=== PATIENT | female | born 1950 | race Caucasian/White ===

== ENCOUNTER 2017-04-12 13:15 | Inpatient (IN) ==
[2017-04-12 13:53] LABS: Immature Granulocytes % 0.5 % (0-4)
[2017-04-12 13:54] LABS: Basophils # 0.1 K/mcL (0.0-0.2); Basophils % 0.7 %; Eosinophils # 0.2 K/mcL (0.0-0.6); Eosinophils % 2.3 %; Hematocrit 27.6 % (35.3-44.9); Lymphocytes % 10.3 %; Mean Corpuscular Hemoglobin 19.4 pg (28.0-33.3); Mean Corpuscular Volume 77.7 fL (83.0-100.0); Mean Platelet Volume 9.5 fL (9.4-12.4); Monocytes # 0.6 K/mcL (0.0-1.3); Monocytes % 6.4 %; Neutrophils # 7.5 K/mcL (1.6-8.9); Platelet Count 288 K/mcL (140-400); Red Blood Count 3.55 M/mcL (3.82-4.97); Red Cell Distribution Width 19.4 % (11.5-14.5); Segmented Neutrophils % 79.8 %
[2017-04-12 13:55] LABS: Hemoglobin 6.9 g/dL (11.5-15.4); INR 1.2; Prothrombin Time 13.4 Seconds (9.4-12.1)
[2017-04-12 13:58] LABS: Activated Partial Thrombo Time 29.7 Seconds (26.0-36.0)
[2017-04-12 14:04] LABS: BUN/Creatinine Ratio 17 (6-26); Blood Urea Nitrogen 14 mg/dL (7-20); Calcium 8.9 mg/dL (8.6-10.8); Carbon Dioxide 26 mEq/L (19-29); Chloride 99 mEq/L (98-109); Glucose 174 mg/dL (70-99); Osmolality,Calculated 283 (280-300); Potassium 4.2 mEq/L (3.5-4.5); Sodium 134 mEq/L (136-145); eGFR For African Americans > 60 (> 60); eGFR For Non-African Americans > 60 (> 60)
[2017-04-12 14:23] LABS: Anisocytosis 1+ (Not Present); Polychromasia 1+ (Not Present)
[2017-04-12 14:24] LABS: Hypochromasia Present (Not Present); Microcytosis Present (Not Present); Platelet Estimate Normal (Normal)
--- NOTE | 2017-04-12 16:58 | Emergency Department Note ---
Disposition Clinical Impression: Anemia, Generalized weakness, Dyspnea Disposition: Admitted As Inpatient SOB HPI - General Chief Complaint: ED Shortness of Breath/Dyspnea Stated Complaint: ANIBAL Time Seen by Provider: 04/12/17 13:39 Source: patient, EMS Limitations: no limitations, age Vital Signs Reviewed: Yes - History of Present Illness Pt Subjective Complaint: shortness of breath Onset (ago): month(s) (2) Context: occurred during exertion Severity: moderate Consistency/Duration: intermittent, gradually worsening Improves with: rest Worsens with: exertion Known history of: COPD Associated symptoms: Denies: wheezing, nausea/vomiting, syncope Treatment prior to arrival: none Cough present: No - Related Data Home Medications Medication Instructions Recorded Confirmed Acetaminophen [Tylenol Arthritis] 1,300 mg PO Q8H PRN 04/12/17 04/12/17 Cetirizine HCl [Zyrtec] 10 mg PO DAILY PRN 04/12/17 04/12/17 Citalopram [CeleXA] 20 mg PO DAILY 04/12/17 04/12/17 Diclofenac Sodium [Voltaren] 75 mg PO BID 04/12/17 04/12/17 Esomeprazole Magnesium [Nexium] 40 mg PO DAILY 04/12/17 04/12/17 Fluticasone Propionate Nasal 50 mcg NS DAILY PRN 04/12/17 04/12/17 [Flonase] Gabapentin [Neurontin] 300 mg PO HS 04/12/17 04/12/17 GuaiFENesin/Dextromethorphan 1 each PO BID PRN 04/12/17 04/12/17 [Mucinex DM] HYDROcodone/Acet 5/325 mg [Emma 1 tab PO Q6H PRN 04/12/17 04/12/17 5-325 mg] Insulin Glargine,Hum.rec.anlog 40 unit SQ HS 04/12/17 04/12/17 [Lantus Solostar] Loperamide HCl [Imodium A-D] 2 mg PO PER PKG DI PRN 04/12/17 04/12/17 Losartan Potassium [Cozaar] 50 mg PO DAILY 04/12/17 04/12/17 Magnesium 250 mg PO DAILY 04/12/17 04/12/17 Multivitamin [Multi-Day Vitamins] 1 each PO DAILY 04/12/17 04/12/17 NIFEdipine [Nifedipine ER] 60 mg PO DAILY 04/12/17 04/12/17 Pioglitazone [Actos] 45 mg PO 0800 04/12/17 04/12/17 Venlafaxine XR (24 HR) [Effexor XR] 300 mg PO QAM 04/12/17 04/12/17 Vitamin B Complex 1 each PO DAILY 04/12/17 04/12/17 metFORMIN [Glucophage] 500 mg PO TIDWM 04/12/17 04/12/17 Allergies Allergy/AdvReac Type Severity Reaction Status Date / Time Penicillins AdvReac Gastrointestinal Verified 04/12/17 14:05 Upset shellfish derived AdvReac Headache Verified 04/12/17 14:05 Tetracyclines AdvReac Rash Verified 04/12/17 14:05 All systems ED: reviewed and negative except as stated. Constitutional: Reports: weakness Gastrointestinal: Denies: abdominal pain, nausea, vomiting, hematemesis, melena , hematochezia Past Medical History - Past Medical History Source: patient, old records reviewed, nursing notes reviewed Medical history: Reports: diabetes, hypertension Psychiatric history: Reports: no psych history - Social History Smoking Status: Never smoker Smokeless Tobacco Status: No Alcohol use: Reports: none Drug use: Reports: none Physical Exam - General Limitations: no limitations General appearance: alert - Head Head exam: atraumatic, normocephalic, normal inspection - Eye Eye exam: Present: normal appearance, PERRL, EOMI - Expanded Eye Exam Pupils: Left: reactive - ENT ENT exam: normal exam, normal oropharynx, mucous membranes moist - Expanded ENT Exam External ear exam: Present: normal external inspection Mouth exam: Present: normal external inspection Teeth exam: Present: normal inspection Throat exam: Present: normal inspection - Neck Neck exam: Present: normal inspection, full ROM, trachea midline - Chest Chest inspection: Present: normal inspection, symmetric chest wall rise - Respiratory Respiratory exam: Present: normal lung sounds bilaterally - Cardiovascular Cardiovascular exam: Present: regular rate, normal rhythm, normal heart sounds - Abdominal Exam Abdominal exam: Present: soft, Non-Tender. Absent: tenderness, distention, guarding, rebound, rigidity - Extremities Exam Extremities exam: Present: normal inspection, full ROM. Absent: tenderness, pedal edema - Expanded Upper Extremity Exam Shoulder exam: Present: normal inspection, full ROM Arm exam: Present: normal inspection, full ROM Elbow exam: Present: normal inspection, full ROM Forearm/Wrist exam: Present: normal inspection, full ROM Hand exam: Present: normal inspection, full ROM Vascular exam: Normal: capillary refill, radial pulse - Expanded Lower Extremity Exam Hip/Pelvis exam: Present: normal inspection, full ROM Upper leg exam: Present: normal inspection, full ROM Knee exam: Present: normal inspection, full ROM Lower leg exam: Present: normal inspection, full ROM Ankle exam: Present: normal inspection, full ROM Foot/toe exam: Present: normal inspection, full ROM Neurovascular/Tendon exam: Absent: motor deficit, sensory deficit, tendon deficit - Back Exam Back exam: Present: normal inspection, full ROM. Absent: tenderness - Neurological Exam Neurological exam: Present: alert, oriented X3 - Expanded Neurological Exam Patient oriented to: Present: person, place, time Coma Scale Eye Opening: Spontaneous Coma Scale Motor Response: Obeys Commands Coma Scale Verbal Response: Oriented Coma Scale Total: 15 - Psychiatric Psychiatric exam: Present: normal affect, normal mood - Skin Skin exam: Present: warm, dry, intact, normal color Course - Consultations Consultation #1: dr. bañuelos rec 40mg more of lasix and change to step down unit Time: 20:46 Vital Signs O2 Sat by Pulse Oximetry 94 04/12/17 13:18 Temperature 98.4 F 04/12/17 20:18 Pulse Rate 95 04/12/17 20:18 Respiratory Rate 22 04/12/17 20:18 Blood Pressure 163/67 04/12/17 20:18 O2 Sat by Pulse Oximetry 85 04/12/17 20:18 Oxygen Delivery Oxygen Delivery Nasal Cannula Shortness of Breath/Dyspnea - Differential Diagnosis Likely: congestive heart failure, pneumonia, asthma with exacerbation, pulmonary embolism, arrhythmia - Medical Records Medical records reviewed: Yes I reviewed the patient's medical records. - Lab Data Lab results reviewed: Yes I reviewed the patient's lab results. Result diagrams: 04/12/17 13:43 04/12/17 13:43 Lab Results 04/12/17 04/12/17 04/12/17 Range/Units 13:43 13:43 13:43 WBC 9.4 (4.3-11.1) K/mcL RBC 3.55 L (3.82-4.97) M/mcL Hgb 6.9 L (11.5-15.4) g/dL Hct 27.6 L (35.3-44.9) % MCV 77.7 L (83.0-100.0) fL MCH 19.4 L (28.0-33.3) pg MCHC 25.0 L (31.6-35.5) g/dL RDW 19.4 H (11.5-14.5) % Plt Count 288 (140-400) K/mcL MPV 9.5 (9.4-12.4) fL Immature Gran % 0.5 (0-4) % Seg Neutrophils % 79.8 % Lymphocytes % 10.3 % Monocytes % 6.4 % Eosinophils % 2.3 % Basophils % 0.7 % Neutrophils # 7.5 (1.6-8.9) K/mcL Lymphocytes # 1.0 (0.6-4.6) K/mcL Monocytes # 0.6 (0.0-1.3) K/mcL Eosinophils # 0.2 (0.0-0.6) K/mcL Basophils # 0.1 (0.0-0.2) K/mcL Platelet Estimate Normal (Normal) Polychromasia 1+ A (Not Present) Hypochromasia Present A (Not Present) Anisocytosis 1+ A (Not Present) Microcytosis Present A (Not Present) PT 13.4 H (9.4-12.1) Seconds INR 1.2 APTT 29.7 (26.0-36.0) Seconds Sodium 134 L (136-145) mEq/L Potassium 4.2 (3.5-4.5) mEq/L Chloride 99 (98-109) mEq/L Carbon Dioxide 26 (19-29) mEq/L BUN 14 (7-20) mg/dL Creatinine 0.81 (0.57-1.11) mg/dL Est GFR ( Amer) > 60 (> 60) Est GFR (Non-Af Amer) > 60 (> 60) BUN/Creatinine Ratio 17 (6-26) Glucose 174 H (70-99) mg/dL Calculated Osmolality 283 (280-300) Lactic Acid (0.5-2.2) mmol/L Calcium 8.9 (8.6-10.8) mg/dL Iron (50-170) mcg/dL % Saturation (15-50) % Transferrin (180-382) mg/dL Troponin I (0-0.03) ng/mL B-Natriuretic Peptide (0-100) pg/mL Stool Occult Blood (Negative) Blood Type Antibody Screen Crossmatch 04/12/17 04/12/17 04/12/17 Range/Units 13:43 13:43 13:43 WBC (4.3-11.1) K/mcL RBC (3.82-4.97) M/mcL Hgb (11.5-15.4) g/dL Hct (35.3-44.9) % MCV (83.0-100.0) fL MCH (28.0-33.3) pg MCHC (31.6-35.5) g/dL RDW (11.5-14.5) % Plt Count (140-400) K/mcL MPV (9.4-12.4) fL Immature Gran % (0-4) % Seg Neutrophils % % Lymphocytes % % Monocytes % % Eosinophils % % Basophils % % Neutrophils # (1.6-8.9) K/mcL Lymphocytes # (0.6-4.6) K/mcL Monocytes # (0.0-1.3) K/mcL Eosinophils # (0.0-0.6) K/mcL Basophils # (0.0-0.2) K/mcL Platelet Estimate (Normal) Polychromasia (Not Present) Hypochromasia (Not Present) Anisocytosis (Not Present) Microcytosis (Not Present) PT (9.4-12.1) Seconds INR APTT (26.0-36.0) Seconds Sodium (136-145) mEq/L Potassium (3.5-4.5) mEq/L Chloride (98-109) mEq/L Carbon Dioxide (19-29) mEq/L BUN (7-20) mg/dL Creatinine (0.57-1.11) mg/dL Est GFR ( Amer) (> 60) Est GFR (Non-Af Amer) (> 60) BUN/Creatinine Ratio (6-26) Glucose (70-99) mg/dL Calculated Osmolality (280-300) Lactic Acid 1.6 (0.5-2.2) mmol/L Calcium (8.6-10.8) mg/dL Iron (50-170) mcg/dL % Saturation (15-50) % Transferrin (180-382) mg/dL Troponin I 0.02 (0-0.03) ng/mL B-Natriuretic Peptide 31 (0-100) pg/mL Stool Occult Blood (Negative) Blood Type Antibody Screen Crossmatch 04/12/17 04/12/17 04/12/17 Range/Units 16:16 16:16 16:16 WBC (4.3-11.1) K/mcL RBC (3.82-4.97) M/mcL Hgb (11.5-15.4) g/dL Hct (35.3-44.9) % MCV (83.0-100.0) fL MCH (28.0-33.3) pg MCHC (31.6-35.5) g/dL RDW (11.5-14.5) % Plt Count (140-400) K/mcL MPV (9.4-12.4) fL Immature Gran % (0-4) % Seg Neutrophils % % Lymphocytes % % Monocytes % % Eosinophils % % Basophils % % Neutrophils # (1.6-8.9) K/mcL Lymphocytes # (0.6-4.6) K/mcL Monocytes # (0.0-1.3) K/mcL Eosinophils # (0.0-0.6) K/mcL Basophils # (0.0-0.2) K/mcL Platelet Estimate (Normal) Polychromasia (Not Present) Hypochromasia (Not Present) Anisocytosis (Not Present) Microcytosis (Not Present) PT (9.4-12.1) Seconds INR APTT (26.0-36.0) Seconds Sodium (136-145) mEq/L Potassium (3.5-4.5) mEq/L Chloride (98-109) mEq/L Carbon Dioxide (19-29) mEq/L BUN (7-20) mg/dL Creatinine (0.57-1.11) mg/dL Est GFR ( Amer) (> 60) Est GFR (Non-Af Amer) (> 60) BUN/Creatinine Ratio (6-26) Glucose (70-99) mg/dL Calculated Osmolality (280-300) Lactic Acid 0.9 (0.5-2.2) mmol/L Calcium (8.6-10.8) mg/dL Iron 31 L (50-170) mcg/dL % Saturation 7 L (15-50) % Transferrin 314 (180-382) mg/dL Troponin I (0-0.03) ng/mL B-Natriuretic Peptide (0-100) pg/mL Stool Occult Blood (Negative) Blood Type O POSITIVE Antibody Screen NEGATIVE Crossmatch See Detail 04/12/17 Range/Units 17:10 WBC (4.3-11.1) K/mcL RBC (3.82-4.97) M/mcL Hgb (11.5-15.4) g/dL Hct (35.3-44.9) % MCV (83.0-100.0) fL MCH (28.0-33.3) pg MCHC (31.6-35.5) g/dL RDW (11.5-14.5) % Plt Count (140-400) K/mcL MPV (9.4-12.4) fL Immature Gran % (0-4) % Seg Neutrophils % % Lymphocytes % % Monocytes % % Eosinophils % % Basophils % % Neutrophils # (1.6-8.9) K/mcL Lymphocytes # (0.6-4.6) K/mcL Monocytes # (0.0-1.3) K/mcL Eosinophils # (0.0-0.6) K/mcL Basophils # (0.0-0.2) K/mcL Platelet Estimate (Normal) Polychromasia (Not Present) Hypochromasia (Not Present) Anisocytosis (Not Present) Microcytosis (Not Present) PT (9.4-12.1) Seconds INR APTT (26.0-36.0) Seconds Sodium (136-145) mEq/L Potassium (3.5-4.5) mEq/L Chloride (98-109) mEq/L Carbon Dioxide (19-29) mEq/L BUN (7-20) mg/dL Creatinine (0.57-1.11) mg/dL Est GFR ( Amer) (> 60) Est GFR (Non-Af Amer) (> 60) BUN/Creatinine Ratio (6-26) Glucose (70-99) mg/dL Calculated Osmolality (280-300) Lactic Acid (0.5-2.2) mmol/L Calcium (8.6-10.8) mg/dL Iron (50-170) mcg/dL % Saturation (15-50) % Transferrin (180-382) mg/dL Troponin I (0-0.03) ng/mL B-Natriuretic Peptide (0-100) pg/mL Stool Occult Blood Negative (Negative) Blood Type Antibody Screen Crossmatch - Radiology Data Radiology results reviewed: Yes I reviewed the patient's radiology results. Critical Care Time Critical Care Time: Yes Total Critical Care Time: 45 Attestation: Critical care performed: Time is exclusive of separately billable procedures. Time includes: direct patient care, patient reassessment, coordination of patient care, interpretation of data (laboratory data, radiology data, and respiratory data), review of patient's medical records, medical consultation and documentation of patient care. Procedures included in critical care time: Procedures excluded from critical care time:
[2017-04-12] MEDS ORDERED: Pantoprazole 40 MG VIAL IVP ONE (17:14)
[2017-04-12 17:22] LABS: % Iron Saturation 7 % (15-50); Iron 31 mcg/dL (50-170); Transferrin 314 mg/dL (180-382)
[2017-04-12] MEDS ORDERED: 0.9 % Sodium Chloride 250 ML ONE ×2 (17:37→23:33)
[2017-04-12] MEDS ORDERED: Furosemide 40 MG/4 ML VIAL IVP ONE ×2 (19:26→20:44)
[2017-04-12] MEDS ORDERED: Ipratropium/Albuterol Neb 3 ML ONE (21:21)
[2017-04-12] MEDS ORDERED: Naloxone 0.4 MG/ML INJ IVP PRN (21:36)
[2017-04-12] MEDS ORDERED: Loratadine 10 MG TABLET PO PRN (21:39)
[2017-04-12] MEDS ORDERED: *HR* HYDROcodone/Acet 5/325 mg TABLET PO PRN (21:39)
[2017-04-12] MEDS ORDERED: D5% in Water 1,000 ML IVC PRN (22:25)
[2017-04-12] MEDS ORDERED: *HR* Dextrose 50 % in Water (Syg) 50 ML SYRINGE IVP PRN (22:25)
[2017-04-12] MEDS ORDERED: Dextrose Gel 15 GM PO PRN ×2 (22:25)
--- NOTE | 2017-04-12 22:35 | Internal Med History&Physical ---
Date of Encounter: 04/12/17 Time of Encounter: 22:27 Assessment and Plan (1) Congestive heart failure Current visit: Yes Status: Suspected Patient with increased shortness of breath, and swelling. Chest x-ray is severe perihilar airspace opacities representing pulmonary edema versus ARDS versus atypical infection, chest CT also showed multifocal opacities throughout both lungs suspicious for edema or pneumonia. Patient is afebrile, normal white blood cell count. BNP is 31, however patient is morbidly obese. Suspected congestive heart failure. 40 mg Lasix IV push twice a day Titrate oxygen to maintain saturation greater than 92% Echocardiogram in the morning Qualifiers: Congestive heart failure type: unspecified congestive heart failure type Congestive heart failure chronicity: acute Qualified Code(s): I50.9 - Heart failure, unspecified (2) Pulmonary edema Current visit: Yes Status: Acute Patient with significant shortness of breath, hypoxia, requiring 6 L of oxygen nasal cannula to maintain saturations. Chest x-ray consistent with pulmonary edema, chest CT consistent with pulmonary edema. Suspect secondary to acute congestive heart failure. Lasix 40 mg IV push twice a day Titrate oxygen to maintain saturation greater than 92% Respiratory therapy consulted for CPAP overnight. Qualifiers: Chronicity: acute Qualified Code(s): J81.0 - Acute pulmonary edema (3) Sleep apnea Current visit: Yes Status: Acute Patient reports she has a history of sleep apnea, however is not compliant with her CPAP. Respiratory therapy consult for CPAP. Qualifiers: Sleep apnea type: unspecified type Qualified Code(s): G47.30 - Sleep apnea , unspecified (4) Acute respiratory failure Current visit: Yes Status: Acute Patient with increasing shortness of breath. Requiring 6 L of oxygen by nasal cannula to maintain saturations. Patient does not normally wear oxygen at home. Likely secondary to acute congestive heart failure. Lasix for diuresis Titrate oxygen to maintain saturation greater than 92%. Qualifiers: Respiratory failure complication: hypoxia Qualified Code(s): J96.01 - Acute respiratory failure with hypoxia (5) Type 2 diabetes mellitus Current visit: Yes Status: Acute Check hemoglobin A1c. 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 Hemoglobin found to be 6.9. Suspect this is nutritional as patient has a history of bariatric surgery. Denies any black or bloody stools, coffee-ground or hematemesis. Denies any bleeding episodes. Hemoccult negative. 2 units of packed red blood cells ordered 20 mg Lasix IV push after each unit Check CBC with morning labs after second unit infused. Consider GI consult once pulmonary edema is resolved. Qualifiers: Anemia type: iron deficiency Iron deficiency anemia type: unspecified iron deficiency Qualified Code(s): D50.9 - Iron deficiency anemia, unspecified (7) DVT prophylaxis Current visit: Yes Status: Acute Antiembolic stockings Lovenox 40 mg subcutaneous daily Internal Medicine - H&P: HPI Chief complaint: shortness of breath Admitted From: Emergency Dept Plans for Post Hospital Care: Home History of present illness: Ms. Lamb is a 66 year old female with hypertension, diabetes, IBS, super morbid obesity, history of bariatric surgery, sleep apnea who presented to the emergency department today with complaints of increasing shortness of breath and weakness. Patient reports that she has been short of breath for several months but has been worse over the last several days. She also reports increased leg swelling. She has a chronic nonproductive cough, acid reflux, dizziness related to inner ear problem, numbness and tingling in her feet due to diabetic neuropathy. She denies any nausea or vomiting, denies any black, bloody, or tarry stools, denies any abdominal pain, chest pain, or palpitations. Evaluation in the emergency department revealed anemia with hemoglobin of 6.9. Chest x-ray showed severe perihilar airspace opacities may represent pulmonary edema versus ARDS versus atypical infection. Chest CT without contrast was obtained which showed multifocal opacities throughout both lungs suspicious for edema or pneumonia. BNP was normal at 31, however unreliable with obesity, troponin was normal at 0.02. 2 units of blood were ordered, patient was given a total of 60 of Lasix, she was satting in the low 90s on 6 L, she desatted after the unit of blood and was given more Lasix, saturations improved. On exam, patient is morbidly obese, with diffuse edema. Heart has regular rhythm, lungs sound diminished. Mildly tachypneic, but reports she is feeling better than earlier. Past Med Surg Social Fam HX - Past Medical History Medical history: arthritis, diabetes, GERD, hypertension, other (sleep apnea) Psychiatric history: no psych history - Past Surgical History Surgical History: appendectomy, sinus surgery, bariatric surgery - Social History Smoking Status: Never smoker Smokeless Tobacco Status: No Alcohol use: none Drug use: none - Family History Father Living Status: Age at : 60 Hx Family Cancer: Yes Hx Family Endocrine Disorder: Yes (diabetes) Mother Living Status: Hx Family Autoimmune Disorders: Yes (MS) Sister Hx Family Cancer: Yes Hx Family Autoimmune Disorders: Yes (Lupus) Internal Medicine - H&P: Meds Acetaminophen [Tylenol Arthritis] 1,300 mg PO Q8H PRN 04/12/17 [History] Cetirizine HCl [Zyrtec] 10 mg PO DAILY PRN 04/12/17 [History] Citalopram [CeleXA] 20 mg PO DAILY 04/12/17 [History] Diclofenac Sodium [Voltaren] 75 mg PO BID 04/12/17 [History] Esomeprazole Magnesium [Nexium] 40 mg PO DAILY 04/12/17 [History] Fluticasone Propionate Nasal [Flonase] 50 mcg NS DAILY PRN 04/12/17 [History] Gabapentin [Neurontin] 300 mg PO HS 04/12/17 [History] GuaiFENesin/Dextromethorphan [Mucinex DM] 1 each PO BID PRN 04/12/17 [History] HYDROcodone/Acet 5/325 mg [[place] 5-325 mg] 1 tab PO Q6H PRN 04/12/17 [History] Insulin Glargine,Hum.rec.anlog [Lantus Solostar] 40 unit SQ HS 04/12/17 [History ] Loperamide HCl [Imodium A-D] 2 mg PO PER PKG DI PRN 04/12/17 [History] Losartan Potassium [Cozaar] 50 mg PO DAILY 04/12/17 [History] Magnesium 250 mg PO DAILY 04/12/17 [History] Multivitamin [Multi-Day Vitamins] 1 each PO DAILY 04/12/17 [History] NIFEdipine [Nifedipine ER] 60 mg PO DAILY 04/12/17 [History] Pioglitazone [Actos] 45 mg PO 0800 04/12/17 [History] Venlafaxine XR (24 HR) [Effexor XR] 300 mg PO QAM 04/12/17 [History] Vitamin B Complex 1 each PO DAILY 04/12/17 [History] metFORMIN [Glucophage] 500 mg PO TIDWM 04/12/17 [History] Allergies Penicillins Adverse Reaction (Verified 04/12/17 14:05) Gastrointestinal Upset shellfish derived Adverse Reaction (Verified 04/12/17 14:05) Headache Tetracyclines Adverse Reaction (Verified 04/12/17 14:05) Rash All Systems PM: A 10-system review of systems was performed and is negative for pertinent findings except as documented above in the HPI. - Constitutional Constitutional: no chills, no fever(s), no night sweats - EENT Eyes: no change in vision, no discharge, no pain, no photophobia Ears: no ear discharge, no ear pain, no tinnitus Nose, mouth and throat: no dysphagia, no nasal discharge, no neck pain, no sore throat - Cardiovascular Cardiovascular ROS IM: dyspnea, dyspnea on exertion, edema, orthopnea, no chest pain, no diaphoresis, no lightheadedness, no palpitations, no syncope - Respiratory Respiratory: cough, dyspnea, dyspnea on exertion, no wheezing, no excessive phlegm production - Gastrointestinal Gastrointestinal: heartburn, no abdominal pain, no diarrhea, no hematemesis, no hematochezia, no melena, no nausea, no vomiting - Genitourinary Genitourinary: no change in urinary stream, no dysuria, no flank pain, no hematuria - Musculoskeletal Musculoskeletal ROS IM: numbness (chronic BLE), tingling - Integumentary Integumentary IM: no rash, no unusual bruising - Neurological Neurological ROS: no confusion, no convulsions, no focal weakness, no numbness, no tingling, no tremor(s) - Hematologic/Lymphatic Hematologic/Lymphatic: no easy bruising - Constitutional Vitals: Temp Pulse Resp BP Pulse Ox 97.8 F 97 23 153/63 90 04/12/17 21:53 04/12/17 21:53 04/12/17 21:53 04/12/17 21:53 04/12/17 21:53 General appearance: Present: A&O X 3, morbidly obese - Head Head exam: Present: atraumatic, normocephalic - Eye Eye exam: Present: PERRL, conjuntiva pink, sclera anicteric Pupils: Present: PERRL - Neck Neck exam general surgery: Present: supple, trachea midline. Absent: lymphadenopathy - Respiratory Respiratory exam: Present: accessory muscle use, decreased breath sounds, tachypnea. Absent: rales, rhonchi, wheezes - Cardiovascular Cardiovascular exam: Present: RRR, +S1, +S2. Absent: diastolic murmur, gallop, rubs, systolic murmur - GI/Abdominal GI/Abdominal exam: Present: normal bowel sounds, soft, no peritoneal signs. Absent: distended, tenderness - Extremities Exam Extremities exam: Present: pedal edema (diffuse), warm, radial pulses palpable and symetrical. Absent: calf tenderness, cyanotic - Neurological Exam Neurological exam: Present: CN II-XII intact, oriented X3, no focal deficits. Absent: facial droop, speech deficit - Skin Skin exam: Present: dry, intact Internal Med - H&P Results - Labs CBC & Chem 7: 04/12/17 13:43 04/12/17 13:43 Labs: All Lab Results (24 Hours) 04/12/17 04/12/17 04/12/17 Range/Units 13:43 13:43 13:43 WBC 9.4 (4.3-11.1) K/mcL RBC 3.55 L (3.82-4.97) M/mcL Hgb 6.9 L (11.5-15.4) g/dL Hct 27.6 L (35.3-44.9) % MCV 77.7 L (83.0-100.0) fL MCH 19.4 L (28.0-33.3) pg MCHC 25.0 L (31.6-35.5) g/dL RDW 19.4 H (11.5-14.5) % Plt Count 288 (140-400) K/mcL MPV 9.5 (9.4-12.4) fL Immature Gran % 0.5 (0-4) % Seg Neutrophils % 79.8 % Lymphocytes % 10.3 % Monocytes % 6.4 % Eosinophils % 2.3 % Basophils % 0.7 % Neutrophils # 7.5 (1.6-8.9) K/mcL Lymphocytes # 1.0 (0.6-4.6) K/mcL Monocytes # 0.6 (0.0-1.3) K/mcL Eosinophils # 0.2 (0.0-0.6) K/mcL Basophils # 0.1 (0.0-0.2) K/mcL Platelet Estimate Normal (Normal) Polychromasia 1+ A (Not Present) Hypochromasia Present A (Not Present) Anisocytosis 1+ A (Not Present) Microcytosis Present A (Not Present) PT 13.4 H (9.4-12.1) Seconds INR 1.2 APTT 29.7 (26.0-36.0) Seconds Sodium 134 L (136-145) mEq/L Potassium 4.2 (3.5-4.5) mEq/L Chloride 99 (98-109) mEq/L Carbon Dioxide 26 (19-29) mEq/L BUN 14 (7-20) mg/dL Creatinine 0.81 (0.57-1.11) mg/dL Est GFR ( Amer) > 60 (> 60) Est GFR (Non-Af Amer) > 60 (> 60) BUN/Creatinine Ratio 17 (6-26) Glucose 174 H (70-99) mg/dL Calculated Osmolality 283 (280-300) Lactic Acid (0.5-2.2) mmol/L Calcium 8.9 (8.6-10.8) mg/dL Iron (50-170) mcg/dL % Saturation (15-50) % Transferrin (180-382) mg/dL Troponin I (0-0.03) ng/mL B-Natriuretic Peptide (0-100) pg/mL Stool Occult Blood (Negative) Blood Type Antibody Screen Crossmatch 04/12/17 04/12/17 04/12/17 Range/Units 13:43 13:43 13:43 WBC (4.3-11.1) K/mcL RBC (3.82-4.97) M/mcL Hgb (11.5-15.4) g/dL Hct (35.3-44.9) % MCV (83.0-100.0) fL MCH (28.0-33.3) pg MCHC (31.6-35.5) g/dL RDW (11.5-14.5) % Plt Count (140-400) K/mcL MPV (9.4-12.4) fL Immature Gran % (0-4) % Seg Neutrophils % % Lymphocytes % % Monocytes % % Eosinophils % % Basophils % % Neutrophils # (1.6-8.9) K/mcL Lymphocytes # (0.6-4.6) K/mcL Monocytes # (0.0-1.3) K/mcL Eosinophils # (0.0-0.6) K/mcL Basophils # (0.0-0.2) K/mcL Platelet Estimate (Normal) Polychromasia (Not Present) Hypochromasia (Not Present) Anisocytosis (Not Present) Microcytosis (Not Present) PT (9.4-12.1) Seconds INR APTT (26.0-36.0) Seconds Sodium (136-145) mEq/L Potassium (3.5-4.5) mEq/L Chloride (98-109) mEq/L Carbon Dioxide (19-29) mEq/L BUN (7-20) mg/dL Creatinine (0.57-1.11) mg/dL Est GFR ( Amer) (> 60) Est GFR (Non-Af Amer) (> 60) BUN/Creatinine Ratio (6-26) Glucose (70-99) mg/dL Calculated Osmolality (280-300) Lactic Acid 1.6 (0.5-2.2) mmol/L Calcium (8.6-10.8) mg/dL Iron (50-170) mcg/dL % Saturation (15-50) % Transferrin (180-382) mg/dL Troponin I 0.02 (0-0.03) ng/mL B-Natriuretic Peptide 31 (0-100) pg/mL Stool Occult Blood (Negative) Blood Type Antibody Screen Crossmatch 04/12/17 04/12/17 04/12/17 Range/Units 16:16 16:16 16:16 WBC (4.3-11.1) K/mcL RBC (3.82-4.97) M/mcL Hgb (11.5-15.4) g/dL Hct (35.3-44.9) % MCV (83.0-100.0) fL MCH (28.0-33.3) pg MCHC (31.6-35.5) g/dL RDW (11.5-14.5) % Plt Count (140-400) K/mcL MPV (9.4-12.4) fL Immature Gran % (0-4) % Seg Neutrophils % % Lymphocytes % % Monocytes % % Eosinophils % % Basophils % % Neutrophils # (1.6-8.9) K/mcL Lymphocytes # (0.6-4.6) K/mcL Monocytes # (0.0-1.3) K/mcL Eosinophils # (0.0-0.6) K/mcL Basophils # (0.0-0.2) K/mcL Platelet Estimate (Normal) Polychromasia (Not Present) Hypochromasia (Not Present) Anisocytosis (Not Present) Microcytosis (Not Present) PT (9.4-12.1) Seconds INR APTT (26.0-36.0) Seconds Sodium (136-145) mEq/L Potassium (3.5-4.5) mEq/L Chloride (98-109) mEq/L Carbon Dioxide (19-29) mEq/L BUN (7-20) mg/dL Creatinine (0.57-1.11) mg/dL Est GFR ( Amer) (> 60) Est GFR (Non-Af Amer) (> 60) BUN/Creatinine Ratio (6-26) Glucose (70-99) mg/dL Calculated Osmolality (280-300) Lactic Acid 0.9 (0.5-2.2) mmol/L Calcium (8.6-10.8) mg/dL Iron 31 L (50-170) mcg/dL % Saturation 7 L (15-50) % Transferrin 314 (180-382) mg/dL Troponin I (0-0.03) ng/mL B-Natriuretic Peptide (0-100) pg/mL Stool Occult Blood (Negative) Blood Type O POSITIVE Antibody Screen NEGATIVE Crossmatch See Detail 04/12/17 Range/Units 17:10 WBC (4.3-11.1) K/mcL RBC (3.82-4.97) M/mcL Hgb (11.5-15.4) g/dL Hct (35.3-44.9) % MCV (83.0-100.0) fL MCH (28.0-33.3) pg MCHC (31.6-35.5) g/dL RDW (11.5-14.5) % Plt Count (140-400) K/mcL MPV (9.4-12.4) fL Immature Gran % (0-4) % Seg Neutrophils % % Lymphocytes % % Monocytes % % Eosinophils % % Basophils % % Neutrophils # (1.6-8.9) K/mcL Lymphocytes # (0.6-4.6) K/mcL Monocytes # (0.0-1.3) K/mcL Eosinophils # (0.0-0.6) K/mcL Basophils # (0.0-0.2) K/mcL Platelet Estimate (Normal) Polychromasia (Not Present) Hypochromasia (Not Present) Anisocytosis (Not Present) Microcytosis (Not Present) PT (9.4-12.1) Seconds INR APTT (26.0-36.0) Seconds Sodium (136-145) mEq/L Potassium (3.5-4.5) mEq/L Chloride (98-109) mEq/L Carbon Dioxide (19-29) mEq/L BUN (7-20) mg/dL Creatinine (0.57-1.11) mg/dL Est GFR ( Amer) (> 60) Est GFR (Non-Af Amer) (> 60) BUN/Creatinine Ratio (6-26) Glucose (70-99) mg/dL Calculated Osmolality (280-300) Lactic Acid (0.5-2.2) mmol/L Calcium (8.6-10.8) mg/dL Iron (50-170) mcg/dL % Saturation (15-50) % Transferrin (180-382) mg/dL Troponin I (0-0.03) ng/mL B-Natriuretic Peptide (0-100) pg/mL Stool Occult Blood Negative (Negative) Blood Type Antibody Screen Crossmatch - Diagnostic Studies Chest x-ray Additional comments: Chest X-Ray 04/12/17 13:18 IMPRESSION: Severe perihilar airspace opacities may represent pulmonary edema or ARDS. Atypical infectious etiologies may also be considered clinically. D/ / Kvng Umana MD / Kvng Umana MD Interpreting Provider: Kvng Umana MD CT scan - chest Additional comments: Chest CT 04/12/17 18:21 IMPRESSION: 1. Multifocal opacities throughout both lungs suspicious for pneumonia or edema. Moderate bilateral pleural effusion and partial atelectasis of the lower lobes. 2. Markedly enlarged thyroid gland. 3. Cholelithiasis. D/ / 04/12/2017 19:24:11 Fabián Mcmahan MD / marco Interpreting Provider: Fabián Mcmahan MD
[2017-04-12 23:01] LABS: Hemoglobin A1C 6.2 %
[2017-04-12] MEDS: Insulin LISPRO 300 UNITS/3 ML VIAL SQ SCH (23:44)
[2017-04-13] MEDS ORDERED: Furosemide 40 MG/4 ML VIAL IVP ONE (01:11)
[2017-04-13] MEDS ORDERED: Levalbuterol Neb 1.25 MG/3 ML IH ONE (01:12)
[2017-04-13 05:39] LABS: Eosinophils % 2.1 %; Hemoglobin 8.4 g/dL (11.5-15.4)
[2017-04-13 05:40] LABS: Basophils # 0.1 K/mcL (0.0-0.2); Basophils % 0.9 %; Eosinophils # 0.2 K/mcL (0.0-0.6); Hematocrit 31.7 % (35.3-44.9); Immature Granulocytes % 0.4 % (0-4); Lymphocytes # 1.2 K/mcL (0.6-4.6); Lymphocytes % 14.4 %; Mean Corpuscular HGB Conc 26.5 g/dL (31.6-35.5); Mean Corpuscular Hemoglobin 20.4 pg (28.0-33.3); Mean Corpuscular Volume 77.1 fL (83.0-100.0); Mean Platelet Volume 10.6 fL (9.4-12.4); Monocytes # 0.7 K/mcL (0.0-1.3); Monocytes % 8.7 %; Neutrophils # 6.3 K/mcL (1.6-8.9); Nucleated Red Blood Cells 0.6 /100 WBC (0); Platelet Count 306 K/mcL (140-400); Red Blood Count 4.11 M/mcL (3.82-4.97); Red Cell Distribution Width 18.3 % (11.5-14.5); Segmented Neutrophils % 73.5 %
[2017-04-13 05:49] LABS: BUN/Creatinine Ratio 16 (6-26); Blood Urea Nitrogen 12 mg/dL (7-20); Calcium 9.1 mg/dL (8.6-10.8); Carbon Dioxide 31 mEq/L (19-29); Chloride 98 mEq/L (98-109); Glucose 145 mg/dL (70-99); Osmolality,Calculated 288 (280-300); Potassium 3.7 mEq/L (3.5-4.5); Sodium 138 mEq/L (136-145); eGFR For African Americans > 60 (> 60); eGFR For Non-African Americans > 60 (> 60)
[2017-04-13] MEDS ORDERED: Pantoprazole 40 MG VIAL IVP SCH (06:00)
--- NOTE | 2017-04-13 06:08 | Electrocardiograph Report ---
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
[2017-04-13 06:24] LABS: Anisocytosis 1+ (Not Present); Hypochromasia Present (Not Present); Platelet Estimate Normal (Normal); Polychromasia 1+ (Not Present); Tear Drop Cells 1+ (Not Present)
[2017-04-13] MEDS: Furosemide 40 MG/4 ML VIAL IVP SCH ×2 (08:29→16:35)
[2017-04-13] MEDS: NIFEdipine XL (24 HR) 60 MG TAB.ER.24 PO SCH (08:29)
[2017-04-13] MEDS: Insulin LISPRO 300 UNITS/3 ML VIAL SQ SCH ×4 (08:29→21:41)
[2017-04-13] MEDS: Venlafaxine XR (24 HR) 150 MG CAP.ER.24H PO SCH (08:30)
[2017-04-13] MEDS: Magnesium Oxide 400 MG TABLET PO SCH (08:30)
[2017-04-13] MEDS ORDERED: Furosemide 40 MG/4 ML VIAL IVP SCH (09:00)
--- NOTE | 2017-04-13 09:02 | Internal Med Progress Note ---
Date of Encounter: 04/13/17 Time of Encounter: 09:00 - Assessment and plan (1) Pulmonary embolism Current Visit: Yes Status: Acute Assessment and plan: Patient presents with acute hypoxic respiratory failure and dyspnea. CT chest without contrast done in the emergency room showed bilateral opacities suggestive of pulmonary edema. Patient has been started on IV Lasix but continues to have symptoms and hypoxia. She does have risk factors for VTE due to sedentary lifestyle and morbid obesity. D-dimer was noted to be elevated. CT angiogram of chest was done which showed left lower segmental acute pulmonary embolism. Will start on IV heparin drip at this time with goal to transition to oral anticoagulation. Continue supplemental oxygen and supportive care. Will check Venous Doppler of lower extremities; Qualifiers: Pulmonary embolism type: other Chronicity: acute Acute cor pulmonale presence: without acute cor pulmonale Qualified Code(s): I26.99 - Other pulmonary embolism without acute cor pulmonale (2) Acute respiratory failure Current Visit: Yes Status: Acute Assessment and plan: Due to acute pulmonary embolism and pulmonary edema. Plan as above. Qualifiers: Respiratory failure complication: hypoxia Qualified Code(s): J96.01 - Acute respiratory failure with hypoxia (3) Anemia Current Visit: Yes Status: Acute Assessment and plan: Unknown baseline hemoglobin. Microcytic anemia. Patient does have history of bariatric surgery. Iron profile shows low iron stores with high transferrin. Hemoglobin improved to 8.4 after 2 units PRBC transfusion. Stool occult blood is negative. Patient has no signs or symptoms of overt GI bleed. Will continue to monitor for now. High risk for worsening anemia due to current anticoagulation but at this time, benefits of anticoagulation outweigh risks of anemia. Qualifiers: Anemia type: iron deficiency Iron deficiency anemia type: unspecified iron deficiency Qualified Code(s): D50.9 - Iron deficiency anemia, unspecified (4) Dyspnea Current Visit: Yes Status: Acute Qualifiers: Dyspnea type: shortness of breath Qualified Code(s): R06.02 - Shortness of breath (5) Pulmonary edema Current Visit: Yes Status: Acute Assessment and plan: Continue IV Lasix for now. Follow-up echocardiogram to rule out cor pulmonale due to acute pulmonary embolism. Supplemental oxygen. Low suspicion for infection. Qualifiers: Chronicity: acute Qualified Code(s): J81.0 - Acute pulmonary edema (6) Morbid obesity Current Visit: Yes Status: Chronic Qualifiers: Obesity type: due to excess calories Qualified Code(s): E66.01 - Morbid ( severe) obesity due to excess calories (7) Type 2 diabetes mellitus Current Visit: Yes Status: Chronic Assessment and plan: Accu-Chek blood glucose monitoring with basal bolus insulin. Check hemoglobin A1c. Diabetic diet. 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 no recent fever, chills, productive cough, does report worsening dyspnea both at rest and minimal exertion, no chest pain; - Constitutional Vitals: Temp Pulse Resp BP Pulse Ox 98.1 F 101 18 147/85 91 04/13/17 07:02 04/13/17 07:02 04/13/17 07:02 04/13/17 07:02 04/13/17 07:02 General appearance: Present: A&O X 3, morbidly obese, answers questions appropriately - Respiratory Respiratory exam: Present: CTAB. Absent: accessory muscle use, rales, rhonchi, wheezes - Cardiovascular Cardiovascular exam: Present: RRR, +S1, +S2. Absent: diastolic murmur, gallop, rubs, systolic murmur - GI/Abdominal GI/Abdominal exam: Present: normal bowel sounds, soft, no peritoneal signs. Absent: distended, tenderness - Extremities Exam Extremities exam: Present: full ROM, pedal edema (chronic nonpitting pedal edema with very obese extremities), warm, radial pulses palpable and symetrical. Absent: calf tenderness, cyanotic - Skin Skin exam: Present: dry, intact Internal Medicine: Result - Labs CBC & Chem 7: 04/13/17 10:52 04/13/17 05:00 Labs: Short CBC 04/13/17 Range/Units 05:00 WBC 8.5 (4.3-11.1) K/mcL Hgb 8.4 L D (11.5-15.4) g/dL Hct 31.7 L (35.3-44.9) % Plt Count 306 (140-400) K/mcL Neutrophils # 6.3 (1.6-8.9) K/mcL BMP 04/13/17 05:00 Sodium 138 Potassium 3.7 Chloride 98 Carbon Dioxide 31 H BUN 12 Creatinine 0.75 Glucose 145 H Calcium 9.1 - ABG Interpretation ABG results: PT/INR, D-dimer PT 13.4 Seconds (9.4-12.1) H 04/12/17 13:43 D-Dimer 1146 ng/mLFEU (0-500) H 04/13/17 08:13 Consult Discharge Plan - Plan Referrals: NO,PCP [Primary Care Provider] -
[2017-04-13] MEDS ORDERED: *HR* Heparin 5,000 UNIT/ML VIAL IVP PRN ×2 (10:20)
[2017-04-13] MEDS ORDERED: *HR* Heparin 5,000 UNIT/ML VIAL IVP ONE (10:20)
[2017-04-13 11:01] LABS: Hemoglobin 8.3 g/dL (11.5-15.4)
[2017-04-13 11:02] LABS: Hematocrit 30.8 % (35.3-44.9); Mean Corpuscular HGB Conc 26.9 g/dL (31.6-35.5); Mean Corpuscular Hemoglobin 20.9 pg (28.0-33.3); Mean Corpuscular Volume 77.6 fL (83.0-100.0); Mean Platelet Volume 10.2 fL (9.4-12.4); Platelet Count 271 K/mcL (140-400); Red Blood Count 3.97 M/mcL (3.82-4.97); Red Cell Distribution Width 18.6 % (11.5-14.5)
[2017-04-13 11:05] LABS: INR 1.3; Prothrombin Time 14.5 Seconds (9.4-12.1)
[2017-04-13 11:07] LABS: Activated Partial Thrombo Time 27.1 Seconds (26.0-36.0)
[2017-04-13] MEDS: Heparin 25,000 UNIT/500 ML D5W 25,000 UNIT/500 ML MLS IVC SCH ×2 (11:50→22:38)
[2017-04-13] MEDS: Acetaminophen 325 MG TABLET PO PRN (16:35)
[2017-04-13] MEDS ORDERED: Insulin DETEMIR 100 UNIT/ML X5UNITS SQ SCH (21:00)
[2017-04-13] MEDS: Gabapentin 300 MG CAPSULE PO SCH (21:40)
[2017-04-13] MEDS: *HR* HYDROcodone/Acet 5/325 mg TABLET PO PRN (22:23)
[2017-04-14] MEDS: Fluticasone Propionate Nasal 50 MCG/SPRAY BOTTLE NS SCH ×3 (00:52→21:10)
[2017-04-14 01:34] LABS: Basophils % 0.9 %; Hemoglobin 8.5 g/dL (11.5-15.4); Red Cell Distribution Width 18.9 % (11.5-14.5)
[2017-04-14 01:36] LABS: Basophils # 0.1 K/mcL (0.0-0.2); Eosinophils # 0.3 K/mcL (0.0-0.6); Eosinophils % 2.7 %; Hematocrit 31.1 % (35.3-44.9); Immature Granulocytes % 0.2 % (0-4); Lymphocytes # 2.1 K/mcL (0.6-4.6); Lymphocytes % 21.4 %; Mean Corpuscular HGB Conc 27.3 g/dL (31.6-35.5); Mean Corpuscular Hemoglobin 21.2 pg (28.0-33.3); Mean Corpuscular Volume 77.6 fL (83.0-100.0); Mean Platelet Volume 10.8 fL (9.4-12.4); Monocytes # 0.8 K/mcL (0.0-1.3); Monocytes % 8.6 %; Neutrophils # 6.5 K/mcL (1.6-8.9); Nucleated Red Blood Cells 0.3 /100 WBC (0); Platelet Count 301 K/mcL (140-400); Red Blood Count 4.01 M/mcL (3.82-4.97); Segmented Neutrophils % 66.2 %
[2017-04-14 01:46] LABS: BUN/Creatinine Ratio 15 (6-26); Blood Urea Nitrogen 11 mg/dL (7-20); Carbon Dioxide 30 mEq/L (19-29); Chloride 95 mEq/L (98-109); Glucose 205 mg/dL (70-99); Osmolality,Calculated 285 (280-300); Potassium 3.6 mEq/L (3.5-4.5); Sodium 135 mEq/L (136-145); eGFR For African Americans > 60 (> 60); eGFR For Non-African Americans > 60 (> 60)
[2017-04-14 01:53] LABS: Activated Partial Thrombo Time 134.6 Seconds (26.0-36.0)
[2017-04-14] MEDS ORDERED: Mag Hydrox/Al Hydrox/Simeth 30 ML UDC PO PRN (02:16)
[2017-04-14 02:21] LABS: Anisocytosis 1+ (Not Present); Large Platelets Present (Not Present); Platelet Estimate Normal (Normal)
[2017-04-14 02:22] LABS: Hypochromasia Present (Not Present); Poikilocytosis 1+ (Not Present); Polychromasia 1+ (Not Present)
[2017-04-14] MEDS: Insulin LISPRO 300 UNITS/3 ML VIAL SQ SCH ×4 (08:19→21:11)
[2017-04-14] MEDS: Insulin DETEMIR 100 UNIT/ML X5UNITS SQ SCH ×2 (08:20→21:10)
[2017-04-14] MEDS: Magnesium Oxide 400 MG TABLET PO SCH (08:20)
[2017-04-14] MEDS: NIFEdipine XL (24 HR) 60 MG TAB.ER.24 PO SCH (08:20)
[2017-04-14] MEDS: Furosemide 40 MG/4 ML VIAL IVP SCH ×2 (08:20→16:51)
[2017-04-14] MEDS: Venlafaxine XR (24 HR) 150 MG CAP.ER.24H PO SCH (08:20)
[2017-04-14] MEDS: *HR* HYDROcodone/Acet 5/325 mg TABLET PO PRN ×2 (10:12→21:09)
--- NOTE | 2017-04-14 12:08 | Internal Med Progress Note ---
Date of Encounter: 04/14/17 Time of Encounter: 12:06 - Assessment and plan (1) Pulmonary embolism Current Visit: Yes Status: Acute Assessment and plan: Patient presents with acute hypoxic respiratory failure and dyspnea. CT angiogram of chest was done which showed left lower segmental acute pulmonary embolism. Risk factors of morbid obesity, sedentary lifestyle, recent fall. Has been receiving anticoagulation with IV heparin. We will hold this and start subcutaneous Lovenox and oral Coumadin at this time. Plan to discharge patient on NOAC, bradley check pending. Continue supplemental oxygen and supportive care. Venous Doppler of lower extremities noted to be negative for DVT; Physical and occupational therapy evaluation pending. Qualifiers: Pulmonary embolism type: other Chronicity: acute Acute cor pulmonale presence: without acute cor pulmonale Qualified Code(s): I26.99 - Other pulmonary embolism without acute cor pulmonale (2) Acute respiratory failure Current Visit: Yes Status: Acute Assessment and plan: Due to acute pulmonary embolism and pulmonary edema. Plan as above. Patient will need home oxygen evaluation prior to discharge. Qualifiers: Respiratory failure complication: hypoxia Qualified Code(s): J96.01 - Acute respiratory failure with hypoxia (3) Anemia Current Visit: Yes Status: Acute Assessment and plan: Unknown baseline hemoglobin. Microcytic anemia. Patient does have history of bariatric surgery. Iron profile shows low iron stores with high transferrin. Hemoglobin stable after 2 units PRBC transfusion. Stool occult blood is negative. Start ferrous sulfate supplements. High risk for worsening anemia due to current anticoagulation but at this time, benefits of anticoagulation outweigh risks of anemia. Qualifiers: Anemia type: iron deficiency Iron deficiency anemia type: unspecified iron deficiency Qualified Code(s): D50.9 - Iron deficiency anemia, unspecified (4) Dyspnea Current Visit: Yes Status: Acute Qualifiers: Dyspnea type: shortness of breath Qualified Code(s): R06.02 - Shortness of breath (5) Pulmonary edema Current Visit: Yes Status: Acute Assessment and plan: Will change Lasix to oral form. Echocardiogram is noted to be a technically difficult study due to obesity but shows preserved ejection fraction at 60%, mild concentric LVH, moderate to severe left atrial dilation, mild left ventricular diastolic dysfunction. Supplemental oxygen. Low suspicion for infection. Qualifiers: Chronicity: acute Qualified Code(s): J81.0 - Acute pulmonary edema (6) Morbid obesity Current Visit: Yes Status: Chronic Qualifiers: Obesity type: due to excess calories Qualified Code(s): E66.01 - Morbid ( severe) obesity due to excess calories (7) Type 2 diabetes mellitus Current Visit: Yes Status: Chronic Assessment and plan: Accu-Chek blood glucose monitoring with basal bolus insulin. Increase Levemir. Noted to have uncontrolled blood sugars, also noted to have dietary noncompliance. hemoglobin A1c noted to be 6.2%. Diabetic diet. 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 Absent : accessory muscle use, rales, rhonchi, wheezes - Cardiovascular Cardiovascular exam: Present: RRR, +S1, +S2, tachycardia. Absent: diastolic murmur, gallop, rubs, systolic murmur - GI/Abdominal GI/Abdominal exam: Present: normal bowel sounds, soft (obese), no peritoneal signs. Absent: distended, tenderness - Neurological Exam Neurological exam: Present: CN II-XII intact, oriented X3, no focal deficits. Absent: pronater drift, facial droop, speech deficit Internal Medicine: Result - Labs CBC & Chem 7: 04/14/17 01:23 04/14/17 01:23 Labs: Short CBC 04/14/17 Range/Units 01:23 WBC 9.8 (4.3-11.1) K/mcL Hgb 8.5 L (11.5-15.4) g/dL Hct 31.1 L (35.3-44.9) % Plt Count 301 (140-400) K/mcL Neutrophils # 6.5 (1.6-8.9) K/mcL BMP 04/14/17 01:23 Sodium 135 L Potassium 3.6 Chloride 95 L Carbon Dioxide 30 H BUN 11 Creatinine 0.75 Glucose 205 H Calcium 9.0 - ABG Interpretation ABG results: PT/INR, D-dimer PT 14.5 Seconds (9.4-12.1) H 04/13/17 10:52 D-Dimer 1146 ng/mLFEU (0-500) H 04/13/17 08:13 Consult Discharge Plan - Plan Referrals: NO,PCP [Primary Care Provider] -
--- NOTE | 2017-04-14 12:12 | Venous Imaging Report ---
LE Venous Duplex Patient Name:Jacquie Lamb Order Number:[id number] Procedure Date:04/13/2017 Date:1950Age:66 yrs Gender:Female Location:[facility] Room #: 2A31 Pediatric Nurse Practitioner:Bruce Dina Referring MD:Roxie Hull MD road freight conductor:None Reading MD:Douglas Awan MD , FACS Primary Indications:Leg swelling, Elevated D-dimer, acute PE Secondary Indications: Risk Factors Yes/No None Impressions: Bilateral lower extremity: normal superficial and deep exam. Findings Venous Duplex Results: Right: The right lesser saphenous and right peroneal veins were not well visualized. Left: The left peroneal vein was not well visualized. Lower Extremity Venous Duplex Side Vein Compress Spontaneous Flow Augment Diameter (cm) Depth (cm) Right Distal Iliac Normal Yes Phasic Yes Right Common Femoral Normal Yes Phasic Yes Right Superficial Femoral Partial Yes Phasic Yes Right Popliteal Normal Yes Phasic Yes Right Posterior Tibial Normal Yes Phasic Yes Right Saphenofemoral Junction Normal Yes Phasic Yes Right Great Saphenous Normal Yes Phasic Yes Left Distal Iliac Normal Yes Phasic Yes Left Common Femoral Normal Yes Phasic Yes Left Superficial Femoral Partial Yes Phasic Yes Left Popliteal Normal Yes Phasic Yes Left Posterior Tibial Normal Yes Phasic Yes Left Saphenofemoral [place]unction Normal Yes Phasic Yes Left Great Saphenous Normal Yes Phasic Yes Left Lesser Saphenous Normal Yes Phasic Yes Right Lesser Saphenous Right Peroneal Left Peroneal Updated by Douglas Awan MD, FACS on 04/14/2017 12:05:43 PM Douglas Awan MD electronically signed on 04/14/2017 12:06:02 PM with status of Final
[2017-04-14] MEDS: *HR* Enoxaparin 80 MG/0.8 ML SYRINGE SQ SCH ×2 (12:17→22:32)
[2017-04-14] MEDS: GuaiFENesin/Dextromethorphan TABLET PO PRN (12:18)
[2017-04-14] MEDS ORDERED: *HR* Warfarin 5 MG TABLET PO SCH (18:00)
[2017-04-14] MEDS: Gabapentin 300 MG CAPSULE PO SCH (21:09)
[2017-04-15] MEDS: *HR* HYDROcodone/Acet 5/325 mg TABLET PO PRN ×3 (06:42→20:30)
[2017-04-15] MEDS: *HR* Enoxaparin 80 MG/0.8 ML SYRINGE SQ SCH (06:43)
[2017-04-15] MEDS: Insulin LISPRO 300 UNITS/3 ML VIAL SQ SCH ×4 (07:42→20:15)
[2017-04-15] MEDS: Furosemide 40 MG/4 ML VIAL IVP SCH (07:43)
[2017-04-15] MEDS: NIFEdipine XL (24 HR) 60 MG TAB.ER.24 PO SCH (07:45)
[2017-04-15] MEDS: Ascorbic Acid 500 MG TABLET PO SCH (07:45)
[2017-04-15] MEDS: Magnesium Oxide 400 MG TABLET PO SCH (07:45)
[2017-04-15] MEDS: Venlafaxine XR (24 HR) 150 MG CAP.ER.24H PO SCH (07:45)
[2017-04-15] MEDS: Fluticasone Propionate Nasal 50 MCG/SPRAY BOTTLE NS SCH (07:46)
[2017-04-15] MEDS: Insulin DETEMIR 100 UNIT/ML X5UNITS SQ SCH ×2 (07:59→20:14)
--- NOTE | 2017-04-15 12:46 | Internal Med Progress Note ---
Date of Encounter: 04/15/17 Time of Encounter: 12:44 - Assessment and plan (1) Pulmonary embolism Current Visit: Yes Status: Acute Assessment and plan: Improving but patient continues to require 4-5 L/m supplemental oxygen via nasal cannula and noted to be tachycardic and dyspneic on minimal exertion. Hold Lovenox/Coumadin. Start Xarelto. Continue supplemental oxygen and supportive care. Home oxygen evaluation prior to discharge. Physical and occupational therapy recommend placement in ECF but patient refuses firmly and is agreeable to [facility]; Qualifiers: Pulmonary embolism type: other Chronicity: acute Acute cor pulmonale presence: without acute cor pulmonale Qualified Code(s): I26.99 - Other pulmonary embolism without acute cor pulmonale (2) Acute respiratory failure Current Visit: Yes Status: Acute Assessment and plan: Due to acute pulmonary embolism and pulmonary edema. Plan as above. Patient will need home oxygen evaluation prior to discharge. Wean down FiO2 as tolerated. Qualifiers: Respiratory failure complication: hypoxia Qualified Code(s): J96.01 - Acute respiratory failure with hypoxia (3) Anemia Current Visit: Yes Status: Acute Assessment and plan: Unknown baseline hemoglobin. Microcytic anemia. Patient does have history of bariatric surgery. Iron profile shows low iron stores with high transferrin. Hemoglobin stable after 2 units PRBC transfusion. Stool occult blood is negative. Started ferrous sulfate supplements. Qualifiers: Anemia type: iron deficiency Iron deficiency anemia type: unspecified iron deficiency Qualified Code(s): D50.9 - Iron deficiency anemia, unspecified (4) Dyspnea Current Visit: Yes Status: Acute Qualifiers: Dyspnea type: shortness of breath Qualified Code(s): R06.02 - Shortness of breath (5) Pulmonary edema Current Visit: Yes Status: Acute Assessment and plan: Improving dyspnea. Hold Lasix at this time. Echocardiogram is noted to be a technically difficult study due to obesity but shows preserved ejection fraction at 60%, mild concentric LVH, moderate to severe left atrial dilation, mild left ventricular diastolic dysfunction. Supplemental oxygen. Low suspicion for infection. Qualifiers: Chronicity: acute Qualified Code(s): J81.0 - Acute pulmonary edema (6) Morbid obesity Current Visit: Yes Status: Chronic Qualifiers: Obesity type: due to excess calories Qualified Code(s): E66.01 - Morbid ( severe) obesity due to excess calories (7) Type 2 diabetes mellitus Current Visit: Yes Status: Chronic Assessment and plan: Accu-Chek blood glucose monitoring with basal bolus insulin. Increase Levemir. Noted to have uncontrolled blood sugars, also noted to have dietary noncompliance. hemoglobin A1c noted to be 6.2%. Diabetic diet. 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 Absent: accessory muscle use, rales, rhonchi, wheezes - Cardiovascular Cardiovascular exam: Present: RRR, +S1, +S2, tachycardia. Absent: diastolic murmur, gallop, rubs, systolic murmur - GI/Abdominal GI/Abdominal exam: Present: normal bowel sounds, soft (obese), no peritoneal signs. Absent: distended, tenderness - Extremities Exam Extremities exam: Present: pedal edema, warm, radial pulses palpable and symetrical. Absent: calf tenderness, cyanotic Internal Medicine: Result - Labs CBC & Chem 7: 04/14/17 01:23 04/14/17 01:23 - ABG Interpretation ABG results: PT/INR, D-dimer PT 14.5 Seconds (9.4-12.1) H 04/13/17 10:52 D-Dimer 1146 ng/mLFEU (0-500) H 04/13/17 08:13 Consult Discharge Plan - Plan Referrals: NO,PCP [Primary Care Provider] -
[2017-04-15] MEDS: GuaiFENesin/Dextromethorphan TABLET PO PRN (13:05)
[2017-04-15] MEDS ORDERED: Azithromycin 500 MG in D5% in Water 250 ML IVPB SCH (16:00)
[2017-04-15] MEDS: *HR* Rivaroxaban 15 MG TABLET PO SCH (20:13)
[2017-04-15] MEDS: Gabapentin 300 MG CAPSULE PO SCH (20:14)
[2017-04-16] MEDS: *HR* HYDROcodone/Acet 5/325 mg TABLET PO PRN ×2 (03:29→08:47)
[2017-04-16] MEDS: Acetaminophen 325 MG TABLET PO PRN ×2 (04:36→11:02)
[2017-04-16] MEDS: GuaiFENesin/Dextromethorphan TABLET PO PRN (04:39)
[2017-04-16] MEDS: Venlafaxine XR (24 HR) 150 MG CAP.ER.24H PO SCH (08:42)
[2017-04-16] MEDS: Gabapentin 300 MG CAPSULE PO SCH (08:42)
[2017-04-16] MEDS: NIFEdipine XL (24 HR) 60 MG TAB.ER.24 PO SCH (08:43)
[2017-04-16] MEDS: *HR* Rivaroxaban 15 MG TABLET PO SCH (08:43)
[2017-04-16] MEDS: Magnesium Oxide 400 MG TABLET PO SCH (08:43)
[2017-04-16] MEDS: Ascorbic Acid 500 MG TABLET PO SCH (08:43)
[2017-04-16] MEDS: Insulin LISPRO 300 UNITS/3 ML VIAL SQ SCH ×2 (08:45→11:07)
[2017-04-16] MEDS: Insulin DETEMIR 100 UNIT/ML X5UNITS SQ SCH (10:48)
[2017-04-16 11:09] VITALS: BP 144/78
--- NOTE | 2017-04-16 12:12 | Discharge Summary ---
Date of Encounter: 04/16/17 Time of Encounter: 12:07 - Discharge Diagnosis (1) Pulmonary embolism Priority: Primary Status: Acute Qualifiers: Pulmonary embolism type: other Chronicity: acute Acute cor pulmonale presence: without acute cor pulmonale Qualified Code(s): I26.99 - Other pulmonary embolism without acute cor pulmonale (2) Acute respiratory failure Priority: Primary Status: Acute Qualifiers: Respiratory failure complication: hypoxia Qualified Code(s): J96.01 - Acute respiratory failure with hypoxia (3) Anemia Priority: Primary Status: Acute Qualifiers: Anemia type: iron deficiency Iron deficiency anemia type: unspecified iron deficiency Qualified Code(s): D50.9 - Iron deficiency anemia, unspecified (4) Dyspnea Priority: Primary Status: Acute Qualifiers: Dyspnea type: shortness of breath Qualified Code(s): R06.02 - Shortness of breath (5) Pulmonary edema Priority: Primary Status: Acute Qualifiers: Chronicity: acute Qualified Code(s): J81.0 - Acute pulmonary edema (6) Morbid obesity Priority: Secondary Status: Chronic Qualifiers: Obesity type: due to excess calories Qualified Code(s): E66.01 - Morbid ( severe) obesity due to excess calories (7) Type 2 diabetes mellitus Priority: Secondary Status: Chronic Qualifiers: Diabetes mellitus complication status: with neurologic complications Diabetes mellitus complication detail: with polyneuropathy Diabetes mellitus [facility] insulin use: with rodent exterminator use Qualified Code(s): E11.42 - Type 2 diabetes mellitus with diabetic polyneuropathy; 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 - Discharge Medications Prescriptions: Ascorbic Acid [Vitamin C] 500 mg PO DAILY #30 tablet Azithromycin [Zithromax] 250 mg PO Q24H #3 tablet Ferrous Sulfate 325 mg PO BIDWM #60 tablet Home Medications: Acetaminophen [Tylenol Arthritis] 1,300 mg PO Q8H PRN 04/12/17 [History] Cetirizine HCl [Zyrtec] 10 mg PO DAILY PRN 04/12/17 [History] Citalopram [CeleXA] 20 mg PO DAILY 04/12/17 [History] Diclofenac Sodium [Voltaren] 75 mg PO BID 04/12/17 [History] Esomeprazole Magnesium [Nexium] 40 mg PO DAILY 04/12/17 [History] Fluticasone Propionate Nasal [Flonase] 50 mcg NS DAILY PRN 04/12/17 [History] Gabapentin [Neurontin] 300 mg PO HS 04/12/17 [History] GuaiFENesin/Dextromethorphan [Mucinex Dm] 1 each PO BID PRN 04/12/17 [History] HYDROcodone/Acet 5/325 mg [Ferdinand 5-325 mg] 1 tab PO Q6H PRN 04/12/17 [History] Loperamide HCl [Imodium A-D] 2 mg PO PER PKG DI PRN 04/12/17 [History] Losartan Potassium [Cozaar] 50 mg PO DAILY 04/12/17 [History] Magnesium 250 mg PO DAILY 04/12/17 [History] Multivitamin [Multi-Day Vitamins] 1 each PO DAILY 04/12/17 [History] NIFEdipine [Nifedipine ER] 60 mg PO DAILY 04/12/17 [History] Pioglitazone [Actos] 45 mg PO 0800 04/12/17 [History] Venlafaxine XR (24 HR) [Effexor Xr] 300 mg PO QAM 04/12/17 [History] Vitamin B Complex 1 each PO DAILY 04/12/17 [History] metFORMIN [Glucophage] 500 mg PO TIDWM 04/12/17 [History] Ascorbic Acid [Vitamin C] 500 mg PO DAILY #30 tablet 04/16/17 [Rx] Azithromycin [Zithromax] 250 mg PO Q24H #3 tablet 04/16/17 [Rx] Ferrous Sulfate 325 mg PO BIDWM #60 tablet 04/16/17 [Rx] Insulin Glargine,Hum.rec.anlog [Lantus Solostar] 50 unit SQ HS #0 04/16/17 [Rx] Rivaroxaban [Xarelto] 15 mg PO BID tablet 04/16/17 [Rx] Allergies/Adverse Reactions: Allergies Penicillins Adverse Reaction (Verified 04/12/17 14:05) Gastrointestinal Upset shellfish derived Adverse Reaction (Verified 04/12/17 14:05) Headache Tetracyclines Adverse Reaction (Verified 04/12/17 14:05) Rash Procedures/tests Complete & Pending: Procedures Performed prior 72 hours Category Date Time Status EV echocardiogram Routine Y 04/14/17 07:58 Completed Venous Doppler [EV venous imaging LE BI] Routine Y 04/13/17 17:13 Completed Date of admission: 04/13/17 00:05 Primary care physician: PCP NO Consults: 04/13/17 09:06 Consult to Occupational Therapy [CONS] Routine Comment: Evaluate, develop and implement POC Reason for Consult: fATIGUE, MORBID OBESITY, BALANCE PROBLEMS Consult to Physical Therapy [CONS] Routine Comment: Evaluate, develop and implement POC Reason for Consult: fATIGUE, MORBID OBESITY, BALANCE PROBLEMS Discharging clinician: Araceli Hull Anticipated date of discharge: 04/16/17 - Patient Status Disposition: Home Health Service Condition: Fair Functional capacity at discharge: uses cane/walker Overall status at discharge: patient is progressing back to baseline - Discharge Instructions Instructions: Anemia (GEN) Follow Up With: Anmol Mancuso MD [Partnered Physician] - 04/25/17 9:45 am (Please follow up as schedule...) - Diet and Activity Activity: as per physical therapy, wear oxygen at all times Diet: diabetic diet, low fat, low cholesterol, low salt diet Hospital course: Ms. Lamb is a 66 year old female with super morbid obesity, who was admitted with worsening shortness of breath. Noncontrast CT chest done in the emergency room showed possible pulmonary edema and she was started on IV Lasix for possible acute CHF. She was also noted to have anemia with hemoglobin below 7 with no baseline hemoglobin available. Stool occult blood is negative and patient has no symptoms of overt GI bleed. She received 2 units PRBC transfusion and her hemoglobin has remained stable during this hospitalization. Patient continued to be hypoxic and symptomatic despite this treatment and she was noted to have significantly elevated d-dimer. CT angiogram of chest was done which showed acute left lower segmental pulmonary emboli and she was initially started on IV heparin drip for anticoagulation. Venous Doppler of lower extremities showed no evidence of superficial or deep venous thrombosis. She does have risk factors of morbid obesity and sedentary lifestyle for venous thromboembolism. Her oxygen requirements gradually improved. Patient is currently noted to be requiring at least 4 L/m supplemental oxygen via nasal cannula and she would benefit from portable home oxygen. She is noted to be mobile at home, although with great difficulty. Physical and occupational therapy evaluation was completed and recommended placement in extended care facility due to her inability to get around appropriately, difficulty in getting to her medical appointments. However patient declined placement and preferred to be discharged home with home health services; referral for this has been completed. Patient has multiple complaints with nasal/sinus problems and is noted to be taking [id number] pseudoephedrine and was strongly counseled against the use of such medications due to the possibility of uncontrolled hypertension, rebound headaches/hypertension however she chooses to continue using this. She was also noted to have uncontrolled blood sugars during this hospitalization and her insulin was up titrated accordingly. She is currently medically stable for discharge with oral anticoagulation with Xarelto and outpatient f/up. - Time Spent with Patient Total time spent providing and/or coordinating discharge services: Greater than 30 minutes (50 min) - Constitutional Vitals: Temp Pulse Resp BP Pulse Ox 98.3 F 98 16 144/78 98 04/16/17 11:06 04/16/17 11:06 04/16/17 11:06 04/16/17 11:06 04/16/17 11:06 General appearance: Present: A&O X 3, morbidly obese, answers questions appropriately - Cardiovascular Cardiovascular exam: Present: RRR, +S1, +S2. Absent: diastolic murmur, gallop, rubs, systolic murmur
--- NOTE | 2017-04-16 12:30 | Physician Discharge Referral ---
Home Health/Hosp Referral Info Transfer to: Home Health Attending Provider: Araceli Hull Provider in Charge Post Discharge: PCP - Diagnosis (1) Pulmonary embolism Priority: Primary Status: Acute (2) Acute respiratory failure Priority: Primary Status: Acute (3) Anemia Priority: Primary Status: Acute (4) Dyspnea Priority: Primary Status: Acute (5) Pulmonary edema Priority: Primary Status: Acute (6) Morbid obesity Priority: Secondary Status: Chronic (7) Type 2 diabetes mellitus Priority: Secondary Status: Chronic - Respiratory Orders Oxygen / L per min (4L/min viA nc) Smoking Cessation: Smoking cessation has been advised. For more information, call the [place] Tobacco Quit Line at 1-369-FNKF-NOW. - Diet/Nutrition Diet/Nutrition Orders: No Added Salt (GILDA), No Concentrated Sweets (diabetic) - Activity Activity Orders: Ambulate - Services Needed Following services are medically necessary services: Nursing, Physical Therapy, Occupational Therapy - Transfer Medications Prescriptions: Ascorbic Acid [Vitamin C] 500 mg PO DAILY #30 tablet Azithromycin [Zithromax] 250 mg PO Q24H #3 tablet Ferrous Sulfate 325 mg PO BIDWM #60 tablet Home Medications: Acetaminophen [Tylenol Arthritis] 1,300 mg PO Q8H PRN 04/12/17 [History] Cetirizine HCl [Zyrtec] 10 mg PO DAILY PRN 04/12/17 [History] Citalopram [CeleXA] 20 mg PO DAILY 04/12/17 [History] Diclofenac Sodium [Voltaren] 75 mg PO BID 04/12/17 [History] Esomeprazole Magnesium [Nexium] 40 mg PO DAILY 04/12/17 [History] Fluticasone Propionate Nasal [Flonase] 50 mcg NS DAILY PRN 04/12/17 [History] Gabapentin [Neurontin] 300 mg PO HS 04/12/17 [History] GuaiFENesin/Dextromethorphan [Mucinex Dm] 1 each PO BID PRN 04/12/17 [History] HYDROcodone/Acet 5/325 mg [[place] 5-325 mg] 1 tab PO Q6H PRN 04/12/17 [History] Loperamide HCl [Imodium A-D] 2 mg PO PER PKG DI PRN 04/12/17 [History] Losartan Potassium [Cozaar] 50 mg PO DAILY 04/12/17 [History] Magnesium 250 mg PO DAILY 04/12/17 [History] Multivitamin [Multi-Day Vitamins] 1 each PO DAILY 04/12/17 [History] NIFEdipine [Nifedipine ER] 60 mg PO DAILY 04/12/17 [History] Pioglitazone [Actos] 45 mg PO 0800 04/12/17 [History] Venlafaxine XR (24 HR) [Effexor Xr] 300 mg PO QAM 04/12/17 [History] Vitamin B Complex 1 each PO DAILY 04/12/17 [History] metFORMIN [Glucophage] 500 mg PO TIDWM 04/12/17 [History] Ascorbic Acid [Vitamin C] 500 mg PO DAILY #30 tablet 04/16/17 [Rx] Azithromycin [Zithromax] 250 mg PO Q24H #3 tablet 04/16/17 [Rx] Ferrous Sulfate 325 mg PO BIDWM #60 tablet 04/16/17 [Rx] Insulin Glargine,Hum.rec.anlog [Lantus Solostar] 50 unit SQ HS #0 04/16/17 [Rx] Rivaroxaban [Xarelto] 15 mg PO BID tablet 04/16/17 [Rx] Allergies/Adverse Reactions: Allergies Penicillins Adverse Reaction (Verified 04/12/17 14:05) Gastrointestinal Upset shellfish derived Adverse Reaction (Verified 04/12/17 14:05) Headache Tetracyclines Adverse Reaction (Verified 04/12/17 14:05) Rash Certification: Further, I certify that my clinical findings support that this patient is homebound (i.e. absences from home require considerable and taxing effort and are for medical reasons or [employer] services or infrequently or short duration when for other reasons) because: Homebound Reason: Patient requires assistance of a person or device to safely leave home, Leaving home requires considerable and taxing effort due to condition Attestation: My signature below is to certify that this patient is under my care and that I, or nurse practitioner, or a physician's critical care physician assistant working with me, has a face-to -face encounter with this patient.
[2017-04-16] MEDS ORDERED: Azithromycin 250 MG TABLET PO SCH (16:00)
[2017-04-17] MEDS ORDERED: Azithromycin 250 MG TABLET PO SCH (11:30)
[2017-04-17] MEDS ORDERED: Azithromycin 250 MG in D5% in Water 250 ML IVPB SCH (16:00)
== END 2017-04-16 16:44 | disposition home health service (06) | DRG 175 ==
LOC: EMEROO 13:15 → 3ANU 13:15 → 2ANU 20:54 → SUATTDRO 04-13 00:05
PROVIDERS: ADMIT Internal Medicine; ATTEND Internal Medicine

== ENCOUNTER 2017-04-27 15:28 | Inpatient (IN) ==
--- NOTE | 2017-04-27 15:32 | Emergency Department Note ---
Disposition Clinical Impression: Obesity, Diabetes mellitus, Fall, History of pulmonary embolus (PE), History of anemia, Leg injury, Thigh injury, History of self-care deficit, Chronic diarrhea, On anticoagulant therapy, Thrombocythemia, Ataxia, UTI (urinary tract infection) Disposition: Admitted As Inpatient Referrals: Anmol Mancuso MD [Primary Care Provider] - Forms: ED Satisfaction Letter General Adult HPI - General Chief complaint: ED Fall Stated complaint: fall Time Seen by Provider: 04/27/17 15:31 - History of Present Illness HPI Narrative: 66-year-old female with multiple medical problems including diabetes and anemia reports emergency department complaining of a fall. The patient lives at home with family members. The patient came in by EMS. She states she was transferring from the bed and slipped and fell and hurt her right hip and leg. The patient denies head pain neck pain back pain or chest pain. No acute shortness of breath abdominal pain or vomiting. She has chronic diarrhea and it is described nonbloody. The patient states she [id number] bowel syndrome. The patient was recently admitted to the hospital and diagnosed with anemia of unknown cause per patient, she received a transfusion, she was also diagnosed with PE and has been taking Xarelto as an anticoagulant. There is no history of acute bleeding. No confusion convulsion or weakness or numbness of the arms or legs, no slurred speech or headache. There is no history of syncope. No trouble moving the arms or legs independently no numbness or weakness in the arms or legs. She describes a simple fall injuring her right thigh and leg. She reported minor shoulder pain when she fell but did not think she broke her shoulder.. There is no history of coldness blueness or renetta disfigurement of the arms or legs. The patient reports it is difficult for her to live at home and her family is unable to care for her based on her body habitus and multiple medical problems. She describes recurrent falls over the last few weeks. She requests care home placement. - Related Data Home Medications Medication Instructions Recorded Confirmed Acetaminophen [Tylenol Arthritis] 1,300 mg PO Q8H PRN 04/12/17 04/27/17 Cetirizine HCl [Zyrtec] 10 mg PO DAILY PRN 04/12/17 04/27/17 Citalopram [CeleXA] 20 mg PO DAILY 04/12/17 04/27/17 Diclofenac Sodium [Voltaren] 75 mg PO BID 04/12/17 04/27/17 Esomeprazole Magnesium [Nexium] 40 mg PO DAILY 04/12/17 04/27/17 Fluticasone Propionate Nasal 50 mcg NS DAILY PRN 04/12/17 04/27/17 [Flonase] Gabapentin [Neurontin] 300 mg PO HS 04/12/17 04/27/17 GuaiFENesin/Dextromethorphan 1 each PO BID PRN 04/12/17 04/27/17 [Mucinex Dm] HYDROcodone/Acet 5/325 mg [[place] 1 tab PO Q6H PRN 04/12/17 04/27/17 5-325 mg] Loperamide HCl [Imodium A-D] 2 mg PO PER PKG DI PRN 04/12/17 04/27/17 Losartan Potassium [Cozaar] 50 mg PO DAILY 04/12/17 04/27/17 Magnesium 250 mg PO DAILY 04/12/17 04/27/17 Multivitamin [Multi-Day Vitamins] 1 each PO DAILY 04/12/17 04/27/17 NIFEdipine [Nifedipine ER] 60 mg PO DAILY 04/12/17 04/27/17 Pioglitazone [Actos] 45 mg PO 0800 04/12/17 04/27/17 Venlafaxine XR (24 HR) [Effexor Xr] 300 mg PO QAM 04/12/17 04/27/17 Vitamin B Complex 1 each PO DAILY 04/12/17 04/27/17 metFORMIN [Glucophage] 500 mg PO TIDWM 04/12/17 04/27/17 Previous Rx's Medication Instructions Recorded Ascorbic Acid [Vitamin C] 500 mg PO DAILY #30 tablet 04/16/17 Ferrous Sulfate 325 mg PO BIDWM #60 tablet 04/16/17 Insulin Glargine,Hum.rec.anlog 50 unit SQ HS #0 04/16/17 [Lantus Solostar] Rivaroxaban [Xarelto] 15 mg PO BID tablet 04/16/17 Allergies Allergy/AdvReac Type Severity Reaction Status Date / Time Penicillins AdvReac Gastrointestinal Verified 04/12/17 14:05 Upset shellfish derived AdvReac Headache Verified 04/12/17 14:05 Tetracyclines AdvReac Rash Verified 04/12/17 14:05 All systems ED: reviewed and negative except as stated. Past Medical History - Past Medical History Medical history: Reports: arthritis, diabetes, GERD, hypertension, other (sleep apnea) Surgical history: Reports: appendectomy, sinus surgery, bariatric surgery Psychiatric history: Reports: no psych history - Social History Smoking Status: Never smoker Smokeless Tobacco Status: No Alcohol use: Reports: none Drug use: Reports: none Physical Exam - General Limitations: no limitations General appearance: alert, in no apparent distress - Head Head exam: atraumatic, normocephalic, normal inspection - Eye Eye exam: Present: normal appearance, PERRL, EOMI. Absent: scleral icterus, conjunctival injection, miosis, mydriasis - ENT ENT exam: normal exam, normal oropharynx, mucous membranes moist, TM's normal bilaterally, normal external ear exam - Neck Neck exam: Present: normal inspection, full ROM, trachea midline. Absent: tenderness - Chest Chest inspection: Present: symmetric chest wall rise. Absent: tenderness - Respiratory Respiratory exam: Present: normal lung sounds bilaterally. Absent: respiratory distress, wheezes, stridor, accessory muscle use, prolonged expiratory phase - Cardiovascular Cardiovascular exam: Present: regular rate, normal rhythm, normal heart sounds - Abdominal Exam Abdominal exam: Present: soft, Non-Tender, normal bowel sounds. Absent: tenderness, distention, guarding, rebound, rigidity - Extremities Exam Extremities exam: Present: tenderness (Right thigh and leg are tender. Minor bruising right leg. Good range of motion the ankles knees and hips, wrists elbows and shoulders are supple. The patient is morbidly obese the lower extremities show marked adiposity but there is no evidence of acute neurovascular or neuromuscular compromise in any extremity.), normal capillary refill, pedal edema. Absent: normal inspection, joint swelling, calf tenderness - Expanded Lower Extremity Exam Neurovascular/Tendon exam: Present: normal capillary refill. Absent: motor deficit, sensory deficit, tendon deficit, extremity cold to touch, pallor - Back Exam Back exam: Present: normal inspection, full ROM. Absent: tenderness, CVA tenderness (R), CVA tenderness (L), vertebral tenderness - Neurological Exam Neurological exam: Present: alert, oriented X3, CN II-XII intact. Absent: motor sensory deficit - Psychiatric Psychiatric exam: Present: normal affect, normal mood - Skin Skin exam: Present: warm, dry, intact, normal color. Absent: rash, cyanosis, diaphoresis, erythema, pallor, mottled Course Vital Signs Temperature 98.3 F 04/27/17 15:30 Pulse Rate 95 04/27/17 15:30 Respiratory Rate 20 04/27/17 15:30 Blood Pressure 146/60 04/27/17 15:30 O2 Sat by Pulse Oximetry 100 04/27/17 15:30 Temperature 98.3 F 04/27/17 15:30 Pulse Rate 97 04/27/17 18:05 Respiratory Rate 16 04/27/17 18:05 Blood Pressure 176/91 04/27/17 18:05 O2 Sat by Pulse Oximetry 100 04/27/17 18:05 Oxygen Delivery Oxygen Delivery Nasal Cannula Medical Decision Making - [facility] Narrative Medical decision making narrative: The patient describes a simple mechanical fall, her x-rays of the right lower extremity are negative. She denies chest pain or shortness of breath acutely. She is chronically anemic. No changes in her hemoglobin versus previous study. The patient reports she is unable to take care of herself at home and her family is no longer able to take care of her, she requests care home placement. We consulted the social service liaison who has assessed the patient and cannot place the patient directly today, the social service liaison reports that the patient has a care home bed available for Sunday. The patient has had multiple medical problems and recurrent falls and is at risk for self injury. Based on her presentation and concerns for inability for self-care,requesting care home placement, recurrent falls and self injury, as well as multiple medical conditions including diabetes, UTI, current pulmonary embolus, anticoagulated status, morbid obesity, weakness, and ataxia, and significant anemia, I thought it would be appropriate to admit the patient the hospital. In my opinion the patient is at high risk for another fall causing potentially a more significant injury, the patient is anticoagulated putting her at increased risk of bleeding. The patient also may have an element of symptomatic anemia and have an orthostatic component.The patient and family do not feel the patient is safe at home. IV access has been established. Ciprofloxacin IV has been ordered. I discussed the case with the hospitalist on -call who has accepted the patient to their care. - Lab Data Lab results reviewed: Yes I reviewed the patient's lab results. Result diagrams: 04/27/17 16:38 04/27/17 16:38 Lab Results 04/27/17 04/27/17 04/27/17 Range/Units 16:38 16:38 16:38 WBC 6.4 (4.3-11.1) K/mcL RBC 3.75 L (3.82-4.97) M/mcL Hgb 8.5 L (11.5-15.4) g/dL Hct 31.7 L (35.3-44.9) % MCV 84.5 D (83.0-100.0) fL MCH 22.7 L (28.0-33.3) pg MCHC 26.8 L (31.6-35.5) g/dL RDW 22.7 H (11.5-14.5) % Plt Count 438 H (140-400) K/mcL MPV 9.2 L (9.4-12.4) fL Immature Gran % 0.5 (0-4) % Seg Neutrophils % 75.6 % Lymphocytes % 10.4 % Monocytes % 9.5 % Eosinophils % 3.1 % Basophils % 0.9 % Neutrophils # 4.8 (1.6-8.9) K/mcL Lymphocytes # 0.7 (0.6-4.6) K/mcL Monocytes # 0.6 (0.0-1.3) K/mcL Eosinophils # 0.2 (0.0-0.6) K/mcL Basophils # 0.1 (0.0-0.2) K/mcL Platelet Estimate Increased H (Normal) Polychromasia 1+ A (Not Present) Hypochromasia Present A (Not Present) Anisocytosis 2+ A (Not Present) Stomatocytes 1+ A (Not Present) PT (9.4-12.1) Seconds INR APTT (26.0-36.0) Seconds Sodium 135 L (136-145) mEq/L Potassium 4.5 (3.5-4.5) mEq/L Chloride 97 L (98-109) mEq/L Carbon Dioxide 29 (19-29) mEq/L BUN 12 (7-20) mg/dL Creatinine 0.68 (0.57-1.11) mg/dL Est GFR ( Amer) > 60 (> 60) Est GFR (Non-Af Amer) > 60 (> 60) BUN/Creatinine Ratio 18 (6-26) Glucose 109 H (70-99) mg/dL Calculated Osmolality 280 (280-300) Lactic Acid (0.5-2.2) mmol/L Calcium 9.4 (8.6-10.8) mg/dL Total Bilirubin 0.3 (0.2-1.2) mg/dL Direct Bilirubin 0.2 (0.0-0.5) mg/dL Indirect Bilirubin 0.1 (0.0-1.2) mg/dL AST 22 (5-34) Units/L ALT 15 (0-55) Units/L Alkaline Phosphatase 116 (38-126) Units/L Troponin I (0-0.03) ng/mL C-Reactive Protein (Less than 5) mg/L Serum Total Protein 6.4 (6.0-8.3) g/dL Albumin 3.2 L (3.5-5.0) g/dL Globulin 3.2 (2.4-3.5) g/dL Albumin/Globulin Ratio 1.0 L (1.1-2.2) 04/27/17 04/27/17 04/27/17 Range/Units 19:08 19:08 19:08 WBC (4.3-11.1) K/mcL RBC (3.82-4.97) M/mcL Hgb (11.5-15.4) g/dL Hct (35.3-44.9) % MCV (83.0-100.0) fL MCH (28.0-33.3) pg MCHC (31.6-35.5) g/dL RDW (11.5-14.5) % Plt Count (140-400) K/mcL MPV (9.4-12.4) fL Immature Gran % (0-4) % Seg Neutrophils % % Lymphocytes % % Monocytes % % Eosinophils % % Basophils % % Neutrophils # (1.6-8.9) K/mcL Lymphocytes # (0.6-4.6) K/mcL Monocytes # (0.0-1.3) K/mcL Eosinophils # (0.0-0.6) K/mcL Basophils # (0.0-0.2) K/mcL Platelet Estimate (Normal) Polychromasia (Not Present) Hypochromasia (Not Present) Anisocytosis (Not Present) Stomatocytes (Not Present) PT 17.4 H (9.4-12.1) Seconds INR 1.6 APTT 35.6 (26.0-36.0) Seconds Sodium (136-145) mEq/L Potassium (3.5-4.5) mEq/L Chloride (98-109) mEq/L Carbon Dioxide (19-29) mEq/L BUN (7-20) mg/dL Creatinine (0.57-1.11) mg/dL Est GFR ( Amer) (> 60) Est GFR (Non-Af Amer) (> 60) BUN/Creatinine Ratio (6-26) Glucose (70-99) mg/dL Calculated Osmolality (280-300) Lactic Acid (0.5-2.2) mmol/L Calcium (8.6-10.8) mg/dL Total Bilirubin (0.2-1.2) mg/dL Direct Bilirubin (0.0-0.5) mg/dL Indirect Bilirubin (0.0-1.2) mg/dL AST (5-34) Units/L ALT (0-55) Units/L Alkaline Phosphatase (38-126) Units/L Troponin I 0.01 (0-0.03) ng/mL C-Reactive Protein 3 (Less than 5) mg/L Serum Total Protein (6.0-8.3) g/dL Albumin (3.5-5.0) g/dL Globulin (2.4-3.5) g/dL Albumin/Globulin Ratio (1.1-2.2) 04/27/17 Range/Units 19:08 WBC (4.3-11.1) K/mcL RBC (3.82-4.97) M/mcL Hgb (11.5-15.4) g/dL Hct (35.3-44.9) % MCV (83.0-100.0) fL MCH (28.0-33.3) pg MCHC (31.6-35.5) g/dL RDW (11.5-14.5) % Plt Count (140-400) K/mcL MPV (9.4-12.4) fL Immature Gran % (0-4) % Seg Neutrophils % % Lymphocytes % % Monocytes % % Eosinophils % % Basophils % % Neutrophils # (1.6-8.9) K/mcL Lymphocytes # (0.6-4.6) K/mcL Monocytes # (0.0-1.3) K/mcL Eosinophils # (0.0-0.6) K/mcL Basophils # (0.0-0.2) K/mcL Platelet Estimate (Normal) Polychromasia (Not Present) Hypochromasia (Not Present) Anisocytosis (Not Present) Stomatocytes (Not Present) PT (9.4-12.1) Seconds INR APTT (26.0-36.0) Seconds Sodium (136-145) mEq/L Potassium (3.5-4.5) mEq/L Chloride (98-109) mEq/L Carbon Dioxide (19-29) mEq/L BUN (7-20) mg/dL Creatinine (0.57-1.11) mg/dL Est GFR ( Amer) (> 60) Est GFR (Non-Af Amer) (> 60) BUN/Creatinine Ratio (6-26) Glucose (70-99) mg/dL Calculated Osmolality (280-300) Lactic Acid 0.9 (0.5-2.2) mmol/L Calcium (8.6-10.8) mg/dL Total Bilirubin (0.2-1.2) mg/dL Direct Bilirubin (0.0-0.5) mg/dL Indirect Bilirubin (0.0-1.2) mg/dL AST (5-34) Units/L ALT (0-55) Units/L Alkaline Phosphatase (38-126) Units/L Troponin I (0-0.03) ng/mL C-Reactive Protein (Less than 5) mg/L Serum Total Protein (6.0-8.3) g/dL Albumin (3.5-5.0) g/dL Globulin (2.4-3.5) g/dL Albumin/Globulin Ratio (1.1-2.2) - Radiology Data Radiology results reviewed: Yes I reviewed the patient's radiology results.
[2017-04-27 16:50] LABS: Basophils # 0.1 K/mcL (0.0-0.2); Basophils % 0.9 %; Eosinophils # 0.2 K/mcL (0.0-0.6); Eosinophils % 3.1 %; Hematocrit 31.7 % (35.3-44.9); Hemoglobin 8.5 g/dL (11.5-15.4); Immature Granulocytes % 0.5 % (0-4); Lymphocytes # 0.7 K/mcL (0.6-4.6); Lymphocytes % 10.4 %; Mean Corpuscular HGB Conc 26.8 g/dL (31.6-35.5); Mean Corpuscular Hemoglobin 22.7 pg (28.0-33.3); Mean Corpuscular Volume 84.5 fL (83.0-100.0); Mean Platelet Volume 9.2 fL (9.4-12.4); Monocytes # 0.6 K/mcL (0.0-1.3); Monocytes % 9.5 %; Platelet Count 438 K/mcL (140-400); Red Blood Count 3.75 M/mcL (3.82-4.97); Red Cell Distribution Width 22.7 % (11.5-14.5); Segmented Neutrophils % 75.6 %
[2017-04-27 16:53] LABS: Neutrophils # 4.8 K/mcL (1.6-8.9)
[2017-04-27 17:01] LABS: BUN/Creatinine Ratio 18 (6-26); Blood Urea Nitrogen 12 mg/dL (7-20); Calcium 9.4 mg/dL (8.6-10.8); Carbon Dioxide 29 mEq/L (19-29); Chloride 97 mEq/L (98-109); Glucose 109 mg/dL (70-99); Osmolality,Calculated 280 (280-300); Potassium 4.5 mEq/L (3.5-4.5); Sodium 135 mEq/L (136-145); eGFR For African Americans > 60 (> 60); eGFR For Non-African Americans > 60 (> 60)
[2017-04-27 17:02] LABS: Albumin 3.2 g/dL (3.5-5.0); Bilirubin,Direct 0.2 mg/dL (0.0-0.5); Bilirubin,Indirect 0.1 mg/dL (0.0-1.2); Bilirubin,Total 0.3 mg/dL (0.2-1.2); Globulin 3.2 g/dL (2.4-3.5); Total Protein 6.4 g/dL (6.0-8.3)
[2017-04-27 17:30] LABS: Anisocytosis 2+ (Not Present); Hypochromasia Present (Not Present); Stomatocytes 1+ (Not Present)
[2017-04-27 17:31] LABS: Polychromasia 1+ (Not Present)
[2017-04-27 17:32] LABS: Platelet Estimate Increased (Normal)
[2017-04-27 19:19] LABS: INR 1.6; Prothrombin Time 17.4 Seconds (9.4-12.1)
[2017-04-27 19:22] LABS: Activated Partial Thrombo Time 35.6 Seconds (26.0-36.0)
[2017-04-27 20:19] LABS: Bilirubin,Urine Negative (Negative); Blood,Urine Large (Negative); Clarity,Urine Turbid (Clear); Color,Urine Yellow (Yellow); Glucose,Urine (UA) Normal (Normal); Ketones,Urine Negative (Negative); Leukocyte Esterase,Urine Moderate (Negative); Nitrite,Urine Positive (Negative); PH,Urine 5.5 pH Units (5.0-8.0); Protein,Urine Negative (Neg-Trace); Specific Gravity,Urine 1.014 (1.010-1.025); Urobilinogen,Urine Normal (Normal)
[2017-04-27 20:30] LABS: Bacteria,Urine Many per hpf (None-Few)
[2017-04-27 20:31] LABS: RBC,Urine 0-3 per hpf (0-3); Squamous Epithelial Cell,Urine Few per lpf (None-Few)
[2017-04-27] MEDS ORDERED: Naloxone 0.4 MG/ML INJ IVP PRN (20:50)
[2017-04-27] MEDS ORDERED: NON-FORMULARY MEDICATION 1 EACH EACH (Acetaminophen [Tylenol Arthritis] 1,300 MG) PO PRN (20:55)
[2017-04-27] MEDS ORDERED: D5% in Water 1,000 ML IVC PRN (21:04)
[2017-04-27] MEDS ORDERED: Dextrose Gel 15 GM PO PRN ×2 (21:04)
[2017-04-27] MEDS ORDERED: *HR* Dextrose 50 % in Water (Syg) 50 ML SYRINGE IVP PRN (21:04)
--- NOTE | 2017-04-27 21:21 | Internal Med History&Physical ---
Date of Encounter: 04/27/17 Time of Encounter: 21:13 Assessment and Plan (1) Fall Current visit: Yes Status: Acute 1 patient has had frequent falls of the past few weeks she is morbidly obese has difficulty ambulating due to neuropathy and body habitus. Family unable to care for patient patient requesting ECF placement. learning support services director consult and [facility]. PT OT consult Fall precautions Qualifiers: Encounter type: initial encounter Qualified Code(s): W19.XXXA - Unspecified fall, initial encounter (2) Sleep apnea Current visit: No Status: Acute Continue with CPAP Qualifiers: Sleep apnea type: unspecified type Qualified Code(s): G47.30 - Sleep apnea , unspecified (3) Type 2 diabetes mellitus Current visit: No Status: Chronic Accu-Cheks before meals at bedtime with sliding scale insulin as well as basal Diabetic diet Qualifiers: Diabetes mellitus complication status: with neurologic complications Diabetes mellitus complication detail: with polyneuropathy Diabetes mellitus tipple greaser insulin use: with tipple greaser use Qualified Code(s): E11.42 - Type 2 diabetes mellitus with diabetic polyneuropathy; 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 We will continue to monitor 2 continue with iron supplements Internal Medicine - H&P: HPI Chief complaint: Frequent falls Plans for Post Hospital Care: Home History of present illness: Ms. Lamb is a 66 year old female past medical history diabetes anemia irritable bowel disease recent pulmonary embolism GERD hypertension obstructive sleep apnea. With admission earlier this month which she was found to have pulmonary embolism. She was treated and discharged home on 04/16/2017. Since that timeframe patient has had multiple falls related to unsteady gait and balance. Today she was transferring from her bed and slipped and fell and hurt her right hip and leg. She denies hitting her head no loss of consciousness no neck pain back pain or injury. She does have chronic shortness of breath however nothing acute she is on oxygen continuously. She has had chronic diarrhea related to her irritable bowel syndrome she describes as nonbloody no mucus. She has had several episodes of falling related to inability to get to the bathroom and has been incontinent at times. She denies any nausea vomiting abdominal pain chest pain fevers or chills she was brought to the ER for evaluation according to ER records and lab work did reveal hemoglobin 8.5 however that is unchanged from previous admission. The rest of her lab work is unremarkable. Radiology workup was all negative for any fractures or osseous abnormalities. Urinalysis did reveal urinary tract infection she was started on Cipro. Patient lives at home with family members who are her caregivers however they are having difficulties meeting her needs due to her body habitus and multiple medical problems. Patient is requesting assisted placement . She has been admitted for further workup and evaluation. Presently the patient does not appear to be in any respiratory distress she denies any chest pain or lung sounds are clear heart sounds are regular S1-S2 with no rubs clicks, murmurs noted. Abdomen soft nontender pedal edema bilaterally. She is hemodynamically stable at this time. I reviewed this case with Dr. Nicole who agrees with plan. Past Med Surg Social Fam HX - Past Medical History Medical history: arthritis, diabetes, GERD, hypertension, other (sleep apnea) Psychiatric history: no psych history - Past Surgical History Surgical History: appendectomy, sinus surgery, bariatric surgery - Social History Smoking Status: Never smoker Smokeless Tobacco Status: No Alcohol use: none Drug use: none - Family History Mother Living Status: Hx Family Neurologic Disorders: Yes (Migraines) Hx Family Autoimmune Disorders: Yes (MS) Sister Hx Family Cancer: Yes Hx Family Autoimmune Disorders: Yes (Lupus) Father Living Status: Hx Family Cancer: Yes Hx Family Endocrine Disorder: Yes (diabetes) Internal Medicine - H&P: Meds Acetaminophen [Tylenol Arthritis] 1,300 mg PO Q8H PRN 04/12/17 [History] Cetirizine HCl [Zyrtec] 10 mg PO DAILY PRN 04/12/17 [History] Citalopram [CeleXA] 20 mg PO DAILY 04/12/17 [History] Diclofenac Sodium [Voltaren] 75 mg PO BID 04/12/17 [History] Esomeprazole Magnesium [Nexium] 40 mg PO DAILY 04/12/17 [History] Fluticasone Propionate Nasal [Flonase] 50 mcg NS DAILY PRN 04/12/17 [History] Gabapentin [Neurontin] 300 mg PO HS 04/12/17 [History] GuaiFENesin/Dextromethorphan [Mucinex Dm] 1 each PO BID PRN 04/12/17 [History] HYDROcodone/Acet 5/325 mg [[place] 5-325 mg] 1 tab PO Q6H PRN 04/12/17 [History] Loperamide HCl [Imodium A-D] 2 mg PO PER PKG DI PRN 04/12/17 [History] Losartan Potassium [Cozaar] 50 mg PO DAILY 04/12/17 [History] Magnesium 250 mg PO DAILY 04/12/17 [History] Multivitamin [Multi-Day Vitamins] 1 each PO DAILY 04/12/17 [History] NIFEdipine [Nifedipine ER] 60 mg PO DAILY 04/12/17 [History] Pioglitazone [Actos] 45 mg PO 0800 04/12/17 [History] Venlafaxine XR (24 HR) [Effexor Xr] 300 mg PO QAM 04/12/17 [History] Vitamin B Complex 1 each PO DAILY 04/12/17 [History] metFORMIN [Glucophage] 500 mg PO TIDWM 04/12/17 [History] Ascorbic Acid [Vitamin C] 500 mg PO DAILY #30 tablet 04/16/17 [Rx] Ferrous Sulfate 325 mg PO BIDWM #60 tablet 04/16/17 [Rx] Insulin Glargine,Hum.rec.anlog [Lantus Solostar] 50 unit SQ HS #0 04/16/17 [Rx] Rivaroxaban [Xarelto] 15 mg PO BID tablet 04/16/17 [Rx] Allergies Penicillins Adverse Reaction (Verified 04/12/17 14:05) Gastrointestinal Upset shellfish derived Adverse Reaction (Verified 04/12/17 14:05) Headache Tetracyclines Adverse Reaction (Verified 04/12/17 14:05) Rash All Systems PM: A 10-system review of systems was performed and is negative for pertinent findings except as documented above in the HPI. - Constitutional Constitutional: falls, no chills, no fever(s), no night sweats - EENT Eyes: no change in vision, no discharge, no pain, no photophobia Nose, mouth and throat: no dysphagia, no nasal discharge, no neck pain, no sore throat - Cardiovascular Cardiovascular ROS IM: no chest pain, no diaphoresis, no dyspnea, no lightheadedness, no palpitations, no syncope - Respiratory Respiratory: dyspnea, no cough, no wheezing, no excessive phlegm production - Gastrointestinal Gastrointestinal: diarrhea, no abdominal pain, no hematemesis, no hematochezia, no melena, no nausea, no vomiting - Genitourinary Genitourinary: no change in urinary stream, no dysuria, no flank pain, no hematuria - Neurological Neurological ROS: disequilibrium, frequent falls, weakness, no confusion, no convulsions, no focal weakness, no numbness, no tingling, no tremor(s) - Hematologic/Lymphatic Hematologic/Lymphatic: easy bruising - Constitutional Vitals: Temp Pulse Resp BP Pulse Ox 98.3 F 97 16 160/54 100 04/27/17 15:30 04/27/17 18:05 04/27/17 21:06 04/27/17 21:06 04/27/17 18:05 General appearance: Present: A&O X 3, morbidly obese - Head Head exam: Present: atraumatic, normocephalic - Eye Eye exam: Present: PERRL, conjuntiva pink, sclera anicteric Pupils: Present: PERRL - Neck Neck exam general surgery: Present: supple, trachea midline. Absent: lymphadenopathy - Respiratory Respiratory exam: Present: CTAB. Absent: accessory muscle use, rales, rhonchi, wheezes - Cardiovascular Cardiovascular exam: Present: RRR, +S1, +S2. Absent: diastolic murmur, gallop, rubs, systolic murmur - GI/Abdominal GI/Abdominal exam: Present: normal bowel sounds, soft, no peritoneal signs. Absent: distended, tenderness - Extremities Exam Extremities exam: Present: warm, radial pulses palpable and symetrical. Absent : calf tenderness, cyanotic, pedal edema - Neurological Exam Neurological exam: Present: CN II-XII intact, oriented X3, no focal deficits. Absent: pronater drift, facial droop, speech deficit - Skin Skin exam: Present: dry, intact Internal Med - H&P Results - Labs CBC & Chem 7: 04/27/17 16:38 04/27/17 16:38 - EKG Data EKG shows normal: sinus rhythm - Diagnostic Studies Other Images Additional comments: Femur X-Ray 04/27/17 16:18 IMPRESSION: No acute osseous abnormality. D/ / Hermelindo Concepcion MD / Hermelindo Concepcion MD Interpreting Provider: Hermelindo Concepcion MD Tibia/Fibula X-Ray 04/27/17 16:19 IMPRESSION: No acute osseous abnormality. D/ / Hermelindo Concepcion MD / Hermelindo Concepcion MD Interpreting Provider: Hermelindo Concepcion MD Pelvis X-Ray 04/27/17 17:34 IMPRESSION: No definite displaced fracture is identified. The study is limited by body habitus. If indicated, further evaluation with cross-sectional study may be helpful if indicated. D/ / Justine Farrar Cha, MD / Justine Farrar Cha, MD Interpreting Provider: Justine Farrar Cha, MD
[2017-04-27] MEDS: Diclofenac Sodium 75 MG TABLET PO SCH (22:46)
[2017-04-27] MEDS: *HR* Rivaroxaban 15 MG TABLET PO SCH (22:46)
[2017-04-27] MEDS: Insulin DETEMIR 100 UNIT/ML X5UNITS SQ SCH (22:47)
[2017-04-27] MEDS: Gabapentin 300 MG CAPSULE PO SCH (22:47)
[2017-04-28] MEDS: *HR* HYDROcodone/Acet 5/325 mg TABLET PO PRN ×2 (03:27→15:18)
[2017-04-28 06:35] LABS: BUN/Creatinine Ratio 17 (6-26); Blood Urea Nitrogen 11 mg/dL (7-20); Calcium 9.1 mg/dL (8.6-10.8); Carbon Dioxide 31 mEq/L (19-29); Chloride 98 mEq/L (98-109); Glucose 97 mg/dL (70-99); Magnesium 1.5 mg/dL (1.6-2.6); Osmolality,Calculated 281 (280-300); Potassium 4.3 mEq/L (3.5-4.5); Sodium 136 mEq/L (136-145); eGFR For African Americans > 60 (> 60); eGFR For Non-African Americans > 60 (> 60)
[2017-04-28] MEDS: Ascorbic Acid 500 MG TABLET PO SCH (07:21)
[2017-04-28] MEDS: Diclofenac Sodium 75 MG TABLET PO SCH ×2 (07:21→21:39)
[2017-04-28] MEDS: Venlafaxine XR (24 HR) 150 MG CAP.ER.24H PO SCH (07:21)
[2017-04-28] MEDS: Vitamin B Complex/Vit C/Vit E 1 EACH TABLET PO SCH (07:21)
[2017-04-28] MEDS: Multivit/Ca/Min/Fe/FA 1 TAB TABLET PO SCH (07:21)
[2017-04-28] MEDS: *HR* Rivaroxaban 15 MG TABLET PO SCH ×2 (07:21→21:39)
[2017-04-28] MEDS: MAGNESIUM 250MG PO SCH (07:22)
[2017-04-28] MEDS: Insulin LISPRO 300 UNITS/3 ML VIAL SQ SCH ×4 (07:29→21:38)
[2017-04-28] MEDS: NIFEdipine XL (24 HR) 60 MG TAB.ER.24 PO SCH (07:32)
[2017-04-28] MEDS ORDERED: Loratadine 10 MG TABLET PO PRN (07:38)
[2017-04-28] MEDS ORDERED: Fluticasone Propionate Nasal 50 MCG/SPRAY BOTTLE NS PRN (07:38)
[2017-04-28 08:27] LABS: Basophils % 1.1 %; Hemoglobin 8.2 g/dL (11.5-15.4)
[2017-04-28 08:28] LABS: Basophils # 0.1 K/mcL (0.0-0.2); Eosinophils # 0.3 K/mcL (0.0-0.6); Eosinophils % 5.1 %; Hematocrit 30.4 % (35.3-44.9); Immature Granulocytes % 0.7 % (0-4); Lymphocytes % 28.1 %; Mean Corpuscular Hemoglobin 23.1 pg (28.0-33.3); Mean Corpuscular Volume 85.6 fL (83.0-100.0); Mean Platelet Volume 10.1 fL (9.4-12.4); Monocytes # 0.6 K/mcL (0.0-1.3); Monocytes % 10.6 %; Platelet Count 452 K/mcL (140-400); Red Blood Count 3.55 M/mcL (3.82-4.97); Red Cell Distribution Width 23.4 % (11.5-14.5); Segmented Neutrophils % 54.4 %
[2017-04-28 08:56] LABS: Lymphocytes # 1.6 K/mcL (0.6-4.6)
[2017-04-28 09:12] LABS: Anisocytosis 2+ (Not Present)
[2017-04-28 09:13] LABS: Hypochromasia Present (Not Present); Polychromasia 1+ (Not Present)
--- NOTE | 2017-04-28 11:08 | Internal Med Progress Note ---
Date of Encounter: 04/28/17 Time of Encounter: 09:00 - Assessment and plan (1) Fall Current Visit: Yes Status: Acute Assessment and plan: Likely multifactorial including sedentary lifestyle, morbid obesity with BMI of 65, and with her recent admission for a PE that has likely caused further deconditioning and weakness. No focal neurological symptoms or facial asymmetry. Patient is alert, oriented x3 and pleasant. Patient also has a UTI which could be contributing. OT and PT have recommended ECF placement. Regarding her disposition, patient has had 3 inpatient days within the last 30 days so she can go to inpatient rehabilitation. According to social research assistant's note however unable to obtain a bariatric bed on the weekend, likely transfer to ECF on Sunday, or on Sunday if they are closed for the holiday. Plain films of femur, tib-fib, pelvis unremarkable. ITS Impressions Femur X-Ray 04/27/17 16:18 IMPRESSION: No acute osseous abnormality. D/ / Hermelindo Concepcion MD / Hermelindo Concepcion MD Interpreting Provider: Hermelindo Concepcion MD Tibia/Fibula X-Ray 04/27/17 16:19 IMPRESSION: No acute osseous abnormality. D/ / Hermelindo Concepcion MD / Hermelindo Concepcion MD Interpreting Provider: Hermelindo Concepcion MD Pelvis X-Ray 04/27/17 17:34 IMPRESSION: No definite displaced fracture is identified. The study is limited by body habitus. If indicated, further evaluation with cross-sectional study may be helpful if indicated. D/ / Justine Farrar Cha, MD / Justine Farrar Cha, MD Interpreting Provider: Justine Farrar Cha, MD Qualifiers: Encounter type: initial encounter Qualified Code(s): W19.XXXA - Unspecified fall, initial encounter (2) Ataxia Current Visit: Yes Status: Acute Assessment and plan: See prior note for fall. No focal neurological weaknesses or asymmetry or concern for CVA. (3) UTI (urinary tract infection) Current Visit: Yes Status: Acute Assessment and plan: Urinalysis consistent with possible urinary tract infection. We will continue ceftriaxone and await urine culture. (4) Anemia Current Visit: No Status: Chronic Assessment and plan: Unchanged from 2 weeks ago, we will continue to trend. Continue iron supplementation. Qualifiers: Anemia type: iron deficiency Iron deficiency anemia type: unspecified iron deficiency Qualified Code(s): D50.9 - Iron deficiency anemia, unspecified (5) Generalized weakness Current Visit: No Status: Acute Assessment and plan: See prior note for fall, awaiting placement. (6) Sleep apnea Current Visit: No Status: Chronic Assessment and plan: Endorses compliance with CPAP Qualifiers: Sleep apnea type: unspecified type Qualified Code(s): G47.30 - Sleep apnea , unspecified (7) Type 2 diabetes mellitus Current Visit: No Status: Chronic Assessment and plan: Controlled with a recent A1c of 6.2%. Continue sliding scale while admitted. Qualifiers: Diabetes mellitus complication status: with neurologic complications Diabetes mellitus complication detail: with polyneuropathy Diabetes mellitus prison insulin use: with prison use Qualified Code(s): E11.42 - Type 2 diabetes mellitus with diabetic polyneuropathy; Z79.4 - ferry terminal agent (current) use of insulin (8) DVT prophylaxis Current Visit: No Status: Acute Assessment and plan: Continue home Xarelto (9) History of pulmonary embolus (PE) Current Visit: Yes Status: Chronic Assessment and plan: Patient denies shortness of breath above her norm, has been on Xarelto- continued (10) On anticoagulant therapy Current Visit: Yes Status: Chronic (11) Thrombocythemia Current Visit: Yes Status: Acute Assessment and plan: Acute onset stable, likely secondary to iron deficiency anemia, will trend (12) Morbid obesity with BMI of 60.0-69.9, adult Current Visit: Yes Status: Chronic - Subjective Interval history: Patient seen and examined. On examination, patient sitting upright in her chair eating breakfast. She is alert and oriented x3 and currently complains of her chronic leg and back pain. She states she is eating well and states her pain is at a tolerable level. - Constitutional Vitals: Temp Pulse Resp BP Pulse Ox 97.8 F 88 21 148/65 99 04/28/17 07:34 07/01/17 07:34 04/28/17 07:34 04/28/17 07:59 04/28/17 07:34 General appearance: Present: A&O X 3, morbidly obese, pleasant, no acute distress, answers questions appropriately - Head Head exam: Present: atraumatic, normocephalic - Eye Eye exam: Present: PERRL, conjuntiva pink, sclera anicteric Pupils: Present: PERRL - Neck Neck exam general surgery: Present: supple, trachea midline. Absent: lymphadenopathy - Respiratory Respiratory exam: Present: decreased breath sounds (2/2 body habitus; no increased WOB). Absent: accessory muscle use, rales, respiratory distress, rhonchi, wheezes - Cardiovascular Cardiovascular exam: Present: RRR, +S1, +S2. Absent: diastolic murmur, gallop, rubs, systolic murmur - GI/Abdominal GI/Abdominal exam: Present: distended, normal bowel sounds, soft, no peritoneal signs. Absent: tenderness - Extremities Exam Extremities exam: Present: pedal edema, warm, radial pulses palpable and symetrical. Absent: calf tenderness, cyanotic - Neurological Exam Neurological exam: Present: alert, CN II-XII intact, oriented X3, no focal deficits, strengths equal and symetr throughout. Absent: pronater drift, facial droop, speech deficit - Skin Skin exam: Present: dry, intact, pallor, warm Internal Medicine: Result - Labs CBC & Chem 7: 04/28/17 05:53 04/28/17 05:53 Labs: Short CBC 04/28/17 Range/Units 05:53 WBC 5.5 (4.3-11.1) K/mcL Hgb 8.2 L (11.5-15.4) g/dL Hct 30.4 L (35.3-44.9) % Plt Count 452 H (140-400) K/mcL Neutrophils # 3.0 (1.6-8.9) K/mcL BMP 04/28/17 05:53 Sodium 136 Potassium 4.3 Chloride 98 Carbon Dioxide 31 H BUN 11 Creatinine 0.66 Glucose 97 Calcium 9.1 - ABG Interpretation ABG results: PT/INR, D-dimer PT 17.4 Seconds (9.4-12.1) H 04/27/17 19:08 Consult Discharge Plan - Plan Referrals: Anmol Mancuso MD [Primary Care Provider] -
[2017-04-28] MEDS ORDERED: *HR* LORazepam 2 MG/ML VIAL IVP PRN (17:07)
[2017-04-28] MEDS ORDERED: *HR* Metoprolol 5 MG/5 ML VIAL IVP PRN (17:07)
--- NOTE | 2017-04-28 17:11 | Event Note ---
Date of Encounter: 04/28/17 Time of Encounter: 16:45 Informed by the patient's primary nurse that the patient was tachycardic. I went in to see the patient. She is alert and oriented 3. She denies shortness of breath or pain at this time. She states that she recently took a pain pill and her pain is controlled. She is emotionally upset and crying at this time stating that she does not get any assistance or support at home. EKG reviewed consistent with sinus tach. Patient without any history of atrial fibrillation or atrial flutter. Her respirations are even and easy and she is able to speak multiple sentences in a row without stopping to catch her breath. Patient is quite verbose and upset at this time. We will treat her emotional distress with 1 mg of IV Ativan now. We will see how that affects her heart rate and her mood. If ineffective, will give Lopressor IV. Of course, given her recent PE, possible concern for another PE given her tachycardia, but we will treat her emotional symptoms then monitor.
[2017-04-28] MEDS: Acetaminophen 325 MG TABLET PO PRN (18:52)
[2017-04-28] MEDS ORDERED: *HR* Metoprolol 5 MG/5 ML VIAL IVP ONE (20:36)
[2017-04-28] MEDS: Gabapentin 300 MG CAPSULE PO SCH (21:39)
[2017-04-28] MEDS: Insulin DETEMIR 100 UNIT/ML X5UNITS SQ SCH (21:44)
--- NOTE | 2017-04-28 22:57 | Event Note ---
Date of Encounter: 04/28/17 Time of Encounter: 22:57 Hospitalist On-call: Atrial flutter with RVR on telemetry and EKG. Pt denies chest pain / palpitations. Echocardiogram from March 2017 showed LVEF of 60%; TSH: 0.59 Pt did not respond to metoprolol and diltiazem bolus. Started on diltiazem infusion and transferred to step-down unit. Cardiology consultation.
[2017-04-28] MEDS ORDERED: CefTRIAXone 1,000 MG VIAL ONE (23:42)
[2017-04-29] MEDS ORDERED: GuaiFENesin/Dextromethorphan TABLET PO PRN (00:52)
[2017-04-29 04:32] LABS: Basophils # 0.1 K/mcL (0.0-0.2); Basophils % 1.1 %; Eosinophils # 0.3 K/mcL (0.0-0.6); Eosinophils % 4.4 %; Hematocrit 32.8 % (35.3-44.9); Hemoglobin 8.7 g/dL (11.5-15.4); Immature Granulocytes % 0.5 % (0-4); Lymphocytes # 1.7 K/mcL (0.6-4.6); Lymphocytes % 25.1 %; Mean Corpuscular HGB Conc 26.5 g/dL (31.6-35.5); Mean Corpuscular Hemoglobin 22.6 pg (28.0-33.3); Mean Corpuscular Volume 85.2 fL (83.0-100.0); Mean Platelet Volume 9.8 fL (9.4-12.4); Monocytes # 0.7 K/mcL (0.0-1.3); Monocytes % 10.7 %; Neutrophils # 3.9 K/mcL (1.6-8.9); Platelet Count 533 K/mcL (140-400); Red Blood Count 3.85 M/mcL (3.82-4.97); Red Cell Distribution Width 23.3 % (11.5-14.5); Segmented Neutrophils % 58.2 %
[2017-04-29 04:34] LABS: BUN/Creatinine Ratio 18 (6-26); Blood Urea Nitrogen 16 mg/dL (7-20); Carbon Dioxide 32 mEq/L (19-29); Chloride 95 mEq/L (98-109); Glucose 180 mg/dL (70-99); Magnesium 1.6 mg/dL (1.6-2.6); Osmolality,Calculated 282 (280-300); Potassium 4.5 mEq/L (3.5-4.5); Sodium 133 mEq/L (136-145); eGFR For African Americans > 60 (> 60); eGFR For Non-African Americans > 60 (> 60)
[2017-04-29 04:58] LABS: Anisocytosis 3+ (Not Present); Hypochromasia Present (Not Present); Platelet Estimate Increased (Normal); Stomatocytes 1+ (Not Present)
[2017-04-29 05:10] LABS: Folate 10.5 ng/mL (7.0-31.4)
[2017-04-29] MEDS: *HR* Rivaroxaban 15 MG TABLET PO SCH ×2 (08:34→20:29)
[2017-04-29] MEDS: NIFEdipine XL (24 HR) 60 MG TAB.ER.24 PO SCH (08:34)
[2017-04-29] MEDS: Vitamin B Complex/Vit C/Vit E 1 EACH TABLET PO SCH (08:34)
[2017-04-29] MEDS: Venlafaxine XR (24 HR) 150 MG CAP.ER.24H PO SCH (08:34)
[2017-04-29] MEDS: Multivit/Ca/Min/Fe/FA 1 TAB TABLET PO SCH (08:34)
[2017-04-29] MEDS: MAGNESIUM 250MG PO SCH (08:34)
[2017-04-29] MEDS: Ascorbic Acid 500 MG TABLET PO SCH (08:34)
[2017-04-29] MEDS: Diclofenac Sodium 75 MG TABLET PO SCH ×2 (08:34→20:29)
[2017-04-29] MEDS: Insulin LISPRO 300 UNITS/3 ML VIAL SQ SCH ×4 (08:39→21:26)
--- NOTE | 2017-04-29 09:06 | Cardiology Consult Note ---
Date of Encounter: 04/29/17 Time of Encounter: 09:00 Assessment and Plan (1) Atrial flutter Current Visit: Yes Status: Acute Paroxysmal atrial flutter in setting of morbid obesity, recent PE. Presented with primary complaint of mechanical falls. Currently in NSR. Already on AC for PE - recommend continue. Change diltiazem IV to PO. Recent echocardiogram noted. No further inpatient cardiology recommendations. Please call if any further arrhythmias. Qualifiers: Atrial flutter type: unspecified Qualified Code(s): I48.92 - Unspecified atrial flutter (2) History of pulmonary embolus (PE) Current Visit: Yes Status: Chronic Discussion w patient/family: The assessment and plan as outlined above was discussed with the patient and/or family members who expressed understanding and agreement. All questions were answered. Thank you for involving us in the care of your patient. Please call with any questions. History of Present Illness Consult date: 04/29/17 Requesting physician: Jackie Sykes Consult reason: atrial flutter, milt troponin Chief complaint: falls History of present illness: Ms. Lamb is a 66 year old female with a history of DM, anemia, HTN, morbid obesity, PEDRO. Recently diagnosed with PE in 03/2017. Since discharge, reports things have been difficult. Few mechanical falls, which prompted ER evaluation. While on telemetry, noted to have AFL with RVR (per reports). Patient denies any associated symptoms - no palpitation, lightheadedness, near syncope, or syncope. Requesting detention/rehabilitation placement upon discharge. Hg 8.7 - similar to previous. Plt 533 Cr nl. Tn 04/27 0.01. U/A many bacteria, culture pending. TTE 04/14/2017: LVEF 60%. Not all LV segments were well visualized, but overall function normal. Grossly normal RV function. Mild diastolic dysfunction. No pHTN, RVSP not well obtained. No obvious VHD. Past Med Surg Social Fam HX - Past Medical History Medical history: arthritis, diabetes, GERD, hypertension, other (sleep apnea) Psychiatric history: no psych history - Past Surgical History Surgical History: appendectomy, sinus surgery, bariatric surgery - Social History Smoking Status: Never smoker Smokeless Tobacco Status: No Alcohol use: none Drug use: none - Family History Mother Living Status: Hx Family Neurologic Disorders: Yes (Migraines) Hx Family Autoimmune Disorders: Yes (MS) Sister Hx Family Cancer: Yes Hx Family Autoimmune Disorders: Yes (Lupus) Father Living Status: Hx Family Cancer: Yes Hx Family Endocrine Disorder: Yes (diabetes) Medications and Allergies Acetaminophen [Tylenol Arthritis] 1,300 mg PO Q8H PRN 04/12/17 [History] Cetirizine HCl [Zyrtec] 10 mg PO DAILY PRN 04/12/17 [History] Citalopram [CeleXA] 20 mg PO DAILY 04/12/17 [History] Diclofenac Sodium [Voltaren] 75 mg PO BID 04/12/17 [History] Esomeprazole Magnesium [Nexium] 40 mg PO DAILY 04/12/17 [History] Fluticasone Propionate Nasal [Flonase] 50 mcg NS DAILY PRN 04/12/17 [History] Gabapentin [Neurontin] 300 mg PO HS 04/12/17 [History] GuaiFENesin/Dextromethorphan [Mucinex Dm] 1 each PO BID PRN 04/12/17 [History] HYDROcodone/Acet 5/325 mg [Blevins 5-325 mg] 1 tab PO Q6H PRN 04/12/17 [History] Loperamide HCl [Imodium A-D] 2 mg PO PER PKG DI PRN 04/12/17 [History] Losartan Potassium [Cozaar] 50 mg PO DAILY 04/12/17 [History] Magnesium 250 mg PO DAILY 04/12/17 [History] Multivitamin [Multi-Day Vitamins] 1 each PO DAILY 04/12/17 [History] NIFEdipine [Nifedipine ER] 60 mg PO DAILY 04/12/17 [History] Pioglitazone [Actos] 45 mg PO 0800 04/12/17 [History] Venlafaxine XR (24 HR) [Effexor Xr] 300 mg PO QAM 04/12/17 [History] Vitamin B Complex 1 each PO DAILY 04/12/17 [History] metFORMIN [Glucophage] 500 mg PO TIDWM 04/12/17 [History] Ascorbic Acid [Vitamin C] 500 mg PO DAILY #30 tablet 04/16/17 [Rx] Ferrous Sulfate 325 mg PO BIDWM #60 tablet 04/16/17 [Rx] Insulin Glargine,Hum.rec.anlog [Lantus Solostar] 50 unit SQ HS #0 04/16/17 [Rx] Rivaroxaban [Xarelto] 15 mg PO BID tablet 04/16/17 [Rx] Allergies Penicillins Adverse Reaction (Verified 04/12/17 14:05) Gastrointestinal Upset shellfish derived Adverse Reaction (Verified 04/12/17 14:05) Headache Tetracyclines Adverse Reaction (Verified 04/12/17 14:05) Rash All Systems Review: A 10-system review of systems was performed and is negative for pertinent findings except as documented above in the HPI. - Cardiovascular Cardiovascular: as per HPI, leg edema - Musculoskeletal Musculoskeletal: abnormal gait, arthralgias, muscle weakness Physical Examination Vital Signs, Last 4 Hours Temp Pulse Resp BP Pulse Ox 04/29/17 08:11 76 153/71 04/29/17 07:51 97.8 F 79 18 154/80 99 04/29/17 06:10 97.8 F 72 14 154/91 General: Conversant, No Apparent Distress, Other (Chronically ill appearing. ) HEENT: Atraumatic, Normocephaly, Mucus Membranes Moist Neck: No JVD Cardiac: Other (Regular rate and rhythm. Distant, no obvious murmurs. ) Lungs: Normal Breath Sounds, No Wheeze, Rales, Rhonchi Neuro: Alert and responsive, No focal deficits noted Abdomen: Soft, Non-Tender, Other (obese) Skin: No rashes noted on visualized skin Musculoskeletal: No Chest Wall Tenderness Extremities: Other (Legs appear to demonstrate chronic lymhadema) Results 04/29/17 03:15 04/29/17 03:15 Lab Results 04/29/17 04/29/17 03:15 03:15 WBC 6.7 Hgb 8.7 L Hct 32.8 L Plt Count 533 H Sodium 133 L Potassium 4.5 Chloride 95 L Carbon Dioxide 32 H BUN 16 Creatinine 0.91 Glucose 180 H Calcium 9.0 Magnesium 1.6 - Imaging and Cardiology Echo: report reviewed - EKG Interpretation EKG results cardiology: other (ECG not available in [employer] for review, could not be found at bedside/unit.) Consult Discharge Plan - Plan Referrals: Anmol Mancuso MD [Primary Care Provider] -
[2017-04-29] MEDS: Diltiazem CD (24hr) 120 MG CAPSULE PO SCH (10:40)
[2017-04-29] MEDS: Acetaminophen 325 MG TABLET PO PRN (10:42)
--- NOTE | 2017-04-29 11:25 | Internal Med Progress Note ---
Date of Encounter: 04/29/17 Time of Encounter: 10:48 - Assessment and plan (1) Atrial flutter Current Visit: Yes Status: Acute Assessment and plan: Paroxysmal atrial flutter in setting of morbid obesity, recent PE. Currently in NSR, seen by cardio, appreciate recommendations. Already on AC for PE - recommend continue. diltiazem has been changed to PO. Recent echocardiogram noted. HR at mid 70s now, BP stable. Qualifiers: Atrial flutter type: unspecified Qualified Code(s): I48.92 - Unspecified atrial flutter (2) Anemia Current Visit: No Status: Chronic Assessment and plan: Unchanged from 2 weeks ago, we will continue to trend. Continue iron supplementation. Qualifiers: Anemia type: iron deficiency Iron deficiency anemia type: unspecified iron deficiency Qualified Code(s): D50.9 - Iron deficiency anemia, unspecified (3) Type 2 diabetes mellitus Current Visit: No Status: Chronic Assessment and plan: Controlled with a recent A1c of 6.2%. Continue sliding scale while admitted. Qualifiers: Diabetes mellitus complication status: with neurologic complications Diabetes mellitus complication detail: with polyneuropathy Diabetes mellitus exterminator insulin use: with exterminator use Qualified Code(s): E11.42 - Type 2 diabetes mellitus with diabetic polyneuropathy; Z79.4 - detention (current) use of insulin (4) History of pulmonary embolus (PE) Current Visit: Yes Status: Chronic Assessment and plan: Patient denies shortness of breath above her norm, has been on Xarelto- continued (5) UTI (urinary tract infection) Current Visit: Yes Status: Acute Assessment and plan: Urinalysis consistent with possible urinary tract infection. We will continue ceftriaxone and await urine culture. Qualifiers: Urinary tract infection type: acute cystitis Hematuria presence: with hematuria Qualified Code(s): N30.01 - Acute cystitis with hematuria (6) Morbid obesity with BMI of 60.0-69.9, adult Current Visit: Yes Status: Chronic - Subjective Interval history: seen at the bedside, sitting in bed in no acute distress. Admitted for fall and UTI, went into A. fib RVR last night. Started on Cardizem drip and transferred to 2 N. Heart rate stable at this time, denies any chest pain or shortness of breath, cardiology consulted. - Constitutional Vitals: Temp Pulse Resp BP Pulse Ox 97.8 F 76 18 153/71 99 04/29/17 07:51 04/29/17 08:11 04/29/17 07:51 04/29/17 08:11 04/29/17 07:51 General appearance: Present: A&O X 3, morbidly obese, pleasant, no acute distress, answers questions appropriately Exam: Morbidly obese. Neck supple. Chest bilateral clear, no added sounds. CVS S1-S2, no murmurs rubs or gallops. Abdomen soft, nontender, bowel sounds are present. Extremities no edema Neuro alert and awake, no focal neuro deficits. Internal Medicine: Result - Labs CBC & Chem 7: 04/29/17 03:15 04/29/17 03:15 Labs: Short CBC 04/29/17 Range/Units 03:15 WBC 6.7 (4.3-11.1) K/mcL Hgb 8.7 L (11.5-15.4) g/dL Hct 32.8 L (35.3-44.9) % Plt Count 533 H (140-400) K/mcL Neutrophils # 3.9 (1.6-8.9) K/mcL BMP 04/29/17 03:15 Sodium 133 L Potassium 4.5 Chloride 95 L Carbon Dioxide 32 H BUN 16 Creatinine 0.91 Glucose 180 H Calcium 9.0 - ABG Interpretation ABG results: PT/INR, D-dimer PT 17.4 Seconds (9.4-12.1) H 04/27/17 19:08 Consult Discharge Plan - Plan Referrals: Anmol Mancuso MD [Primary Care Provider] -
[2017-04-29] MEDS: *HR* HYDROcodone/Acet 5/325 mg TABLET PO PRN ×2 (15:27→21:29)
[2017-04-29] MEDS: Gabapentin 300 MG CAPSULE PO SCH (20:29)
[2017-04-29] MEDS: Insulin DETEMIR 100 UNIT/ML X5UNITS SQ SCH (20:29)
[2017-04-30] MEDS: Acetaminophen 325 MG TABLET PO PRN (01:46)
[2017-04-30] MEDS: Insulin LISPRO 300 UNITS/3 ML VIAL SQ SCH ×3 (07:36→16:23)
[2017-04-30] MEDS: *HR* Rivaroxaban 15 MG TABLET PO SCH (07:42)
[2017-04-30] MEDS: Diclofenac Sodium 75 MG TABLET PO SCH (07:43)
[2017-04-30] MEDS: Vitamin B Complex/Vit C/Vit E 1 EACH TABLET PO SCH (07:43)
[2017-04-30] MEDS: Diltiazem CD (24hr) 120 MG CAPSULE PO SCH (07:43)
[2017-04-30] MEDS: NIFEdipine XL (24 HR) 60 MG TAB.ER.24 PO SCH (07:43)
[2017-04-30] MEDS: Multivit/Ca/Min/Fe/FA 1 TAB TABLET PO SCH (07:43)
[2017-04-30] MEDS: Venlafaxine XR (24 HR) 150 MG CAP.ER.24H PO SCH (07:43)
[2017-04-30] MEDS: Ascorbic Acid 500 MG TABLET PO SCH (07:43)
[2017-04-30] MEDS: MAGNESIUM 250MG PO SCH (07:43)
[2017-04-30] MEDS: *HR* HYDROcodone/Acet 5/325 mg TABLET PO PRN (09:44)
--- NOTE | 2017-04-30 09:48 | Electrocardiograph Report ---
[place] [id number] Test Date: 2017-04-27 Pat Name: Jacquie Lamb Department: 102 Room: 2N14 Gender: F Delivery Room Clerk: [facility] : 1950 Requested By: Jb Cheng Order Number: [id number] Reading MD: Chirag Norton MD Measurements Intervals [place] Rate: 92 P: 51 WA: 158 QRS: 26 QRSD: 101 T: 61 QT: 353 QTc: 403 Interpretive Statements SINUS RHYTHM WITH OCCASIONAL VENTRICULAR PREMATURE COMPLEXES Electronically Signed On 04-30-2017 9:47:31 EDT by Chirag Norton MD
--- NOTE | 2017-04-30 15:43 | Discharge Summary ---
Date of Encounter: 04/30/17 Time of Encounter: 15:36 - Discharge Diagnosis (1) Atrial flutter Priority: Primary Status: Acute Qualifiers: Atrial flutter type: unspecified Qualified Code(s): I48.92 - Unspecified atrial flutter (2) Anemia Priority: Secondary Status: Chronic Qualifiers: Anemia type: iron deficiency Iron deficiency anemia type: unspecified iron deficiency Qualified Code(s): D50.9 - Iron deficiency anemia, unspecified (3) Type 2 diabetes mellitus Priority: Secondary Status: Chronic Qualifiers: Diabetes mellitus complication status: with neurologic complications Diabetes mellitus complication detail: with polyneuropathy Diabetes mellitus terminal carman insulin use: with shelter use Qualified Code(s): E11.42 - Type 2 diabetes mellitus with diabetic polyneuropathy; Z79.4 - superintendent terminal (current) use of insulin (4) History of pulmonary embolus (PE) Priority: Secondary Status: Chronic (5) UTI (urinary tract infection) Priority: Primary Status: Acute Qualifiers: Urinary tract infection type: acute cystitis Hematuria presence: with hematuria Qualified Code(s): N30.01 - Acute cystitis with hematuria (6) Morbid obesity with BMI of 60.0-69.9, adult Priority: Secondary Status: Chronic - Discharge Medications Prescriptions: Cefdinir [Omnicef] 300 mg PO DAILY #3 capsule Diltiazem CD (24hr) [Cardizem CD] 120 mg PO DAILY 30 Days Ferrous Sulfate 325 mg PO BIDWM 30 Days Home Medications: Acetaminophen [Tylenol Arthritis] 1,300 mg PO Q8H PRN 04/12/17 [History] Cetirizine HCl [Zyrtec] 10 mg PO DAILY PRN 04/12/17 [History] Citalopram [CeleXA] 20 mg PO DAILY 04/12/17 [History] Diclofenac Sodium [Voltaren] 75 mg PO BID 04/12/17 [History] Esomeprazole Magnesium [Nexium] 40 mg PO DAILY 04/12/17 [History] Fluticasone Propionate Nasal [Flonase] 50 mcg NS DAILY PRN 04/12/17 [History] Gabapentin [Neurontin] 300 mg PO HS 04/12/17 [History] GuaiFENesin/Dextromethorphan [Mucinex Dm] 1 each PO BID PRN 04/12/17 [History] HYDROcodone/Acet 5/325 mg [Linch 5-325 mg] 1 tab PO Q6H PRN 04/12/17 [History] Loperamide HCl [Imodium A-D] 2 mg PO PER PKG DI PRN 04/12/17 [History] Losartan Potassium [Cozaar] 50 mg PO DAILY 04/12/17 [History] Magnesium 250 mg PO DAILY 04/12/17 [History] Multivitamin [Multi-Day Vitamins] 1 each PO DAILY 04/12/17 [History] Pioglitazone [Actos] 45 mg PO 0800 04/12/17 [History] Venlafaxine XR (24 HR) [Effexor Xr] 300 mg PO QAM 04/12/17 [History] Vitamin B Complex 1 each PO DAILY 04/12/17 [History] metFORMIN [Glucophage] 500 mg PO TIDWM 04/12/17 [History] Ascorbic Acid [Vitamin C] 500 mg PO DAILY #30 tablet 04/16/17 [Rx] Ferrous Sulfate 325 mg PO BIDWM #60 tablet 04/16/17 [Rx] Insulin Glargine,Hum.rec.anlog [Lantus Solostar] 50 unit SQ HS #0 04/16/17 [Rx] Rivaroxaban [Xarelto] 15 mg PO BID tablet 04/16/17 [Rx] Cefdinir [Omnicef] 300 mg PO DAILY #3 capsule 04/30/17 [Rx] Diltiazem CD (24hr) [Cardizem CD] 120 mg PO DAILY 30 Days 04/30/17 [Rx] Ferrous Sulfate 325 mg PO BIDWM 30 Days 04/30/17 [Rx] Allergies/Adverse Reactions: Allergies Penicillins Adverse Reaction (Verified 04/12/17 14:05) Gastrointestinal Upset shellfish derived Adverse Reaction (Verified 04/12/17 14:05) Headache Tetracyclines Adverse Reaction (Verified 04/12/17 14:05) Rash Procedures/tests Complete & Pending: Procedures Performed prior 72 hours Category Date Time Status EKG [ECG 12 lead ECG] [ECG] Routine Y 04/28/17 16:09 Ordered Date of admission: 04/27/17 22:12 Primary care physician: Anmol Mancuso MD Consults: 04/29/17 06:18 Consult to Cardiology [CONS] Routine Comment: Consulting Provider: Cardiology Dawson Reason for Consult: Atrial flutter with RVR Call Completed: No Discharging clinician: Alana Mcarthur Anticipated date of discharge: 04/30/17 - Patient Status Disposition: Transfer Inpatient Rehab Fac Condition: Fair Functional capacity at discharge: uses cane/walker Overall status at discharge: patient is back to baseline - Discharge Instructions Follow Up With: Anmol Mancuso MD [Primary Care Provider] - Hermelindo Osorio DO [Partnered Physician] - - Diet and Activity Activity: as per physical therapy Diet: advance to your usual diet Interval History: Ms. Lamb is a 66 year old female with a history of DM, anemia, HTN, morbid obesity, PEDRO. Recently diagnosed with PE in 03/2017. Since discharge, reports things have been difficult. Few mechanical falls, which prompted ER evaluation. While on telemetry, noted to have AFL with RVR (per reports). Patient denies any associated symptoms - no palpitation, lightheadedness, near syncope, or syncope. Paroxysmal atrial flutter in setting of morbid obesity, recent PE. cardiology was consulted. Presented with primary complaint of mechanical falls. Currently in NSR. Already on AC for PE - recommend continue. was initially started on cardizem drip that was switched to PO. her HR was stabilized with myrna cardizem. also noted to have UTI< urine cx grew proteus and is being dc on oral antibiotics Recent echocardiogram noted. manju is being dc in stable condition to inpt. rehab. Hospital course: Ms. Lamb is a 66 year old female - Time Spent with Patient Total time spent providing and/or coordinating discharge services: - Constitutional Vitals: Temp Pulse Resp BP Pulse Ox 97.8 F 82 18 172/74 99 04/30/17 11:14 04/30/17 15:35 04/30/17 11:14 04/30/17 11:14 04/30/17 11:14 General appearance: Present: A&O X 3, morbidly obese, pleasant, no acute distress, answers questions appropriately Exam: HEENT: Atraumatic, Normocephaly, Mucus Membranes Moist Neck: No JVD Cardiac: Other (Regular rate and rhythm. Distant, no obvious murmurs. ) Lungs: Normal Breath Sounds, No Wheeze, Rales, Rhonchi Neuro: Alert and responsive, No focal deficits noted Abdomen: Soft, Non-Tender, Other (obese) Skin: No rashes noted on visualized skin Musculoskeletal: No Chest Wall Tenderness Extremities: Other (Legs appear to demonstrate chronic lymhadema)
--- NOTE | 2017-04-30 15:44 | Physician Discharge Referral ---
ExtendedCare Referral Info Transfer To: F Provider in Charge: kirby vieira Institutional Level of Care: Intermediate - Diagnosis (1) Atrial flutter Status: Acute (2) Anemia Status: Chronic (3) Type 2 diabetes mellitus Status: Chronic (4) History of pulmonary embolus (PE) Status: Chronic (5) UTI (urinary tract infection) Status: Acute (6) Morbid obesity with BMI of 60.0-69.9, adult Status: Chronic - Transfer Medications Prescriptions: Cefdinir [Omnicef] 300 mg PO DAILY #3 capsule Diltiazem CD (24hr) [Cardizem CD] 120 mg PO DAILY 30 Days Ferrous Sulfate 325 mg PO BIDWM 30 Days Home Medications: Acetaminophen [Tylenol Arthritis] 1,300 mg PO Q8H PRN 04/12/17 [History] Cetirizine HCl [Zyrtec] 10 mg PO DAILY PRN 04/12/17 [History] Citalopram [CeleXA] 20 mg PO DAILY 04/12/17 [History] Diclofenac Sodium [Voltaren] 75 mg PO BID 04/12/17 [History] Esomeprazole Magnesium [Nexium] 40 mg PO DAILY 04/12/17 [History] Fluticasone Propionate Nasal [Flonase] 50 mcg NS DAILY PRN 04/12/17 [History] Gabapentin [Neurontin] 300 mg PO HS 04/12/17 [History] GuaiFENesin/Dextromethorphan [Mucinex Dm] 1 each PO BID PRN 04/12/17 [History] HYDROcodone/Acet 5/325 mg [[place] 5-325 mg] 1 tab PO Q6H PRN 04/12/17 [History] Loperamide HCl [Imodium A-D] 2 mg PO PER PKG DI PRN 04/12/17 [History] Losartan Potassium [Cozaar] 50 mg PO DAILY 04/12/17 [History] Magnesium 250 mg PO DAILY 04/12/17 [History] Multivitamin [Multi-Day Vitamins] 1 each PO DAILY 04/12/17 [History] Pioglitazone [Actos] 45 mg PO 0800 04/12/17 [History] Venlafaxine XR (24 HR) [Effexor Xr] 300 mg PO QAM 04/12/17 [History] Vitamin B Complex 1 each PO DAILY 04/12/17 [History] metFORMIN [Glucophage] 500 mg PO TIDWM 04/12/17 [History] Ascorbic Acid [Vitamin C] 500 mg PO DAILY #30 tablet 04/16/17 [Rx] Ferrous Sulfate 325 mg PO BIDWM #60 tablet 04/16/17 [Rx] Insulin Glargine,Hum.rec.anlog [Lantus Solostar] 50 unit SQ HS #0 04/16/17 [Rx] Rivaroxaban [Xarelto] 15 mg PO BID tablet 04/16/17 [Rx] Cefdinir [Omnicef] 300 mg PO DAILY #3 capsule 04/30/17 [Rx] Diltiazem CD (24hr) [Cardizem CD] 120 mg PO DAILY 30 Days 04/30/17 [Rx] Ferrous Sulfate 325 mg PO BIDWM 30 Days 04/30/17 [Rx] Allergies/Adverse Reactions: Allergies Penicillins Adverse Reaction (Verified 04/12/17 14:05) Gastrointestinal Upset shellfish derived Adverse Reaction (Verified 04/12/17 14:05) Headache Tetracyclines Adverse Reaction (Verified 04/12/17 14:05) Rash - Respiratory Orders Smoking Cessation: Smoking cessation has been advised. For more information, call the [place] Tobacco Quit Line at 0-854-FOWK-NOW. - Advance Directives Code Status: Full Code - Mobility Orders Ambulate - Rehabiliation Orders Rehab Potential: Fair Rehab Orders: Evaluation for Physical Therapy, Evaluation for Occupational Therapy - Diet Orders Regular CERTIFICATION: I certify that the transfer of the above named patient to an Extended Care Facility is necessary for the continuing treatment of the diagnosis listed. The above information is true and accurate reflection of patient's current condition. Confidential - Redisclosure prohibited without a patient's written consent.
[2017-04-30 15:59] VITALS: BP 170/74
[2017-04-30] MEDS ORDERED: amLODIPine 5 MG TABLET PO STA (17:11)
== END 2017-04-30 17:45 | DRG 690 ==
LOC: 3BNU 15:28 → EMEROO 15:28 → 3BNU 21:29 → 2NNU 04-29 00:34
PROVIDERS: ADMIT Internal Medicine; ATTEND Nurse Practitioner Family

== ENCOUNTER 2017-04-30 20:09 | Inpatient (IN) ==
--- NOTE | 2017-04-30 20:27 | Emergency Department Note ---
Disposition Clinical Impression: Sinus tachycardia, History of atrial flutter Right shoulder pain Qualifiers: Chronicity: acute Qualified Code(s): M25.511 - Pain in right shoulder Disposition: Admitted As Inpatient Condition: Good Time of Disposition: 01:09 Extremity Problem HPI - General Chief complaint: ED Extremity Problem,Nontraumatic Stated complaint: " Hurt Shoulder " Time Seen by Provider: 04/30/17 20:14 Source: patient, EMS Mode of arrival: EMS Limitations: no limitations Nursing Notes Reviewed: Yes Vital Signs Reviewed: Yes - History of Present Illness HPI Narrative: Patient is a 66-year-old female with past medical history of arthritis, A. fib, PE and currently on xarelto. Patient states that she was diagnosed with a PE 2 weeks ago and placed on blood thinners, she was also seen over the weekend for multiple falls and was found to have A. fib with RVR. She says that she was transitioned to Cardizem by mouth but does not know what strength she is on. She was discharged today from the hospital and sent to [facility] half-way for rehabilitation. She says that as soon as she got there, she was unhappy with her care. She says that she usually requires multiple people to assist her when standing, however, there is only one person that came to assist her when trying to get up out of the bed. She had her walker at bedside, the worker at the half-way tried to help her up, she felt unsteady and then fell to her right side back onto the bed. She says she injured her right shoulder during this process. She is having significant pain of the anterior right shoulder and right chest that is reproducible with palpation. [facility] right [facility], however, she said "I do not trust them and wanted to be evaluated by the ER." Denies LOC, numbness, tingling, weakness, any other injuries. No current chest pain, shortness breath, nausea, vomiting, fevers, diarrhea. Pain Scale: 10 - Related Data Home Medications Medication Instructions Recorded Confirmed Acetaminophen [Tylenol Arthritis] 1,300 mg PO Q8H PRN 04/12/17 05/01/17 Cetirizine HCl [Zyrtec] 10 mg PO DAILY PRN 04/12/17 05/01/17 Citalopram [CeleXA] 20 mg PO DAILY 04/12/17 05/01/17 Diclofenac Sodium [Voltaren] 75 mg PO BID 04/12/17 05/01/17 Esomeprazole Magnesium [Nexium] 40 mg PO DAILY 04/12/17 05/01/17 Fluticasone Propionate Nasal 50 mcg NS DAILY PRN 04/12/17 05/01/17 [Flonase] Gabapentin [Neurontin] 300 mg PO HS 04/12/17 05/01/17 GuaiFENesin/Dextromethorphan 1 each PO BID PRN 04/12/17 05/01/17 [Mucinex Dm] HYDROcodone/Acet 5/325 mg [[place] 1 tab PO Q6H PRN 04/12/17 05/01/17 5-325 mg] Loperamide HCl [Imodium A-D] 2 mg PO PER PKG DI PRN 04/12/17 05/01/17 Losartan Potassium [Cozaar] 50 mg PO DAILY 04/12/17 05/01/17 Magnesium 250 mg PO DAILY 04/12/17 05/01/17 Multivitamin [Multi-Day Vitamins] 1 each PO DAILY 04/12/17 05/01/17 Pioglitazone [Actos] 45 mg PO 0800 04/12/17 05/01/17 Venlafaxine XR (24 HR) [Effexor Xr] 300 mg PO QAM 04/12/17 05/01/17 Vitamin B Complex 1 each PO DAILY 04/12/17 05/01/17 metFORMIN [Glucophage] 500 mg PO TIDWM 04/12/17 05/01/17 Previous Rx's Medication Instructions Recorded Ascorbic Acid [Vitamin C] 500 mg PO DAILY #30 tablet 04/16/17 Ferrous Sulfate 325 mg PO BIDWM #60 tablet 04/16/17 Insulin Glargine,Hum.rec.anlog 50 unit SQ HS #0 04/16/17 [Lantus Solostar] Rivaroxaban [Xarelto] 15 mg PO BID tablet 04/16/17 Cefdinir [Omnicef] 300 mg PO DAILY #3 capsule 04/30/17 Diltiazem CD (24hr) [Cardizem CD] 120 mg PO DAILY 30 Days 04/30/17 Allergies Allergy/AdvReac Type Severity Reaction Status Date / Time Penicillins AdvReac Gastrointestinal Verified 06/15/17 14:05 Upset shellfish derived AdvReac Headache Verified 04/12/17 14:05 Tetracyclines AdvReac Rash Verified 04/12/17 14:05 All systems ED: reviewed and negative except as stated. Constitutional: Denies: fever Cardiovascular: Reports: other (chest wall pain near right shoulder). Denies: chest pain, palpitations Respiratory: Denies: cough, dyspnea, wheezes Gastrointestinal: Denies: abdominal pain, nausea Genitourinary: Denies: urgency, dysuria Musculoskeletal: Reports: arthralgia. Denies: back pain Integumentary: Denies: abrasion, lesions Neurological: Denies: weakness, numbness, paresthesias Past Medical History - Past Medical History Attestation: Yes The following information was validated with the patient. Source: patient Medical history: Reports: arthritis, diabetes, GERD, hypertension, other Surgical history: Reports: appendectomy, sinus surgery, bariatric surgery Psychiatric history: Reports: no psych history - Social History Smoking Status: Never smoker Smokeless Tobacco Status: No Alcohol use: Reports: none Drug use: Reports: none Physical Exam - General Limitations: no limitations General appearance: alert, in no apparent distress - Head Head exam: atraumatic, normocephalic, normal inspection - Eye Eye exam: Present: normal appearance, PERRL, EOMI - ENT ENT exam: normal exam, normal oropharynx, mucous membranes moist - Neck Neck exam: Present: normal inspection, full ROM, trachea midline - Chest Chest inspection: Present: normal inspection, symmetric chest wall rise - Respiratory Respiratory exam: Present: normal lung sounds bilaterally - Cardiovascular Cardiovascular exam: Present: normal rhythm, tachycardia, normal heart sounds - Abdominal Exam Abdominal exam: Present: soft, Non-Tender. Absent: tenderness, distention, guarding, rebound, rigidity - Extremities Exam Extremities exam: Present: other (Pain with palpation of anterior right chest wall near the axilla. Tenderness along right shoulder joint line. 5 out of 5 strength in all ROM in right shoulder, elbow, wrist. ) - Neurological Exam Neurological exam: Present: alert, oriented X3, CN II-XII intact. Absent: motor sensory deficit - Psychiatric Psychiatric exam: Present: normal affect, normal mood - Skin Skin exam: Present: warm, dry, intact, normal color Course Course Narrative: Patient tachycardic on exam. Physical exam shows: Pain with palpation of anterior right chest wall near the axilla. Tenderness along right shoulder joint line. 5 out of 5 strength in all ROM in right shoulder, elbow, wrist. Otherwise, the rest of the physical exam is benign. We will obtain EKG for tachycardia and right shoulder x-rays. 21:09 x-ray of the right shoulder is negative. EKG shows sinus tachycardia with a rate in 140s with ST depression in V4, V5, V6. We will obtain chest x- ray, troponin, basic blood work. We will give fluids to see if this decreases heart rate. If not, will give Cardizem. 01:07 patient was told tachycardic in the 140s. Patient was given diltiazem 10 mg and started on Cardizem drip. D-dimer was obtained and then elevated, this prompted the CTA of chest to rule out PE. This was negative for PE. Patient remained tachycardic. We will admit the patient for sinus tachycardia versus a flutter with RVR. No current chest pain. Troponin negative. Admission was discussed with Dr. Nicole. Shoulder X-Ray 04/30/17 20:26 IMPRESSION: No acute abnormality of the right shoulder D/ / Zev Vargas MD / Zev Vargas MD Interpreting Provider: Zev Vargas MD Vital Signs Temperature 98.1 F 04/30/17 20:17 Pulse Rate 143 04/30/17 20:17 Respiratory Rate 18 04/30/17 20:17 Blood Pressure 130/60 04/30/17 20:17 O2 Sat by Pulse Oximetry 93 04/30/17 20:17 Temperature 98.3 F 05/01/17 11:20 Pulse Rate 83 05/01/17 11:20 Respiratory Rate 16 05/01/17 11:20 Blood Pressure 143/70 05/01/17 11:20 O2 Sat by Pulse Oximetry 96 05/01/17 11:20 Oxygen Delivery Oxygen Delivery Room Air Extremity Problem, Nontraumati - MDM Narrative Medical decision making narrative: 21:09 x-ray of the right shoulder is negative. EKG shows sinus tachycardia with a rate in 140s with ST depression in V4, V5, V6. We will obtain chest x- ray, troponin, basic blood work. We will give fluids to see if this decreases heart rate. If not, will give Cardizem. 01:07 patient was told tachycardic in the 140s. Patient was given diltiazem 10 mg and started on Cardizem drip. D-dimer was obtained and then elevated, this prompted the CTA of chest to rule out PE. This was negative for PE. Patient remained tachycardic. We will admit the patient for sinus tachycardia versus a flutter with RVR. No current chest pain. Troponin negative. Admission was discussed with Dr. Nicole. - Medical Records Medical records reviewed: Yes I reviewed the patient's medical records. - Lab Data Lab results reviewed: Yes I reviewed the patient's lab results. Result diagrams: 05/01/17 09:25 05/01/17 09:25 Lab Results 04/30/17 04/30/17 04/30/17 Range/Units 21:30 21:30 21:30 WBC 6.6 (4.3-11.1) K/mcL RBC 3.73 L (3.82-4.97) M/mcL Hgb 8.8 L (11.5-15.4) g/dL Hct 31.3 L (35.3-44.9) % MCV 83.9 (83.0-100.0) fL MCH 23.6 L (28.0-33.3) pg MCHC 28.1 L (31.6-35.5) g/dL RDW 23.6 H (11.5-14.5) % Plt Count 447 H (140-400) K/mcL MPV 9.7 (9.4-12.4) fL Immature Gran % 0.3 (0-4) % Seg Neutrophils % 74.8 % Lymphocytes % 13.2 % Monocytes % 8.5 % Eosinophils % 2.4 % Basophils % 0.8 % Neutrophils # 4.9 (1.6-8.9) K/mcL Lymphocytes # 0.9 (0.6-4.6) K/mcL Monocytes # 0.6 (0.0-1.3) K/mcL Eosinophils # 0.2 (0.0-0.6) K/mcL Basophils # 0.1 (0.0-0.2) K/mcL Platelet Estimate Normal (Normal) Hypochromasia Present A (Not Present) Anisocytosis 2+ A (Not Present) PT 17.0 H (9.4-12.1) Seconds INR 1.6 APTT 31.0 (26.0-36.0) Seconds D-Dimer 847 H (0-500) ng/mLFEU Sodium 133 L (136-145) mEq/L Potassium 4.1 (3.5-4.5) mEq/L Chloride 95 L (98-109) mEq/L Carbon Dioxide 30 H (19-29) mEq/L BUN 16 (7-20) mg/dL Creatinine 0.69 (0.57-1.11) mg/dL Est GFR ( Amer) > 60 (> 60) Est GFR (Non-Af Amer) > 60 (> 60) BUN/Creatinine Ratio 23 (6-26) Glucose 226 H (70-99) mg/dL POC Glucose (58-89) Calculated Osmolality 284 (280-300) Calcium 9.2 (8.6-10.8) mg/dL Troponin I (0-0.03) ng/mL 04/30/17 05/01/17 05/01/17 Range/Units 21:30 00:24 02:32 WBC (4.3-11.1) K/mcL RBC (3.82-4.97) M/mcL Hgb (11.5-15.4) g/dL Hct (35.3-44.9) % MCV (83.0-100.0) fL MCH (28.0-33.3) pg MCHC (31.6-35.5) g/dL RDW (11.5-14.5) % Plt Count (140-400) K/mcL MPV (9.4-12.4) fL Immature Gran % (0-4) % Seg Neutrophils % % Lymphocytes % % Monocytes % % Eosinophils % % Basophils % % Neutrophils # (1.6-8.9) K/mcL Lymphocytes # (0.6-4.6) K/mcL Monocytes # (0.0-1.3) K/mcL Eosinophils # (0.0-0.6) K/mcL Basophils # (0.0-0.2) K/mcL Platelet Estimate (Normal) Hypochromasia (Not Present) Anisocytosis (Not Present) PT (9.4-12.1) Seconds INR APTT (26.0-36.0) Seconds D-Dimer (0-500) ng/mLFEU Sodium (136-145) mEq/L Potassium (3.5-4.5) mEq/L Chloride (98-109) mEq/L Carbon Dioxide (19-29) mEq/L BUN (7-20) mg/dL Creatinine (0.57-1.11) mg/dL Est GFR ( Amer) (> 60) Est GFR (Non-Af Amer) (> 60) BUN/Creatinine Ratio (6-26) Glucose (70-99) mg/dL POC Glucose 236 H (58-89) Calculated Osmolality (280-300) Calcium (8.6-10.8) mg/dL Troponin I 0.02 0.01 (0-0.03) ng/mL - Radiology Data Radiology results reviewed: Yes I reviewed the patient's radiology results. Shoulder X-Ray 04/30/17 20:26 IMPRESSION: No acute abnormality of the right shoulder D/ / Zev Vargas MD / Zev Vargas MD Interpreting Provider: Zev Vargas MD Chest X-Ray 04/30/17 21:11 IMPRESSION: 1. Improved with residual bilateral airspace disease favoring resolving pulmonary edema or resolving multifocal pneumonia. D/ / Kvng Hooker MD / Kvng Hooker MD Interpreting Provider: Kvng Hooker MD Chest CTA 05/01/17 00:01 IMPRESSION: 1. No evidence of residual pulmonary embolism. 2. Small bilateral pleural effusion and partial atelectasis of the lower lobes. 3. Enlarged thyroid gland. D/ / Fabián Mcmahan MD / Fabián Mcmahan MD Interpreting Provider: Fabián Mcmahan MD - EKG Data EKG attestation: Yes I reviewed and interpreted this EKG. EKG results narrative: 04/30/2017 at 21:02. Sinus tachycardia. Rate 140. QRS 97. QTC 354. Normal axis. ST depression in V4, V5, V6. S.Pedro - Eduar Situation: Demographics, MOA Background: Presenting Complaint, Relevant PMH, Meds, & Allergies Assessment: Vital Signs, Course and respsone to treatment, Exam Concerns, Patient/Family Expectation, Pertinant Lab Results, Outstanding Labs Recommendation: Barrier(s) to disposition, Recommendation based on pending studies, treatments, or consults [facility] Report Given to: Dr. Bonnie Witt Repor Time: 01:10 Attestation Statement - Attestation Attestation: I, Tarik Fink, examined this patient and my medical decision-making was reviewed with the AIRPLANE NAVIGATOR/PA/Advanced Practice Nurse/Resident Physician. I agree with the documented findings, disposition and treatment plan as described except to the extent set forth below. 66-year-old female presents with concerns of injury to her right shoulder. Patient was recently evaluated in the hospital for A. fib with RVR and sent to a rehabilitation facility for help with her ambulation. Patient states she needs to people to help her ambulate in the room however at the rehabilitation facility only one person was present and she fell backward injuring her left right shoulder. Patient did not hit her head or have loss of consciousness. No other injury sustained. Upon arrival to the emergency Department she also complains of having a fluttering in her chest. On initial evaluation her heart rate is about 140 although it seems to be a sinus tachycardia. Patient states she has not received her medications in the past 24 hours. Patient has been prescribed diltiazem extended release 120 mg by mouth for control of her atrial fibrillation. She is also on xarelto for anticoagulation. Patient's heart rate did not improve despite treatment with IV fluids and her home dose of diltiazem. EKG showed sinus tachycardia with rate of 140. Initial troponin was negative. CTA of the chest did not reveal PE. Patient denies chest pain or shortness of breath during this time however because of her sit persistent tachycardia we will admit to the hospital for further care and evaluation.
[2017-04-30] MEDS ORDERED: 0.9 % Sodium Chloride 1,000 ML IVC ONE (21:11)
[2017-04-30 21:44] LABS: Basophils % 0.8 %; Hemoglobin 8.8 g/dL (11.5-15.4)
[2017-04-30 21:45] LABS: Basophils # 0.1 K/mcL (0.0-0.2); Eosinophils # 0.2 K/mcL (0.0-0.6); Eosinophils % 2.4 %; Hematocrit 31.3 % (35.3-44.9); INR 1.6; Immature Granulocytes % 0.3 % (0-4); Lymphocytes # 0.9 K/mcL (0.6-4.6); Lymphocytes % 13.2 %; Mean Corpuscular HGB Conc 28.1 g/dL (31.6-35.5); Mean Corpuscular Hemoglobin 23.6 pg (28.0-33.3); Mean Corpuscular Volume 83.9 fL (83.0-100.0); Mean Platelet Volume 9.7 fL (9.4-12.4); Monocytes # 0.6 K/mcL (0.0-1.3); Monocytes % 8.5 %; Neutrophils # 4.9 K/mcL (1.6-8.9); Platelet Count 447 K/mcL (140-400); Red Blood Count 3.73 M/mcL (3.82-4.97); Red Cell Distribution Width 23.6 % (11.5-14.5); Segmented Neutrophils % 74.8 %
[2017-04-30 21:48] LABS: BUN/Creatinine Ratio 23 (6-26); Blood Urea Nitrogen 16 mg/dL (7-20); Calcium 9.2 mg/dL (8.6-10.8); Carbon Dioxide 30 mEq/L (19-29); Chloride 95 mEq/L (98-109); Glucose 226 mg/dL (70-99); Osmolality,Calculated 284 (280-300); Potassium 4.1 mEq/L (3.5-4.5); Sodium 133 mEq/L (136-145); eGFR For African Americans > 60 (> 60); eGFR For Non-African Americans > 60 (> 60)
[2017-04-30 22:11] LABS: Anisocytosis 2+ (Not Present); Hypochromasia Present (Not Present)
[2017-04-30 22:12] LABS: Platelet Estimate Normal (Normal)
[2017-04-30] MEDS ORDERED: Diltiazem CD (24hr) 120 MG CAPSULE PO SCH (22:45)
[2017-05-01] MEDS ORDERED: *HR* HYDROcodone/Acet 5/325 mg TABLET PO ONE (01:22)
--- NOTE | 2017-05-01 01:55 | Internal Med History&Physical ---
Date of Encounter: 05/01/17 Time of Encounter: 01:48 Assessment and Plan (1) Atrial flutter with rapid ventricular response Current visit: Yes Status: Acute Patient has been started on Cardizem drip while in the ED, and has received a bolus of IV Cardizem as well Will up titrate the Cardizem drip if she is unable to convert back to acceptable rhythm and rate We will continue on home dose of Xarelto and resume PO Cardizem once rate is controlled Place on heart monitor and continuous pulse ox CTA performed in ED in response to elevated d-dimer was negative for PE (2) Fall Current visit: No Status: Chronic Her history of falls can be explained by her body habitus in setting of diabetic neuropathy She certainly needs rehabilitation upon discharge, and is agreeable to going back to [place] [facility] We will consult PT, OT, social work job titles for discharge planning Qualifiers: Encounter type: initial encounter Qualified Code(s): W19.XXXA - Unspecified fall, initial encounter (3) Insulin dependent diabetes mellitus Current visit: Yes Status: Chronic Start on low-dose sliding scale Insulin before meals and at bedtime Will discontinue oral diabetic medication while inpatient A1c was checked last month was 6.2 (4) History of anemia Current visit: No Status: Chronic Hb stable at 8.8 upon admission, which has been unchanged since last month Iron levels were checked last month and showed a deficiency; will continue PO Iron supplementation Patient denies any bleeding at this time, but may benefit from outpatient colonoscopy if not already done (5) History of pulmonary embolus (PE) Current visit: No Status: Chronic Continue home Xarelto CTA negative for PE (6) DVT prophylaxis Current visit: No Status: Acute Continue home Xarelto for history of PE Internal Medicine - H&P: HPI Chief complaint: fall, AFlutter RVR Admitted From: Long-term Nursing Facility Plans for Post Hospital Care: Transfer Longterm Facility History of present illness: Ms. Lamb is a 66 year old female who presents from [facility] after sustaining a fall earlier tonight, and was found to be in a flutter with RVR. Patient claims that only one staff member was trying to help up from bed, but was unable to, and she fell back onto her bed, landing on her right shoulder. She currently complains of pain, but has no other issues with her arm. She was recently admitted as past week and also for falls and a flutter with RVR and required Cardizem drip, and had been discharged just yesterday on 120 mg PO Cardizem. Patient states that her falls have been more frequent in the past 2 months. She attributes this to diabetic neuropathy, stating that she does know where her legs are sometimes. Of note, she was diagnosed with a pulmonary embolism roughly 2 weeks ago and was started on Xarelto. She denies any problems with bleeding while on the Xarelto, but does get frequent skin bruising. Patient currently denies any chest pain, shortness of breath, nausea, vomiting, loss of sensation, weakness. At this time, she is open to [facility]. She does live at home with her and adult daughter. Past Med Surg Social Fam HX - Past Medical History Medical history: arthritis, diabetes, GERD, hypertension, other Psychiatric history: no psych history - Past Surgical History Surgical History: appendectomy, sinus surgery, bariatric surgery - Social History Smoking Status: Never smoker Smokeless Tobacco Status: No Alcohol use: none Drug use: none - Family History Mother Living Status: Hx Family Neurologic Disorders: Yes (Migraines) Hx Family Autoimmune Disorders: Yes (MS) Sister Hx Family Cancer: Yes Hx Family Autoimmune Disorders: Yes (Lupus) Father Living Status: Hx Family Cancer: Yes Hx Family Endocrine Disorder: Yes (diabetes) Internal Medicine - H&P: Meds Acetaminophen [Tylenol Arthritis] 1,300 mg PO Q8H PRN 04/12/17 [History] Cetirizine HCl [Zyrtec] 10 mg PO DAILY PRN 04/12/17 [History] Citalopram [CeleXA] 20 mg PO DAILY 04/12/17 [History] Diclofenac Sodium [Voltaren] 75 mg PO BID 04/12/17 [History] Esomeprazole Magnesium [Nexium] 40 mg PO DAILY 04/12/17 [History] Fluticasone Propionate Nasal [Flonase] 50 mcg NS DAILY PRN 04/12/17 [History] Gabapentin [Neurontin] 300 mg PO HS 04/12/17 [History] GuaiFENesin/Dextromethorphan [Mucinex Dm] 1 each PO BID PRN 04/12/17 [History] HYDROcodone/Acet 5/325 mg [[place] 5-325 mg] 1 tab PO Q6H PRN 04/12/17 [History] Loperamide HCl [Imodium A-D] 2 mg PO PER PKG DI PRN 04/12/17 [History] Losartan Potassium [Cozaar] 50 mg PO DAILY 04/12/17 [History] Magnesium 250 mg PO DAILY 04/12/17 [History] Multivitamin [Multi-Day Vitamins] 1 each PO DAILY 04/12/17 [History] Pioglitazone [Actos] 45 mg PO 0800 04/12/17 [History] Venlafaxine XR (24 HR) [Effexor Xr] 300 mg PO QAM 04/12/17 [History] Vitamin B Complex 1 each PO DAILY 04/12/17 [History] metFORMIN [Glucophage] 500 mg PO TIDWM 04/12/17 [History] Ascorbic Acid [Vitamin C] 500 mg PO DAILY #30 tablet 04/16/17 [Rx] Ferrous Sulfate 325 mg PO BIDWM #60 tablet 04/16/17 [Rx] Insulin Glargine,Hum.rec.anlog [Lantus Solostar] 50 unit SQ HS #0 04/16/17 [Rx] Rivaroxaban [Xarelto] 15 mg PO BID tablet 04/16/17 [Rx] Cefdinir [Omnicef] 300 mg PO DAILY #3 capsule 04/30/17 [Rx] Diltiazem CD (24hr) [Cardizem CD] 120 mg PO DAILY 30 Days 04/30/17 [Rx] Ferrous Sulfate 325 mg PO BIDWM 30 Days 04/30/17 [Rx] Allergies Penicillins Adverse Reaction (Verified 04/12/17 14:05) Gastrointestinal Upset shellfish derived Adverse Reaction (Verified 04/12/17 14:05) Headache Tetracyclines Adverse Reaction (Verified 04/12/17 14:05) Rash All Systems PM: A 10-system review of systems was performed and is negative for pertinent findings except as documented above in the HPI. - Constitutional Constitutional: falls, weakness, no chills, no fever(s), no night sweats - EENT Eyes: no change in vision, no discharge, no pain, no photophobia Ears: no ear discharge, no ear pain, no tinnitus Nose, mouth and throat: no dysphagia, no nasal discharge, no neck pain, no sore throat - Cardiovascular Cardiovascular ROS IM: irregular heart rhythm, no chest pain, no diaphoresis, no dyspnea, no lightheadedness, no palpitations, no syncope - Respiratory Respiratory: no cough, no dyspnea, no wheezing, no excessive phlegm production - Gastrointestinal Gastrointestinal: diarrhea, no abdominal pain, no hematemesis, no hematochezia, no melena, no nausea, no vomiting - Genitourinary Genitourinary: no change in urinary stream, no dysuria, no flank pain, no hematuria - Musculoskeletal Musculoskeletal ROS IM: as per HPI, no numbness, no tingling - Integumentary Integumentary IM: no rash, no unusual bruising - Neurological Neurological ROS: frequent falls, weakness, no confusion, no convulsions, no focal weakness, no numbness, no tingling, no tremor(s) - Hematologic/Lymphatic Hematologic/Lymphatic: easy bruising - Constitutional Vitals: Temp Pulse Resp BP Pulse Ox 98.1 F 134 20 115/66 92 04/30/17 20:17 05/01/17 01:20 05/01/17 01:45 05/01/17 01:45 05/01/17 01:20 Internal Med - H&P Results - Labs CBC & Chem 7: 04/30/17 21:30 04/30/17 21:30 Labs: Short CBC 04/30/17 Range/Units 21:30 WBC 6.6 (4.3-11.1) K/mcL Hgb 8.8 L (11.5-15.4) g/dL Hct 31.3 L (35.3-44.9) % Plt Count 447 H (140-400) K/mcL Neutrophils # 4.9 (1.6-8.9) K/mcL BMP 04/30/17 21:30 Sodium 133 L Potassium 4.1 Chloride 95 L Carbon Dioxide 30 H BUN 16 Creatinine 0.69 Glucose 226 H Calcium 9.2 Cardiac Enzymes 04/30/17 05/01/17 Range/Units 21:30 00:24 Troponin I 0.02 0.01 (0-0.03) ng/mL - Impressions ITS Impressions Shoulder X-Ray 04/30/17 20:26 IMPRESSION: No acute abnormality of the right shoulder D/ / Zev Vargas MD / Zev Vargas MD Interpreting Provider: Zev Vargas MD Chest X-Ray 04/30/17 21:11 IMPRESSION: 1. Improved with residual bilateral airspace disease favoring resolving pulmonary edema or resolving multifocal pneumonia. D/ / Kvng Hooker MD / Kvng Hooker MD Interpreting Provider: Kvng Hooker MD Chest CTA 05/01/17 00:01 IMPRESSION: 1. No evidence of residual pulmonary embolism. 2. Small bilateral pleural effusion and partial atelectasis of the lower lobes. 3. Enlarged thyroid gland. D/ / Fabián Mcmahan MD / Fabián Mcmahan MD Interpreting Provider: Fabián Mcmahan MD
[2017-05-01] MEDS ORDERED: *HR* Dextrose 50 % in Water (Syg) 50 ML SYRINGE IVP PRN (02:09)
[2017-05-01] MEDS ORDERED: Acetaminophen 325 MG TABLET PO PRN (02:09)
[2017-05-01] MEDS ORDERED: Ondansetron ODT 4 MG TAB.RAPDIS SL PRN (02:09)
[2017-05-01] MEDS ORDERED: Naloxone 0.4 MG/ML INJ IVP PRN (02:09)
[2017-05-01] MEDS ORDERED: Dextrose Gel 15 GM PO PRN ×2 (02:09)
[2017-05-01] MEDS ORDERED: D5% in Water 1,000 ML IVC PRN (02:09)
[2017-05-01] MEDS ORDERED: Fluticasone Propionate Nasal 50 MCG/SPRAY BOTTLE NS PRN (02:15)
[2017-05-01] MEDS ORDERED: Loratadine 10 MG TABLET PO PRN (02:15)
[2017-05-01] MEDS ORDERED: *HR* Metoprolol 5 MG/5 ML VIAL IVP ONE (08:39)
[2017-05-01] MEDS ORDERED: Diltiazem CD (24hr) 120 MG CAPSULE PO SCH (09:00)
[2017-05-01] MEDS: Cefdinir 300 MG CAPSULE PO SCH (09:27)
[2017-05-01] MEDS: Metoprolol XL (24 HR) Succ 25 MG TAB.ER.24H PO SCH (09:27)
[2017-05-01] MEDS: *HR* Rivaroxaban 15 MG TABLET PO SCH ×2 (09:28→20:41)
[2017-05-01] MEDS: Venlafaxine XR (24 HR) 150 MG CAP.ER.24H PO SCH (09:28)
[2017-05-01] MEDS: Insulin LISPRO 300 UNITS/3 ML VIAL SQ SCH ×4 (09:29→23:06)
[2017-05-01 09:35] LABS: Basophils # 0.1 K/mcL (0.0-0.2); Basophils % 1.3 %; Eosinophils # 0.2 K/mcL (0.0-0.6); Hematocrit 31.8 % (35.3-44.9); Hemoglobin 9.2 g/dL (11.5-15.4); Immature Granulocytes % 1.1 % (0-4); Mean Corpuscular HGB Conc 28.9 g/dL (31.6-35.5); Mean Corpuscular Hemoglobin 23.8 pg (28.0-33.3); Mean Corpuscular Volume 82.4 fL (83.0-100.0); Mean Platelet Volume 9.6 fL (9.4-12.4); Monocytes # 0.6 K/mcL (0.0-1.3); Monocytes % 11.3 %; Neutrophils # 3.5 K/mcL (1.6-8.9); Platelet Count 418 K/mcL (140-400); Red Blood Count 3.86 M/mcL (3.82-4.97); Red Cell Distribution Width 24.3 % (11.5-14.5); Segmented Neutrophils % 65.3 %
[2017-05-01 09:47] LABS: BUN/Creatinine Ratio 18 (6-26); Blood Urea Nitrogen 12 mg/dL (7-20); Calcium 8.9 mg/dL (8.6-10.8); Carbon Dioxide 28 mEq/L (19-29); Chloride 97 mEq/L (98-109); Glucose 236 mg/dL (70-99); Osmolality,Calculated 281 (280-300); Potassium 4.5 mEq/L (3.5-4.5); Sodium 132 mEq/L (136-145); eGFR For African Americans > 60 (> 60); eGFR For Non-African Americans > 60 (> 60)
[2017-05-01 10:17] LABS: Anisocytosis 2+ (Not Present)
[2017-05-01 10:18] LABS: Hypochromasia Present (Not Present); Platelet Estimate Normal (Normal)
[2017-05-01] MEDS: *HR* HYDROcodone/Acet 5/325 mg TABLET PO PRN ×2 (10:44→16:05)
--- NOTE | 2017-05-01 12:32 | Event Note ---
Date of Encounter: 05/01/17 Time of Encounter: 08:15 Patient is awake and alert. Complains of shortness of breath and palpitations. On 14 mg per hour of Cardizem but no improvement in heart rate. Discussed with cardiology. Will increase Cardizem drip to 15 mg per hour and add Toprol- XL with a dose of Lopressor IV. On anticoagulation with Xarelto. Awaiting physical therapy evaluation. Resume Omnicef to treat UTI.
[2017-05-01] MEDS: Diclofenac Sodium 75 MG TABLET PO SCH (20:41)
[2017-05-01] MEDS: Gabapentin 300 MG CAPSULE PO SCH (20:41)
[2017-05-01] MEDS: GuaiFENesin/Dextromethorphan TABLET PO PRN (20:43)
[2017-05-01] MEDS ORDERED: Insulin LISPRO 300 UNITS/3 ML VIAL SQ SCH (21:00)
[2017-05-01] MEDS ORDERED: Diltiazem CD (24hr) 120 MG CAPSULE PO ONE (23:45)
[2017-05-02] MEDS: *HR* HYDROcodone/Acet 5/325 mg TABLET PO PRN ×2 (09:30→21:04)
[2017-05-02] MEDS: Multivit/Ca/Min/Fe/FA 1 TAB TABLET PO SCH (09:30)
[2017-05-02] MEDS: Magnesium Oxide 400 MG TABLET PO SCH (09:30)
[2017-05-02] MEDS: Diclofenac Sodium 75 MG TABLET PO SCH ×2 (09:30→21:00)
[2017-05-02] MEDS: Cefdinir 300 MG CAPSULE PO SCH (09:30)
[2017-05-02] MEDS: Metoprolol XL (24 HR) Succ 25 MG TAB.ER.24H PO SCH (09:30)
[2017-05-02] MEDS: Venlafaxine XR (24 HR) 150 MG CAP.ER.24H PO SCH (09:30)
[2017-05-02] MEDS: *HR* Rivaroxaban 15 MG TABLET PO SCH ×2 (09:31→21:00)
[2017-05-02] MEDS: Insulin LISPRO 300 UNITS/3 ML VIAL SQ SCH ×4 (09:32→21:00)
[2017-05-02] MEDS: GuaiFENesin/Dextromethorphan TABLET PO PRN ×2 (09:37→21:18)
--- NOTE | 2017-05-02 10:12 | Internal Med Progress Note ---
Date of Encounter: 05/02/17 Time of Encounter: 09:00 - Assessment and plan (1) Atrial flutter with rapid ventricular response Current Visit: Yes Status: Acute Assessment and plan: Patient responded better to metoprolol. Cardiology was consulted and we will follow recommendations. Currently on metoprolol. Wean diltiazem drip and transition to oral diltiazem. (2) Anemia Current Visit: Yes Status: Chronic Assessment and plan: Hemoglobin levels are stable. Continue iron supplements. Qualifiers: Anemia type: iron deficiency Iron deficiency anemia type: unspecified iron deficiency Qualified Code(s): D50.9 - Iron deficiency anemia, unspecified (3) Fall Current Visit: Yes Status: Chronic Assessment and plan: Awaiting evaluation by physical therapy. Patient will need placement. warm in worker has been consulted. Qualifiers: Encounter type: initial encounter Qualified Code(s): W19.XXXA - Unspecified fall, initial encounter (4) History of pulmonary embolus (PE) Current Visit: Yes Status: Chronic Assessment and plan: On Xarelto (5) Insulin dependent diabetes mellitus Current Visit: Yes Status: Chronic Assessment and plan: Blood sugars are elevated this morning. On Levemir 25 units at bedtime and high -dose corrective insulin regimen. We will increase long-acting insulin coverage. - Subjective Interval history: Patient complains of some shortness of breath. No longer having palpitations. No chest pain. No nausea or vomiting. - Constitutional Vitals: Temp Pulse Resp BP Pulse Ox 97.9 F 79 16 152/65 95 05/02/17 07:14 05/02/17 07:14 05/02/17 07:14 05/02/17 07:14 05/02/17 07:34 General appearance: Present: cooperative, mild distress, A&O X 3, morbidly obese , answers questions appropriately - Neck Neck exam general surgery: Present: supple, trachea midline. Absent: lymphadenopathy - Respiratory Respiratory exam: Present: decreased breath sounds (At both bases), CTAB. Absent: accessory muscle use, rales, rhonchi, wheezes - Cardiovascular Cardiovascular exam: Present: RRR, +S1, +S2. Absent: diastolic murmur, gallop, rubs, systolic murmur - GI/Abdominal GI/Abdominal exam: Present: normal bowel sounds, soft, no peritoneal signs. Absent: distended, tenderness - Extremities Exam Extremities exam: Present: pedal edema, warm, radial pulses palpable and symetrical. Absent: calf tenderness, cyanotic - Neurological Exam Neurological exam: Present: CN II-XII intact, oriented X3, no focal deficits. Absent: facial droop, speech deficit - Skin Skin exam: Present: dry, intact Internal Medicine: Result - Labs CBC & Chem 7: 05/01/17 09:25 05/01/17 09:25 Labs: Short CBC 05/01/17 Range/Units 09:25 Neutrophils # 3.5 (1.6-8.9) K/mcL - ABG Interpretation ABG results: PT/INR, D-dimer PT 17.0 Seconds (9.4-12.1) H 04/30/17 21:30 D-Dimer 847 ng/mLFEU (0-500) H 04/30/17 21:30 - VTE Reasons for not Prescribing Prophylaxis: Not indicated-Anticoagulated or INR therapeutic Consult Discharge Plan - Plan Referrals: Anmol Mancuso MD [Primary Care Provider] -
[2017-05-02] MEDS: Diltiazem CD (24hr) 120 MG CAPSULE PO SCH (12:07)
[2017-05-02] MEDS: Insulin DETEMIR 100 UNIT/ML X5UNITS SQ SCH ×2 (12:07→21:00)
--- NOTE | 2017-05-02 13:12 | Electrocardiograph Report ---
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
--- NOTE | 2017-05-02 14:25 | Electrocardiograph Report ---
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
[2017-05-02] MEDS: Gabapentin 300 MG CAPSULE PO SCH (21:00)
[2017-05-02] MEDS ORDERED: Insulin DETEMIR 100 UNIT/ML X5UNITS SQ SCH (21:00)
[2017-05-03] MEDS: *HR* HYDROcodone/Acet 5/325 mg TABLET PO PRN ×2 (04:09→16:53)
[2017-05-03] MEDS: Metoprolol XL (24 HR) Succ 25 MG TAB.ER.24H PO SCH (07:50)
[2017-05-03] MEDS: Multivit/Ca/Min/Fe/FA 1 TAB TABLET PO SCH (07:50)
[2017-05-03] MEDS: Magnesium Oxide 400 MG TABLET PO SCH (07:50)
[2017-05-03] MEDS: Cefdinir 300 MG CAPSULE PO SCH (07:50)
[2017-05-03] MEDS: *HR* Rivaroxaban 15 MG TABLET PO SCH (07:50)
[2017-05-03] MEDS: Diclofenac Sodium 75 MG TABLET PO SCH (07:51)
[2017-05-03] MEDS: Diltiazem CD (24hr) 120 MG CAPSULE PO SCH (07:51)
[2017-05-03] MEDS: Venlafaxine XR (24 HR) 150 MG CAP.ER.24H PO SCH (08:02)
[2017-05-03] MEDS: Insulin LISPRO 300 UNITS/3 ML VIAL SQ SCH ×3 (08:03→17:23)
[2017-05-03] MEDS: Insulin DETEMIR 100 UNIT/ML X5UNITS SQ SCH (10:52)
[2017-05-03] MEDS: GuaiFENesin/Dextromethorphan TABLET PO PRN (10:52)
[2017-05-03 12:01] VITALS: BP 146/66
--- NOTE | 2017-05-03 14:16 | Discharge Summary ---
Date of Encounter: 05/03/17 Time of Encounter: 09:00 - Discharge Diagnosis (1) Atrial flutter with rapid ventricular response Priority: Primary Status: Acute (2) Anemia Priority: Secondary Status: Chronic Qualifiers: Anemia type: iron deficiency Iron deficiency anemia type: unspecified iron deficiency Qualified Code(s): D50.9 - Iron deficiency anemia, unspecified (3) Fall Priority: Secondary Status: Chronic Qualifiers: Encounter type: initial encounter Qualified Code(s): W19.XXXA - Unspecified fall, initial encounter (4) History of pulmonary embolus (PE) Priority: Secondary Status: Chronic (5) Insulin dependent diabetes mellitus Priority: Secondary Status: Chronic - Discharge Medications Prescriptions: Gabapentin [Neurontin] 300 mg PO BID #30 capsule HYDROcodone/Acet 5/325 mg [[place] 5-325 mg] 1 tab PO Q6H PRN #14 tablet PRN Reason: Pain Metoprolol XL (24 HR) Succ [Toprol Xl] 25 mg PO DAILY #30 tab.er.24h Rivaroxaban [Xarelto] 20 mg PO DAILY #30 tablet Home Medications: Acetaminophen [Tylenol Arthritis] 1,300 mg PO Q8H PRN 04/12/17 [History] Cetirizine HCl [Zyrtec] 10 mg PO DAILY PRN 04/12/17 [History] Citalopram [CeleXA] 20 mg PO DAILY 04/12/17 [History] Diclofenac Sodium [Voltaren] 75 mg PO BID 04/12/17 [History] Esomeprazole Magnesium [Nexium] 40 mg PO DAILY 04/12/17 [History] Fluticasone Propionate Nasal [Flonase] 50 mcg NS DAILY PRN 04/12/17 [History] GuaiFENesin/Dextromethorphan [Mucinex Dm] 1 each PO BID PRN 04/12/17 [History] Loperamide HCl [Imodium A-D] 2 mg PO PER PKG DI PRN 04/12/17 [History] Losartan Potassium [Cozaar] 50 mg PO DAILY 04/12/17 [History] Magnesium 250 mg PO DAILY 04/12/17 [History] Multivitamin [Multi-Day Vitamins] 1 each PO DAILY 04/12/17 [History] Pioglitazone [Actos] 45 mg PO 0800 04/12/17 [History] Venlafaxine XR (24 HR) [Effexor Xr] 300 mg PO QAM 04/12/17 [History] Vitamin B Complex 1 each PO DAILY 04/12/17 [History] metFORMIN [Glucophage] 500 mg PO TIDWM 04/12/17 [History] Ascorbic Acid [Vitamin C] 500 mg PO DAILY #30 tablet 04/16/17 [Rx] Ferrous Sulfate 325 mg PO BIDWM #60 tablet 04/16/17 [Rx] Insulin Glargine,Hum.rec.anlog [Lantus Solostar] 50 unit SQ HS #0 04/16/17 [Rx] Diltiazem CD (24hr) [Cardizem CD] 120 mg PO DAILY 30 Days 04/30/17 [Rx] Gabapentin [Neurontin] 300 mg PO BID #30 capsule 05/03/17 [Rx] HYDROcodone/Acet 5/325 mg [[place] 5-325 mg] 1 tab PO Q6H PRN #14 tablet 05/03/17 [Rx] Metoprolol XL (24 HR) Succ [Toprol Xl] 25 mg PO DAILY #30 tab.er.24h 05/03/17 [ Rx] Rivaroxaban [Xarelto] 15 mg PO BID #0 tablet 05/03/17 [Rx] Rivaroxaban [Xarelto] 20 mg PO DAILY #30 tablet 05/03/17 [Rx] Allergies/Adverse Reactions: Allergies Penicillins Adverse Reaction (Verified 04/12/17 14:05) Gastrointestinal Upset shellfish derived Adverse Reaction (Verified 04/12/17 14:05) Headache Tetracyclines Adverse Reaction (Verified 04/12/17 14:05) Rash Procedures/tests Complete & Pending: Procedures Performed prior 72 hours Category Date Time Status ECG 12 lead ECG [ECG] Routine Y 05/01/17 07:04 Completed - Notes to Outpatient Provider Patient is also on diclofenac as outpatient and has been taking this medication for a long time. This needs to be addressed further with her primary care provider given her underlying history of diabetes mellitus, pulmonary edema, chronic anticoagulation and will benefit from changing to a different medication. 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] Routine Reason for SW Consult: frequent falls, will need to go back to rehab upon d/c Discharging clinician: Avani Erickson Anticipated date of discharge: 05/03/17 - Patient Status Disposition: Transfer SNF Condition: Good Functional capacity at discharge: uses cane/walker Overall status at discharge: patient is progressing back to baseline - Discharge Instructions Instructions: Metoprolol (By mouth), Hydrocodone/Acetaminophen (By mouth), Rivaroxaban (By mouth), Atrial Flutter (DC), Urinary Tract Infection in Women ( DC), Diabetes Mellitus Type 2 in Adults (DC), Fall Prevention (DC) Follow Up With: Anmol Mancuso MD [Primary Care Provider] - (In 1-2 weeks) Additional Instructions: Follow-up with cardiology regarding A. fib in 2-3 weeks - Diet and Activity Activity: as per physical therapy, increase activity as tolerated Diet: advance to your usual diet, diabetic diet, low fat, low cholesterol, low salt diet Hospital course: Ms. Lamb is a 66 year old female patient with history of prior pulmonary embolism, diabetes mellitus on insulin, morbid obesity, presented to the [facility] home after a fall. She had just been discharged a day prior from the hospital after a prolonged hospitalization for mechanical falls along with atrial flutter. On arrival to the ER this time, she was again found to be in atrial flutter. She was admitted and placed on IV Cardizem drip to control her heart rate. She did not respond to this medication and so she was started on metoprolol. She responded well to metoprolol and is now off Cardizem drip for greater than 24 hours. Her heart rate has been well controlled. She is already on anticoagulation with Xarelto. At this time, she is clinically stable for discharge back to [facility]. She chooses to go to a different [facility] this time and will be discharged to [facility] bed. She had been diagnosed with the last month and was placed on Xarelto. She is currently on 15 mg twice daily which she is supposed to be taking for 1 more week and then her dose should be changed to 20 mg daily. She also complains of cramps in her lower extremities which are being treated with gabapentin at bedtime. She continues to have cramps even during the day and requests but gabapentin to be changed twice a day. We will change for now and her response to treatment can be assessed as outpatient. Patient is also on diclofenac as outpatient and has been taking this medication for a long time. This needs to be addressed further with her primary care provider given her underlying history of diabetes mellitus, pulmonary edema, chronic anticoagulation and will benefit from changing to a different medication. - Time Spent with Patient Total time spent providing and/or coordinating discharge services: Greater than 30 minutes (45 min) - Constitutional Vitals: Temp Pulse Resp BP Pulse Ox 97.6 F 74 18 146/66 92 05/03/17 11:53 05/03/17 11:53 05/03/17 11:53 05/03/17 11:53 05/03/17 11:53 General appearance: Present: cooperative, mild distress, A&O X 3, morbidly obese , answers questions appropriately - Respiratory Respiratory exam: Present: CTAB. Absent: accessory muscle use, rales, rhonchi, wheezes - Cardiovascular Cardiovascular exam: Present: RRR, +S1, +S2. Absent: diastolic murmur, gallop, rubs, systolic murmur - GI/Abdominal GI/Abdominal exam: Present: normal bowel sounds, soft, no peritoneal signs. Absent: distended, tenderness - Extremities Exam Extremities exam: Present: warm, radial pulses palpable and symetrical. Absent : calf tenderness, cyanotic, pedal edema - Neurological Exam Neurological exam: Present: alert, oriented X3, no focal deficits. Absent: facial droop, speech deficit - Skin Skin exam: Present: dry, intact - VTE Reasons for not Prescribing Prophylaxis: Not indicated-Anticoagulated or INR therapeutic
--- NOTE | 2017-05-03 15:26 | Physician Discharge Referral ---
ExtendedCare Referral Info Provider in Charge after Transfer: PCP Institutional Level of Care: Skilled - Diagnosis (1) Atrial flutter with rapid ventricular response Priority: Primary Status: Acute (2) Anemia Priority: Secondary Status: Chronic (3) Fall Priority: Secondary Status: Chronic (4) History of pulmonary embolus (PE) Priority: Secondary Status: Chronic (5) Insulin dependent diabetes mellitus Priority: Secondary Status: Chronic Prognosis: Fair Aware of Diagnosis: Patient Aware of Prognosis: Patient - Transfer Medications Prescriptions: HYDROcodone/Acet 5/325 mg [Saline 5-325 mg] 1 tab PO Q6H PRN #14 tablet PRN Reason: Pain Metoprolol XL (24 HR) Succ [Toprol Xl] 25 mg PO DAILY #30 tab.er.24h Rivaroxaban [Xarelto] 20 mg PO DAILY #30 tablet Home Medications: Acetaminophen [Tylenol Arthritis] 1,300 mg PO Q8H PRN 04/12/17 [History] Cetirizine HCl [Zyrtec] 10 mg PO DAILY PRN 04/12/17 [History] Citalopram [CeleXA] 20 mg PO DAILY 04/12/17 [History] Diclofenac Sodium [Voltaren] 75 mg PO BID 04/12/17 [History] Esomeprazole Magnesium [Nexium] 40 mg PO DAILY 04/12/17 [History] Fluticasone Propionate Nasal [Flonase] 50 mcg NS DAILY PRN 04/12/17 [History] Gabapentin [Neurontin] 300 mg PO HS 04/12/17 [History] GuaiFENesin/Dextromethorphan [Mucinex Dm] 1 each PO BID PRN 04/12/17 [History] Loperamide HCl [Imodium A-D] 2 mg PO PER PKG DI PRN 04/12/17 [History] Losartan Potassium [Cozaar] 50 mg PO DAILY 04/12/17 [History] Magnesium 250 mg PO DAILY 04/12/17 [History] Multivitamin [Multi-Day Vitamins] 1 each PO DAILY 04/12/17 [History] Pioglitazone [Actos] 45 mg PO 0800 04/12/17 [History] Venlafaxine XR (24 HR) [Effexor Xr] 300 mg PO QAM 04/12/17 [History] Vitamin B Complex 1 each PO DAILY 04/12/17 [History] metFORMIN [Glucophage] 500 mg PO TIDWM 04/12/17 [History] Ascorbic Acid [Vitamin C] 500 mg PO DAILY #30 tablet 04/16/17 [Rx] Ferrous Sulfate 325 mg PO BIDWM #60 tablet 04/16/17 [Rx] Insulin Glargine,Hum.rec.anlog [Lantus Solostar] 50 unit SQ HS #0 04/16/17 [Rx] Diltiazem CD (24hr) [Cardizem CD] 120 mg PO DAILY 30 Days 04/30/17 [Rx] HYDROcodone/Acet 5/325 mg [Saline 5-325 mg] 1 tab PO Q6H PRN #14 tablet 05/03/17 [Rx] Metoprolol XL (24 HR) Succ [Toprol Xl] 25 mg PO DAILY #30 tab.er.24h 05/03/17 [ Rx] Rivaroxaban [Xarelto] 15 mg PO BID #0 tablet 05/03/17 [Rx] Rivaroxaban [Xarelto] 20 mg PO DAILY #30 tablet 05/03/17 [Rx] Allergies/Adverse Reactions: Allergies Penicillins Adverse Reaction (Verified 04/12/17 14:05) Gastrointestinal Upset shellfish derived Adverse Reaction (Verified 04/12/17 14:05) Headache Tetracyclines Adverse Reaction (Verified 04/12/17 14:05) Rash - Respiratory Orders Oxygen / L per min (keep sats >90%) Smoking Cessation: Smoking cessation has been advised. For more information, call the [place] Tobacco Quit Line at 8-458-DFCT-NOW. - Advance Directives Code Status: Full Code - Mobility Orders Ambulate (per PT eval) - Rehabiliation Orders Rehab Potential: Fair Rehab Orders: Evaluation for Physical Therapy, Evaluation for Occupational Therapy - Treatments Skin tear care topically daily PRN per policy - Diet Orders Mechanical Soft, No Concentrated Sweets, Cardiac (and diabetic) CERTIFICATION: I certify that the transfer of the above named patient to an Extended Care Facility is necessary for the continuing treatment of the diagnosis listed. The above information is true and accurate reflection of patient's current condition. Confidential - Redisclosure prohibited without a patient's written consent.
== END 2017-05-03 19:10 | DRG 309 ==
LOC: 2NENU 20:09 → EMEROO 20:09 → 2NENU 05-01 01:46 → SUATTDRO 05-01 04:12
PROVIDERS: ADMIT Internal Medicine; ATTEND Internal Medicine

== ENCOUNTER 2018-02-06 11:17 | Inpatient (IN) ==
--- NOTE | 2018-02-06 11:23 | Emergency Department Note ---
Disposition Clinical Impression: HCAP (healthcare-associated pneumonia), Sepsis, Renal failure, acute, Hyperkalemia, Altered mental status Disposition: Admitted As Inpatient Condition: Fair General Adult HPI - General Chief complaint: ED Altered Mental Status Stated complaint: AMS Time Seen by Provider: 02/06/18 11:22 - Related Data Home Medications Medication Instructions Recorded Confirmed Citalopram [CeleXA] 20 mg PO DAILY 04/12/17 02/06/18 GuaiFENesin/Dextromethorphan 1 each PO HS PRN 04/12/17 02/06/18 [Mucinex Dm] Loperamide HCl [Imodium A-D] 2 mg PO PER PKG DI PRN 04/12/17 02/06/18 Losartan Potassium [Cozaar] 50 mg PO DAILY 04/12/17 02/06/18 Multivitamin [Multi-Day Vitamins] 1 each PO DAILY 04/12/17 02/06/18 Pioglitazone [Actos] 45 mg PO 0800 04/12/17 02/06/18 Venlafaxine XR (24 HR) [Effexor Xr] 300 mg PO QAM 04/12/17 02/06/18 Vitamin B Complex 1 each PO DAILY 04/12/17 02/06/18 Acetaminophen [Extra Strength 1,000 mg PO Q8H PRN 02/06/18 02/06/18 Non-Aspirin] Baclofen 20 mg PO TID PRN 02/06/18 02/06/18 Caffeine [Stay Awake] 100 mg PO TID 02/06/18 02/06/18 Diclofenac Sodium [Voltaren] 75 mg PO BID 02/06/18 02/06/18 Furosemide [Lasix] 40 mg PO DAILY 02/06/18 02/06/18 Insulin DETEMIR [Levemir] 40 unit SQ HS 02/06/18 02/06/18 Loratadine [Allergy Relief] 10 mg PO DAILY 02/06/18 02/06/18 Metoprolol [Lopressor] 50 mg PO DAILY 02/06/18 02/06/18 Omeprazole [PriLOSEC] 20 mg PO DAILY 02/06/18 02/06/18 Potassium Chloride [K-Tab ER] 20 meq PO DAILY 02/06/18 02/06/18 Previous Rx's Medication Instructions Recorded Ascorbic Acid [Vitamin C] 500 mg PO DAILY #30 tablet 04/16/17 Ferrous Sulfate 325 mg PO BIDWM #60 tablet 04/16/17 Diltiazem CD (24hr) [Cardizem CD] 120 mg PO DAILY 30 Days cap.er.24h 04/30/17 Gabapentin [Neurontin] 300 mg PO BID #30 capsule 05/03/17 Rivaroxaban [Xarelto] 20 mg PO DAILY #30 tablet 05/03/17 HYDROcodone/Acet 5/325 mg [[place] 1 - 2 tab PO Q4H PRN #20 tablet 05/17/17 5-325 mg] Allergies Allergy/AdvReac Type Severity Reaction Status Date / Time Penicillins AdvReac Gastrointestinal Verified 04/12/17 14:05 Upset shellfish derived AdvReac Headache Verified 04/12/17 14:05 Tetracyclines AdvReac Rash Verified 04/12/17 14:05 Past Medical History - Past Medical History Medical history: Reports: arthritis, diabetes, GERD, hypertension, other Surgical history: Reports: appendectomy, sinus surgery, bariatric surgery Psychiatric history: Reports: anxiety, depression - Social History Smoking Status: Never smoker Smokeless Tobacco Status: No Alcohol use: Reports: none Drug use: Reports: none Course Vital Signs Temperature 99.3 F 02/06/18 11:24 Pulse Rate 58 02/06/18 11:24 Respiratory Rate 17 02/06/18 11:24 Blood Pressure 127/37 02/06/18 11:24 O2 Sat by Pulse Oximetry 94 02/06/18 11:24 Temperature 99.3 F 02/06/18 11:24 Pulse Rate 55 02/06/18 15:55 Respiratory Rate 20 02/06/18 15:55 Blood Pressure 81/52 02/06/18 15:55 O2 Sat by Pulse Oximetry 97 02/06/18 15:55 Oxygen Delivery Oxygen Delivery Nasal Cannula Medical Decision Making - Lab Data Result diagrams: 02/06/18 12:03 02/06/18 15:43 Lab Results 02/06/18 02/06/18 02/06/18 Range/Units 11:31 12:03 12:03 WBC 12.6 H (4.3-11.1) K/mcL RBC 3.12 L (3.82-4.97) M/mcL Hgb 9.4 L (11.5-15.4) g/dL Hct 30.9 L (35.3-44.9) % MCV 99.0 (83.0-100.0) fL MCH 30.1 (28.0-33.3) pg MCHC 30.4 L (31.6-35.5) g/dL RDW 14.1 (11.5-14.5) % Plt Count 266 (140-400) K/mcL MPV 9.9 (9.4-12.4) fL Immature Gran % 0.6 (0-4) % Seg Neutrophils % 87.9 % Lymphocytes % 4.6 % Monocytes % 6.3 % Eosinophils % 0.3 % Basophils % 0.3 % Neutrophils # 11.1 H (1.6-8.9) K/mcL Lymphocytes # 0.6 (0.6-4.6) K/mcL Monocytes # 0.8 (0.0-1.3) K/mcL Eosinophils # 0.0 (0.0-0.6) K/mcL Basophils # 0.0 (0.0-0.2) K/mcL PT 13.3 H (9.4-12.1) Seconds INR 1.2 APTT 34.6 (26.0-36.0) Seconds Sodium (136-145) mEq/L Potassium (3.5-5.1) mEq/L Chloride (98-107) mEq/L Carbon Dioxide (23-29) mEq/L BUN (8-23) mg/dL Creatinine (0.60-1.20) mg/dL Est GFR ( Amer) (> 60) Est GFR (Non-Af Amer) (> 60) BUN/Creatinine Ratio (6-26) Glucose (70-105) mg/dL Calculated Osmolality (280-300) Lactic Acid (0.5-2.2) mmol/L Calcium (8.6-10.3) mg/dL Phosphorus (2.7-4.5) mg/dL Magnesium (1.6-2.6) mg/dL Total Bilirubin (0.3-1.0) mg/dL Direct Bilirubin (0.0-0.2) mg/dL Indirect Bilirubin (0.0-1.2) mg/dL AST (13-39) Units/L ALT (7-52) Units/L Alkaline Phosphatase (34-104) Units/L Ammonia (16-53) mcmol/L Creatine Kinase Troponin I (< 0.04) ng/mL B-Natriuretic Peptide (Less than 100) pg/mL Serum Total Protein (6.4-8.9) g/dL Albumin (3.5-5.7) g/dL Globulin (2.4-3.5) g/dL Albumin/Globulin Ratio (1.1-2.2) Lipase (11-82) Units/L Urine Color Dark Yellow (Yellow) Urine Clarity Turbid A (Clear) Urine pH 7.5 (5.0-8.0) pH Units Ur Specific [place] 1.012 (1.010-1.025) Urine Protein >=300 H (Neg-Trace) mg/dL Urine Glucose (UA) Normal (Normal) mg/dL Urine Ketones Negative (Negative) mg/dL Urine Blood Large H (Negative) Urine Nitrite Negative (Negative) Urine Bilirubin Negative (Negative) Urine Urobilinogen Normal (Normal) mg/dL Ur Leukocyte Esterase Large H (Negative) Urine Microscopic RBC Present (0-3) per hpf Urine Microscopic WBC TNTC H (0-3) per hpf Ur Squamous Epith Cells Many H (None-Few) per lpf Urine Bacteria Many H (None-Few) per hpf Hyaline Casts Few (None-Few) per lpf Ur Culture Indicated? NO. (NO) 02/06/18 02/06/18 02/06/18 Range/Units 12:03 12:03 12:03 WBC (4.3-11.1) K/mcL RBC (3.82-4.97) M/mcL Hgb (11.5-15.4) g/dL Hct (35.3-44.9) % MCV (83.0-100.0) fL MCH (28.0-33.3) pg MCHC (31.6-35.5) g/dL RDW (11.5-14.5) % Plt Count (140-400) K/mcL MPV (9.4-12.4) fL Immature Gran % (0-4) % Seg Neutrophils % % Lymphocytes % % Monocytes % % Eosinophils % % Basophils % % Neutrophils # (1.6-8.9) K/mcL Lymphocytes # (0.6-4.6) K/mcL Monocytes # (0.0-1.3) K/mcL Eosinophils # (0.0-0.6) K/mcL Basophils # (0.0-0.2) K/mcL PT (9.4-12.1) Seconds INR APTT (26.0-36.0) Seconds Sodium 128 L (136-145) mEq/L Potassium 7.7 H* (3.5-5.1) mEq/L Chloride 102 (98-107) mEq/L Carbon Dioxide 15 L (23-29) mEq/L BUN 102 H (8-23) mg/dL Creatinine 4.28 H (0.60-1.20) mg/dL Est GFR ( Amer) 13 L (> 60) Est GFR (Non-Af Amer) 10 L (> 60) BUN/Creatinine Ratio 24 (6-26) Glucose 96 (70-105) mg/dL Calculated Osmolality 298 (280-300) Lactic Acid 0.5 (0.5-2.2) mmol/L Calcium 8.3 L (8.6-10.3) mg/dL Phosphorus 9.4 H (2.7-4.5) mg/dL Magnesium 2.3 (1.6-2.6) mg/dL Total Bilirubin 0.5 (0.3-1.0) mg/dL Direct Bilirubin 0.4 H (0.0-0.2) mg/dL Indirect Bilirubin 0.1 (0.0-1.2) mg/dL AST 12 L (13-39) Units/L ALT 14 (7-52) Units/L Alkaline Phosphatase 154 H (34-104) Units/L Ammonia (16-53) mcmol/L Creatine Kinase Cancelled Troponin I < 0.03 (< 0.04) ng/mL B-Natriuretic Peptide 79 (Less than 100) pg/mL Serum Total Protein 6.2 L (6.4-8.9) g/dL Albumin 3.2 L (3.5-5.7) g/dL Globulin 3.0 (2.4-3.5) g/dL Albumin/Globulin Ratio 1.1 (1.1-2.2) Lipase 70 (11-82) Units/L Urine Color (Yellow) Urine Clarity (Clear) Urine pH (5.0-8.0) pH Units Ur Specific [place] (1.010-1.025) Urine Protein (Neg-Trace) mg/dL Urine Glucose (UA) (Normal) mg/dL Urine Ketones (Negative) mg/dL Urine Blood (Negative) Urine Nitrite (Negative) Urine Bilirubin (Negative) Urine Urobilinogen (Normal) mg/dL Ur Leukocyte Esterase (Negative) Urine Microscopic RBC (0-3) per hpf Urine Microscopic WBC (0-3) per hpf Ur Squamous Epith Cells (None-Few) per lpf Urine Bacteria (None-Few) per hpf Hyaline Casts (None-Few) per lpf Ur Culture Indicated? (NO) 02/06/18 02/06/18 Range/Units 12:03 15:43 WBC (4.3-11.1) K/mcL RBC (3.82-4.97) M/mcL Hgb (11.5-15.4) g/dL Hct (35.3-44.9) % MCV (83.0-100.0) fL MCH (28.0-33.3) pg MCHC (31.6-35.5) g/dL RDW (11.5-14.5) % Plt Count (140-400) K/mcL MPV (9.4-12.4) fL Immature Gran % (0-4) % Seg Neutrophils % % Lymphocytes % % Monocytes % % Eosinophils % % Basophils % % Neutrophils # (1.6-8.9) K/mcL Lymphocytes # (0.6-4.6) K/mcL Monocytes # (0.0-1.3) K/mcL Eosinophils # (0.0-0.6) K/mcL Basophils # (0.0-0.2) K/mcL PT (9.4-12.1) Seconds INR APTT (26.0-36.0) Seconds Sodium 126 L (136-145) mEq/L Potassium 7.9 H* (3.5-5.1) mEq/L Chloride 103 (98-107) mEq/L Carbon Dioxide 16 L (23-29) mEq/L BUN 104 H (8-23) mg/dL Creatinine 4.40 H (0.60-1.20) mg/dL Est GFR ( Amer) 12 L (> 60) Est GFR (Non-Af Amer) 10 L (> 60) BUN/Creatinine Ratio 24 (6-26) Glucose 93 (70-105) mg/dL Calculated Osmolality 294 (280-300) Lactic Acid (0.5-2.2) mmol/L Calcium 8.2 L (8.6-10.3) mg/dL Phosphorus (2.7-4.5) mg/dL Magnesium (1.6-2.6) mg/dL Total Bilirubin (0.3-1.0) mg/dL Direct Bilirubin (0.0-0.2) mg/dL Indirect Bilirubin (0.0-1.2) mg/dL AST (13-39) Units/L ALT (7-52) Units/L Alkaline Phosphatase (34-104) Units/L Ammonia 30 (16-53) mcmol/L Creatine Kinase 32 Troponin I (< 0.04) ng/mL B-Natriuretic Peptide (Less than 100) pg/mL Serum Total Protein (6.4-8.9) g/dL Albumin (3.5-5.7) g/dL Globulin (2.4-3.5) g/dL Albumin/Globulin Ratio (1.1-2.2) Lipase (11-82) Units/L Urine Color (Yellow) Urine Clarity (Clear) Urine pH (5.0-8.0) pH Units Ur Specific [place] (1.010-1.025) Urine Protein (Neg-Trace) mg/dL Urine Glucose (UA) (Normal) mg/dL Urine Ketones (Negative) mg/dL Urine Blood (Negative) Urine Nitrite (Negative) Urine Bilirubin (Negative) Urine Urobilinogen (Normal) mg/dL Ur Leukocyte Esterase (Negative) Urine Microscopic RBC (0-3) per hpf Urine Microscopic WBC (0-3) per hpf Ur Squamous Epith Cells (None-Few) per lpf Urine Bacteria (None-Few) per hpf Hyaline Casts (None-Few) per lpf Ur Culture Indicated? (NO) Critical Care Time Critical Care Time: Yes Total Critical Care Time: 60 Attestation: The high probability of a clinically significant, sudden or life threatening deterioration of the [] system(s) required my full and direct attention, intervention and personal management. The aggregate critical care time was [] minutes. This time is in addition to time spent performing reported procedures but includes the following: [] Data Review and interpretation [] Patient assessment and monitoring of vital signs [] Documentation [] Medication orders and management Attestation Statement - Attestation Attestation: I examined this patient and my medical decision-making was reviewed with the Resident Physician. I agree with the documented findings, disposition and treatment plan as described except to the extent set forth below. [id number] time provided Patient arrives by EMS from the [facility] with altered mental status and low-grade fever. He is pleasantly confused on exam. Concern for sepsis. We will evaluate for etiology 17:15: Both the control systems technician Dr. Dale and the hospitalist have evaluated the patient. They were concerned about her hypotension. The control systems technician recommended placement of a dialysis catheter by interventional radiology and urgent dialysis. The patient will be admitted to the ICU. The presetter operator is aware. The admitting hospitalist has requested the placement of an arterial line
--- NOTE | 2018-02-06 11:27 | Emergency Department Note ---
Disposition Clinical Impression: HCAP (healthcare-associated pneumonia), Sepsis, Renal failure, acute, Hyperkalemia Altered mental status Qualifiers: Qualified Code(s): R41.82 - Disposition: Admitted As Inpatient Condition: Serious Altered Mental Status HPI - General Chief Complaint: ED Altered Mental Status Stated Complaint: AMS Time Seen by Provider: 02/06/18 11:22 Source: patient, EMS Mode of arrival: EMS Limitations: altered mental status Nursing Notes Reviewed: Yes Vital Signs Reviewed: Yes - History of Present Illness HPI Narrative: Patient presents to the ED via EMS from [facility] with the chief complaint of altered mental status. Onset was 2 days ago and progressively worsening. EMS reports that she had a witnessed fall out of her in wheelchair 2 days ago where she slumped out of the chair on her back on the floor. There is no head injury, loss of consciousness. Reportedly, she had a temperature of 100.3 degrees this morning. She has been more confused than usual in the setting of twitching of her left upper extremity. Patient is pleasantly confused and in no acute distress, but is really unable to provide any relevant history - Related Data Home Medications Medication Instructions Recorded Confirmed Citalopram [CeleXA] 20 mg PO DAILY 04/12/17 02/06/18 GuaiFENesin/Dextromethorphan 1 each PO HS PRN 04/12/17 02/06/18 [Mucinex Dm] Loperamide HCl [Imodium A-D] 2 mg PO PER PKG DI PRN 04/12/17 02/06/18 Losartan Potassium [Cozaar] 50 mg PO DAILY 04/12/17 02/06/18 Multivitamin [Multi-Day Vitamins] 1 each PO DAILY 04/12/17 02/06/18 Pioglitazone [Actos] 45 mg PO 0800 04/12/17 02/06/18 Venlafaxine XR (24 HR) [Effexor Xr] 300 mg PO QAM 04/12/17 02/06/18 Vitamin B Complex 1 each PO DAILY 04/12/17 02/06/18 Acetaminophen [Extra Strength 1,000 mg PO Q8H PRN 02/06/18 02/06/18 Non-Aspirin] Baclofen 20 mg PO TID PRN 02/06/18 02/06/18 Caffeine [Stay Awake] 100 mg PO TID 02/06/18 02/06/18 Diclofenac Sodium [Voltaren] 75 mg PO BID 02/06/18 02/06/18 Furosemide [Lasix] 40 mg PO DAILY 02/06/18 02/06/18 Insulin DETEMIR [Levemir] 40 unit SQ HS 02/06/18 02/06/18 Loratadine [Allergy Relief] 10 mg PO DAILY 02/06/18 02/06/18 Metoprolol [Lopressor] 50 mg PO DAILY 02/06/18 02/06/18 Omeprazole [PriLOSEC] 20 mg PO DAILY 02/06/18 02/06/18 Potassium Chloride [K-Tab ER] 20 meq PO DAILY 02/06/18 02/06/18 Previous Rx's Medication Instructions Recorded Ascorbic Acid [Vitamin C] 500 mg PO DAILY #30 tablet 04/16/17 Ferrous Sulfate 325 mg PO BIDWM #60 tablet 04/16/17 Diltiazem CD (24hr) [Cardizem CD] 120 mg PO DAILY 30 Days cap.er.24h 04/30/17 Gabapentin [Neurontin] 300 mg PO BID #30 capsule 05/03/17 Rivaroxaban [Xarelto] 20 mg PO DAILY #30 tablet 05/03/17 HYDROcodone/Acet 5/325 mg [[place] 1 - 2 tab PO Q4H PRN #20 tablet 05/17/17 5-325 mg] Allergies Allergy/AdvReac Type Severity Reaction Status Date / Time Penicillins AdvReac Gastrointestinal Verified 04/12/17 14:05 Upset shellfish derived AdvReac Headache Verified 04/12/17 14:05 Tetracyclines AdvReac Rash Verified 04/12/17 14:05 Review of Systems: As reviewed in the HPI. All other systems reviewed are negative or normal. Limitations: ROS unobtainable due to patients medical condition Past Medical History - Past Medical History Attestation: Yes The following information was validated with the patient. Source: old records reviewed Medical history: Reports: arthritis, diabetes, GERD, hypertension, other Surgical history: Reports: appendectomy, sinus surgery, bariatric surgery Psychiatric history: Reports: anxiety, depression - Social History Smoking Status: Never smoker Smokeless Tobacco Status: No Alcohol use: Reports: none Drug use: Reports: none Physical Exam - General Limitations: altered mental status General appearance: alert, in no apparent distress - Head Head exam: atraumatic, normocephalic, normal inspection - Eye Eye exam: Present: normal appearance, PERRL, EOMI - ENT ENT exam: normal exam - Neck Neck exam: Present: normal inspection. Absent: meningismus - Chest Chest inspection: Present: normal inspection, symmetric chest wall rise - Respiratory Respiratory exam: Present: normal lung sounds bilaterally - Cardiovascular Cardiovascular exam: Present: regular rate, normal rhythm, normal heart sounds - Abdominal Exam Abdominal exam: Present: soft, Non-Tender. Absent: tenderness, distention, guarding, rebound, rigidity - Extremities Exam Extremities exam: Present: normal inspection, normal capillary refill, other ( Patient is morbidly obese and I am unable to tell if there is any edema versus obesity) - Expanded Lower Extremity Exam Hip/Pelvis exam: Present: pelvis stable - Neurological Exam Neurological exam: Present: alert. Absent: oriented X3 (Patient is oriented to person only) - Psychiatric Psychiatric exam: Present: normal affect, normal mood - Skin Skin exam: Present: warm, dry, intact, normal color Course Course Narrative: Patient presenting with altered mental status from the [facility]. She is pleasantly confused, is not tachycardic. We will search for source of infection including a head CT due to her left upper extremity twitching. She will follow commands by squeezing my hands, but her speech is garbled. Suspecting likely urinary source. We will also get a urine sample. - Reevaluation(s) Reevaluation #1: Lab called me to relay a critical high potassium of 7.7. She is also newly and renal failure. We will begin treatment with calcium gluconate, sodium bicarbonate, insulin/dextrose, and albuterol. I do not feel that Kayexalate would be beneficial at this time as she is still confused and I would like to avoid aspiration. Her chest x-ray shows a possible pneumonia. Her urine, although nitrite negative, does appear to be a contaminated sample. She does have a mild leukocytosis, is afebrile here, but reported fevers at the [facility]. Lactic acid is normal and blood pressure is normal. The think she meets sepsis criteria, so we will start antibiotics as well. I added on a CT of her abdomen and pelvis to rule out any obstructive cause of her renal failure as well as urine sodium and creatinine. We have also added Legionella and strep pneumoniae antigens to her urine. Time: 13:06 Reevaluation #2: Patient is more awake and alert and states that the [facility] has been giving her extra potassium supplements. She also states she is allergic to albuterol, so we did not give her this. I added on a CT abdomen and pelvis to evaluate for potential obstructive pathology, which did not show anything acute. It did confirm bibasilar pneumonia. Following the hospitalist for admission. Reevaluation #3: After much discussion, the patient was accepted and admitted to the ICU. Interventional radiology will place a temporary HD catheter in the right IJ. We will place an arterial line for more accurate blood pressure monitoring and the patient will be sent to the ICU for dialysis. - Consultations Consultation #1: Spoke with the hospitalist, Dr. Hook. States he did not fill comfortable accepting the patient until I spoke with nephrology to see if they would be able to keep the patient here since we do not have ICU beds and that she may need dialysis. Patient is in no acute distress currently. She is mentating normally. Her was also here to confirm this. We will call the on-call ore dryer, Dr. Dale to discuss the case. We will call the hospitalist back if he is okay with admitting the patient here. Time: 15:14 Vital Signs Temperature 99.3 F 02/06/18 11:24 Pulse Rate 58 02/06/18 11:24 Respiratory Rate 17 02/06/18 11:24 Blood Pressure 127/37 02/06/18 11:24 O2 Sat by Pulse Oximetry 94 02/06/18 11:24 Temperature 99.3 F 02/06/18 11:24 Pulse Rate 71 02/06/18 18:19 Respiratory Rate 16 02/06/18 19:10 Blood Pressure 102/50 02/06/18 19:10 O2 Sat by Pulse Oximetry 98 02/06/18 18:19 Oxygen Delivery Oxygen Delivery Nasal Cannula Procedures - Arterial Line Consent Obtained: written consent Time Out Performed: Yes Size (Gauge): 16 Technique Used: guide wire technique Post-Procedure: line sutured into place Patient Tolerated Procedure: well, no complications Complications: none Site: right, radial Altered Mental Status - Medical Records Medical records reviewed: Yes I reviewed the patient's medical records. - Lab Data Lab results reviewed: Yes I reviewed the patient's lab results. Result diagrams: 02/06/18 12:03 02/06/18 17:20 Lab Results 02/06/18 02/06/18 02/06/18 Range/Units 11:31 12:03 12:03 WBC 12.6 H (4.3-11.1) K/mcL RBC 3.12 L (3.82-4.97) M/mcL Hgb 9.4 L (11.5-15.4) g/dL Hct 30.9 L (35.3-44.9) % MCV 99.0 (83.0-100.0) fL MCH 30.1 (28.0-33.3) pg MCHC 30.4 L (31.6-35.5) g/dL RDW 14.1 (11.5-14.5) % Plt Count 266 (140-400) K/mcL MPV 9.9 (9.4-12.4) fL Immature Gran % 0.6 (0-4) % Seg Neutrophils % 87.9 % Lymphocytes % 4.6 % Monocytes % 6.3 % Eosinophils % 0.3 % Basophils % 0.3 % Neutrophils # 11.1 H (1.6-8.9) K/mcL Lymphocytes # 0.6 (0.6-4.6) K/mcL Monocytes # 0.8 (0.0-1.3) K/mcL Eosinophils # 0.0 (0.0-0.6) K/mcL Basophils # 0.0 (0.0-0.2) K/mcL PT 13.3 H (9.4-12.1) Seconds INR 1.2 APTT 34.6 (26.0-36.0) Seconds Sodium (136-145) mEq/L Potassium (3.5-5.1) mEq/L Chloride (98-107) mEq/L Carbon Dioxide (23-29) mEq/L BUN (8-23) mg/dL Creatinine (0.60-1.20) mg/dL Est GFR ( Amer) (> 60) Est GFR (Non-Af Amer) (> 60) BUN/Creatinine Ratio (6-26) Glucose (70-105) mg/dL Calculated Osmolality (280-300) Lactic Acid (0.5-2.2) mmol/L Calcium (8.6-10.3) mg/dL Phosphorus (2.7-4.5) mg/dL Magnesium (1.6-2.6) mg/dL Total Bilirubin (0.3-1.0) mg/dL Direct Bilirubin (0.0-0.2) mg/dL Indirect Bilirubin (0.0-1.2) mg/dL AST (13-39) Units/L ALT (7-52) Units/L Alkaline Phosphatase (34-104) Units/L Ammonia (16-53) mcmol/L Creatine Kinase Troponin I (< 0.04) ng/mL B-Natriuretic Peptide (Less than 100) pg/mL Serum Total Protein (6.4-8.9) g/dL Albumin (3.5-5.7) g/dL Globulin (2.4-3.5) g/dL Albumin/Globulin Ratio (1.1-2.2) Lipase (11-82) Units/L Urine Color Dark Yellow (Yellow) Urine Clarity Turbid A (Clear) Urine pH 7.5 (5.0-8.0) pH Units Ur Specific [place] 1.012 (1.010-1.025) Urine Protein >=300 H (Neg-Trace) mg/dL Urine Glucose (UA) Normal (Normal) mg/dL Urine Ketones Negative (Negative) mg/dL Urine Blood Large H (Negative) Urine Nitrite Negative (Negative) Urine Bilirubin Negative (Negative) Urine Urobilinogen Normal (Normal) mg/dL Ur Leukocyte Esterase Large H (Negative) Urine Microscopic RBC Present (0-3) per hpf Urine Microscopic WBC TNTC H (0-3) per hpf Ur Squamous Epith Cells Many H (None-Few) per lpf Urine Bacteria Many H (None-Few) per hpf Hyaline Casts Few (None-Few) per lpf Ur Culture Indicated? NO. (NO) 02/06/18 02/06/18 02/06/18 Range/Units 12:03 12:03 12:03 WBC (4.3-11.1) K/mcL RBC (3.82-4.97) M/mcL Hgb (11.5-15.4) g/dL Hct (35.3-44.9) % MCV (83.0-100.0) fL MCH (28.0-33.3) pg MCHC (31.6-35.5) g/dL RDW (11.5-14.5) % Plt Count (140-400) K/mcL MPV (9.4-12.4) fL Immature Gran % (0-4) % Seg Neutrophils % % Lymphocytes % % Monocytes % % Eosinophils % % Basophils % % Neutrophils # (1.6-8.9) K/mcL Lymphocytes # (0.6-4.6) K/mcL Monocytes # (0.0-1.3) K/mcL Eosinophils # (0.0-0.6) K/mcL Basophils # (0.0-0.2) K/mcL PT (9.4-12.1) Seconds INR APTT (26.0-36.0) Seconds Sodium 128 L (136-145) mEq/L Potassium 7.7 H* (3.5-5.1) mEq/L Chloride 102 (98-107) mEq/L Carbon Dioxide 15 L (23-29) mEq/L BUN 102 H (8-23) mg/dL Creatinine 4.28 H (0.60-1.20) mg/dL Est GFR ( Amer) 13 L (> 60) Est GFR (Non-Af Amer) 10 L (> 60) BUN/Creatinine Ratio 24 (6-26) Glucose 96 (70-105) mg/dL Calculated Osmolality 298 (280-300) Lactic Acid 0.5 (0.5-2.2) mmol/L Calcium 8.3 L (8.6-10.3) mg/dL Phosphorus 9.4 H (2.7-4.5) mg/dL Magnesium 2.3 (1.6-2.6) mg/dL Total Bilirubin 0.5 (0.3-1.0) mg/dL Direct Bilirubin 0.4 H (0.0-0.2) mg/dL Indirect Bilirubin 0.1 (0.0-1.2) mg/dL AST 12 L (13-39) Units/L ALT 14 (7-52) Units/L Alkaline Phosphatase 154 H (34-104) Units/L Ammonia (16-53) mcmol/L Creatine Kinase Cancelled Troponin I < 0.03 (< 0.04) ng/mL B-Natriuretic Peptide 79 (Less than 100) pg/mL Serum Total Protein 6.2 L (6.4-8.9) g/dL Albumin 3.2 L (3.5-5.7) g/dL Globulin 3.0 (2.4-3.5) g/dL Albumin/Globulin Ratio 1.1 (1.1-2.2) Lipase 70 (11-82) Units/L Urine Color (Yellow) Urine Clarity (Clear) Urine pH (5.0-8.0) pH Units Ur Specific [place] (1.010-1.025) Urine Protein (Neg-Trace) mg/dL Urine Glucose (UA) (Normal) mg/dL Urine Ketones (Negative) mg/dL Urine Blood (Negative) Urine Nitrite (Negative) Urine Bilirubin (Negative) Urine Urobilinogen (Normal) mg/dL Ur Leukocyte Esterase (Negative) Urine Microscopic RBC (0-3) per hpf Urine Microscopic WBC (0-3) per hpf Ur Squamous Epith Cells (None-Few) per lpf Urine Bacteria (None-Few) per hpf Hyaline Casts (None-Few) per lpf Ur Culture Indicated? (NO) 02/06/18 02/06/18 Range/Units 12:03 15:43 WBC (4.3-11.1) K/mcL RBC (3.82-4.97) M/mcL Hgb (11.5-15.4) g/dL Hct (35.3-44.9) % MCV (83.0-100.0) fL MCH (28.0-33.3) pg MCHC (31.6-35.5) g/dL RDW (11.5-14.5) % Plt Count (140-400) K/mcL MPV (9.4-12.4) fL Immature Gran % (0-4) % Seg Neutrophils % % Lymphocytes % % Monocytes % % Eosinophils % % Basophils % % Neutrophils # (1.6-8.9) K/mcL Lymphocytes # (0.6-4.6) K/mcL Monocytes # (0.0-1.3) K/mcL Eosinophils # (0.0-0.6) K/mcL Basophils # (0.0-0.2) K/mcL PT (9.4-12.1) Seconds INR APTT (26.0-36.0) Seconds Sodium 126 L (136-145) mEq/L Potassium 7.9 H* (3.5-5.1) mEq/L Chloride 103 (98-107) mEq/L Carbon Dioxide 16 L (23-29) mEq/L BUN 104 H (8-23) mg/dL Creatinine 4.40 H (0.60-1.20) mg/dL Est GFR ( Amer) 12 L (> 60) Est GFR (Non-Af Amer) 10 L (> 60) BUN/Creatinine Ratio 24 (6-26) Glucose 93 (70-105) mg/dL Calculated Osmolality 294 (280-300) Lactic Acid (0.5-2.2) mmol/L Calcium 8.2 L (8.6-10.3) mg/dL Phosphorus (2.7-4.5) mg/dL Magnesium (1.6-2.6) mg/dL Total Bilirubin (0.3-1.0) mg/dL Direct Bilirubin (0.0-0.2) mg/dL Indirect Bilirubin (0.0-1.2) mg/dL AST (13-39) Units/L ALT (7-52) Units/L Alkaline Phosphatase (34-104) Units/L Ammonia 30 (16-53) mcmol/L Creatine Kinase 32 Troponin I (< 0.04) ng/mL B-Natriuretic Peptide (Less than 100) pg/mL Serum Total Protein (6.4-8.9) g/dL Albumin (3.5-5.7) g/dL Globulin (2.4-3.5) g/dL Albumin/Globulin Ratio (1.1-2.2) Lipase (11-82) Units/L Urine Color (Yellow) Urine Clarity (Clear) Urine pH (5.0-8.0) pH Units Ur Specific [place] (1.010-1.025) Urine Protein (Neg-Trace) mg/dL Urine Glucose (UA) (Normal) mg/dL Urine Ketones (Negative) mg/dL Urine Blood (Negative) Urine Nitrite (Negative) Urine Bilirubin (Negative) Urine Urobilinogen (Normal) mg/dL Ur Leukocyte Esterase (Negative) Urine Microscopic RBC (0-3) per hpf Urine Microscopic WBC (0-3) per hpf Ur Squamous Epith Cells (None-Few) per lpf Urine Bacteria (None-Few) per hpf Hyaline Casts (None-Few) per lpf Ur Culture Indicated? (NO) - Radiology Data Radiology results reviewed: Yes I reviewed the patient's radiology results. - EKG Data EKG attestation: Yes I reviewed and interpreted this EKG. EKG results narrative: Sinus bradycardia, rate 58, RI interval 168, QRS 117, QTC 390, normal axis, no acute ischemic changes TPA Checklist - LKW: 3-4.5 hrs Add. Warnings/Precautions Patient/family understanding: The patient/family members have been counseled and understood the risk, benefit , and alternatives of treatment. Critical Care Time Critical Care Time: Yes Total Critical Care Time: 75 Attestation: I personally spent ____45__ minutes devoted to the care of this critically ill patient. This time excludes the time for billable procedures.
[2018-02-06 12:02] LABS: Bilirubin,Urine Negative (Negative); Blood,Urine Large (Negative); Clarity,Urine Turbid (Clear); Color,Urine Dark Yellow (Yellow); Glucose,Urine (UA) Normal (Normal); Ketones,Urine Negative (Negative); Leukocyte Esterase,Urine Large (Negative); Nitrite,Urine Negative (Negative); PH,Urine 7.5 pH Units (5.0-8.0); Protein,Urine >=300 mg/dL (Neg-Trace); Specific Gravity,Urine 1.012 (1.010-1.025); Urobilinogen,Urine Normal (Normal)
[2018-02-06 12:04] LABS: Bacteria,Urine Many per hpf (None-Few); Hyaline Casts,Urine Few per lpf (None-Few); Squamous Epithelial Cell,Urine Many per lpf (None-Few); WBC,Urine TNTC per hpf (0-3)
[2018-02-06 12:24] LABS: Basophils % 0.3 %; Eosinophils % 0.3 %; Hematocrit 30.9 % (35.3-44.9); Hemoglobin 9.4 g/dL (11.5-15.4); Immature Granulocytes % 0.6 % (0-4); Lymphocytes # 0.6 K/mcL (0.6-4.6); Lymphocytes % 4.6 %; Mean Corpuscular HGB Conc 30.4 g/dL (31.6-35.5); Mean Corpuscular Hemoglobin 30.1 pg (28.0-33.3); Mean Platelet Volume 9.9 fL (9.4-12.4); Monocytes # 0.8 K/mcL (0.0-1.3); Monocytes % 6.3 %; Neutrophils # 11.1 K/mcL (1.6-8.9); Platelet Count 266 K/mcL (140-400); Red Blood Count 3.12 M/mcL (3.82-4.97); Red Cell Distribution Width 14.1 % (11.5-14.5); Segmented Neutrophils % 87.9 %
[2018-02-06 12:31] LABS: INR 1.2; Prothrombin Time 13.3 Seconds (9.4-12.1)
[2018-02-06 12:34] LABS: Activated Partial Thrombo Time 34.6 Seconds (26.0-36.0)
[2018-02-06 12:43] LABS: RBC,Urine Present per hpf (0-3)
[2018-02-06 12:52] LABS: Alanine Aminotransferase 14 Units/L (7-52); Albumin 3.2 g/dL (3.5-5.7); Albumin/Globulin Ratio 1.1 (1.1-2.2); Alkaline Phosphatase 154 Units/L (34-104); Aspartate Amino Transferase 12 Units/L (13-39); BUN/Creatinine Ratio 24 (6-26); Bilirubin,Direct 0.4 mg/dL (0.0-0.2); Bilirubin,Indirect 0.1 mg/dL (0.0-1.2); Bilirubin,Total 0.5 mg/dL (0.3-1.0); Blood Urea Nitrogen 102 mg/dL (8-23); Calcium 8.3 mg/dL (8.6-10.3); Carbon Dioxide 15 mEq/L (23-29); Chloride 102 mEq/L (98-107); Glucose 96 mg/dL (70-105); Lipase 70 Units/L (11-82); Magnesium 2.3 mg/dL (1.6-2.6); Osmolality,Calculated 298 (280-300); Phosphorous 9.4 mg/dL (2.7-4.5); Potassium 7.7 mEq/L (3.5-5.1); Sodium 128 mEq/L (136-145); Total Protein 6.2 g/dL (6.4-8.9); Troponin I < 0.03 ng/mL (< 0.04); eGFR For African Americans 13 (> 60); eGFR For Non-African Americans 10 (> 60)
[2018-02-06] MEDS ORDERED: *HR* Dextrose 50 % in Water (Syg) 50 ML SYRINGE IVP ONE ×2 (12:56→16:33)
[2018-02-06] MEDS ORDERED: Insulin Human Regular 10 UNIT in 0.9 % Sodium Chloride 10 ML IV ONE ×3 (12:56→16:59)
[2018-02-06] MEDS ORDERED: Sodium Bicarbonate 50 MEQ/50 ML VIAL IVP ONE (12:56)
[2018-02-06] MEDS: Albuterol Neb 1.25 MG/3 ML VIAL IH ONE ×2 (13:25→13:55)
[2018-02-06] MEDS ORDERED: Levofloxacin 750 MG/150 ML 750 MG/150 ML BAG IVPB ONE (13:25)
[2018-02-06] MEDS ORDERED: Aztreonam 2,000 MG in Water for inj. (sterile) 20 ML 20 ML IVP ONE (13:27)
[2018-02-06] MEDS: 0.9 % Sodium Chloride 1,000 ML IVC SCH ×3 (15:29→22:02)
[2018-02-06 16:28] LABS: Calcium 8.2 mg/dL (8.6-10.3); Potassium 7.9 mEq/L (3.5-5.1)
--- NOTE | 2018-02-06 16:44 | Nephrology Consult Note ---
Date of Encounter: 02/06/18 Time of Encounter: 16:41 Assessment and Plan (1) Acute kidney injury Current Visit: Yes Status: Acute Patient has multifactorial acute kidney injury and no known history of chronic kidney disease. Patient was on multiple nephrotoxins as an outpatient (including NSAIDs and an ARB). She presents with hypotension and bradycardia. Her urine in the [place] bag appears to be concentrated and she may be oliguric. I recommend aggressive hydration as tolerated from a respiratory standpoint. Discontinue all of her nephrotoxins. Adjust medications for renal function. Secondary to her low urine output and severe hyperkalemia I discussed the need for dialysis with the patient. The patient and her have agreed to consent to dialysis. She will receive dialysis tonight. I recommend continued medical management for hyperkalemia until she can be started on dialysis. (2) Myoclonus Current Visit: Yes Status: Acute The patient's myoclonus is likely related to gabapentin use in the face of acute kidney injury. I recommend discontinuing her gabapentin. (3) Altered mental status Current Visit: Yes Status: Acute Likely multifactorial. Access gabapentin, sepsis, and other mind altering substances that she was using as an outpatient. Per the family it is improved from this morning but not back to baseline. Qualifiers: Qualified Code(s): R41.82 - Altered mental status, unspecified (4) Hyperkalemia Current Visit: Yes Status: Acute Severe hyperkalemia we will attempt medical management, but she will likely need renal replacement therapy. (5) Pulmonary embolism Current Visit: No Status: Acute Per primary care team. Qualifiers: Pulmonary embolism type: other Chronicity: acute Acute cor pulmonale presence: without acute cor pulmonale Qualified Code(s): I26.99 - Other pulmonary embolism without acute cor pulmonale (6) Morbid obesity with BMI of 60.0-69.9, adult Current Visit: No Status: Chronic (7) Type 2 diabetes mellitus Current Visit: No Status: Chronic Per primary care team. 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 (9) HCAP (healthcare-associated pneumonia) Current Visit: Yes Status: Acute Patient is on antibiotics. She likely has aspiration secondary to her altered mental status. Management per primary team. (10) Shock Current Visit: Yes Status: Acute Patient blood pressure is low and likely contributing to her decreased mental status along with her acute kidney injury. I recommend aggressive hydration. She may need pressors. Also continue to treat her underlying infection at this may be septic shock. History of Present Illness - Reason for Consult Consult date: 02/06/18 Acute Kidney Injury, hyperkalemia - Chief Complaint YEIMY and altered mental status. - History of Present Illness Ms. Lamb is a 67 yo woman with a history of morbid obesity and diabetes who presents secondary to altered mental status. History is obtained from the conversation with the consulting ER physician along with speaking with the patient's at the bedside the patient's was awake, but unable to provide a coherent history. Per the the patient filled the Sunday prior to admission and then yesterday was confused according to their daughter. When he went to visit the patient this morning she was on supplemental oxygen which she was not on before and she was twitching in her bed. She also was not responsive to normal stimuli. She was brought to the emergency department and was found to have acute kidney injury and hyperkalemia [facility] was consulted for assistance with managing her acute kidney injury and hyperkalemia. Past Med Surg Social Fam HX - Past Medical History Medical history: arthritis, diabetes, GERD, hypertension, other Psychiatric history: anxiety, depression - Past Surgical History Surgical History: appendectomy, sinus surgery, bariatric surgery - Social History Smoking Status: Never smoker Smokeless Tobacco Status: No Alcohol use: none Drug use: none - Family History Mother Living Status: Hx Family Neurologic Disorders: Yes (Migraines) Hx Family Autoimmune Disorders: Yes (MS) Sister Hx Family Cancer: Yes Hx Family Autoimmune Disorders: Yes (Lupus) Father Living Status: Hx Family Cancer: Yes Hx Family Endocrine Disorder: Yes (diabetes) Medications and Allergies Citalopram [CeleXA] 20 mg PO DAILY 04/12/17 [History] GuaiFENesin/Dextromethorphan [Mucinex Dm] 1 each PO HS PRN 04/12/17 [History] Loperamide HCl [Imodium A-D] 2 mg PO PER PKG DI PRN 04/12/17 [History] Losartan Potassium [Cozaar] 50 mg PO DAILY 04/12/17 [History] Multivitamin [Multi-Day Vitamins] 1 each PO DAILY 04/12/17 [History] Pioglitazone [Actos] 45 mg PO 0800 04/12/17 [History] Venlafaxine XR (24 HR) [Effexor Xr] 300 mg PO QAM 04/12/17 [History] Vitamin B Complex 1 each PO DAILY 04/12/17 [History] Ascorbic Acid [Vitamin C] 500 mg PO DAILY #30 tablet 04/16/17 [Rx] Ferrous Sulfate 325 mg PO BIDWM #60 tablet 04/16/17 [Rx] Diltiazem CD (24hr) [Cardizem CD] 120 mg PO DAILY 30 Days cap.er.24h 04/30/17 [ Rx] Gabapentin [Neurontin] 300 mg PO BID #30 capsule 05/03/17 [Rx] Rivaroxaban [Xarelto] 20 mg PO DAILY #30 tablet 05/03/17 [Rx] HYDROcodone/Acet 5/325 mg [[place] 5-325 mg] 1 - 2 tab PO Q4H PRN #20 tablet 05/17 [Rx] Acetaminophen [Extra Strength Non-Aspirin] 1,000 mg PO Q8H PRN 02/06/18 [History ] Baclofen 20 mg PO TID PRN 02/06/18 [History] Caffeine [Stay Awake] 100 mg PO TID 02/06/18 [History] Diclofenac Sodium [Voltaren] 75 mg PO BID 02/06/18 [History] Furosemide [Lasix] 40 mg PO DAILY 02/06/18 [History] Insulin DETEMIR [Levemir] 40 unit SQ HS 02/06/18 [History] Loratadine [Allergy Relief] 10 mg PO DAILY 02/06/18 [History] Metoprolol [Lopressor] 50 mg PO DAILY 02/06/18 [History] Omeprazole [PriLOSEC] 20 mg PO DAILY 02/06/18 [History] Potassium Chloride [K-Tab ER] 20 meq PO DAILY 02/06/18 [History] 3 Allergy/AdvReac Type Severity Reaction Status Date / Time Penicillins AdvReac Gastrointestinal Verified 04/12/17 14:05 Upset shellfish derived AdvReac Headache Verified 04/12/17 14:05 Tetracyclines AdvReac Rash Verified 04/12/17 14:05 Review of Systems All Systems: reviewed and no additional remarkable complaints except as stated ( As documented in the history of present illness. Her complete review of systems is unobtainable secondary to mental status.) Exam - Vital Signs Vital signs: Initial Vital Signs Temp Pulse Resp BP Pulse Ox 99.3 F 58 17 127/37 94 02/06/18 11:24 02/06/18 11:24 02/06/18 11:24 02/06/18 11:24 02/06/18 11:24 - General Appearance General appearance: well-developed, well-nourished, obese EENT: ATNC Neck: supple Respiratory: course breath sounds Cardiology: edema (1-2+ edema in the bilateral lower extremities) Additional Comments: Bradycardic. Gastrointestinal: normoactive bowel sounds, no tenderness, obese Neurologic: confused Musculoskeletal: no cyanosis Psychiatric: agitated (Slightly agitated.) Results - Lab Results 02/06/18 12:03 02/06/18 15:43 Most recent lab results Calcium 8.2 mg/dL (8.6-10.3) L 02/06/18 15:43 Phosphorus 9.4 mg/dL (2.7-4.5) H 02/06/18 12:03 Magnesium 2.3 mg/dL (1.6-2.6) 02/06/18 12:03 Consult Discharge Plan - Plan Referrals: David Lou MD [Primary Care Provider] -
[2018-02-06] MEDS ORDERED: Heparin 1,000 UNITS/500 mL 500 ML ONE (16:52)
[2018-02-06] MEDS ORDERED: *HR* Dextrose 25% in Water (Syg) 10 ML SYRINGE IVP ONE (16:59)
[2018-02-06 17:44] LABS: INR 1.4; Prothrombin Time 15.3 Seconds (9.4-12.1)
[2018-02-06] MEDS ORDERED: Sodium Bicarbonate 150 MEQ in D5% in Water 1,000 ML IVC SCH (17:45)
[2018-02-06 17:47] LABS: Activated Partial Thrombo Time 36.1 Seconds (26.0-36.0)
[2018-02-06] MEDS ORDERED: Naloxone 0.4 MG/ML INJ IVP PRN (18:02)
[2018-02-06] MEDS ORDERED: 0.9 % Sodium Chloride 250 ML IVC PRN (18:08)
[2018-02-06] MEDS ORDERED: *HR* Heparin 5,000 UNIT/ML VIAL ONE (18:10)
[2018-02-06 18:15] LABS: Albumin 2.9 g/dL (3.5-5.7); Calcium 8.1 mg/dL (8.6-10.3); Phosphorous 8.8 mg/dL (2.7-4.5); Potassium 7.5 mEq/L (3.5-5.1); Thyroid Stimulating Hormone 0.991 mcIU/mL (0.340-5.600)
[2018-02-06] MEDS ORDERED: 0.9 % Sodium Chloride 1,000 ML PRIME SCH ×2 (18:15→21:45)
--- NOTE | 2018-02-06 18:19 | IR Procedure Note ---
Date of procedure: 02/06/18 Consent Obtained: Verbal consent, Written consent Timeout: Correct patient and procedure verified, Correct site verified, Time out performed, Skin prep completed Local anesthetic: Lidocaine 1% Indications: ARF Procedure Performed: temp HDC insertion Was there an bacteriology research assistant present: No Estimated blood loss (cc): 2 Complications: None; Tolerated procedure well Post Procedure Treatment Plan: CXR Specimen: none
[2018-02-06 18:51] LABS: Hepatitis B Surface Antigen Nonreactive (Nonreactive)
[2018-02-06] MEDS ORDERED: 0.9 % Sodium Chloride 500 ML ONE (19:18)
[2018-02-06 19:19] LABS: Vitamin B12 756 pg/mL (250-1100)
[2018-02-06 19:35] LABS: Folate > 22.3 ng/mL (3.0-16.0)
--- NOTE | 2018-02-06 20:46 | Internal Med History&Physical ---
Date of Encounter: 02/11/18 Time of Encounter: 20:44 Internal Medicine - H&P: HPI Chief complaint: AMS History of present illness: Ms. Lamb is a 67 year old female multiple medical problems who presents with altered mentation. Patient seen at bedside in the emergency department. Patient having bouts of intermittent confusion, at bedside. Patient's had altered mentation over the last 24 hours and history of fever. History difficult to obtain given confusion. When asked patient denies pain. She denies chest pain, shortness of breath or palpitations. Patient is able to move all 4 extremities but notes that she is mostly wheelchair bound due too history of severe osteoarthritis of bilateral knees. Patient to be admitted for further evaluation. Past Med Surg Social Fam HX - Past Medical History Medical history: arthritis, diabetes, GERD, hypertension, other Psychiatric history: anxiety, depression - Past Surgical History Surgical History: appendectomy, sinus surgery, bariatric surgery - Social History Smoking Status: Never smoker Smokeless Tobacco Status: No Alcohol use: none Drug use: none - Family History Mother Living Status: Hx Family Neurologic Disorders: Yes (Migraines) Hx Family Autoimmune Disorders: Yes (MS) Sister Hx Family Cancer: Yes Hx Family Autoimmune Disorders: Yes (Lupus) Father Living Status: Hx Family Cancer: Yes Hx Family Endocrine Disorder: Yes (diabetes) Internal Medicine - H&P: Meds Citalopram [CeleXA] 20 mg PO DAILY 04/12/17 [History] GuaiFENesin/Dextromethorphan [Mucinex Dm] 1 each PO HS 04/12/17 [History] Loperamide HCl [Imodium A-D] 2 mg PO PRN PRN 04/12/17 [History] Losartan Potassium [Cozaar] 50 mg PO DAILY 04/12/17 [History] Multivitamin [Multi-Day Vitamins] 1 each PO DAILY 04/12/17 [History] Pioglitazone [Actos] 45 mg PO 0800 04/12/17 [History] Venlafaxine XR (24 HR) [Effexor Xr] 300 mg PO QAM 04/12/17 [History] Vitamin B Complex 1 each PO DAILY 04/12/17 [History] Ascorbic Acid [Vitamin C] 500 mg PO DAILY #30 tablet 04/16/17 [Rx] Ferrous Sulfate 325 mg PO BIDWM #60 tablet 04/16/17 [Rx] Diltiazem CD (24hr) [Cardizem CD] 120 mg PO DAILY 30 Days cap.er.24h 04/30/17 [ Rx] Gabapentin [Neurontin] 300 mg PO BID #30 capsule 05/03/17 [Rx] Rivaroxaban [Xarelto] 20 mg PO DAILY #30 tablet 05/03/17 [Rx] HYDROcodone/Acet 5/325 mg [Jerome 5-325 mg] 1 - 2 tab PO Q4H PRN #20 tablet 05/17 [Rx] Acetaminophen [Extra Strength Non-Aspirin] 1,000 mg PO Q8H PRN 02/06/18 [History ] Baclofen 20 mg PO TID PRN 02/06/18 [History] Caffeine [Stay Awake] 100 mg PO TID 02/06/18 [History] Diclofenac Sodium [Voltaren] 75 mg PO BID 02/06/18 [History] Furosemide [Lasix] 40 mg PO BID 02/06/18 [History] Insulin DETEMIR [Levemir] 40 unit SQ HS 02/06/18 [History] Loratadine [Allergy Relief] 10 mg PO DAILY PRN 02/06/18 [History] Metoprolol [Lopressor] 50 mg PO DAILY 02/06/18 [History] Omeprazole [PriLOSEC] 20 mg PO DAILY 02/06/18 [History] Potassium Chloride [K-Tab ER] 20 meq PO BID 02/06/18 [History] Calcium Carbonate [Tums] 500 mg PO Q4HR PRN 02/07/18 [History] Mag Hydrox/Aluminum Hyd/Simeth [Cvs Antacid Plus Anti-Gas Liq] 30 ml PO DAILY PRN 02/07/18 [History] metFORMIN [Glucophage] 500 mg PO BIDWM 02/07/18 [History] 3 Allergy/AdvReac Type Severity Reaction Status Date / Time Penicillins AdvReac Gastrointestinal Verified 04/12/17 14:05 Upset shellfish derived AdvReac Headache Verified 04/12/17 14:05 Tetracyclines AdvReac Rash Verified 04/12/17 14:05 ROS unobtainable: due to mental status All Systems PM: A 10-system review of systems was performed and is negative for pertinent findings except as documented above in the HPI. Review of systems: Review of systems have been reviewed but may not be accurate due to altered mentation - Constitutional Vitals: Temp Pulse Resp BP Pulse Ox 99.3 F 71 16 102/50 98 02/06/18 11:24 02/06/18 18:19 02/06/18 19:10 02/06/18 19:10 02/06/18 18:19 Vital signs as noted above Gen.: Does not appear to be in distress, able to speak in full sentences but with some mild confusion HEENT: Atraumatic, normocephalic, extraocular movements are intact, PERRL, there is no scleral icterus Neck: No JVD no pain to palpation, there is full range of motion Heart: Normal S1 and S2 Lungs: Diminished breath sounds in the bases no wheezing appreciated Abdomen: Soft, nontender, obese, no pain to palpation Musculoskeletal: Patient able to move all 4 extremities freely, no pain to palpation of large joints Neuro: Patient able to move all 4 extremities, strength appears to be equal, 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 Increasing bilateral airspace disease, which could be related to pulmonary edema or multifocal infection. D/ / Cornel Read MD / Cornel Read MD Interpreting Provider: Cornel Read MD - Assessment and plan (1) Acute kidney injury Current Visit: Yes Status: Acute Assessment and plan: Acute on chronic renal failure Etiology to be determined. Patient with persistent hyperkalemia, myoclonic jerking I discussed case with ER physician. Recommend stat consult to nephrology to consider stat HD catheter placement given severe hyperkalemia, myoclonus. Also recommend stat repeat BMP to evaluate serum potassium Appreciate nephrology recommendations. Nephrology recommends stat HD catheter placement, with stat dialysis CT abdomen and pelvis no evidence of obstruction, [place] catheter to drainage Appreciate nephrology recommendations (2) Altered mental status Current Visit: Yes Status: Resolved Assessment and plan: Altered mentation, multifactorial, evidence of bilateral pneumonia, acute on chronic kidney injury, electrolyte imbalance Basilar lacunar infarct noted on CT brain. I have called the radiologist discuss finding. Finding appeared to be indeterminate in terms of acuity. Neurologically patient confused but able to move all 4 extremities, no particular weakness discomfort at this time. Given altered mentation, indeterminate CT brain will obtain MRI brain, MRA stat for complete evaluation. Neuro checks every 4 hours, patient will require neurology consultation Qualifiers: Altered mental status type: unspecified Qualified Code(s): R41.82 - Altered mental status, unspecified (3) HCAP (healthcare-associated pneumonia) Current Visit: Yes Status: Acute Assessment and plan: Healthcare associated pneumonia versus severe pulmonary edema Patient's BNP actually within normal limits. Patient is diffusely anasarca Early sepsis, I have asked emergency room department to obtain stat arterial line, Patient should be started on empiric parenteral antibiotics. Patient is already receiving Levaquin which will need to be dosed every 48 hours, patient also received is 300 and was be renally dose adjusted to 1 g every 8 hour, patient had received Zyvox for currently undergoing hemodialysis for now will likely be cleared Antibiotics. I discussed case with pharmacy was originally Blood culture, urine strep, Legionella urine antigen, respiratory viral profile Bronchodilators I have discussed case with Dr. Hogue pulmonary/critical care who will see patient in consultation in the AM. (4) Hyperkalemia Current Visit: Yes Status: Resolved Assessment and plan: Hyperkalemia not responsive to medical therapy Patient requires HD catheter, dialysis Appreciate nephrology recommendations (5) Myoclonus Current Visit: Yes Status: Acute Assessment and plan: Likely secondary to medication effect. CT brain negative for acute intracranial pathology Neurochecks every 4 hours, hemodialysis (6) Atrial flutter Current Visit: No Status: Acute Assessment and plan: History of atrial fibrillation on anticoagulation At this time anticoagulation hold pending MRI, MRA If no evidence of bleeding AC can be restarted. Qualifiers: Atrial flutter type: unspecified Qualified Code(s): I48.92 - Unspecified atrial flutter (8) Morbid obesity Current Visit: No Status: Chronic (9) Lacunar infarction Current Visit: Yes Status: Acute Assessment and plan: Rule out CVA. His time patient appears to be neurologically intact. Patient bedbound due to severe osteoarthritis osteoarthritis but patient able to move all [address] brain indeterminate core infarct. I have discussed case with radiology. MRI pending, neuro checks every 4 hours (10) Volume overload Current Visit: Yes Status: Acute Assessment and plan: Patient's volume overloaded third spacing, normal BNP? , likely will not tolerate fluid resuscitation in the ER Patient undergo STat HD catheter placement, with stat hemodialysis Patient to be admitted to intensive care unit. Upon presentation I have asked for STAT nephrology consultation to discuss HD catheter placement. Patient currently with HD catheter placement by interventional radiology. Patient to undergo stat hemodialysis at this time. Have also asked stat arterial line to be placed in the emergency department to determined if patient will require pressor support. At this time patient is requiring pressor support, mean arterial pressure is above 65. I discussed case with pulmonary critical care who will will evaluate patient in a.m. Patient high risk for deterioration given multiorgan dysfunction. Patient Fullcode. Further recommendations pending repeat laboratory data, final imaging, patient may require additional consultations. Qualifiers: Hypervolemia type: unspecified Qualified Code(s): E87.70 - Fluid overload, unspecified - Time Spent With Patient Total time spent is greater than 50% in coordination of care (as documented) at patient's floor/unit and/or counseling patient:
[2018-02-06 21:31] LABS: Potassium 6.8 mEq/L (3.5-5.1)
[2018-02-06] MEDS: Norepinephrine 4 MG in D5% in Water 250 ML IVC SCH (21:32)
[2018-02-06] MEDS ORDERED: 0.9 % Sodium Chloride 1,000 ML PRIME ONE (21:42)
[2018-02-06] MEDS ORDERED: *HR* Alteplase (Cathflo) 2 MG VIAL IVP PRN (21:42)
[2018-02-06] MEDS ORDERED: *HR* Heparin 5,000 UNIT/ML VIAL IV PRN (21:42)
[2018-02-06] MEDS ORDERED: 0.9 % Sodium Chloride 250 ML ONE (22:18)
[2018-02-06 23:11] LABS: Albumin 2.9 g/dL (3.5-5.7); BUN/Creatinine Ratio 25 (6-26); Blood Urea Nitrogen 110 mg/dL (8-23); Carbon Dioxide 16 mEq/L (23-29); Chloride 102 mEq/L (98-107); Glucose 93 mg/dL (70-105); Osmolality,Calculated 300 (280-300); Phosphorous 8.7 mg/dL (2.7-4.5); Potassium 6.9 mEq/L (3.5-5.1); Sodium 128 mEq/L (136-145); eGFR For African Americans 12 (> 60); eGFR For Non-African Americans 10 (> 60)
[2018-02-06 23:12] LABS: Protein/Creatinine Ratio,Urine 20.22 mg/mg (0.00-0.20); Sodium, Urine 41.3 mEq/L
[2018-02-06 23:37] LABS: Troponin I < 0.03 ng/mL (< 0.04)
[2018-02-07] MEDS ORDERED: Dextrose Gel 15 GM/37.5 ML TUBE PO PRN ×2 (00:39)
[2018-02-07] MEDS ORDERED: *HR* Dextrose 50 % in Water (Syg) 50 ML SYRINGE IVP PRN (00:39)
[2018-02-07] MEDS ORDERED: D5% in Water 1,000 ML IVC PRN (00:39)
[2018-02-07] MEDS: PrismaSATE BGK 4/2.5 5,000 ML CRRT SCH ×17 (00:59→22:06)
[2018-02-07] MEDS ORDERED: Aztreonam 1,000 MG in Water for inj. (sterile) 10 ML IVP SCH (01:00)
[2018-02-07] MEDS ORDERED: Ipratropium/Albuterol Neb 3 ML IH PRN (02:29)
[2018-02-07 04:28] LABS: Basophils % 0.3 %; Eosinophils # 0.1 K/mcL (0.0-0.6); Hematocrit 26.8 % (35.3-44.9); Hemoglobin 8.3 g/dL (11.5-15.4); Immature Granulocytes % 0.7 % (0-4); Lymphocytes % 14.1 %; Mean Corpuscular Hemoglobin 30.3 pg (28.0-33.3); Mean Corpuscular Volume 97.8 fL (83.0-100.0); Mean Platelet Volume 9.8 fL (9.4-12.4); Monocytes # 0.5 K/mcL (0.0-1.3); Monocytes % 7.4 %; Neutrophils # 5.5 K/mcL (1.6-8.9); Nucleated Red Blood Cells 0.3 /100 WBC (0); Platelet Count 184 K/mcL (140-400); Red Blood Count 2.74 M/mcL (3.82-4.97); Red Cell Distribution Width 14.2 % (11.5-14.5); Segmented Neutrophils % 76.5 %
[2018-02-07 04:48] LABS: Albumin/Globulin Ratio 1.1 (1.1-2.2); Bilirubin,Direct 0.3 mg/dL (0.0-0.2); Bilirubin,Indirect 0.2 mg/dL (0.0-1.2); Bilirubin,Total 0.5 mg/dL (0.3-1.0); Globulin 2.7 g/dL (2.4-3.5); Magnesium 2.2 mg/dL (1.6-2.6); Phosphorous 6.3 mg/dL (2.7-4.5); Total Protein 5.7 g/dL (6.4-8.9)
[2018-02-07] MEDS: Insulin LISPRO 300 UNITS/3 ML VIAL SQ SCH ×3 (06:23→18:44)
[2018-02-07 07:35] LABS: Calcium 7.9 mg/dL (8.6-10.3); Potassium 5.7 mEq/L (3.5-5.1)
[2018-02-07] MEDS ORDERED: Aztreonam 1,000 MG in Water for inj. (sterile) 20 ML 10 ML IVP SCH (09:00)
[2018-02-07 10:44] LABS: Adenovirus Not Detected (Not Detect); Bordetella Pertussis Not Detected (Not Detect); Chlamydophila pneumoniae Not Detected (Not Detect); Coronavirus 229E Not Detected (Not Detect); Coronavirus HKU1 Not Detected (Not Detect); Coronavirus NL63 Not Detected (Not Detect); Coronavirus OC43 Not Detected (Not Detect); Human Metapneumovirus Not Detected (Not Detect); Human Rhinovirus/Enterovirus Not Detected (Not Detect); Influenza A Subtype 2009 H1 Not Detected (Not Detect); Influenza A Untypeable Not Detected (Not Detect); Influenza B Not Detected (Not Detect); Mycoplasma pneumoniae Not Detected (Not Detect); Parainfluenza Virus 1 Not Detected (Not Detect); Parainfluenza Virus 2 Not Detected (Not Detect); Parainfluenza Virus 3 Not Detected (Not Detect); Parainfluenza Virus 4 Not Detected (Not Detect); Respiratory Syncytial Virus Not Detected (Not Detect)
--- NOTE | 2018-02-07 11:47 | Nephrology Progress Note ---
Date of Encounter: 02/07/18 Time of Encounter: 11:43 - Assessment and Plan (1) Acute kidney injury Current Visit: Yes Status: Acute Patient with multifactorial acute kidney injury who was started on continuous dialysis overnight secondary to hyperkalemia and worsening renal failure. Overnight her blood pressure is improved and her potassium is coming down. We will continue continuous dialysis for now and assess for the need for a transition to intermittent hemodialysis on Sunday. Avoid nephrotoxic agents and adjust medications for renal function. (2) Myoclonus Current Visit: Yes Status: Acute This is improved and likely secondary to gabapentin excess secondary to renal failure. Continue to hold gabapentin. (3) Altered mental status Current Visit: Yes Status: Acute Is improving and likely secondary to sepsis and gabapentin access. Qualifiers: Qualified Code(s): R41.82 - Altered mental status, unspecified (4) Hyperkalemia Current Visit: Yes Status: Acute See acute kidney injury. (5) Pulmonary embolism Current Visit: No Status: Acute Qualifiers: Pulmonary embolism type: other Chronicity: acute Acute cor pulmonale presence: without acute cor pulmonale Qualified Code(s): I26.99 - Other pulmonary embolism without acute cor pulmonale (6) Morbid obesity with BMI of 60.0-69.9, adult Current Visit: No Status: Chronic (7) Type 2 diabetes mellitus Current Visit: No Status: Chronic Qualifiers: Diabetes mellitus jail insulin use: with jail use Diabetes mellitus complication status: with neurologic complications Diabetes mellitus complication detail: with polyneuropathy Qualified Code(s): E11.42 - Type 2 diabetes mellitus with diabetic polyneuropathy; Z79.4 - residential (current) use of insulin (8) Hyponatremia Current Visit: Yes Status: Acute (9) HCAP (healthcare-associated pneumonia) Current Visit: Yes Status: Acute Per primary team. (10) Shock Current Visit: Yes Status: Acute Improving. Subjective Principal diagnosis: YEIMY Interval history: Patient seen. She is more alert. She is on CVVHDF. She has no new complaint. Objective - Vital Signs Vital signs: Vital Signs Temp Pulse Resp BP Pulse Ox 02/07/18 11:00 85 18 159/57 95 02/07/18 10:00 81 14 142/48 92 02/07/18 09:00 75 16 143/50 99 02/07/18 08:39 100 02/07/18 08:00 97.4 F L 73 18 125/44 100 02/07/18 07:00 70 14 123/53 100 02/07/18 06:15 72 16 140/59 95 02/07/18 05:00 70 14 140/58 92 02/07/18 04:30 97.0 F L 72 14 144/57 96 02/07/18 03:00 72 15 155/59 100 02/07/18 02:00 73 14 141/45 97 02/07/18 01:13 76 16 143/42 93 02/07/18 00:45 77 02/07/18 00:30 97.9 F 71 18 143/45 95 02/06/18 23:00 75 16 132/44 98 02/06/18 22:23 75 18 129/42 97 02/06/18 21:04 76 22 91/44 99 02/06/18 20:45 73 02/06/18 20:20 98.8 F 73 18 104/43 98 02/06/18 19:10 16 102/50 02/06/18 18:19 71 128/84 98 02/06/18 17:34 53 21 121/94 98 Intake and Output 02/06/18 02/07/18 02/07/18 23:59 07:59 15:59 Intake Total 1311.2 / 1311.2 141.9 / 141.9 Output Total 150 / 150 114 / 114 141 / 141 Balance 1161.2 / 1161.2 27.9 / 27.9 -131 / -131 Intake: IV Fluids 1311.2 / 1311.2 141.9 / 141.9 PrismaSATE BGK 4/2.5 5,000 ML @ 0 / 0 1500 mls/hr CRRT CONT [facility] Rx#: [id number] HumuLIN R 10 UNIT In Normal 10.1 / 10.1 Saline Flush 10 ML @ 1212 mls/ hr IV ONCE ONE Rx#:[id number] 0.9 % Sodium Chloride 1,000 ML 1000 / 1000 @ 3750 mls/hr IVC .Q16M [facility] Rx# :[id number] Levophed 4 MG In Dextrose 5% 1.1 / 1.1 131.9 / 131.9 250 ML @ 2 MCG/MIN 7.62 mls/hr IVC CONT [facility] Rx#:[id number] Azactam 1,000 MG In Water for inj. (sterile) 10 ML @ 150 mls/ hr IVP Q8H [facility] Rx#:[id number] Azactam 1,000 MG In Water for inj. (sterile) 10 ML @ 150 mls/ hr IVP Q8H [facility] Rx#:[id number] Zyvox Premix 600mg/300mL 600 mg 300 / 300 In 300 ml @ 150 mls/hr IVPB ONCE ONE Rx#:[id number] Oral 0 / 0 0 / 0 0 / 0 Output: Cynthia 64 / 64 86 / 86 Catheter 150 / 150 50 / 50 55 / 55 Other: Stool Size Moderate Stool Consistency formed Stool Color Brown # Bowel Movements 1 Weight 171.9 kg Blood Glucose* 85 101 - General Appearance General appearance: Present: well-developed, well-nourished, obese EENT: Present: ATNC Neck: Present: supple Respiratory: Present: course breath sounds Cardiology: Present: edema, regular rate, regular rhythm Dialysis Vascular Access: Venous Catheter Gastrointestinal: Present: obese Integumentary: Present: warm and dry Neurologic: Present: alert and oriented x3 Musculoskeletal: Present: no cyanosis Psychiatric: Present: mood/affect appropriate - Lab 02/07/18 04:10 02/07/18 04:00 Most recent lab results Calcium 7.9 mg/dL (8.6-10.3) L 02/07/18 04:00 Phosphorus 6.3 mg/dL (2.7-4.5) H 02/07/18 04:00 Magnesium 2.2 mg/dL (1.6-2.6) 02/07/18 04:00 Urine Creatinine 50 mg/dL 02/06/18 21:48 Urine Sodium 41.3 mEq/L 02/06/18 21:48 Urine Total Protein 1011 mg/dL (1-14) H 02/06/18 21:48 Consult Discharge Plan - Plan Referrals: David Lou MD [Primary Care Provider] -
[2018-02-07 12:30] LABS: Potassium 5.3 mEq/L (3.5-5.1)
[2018-02-07 12:31] LABS: Calcium 8.1 mg/dL (8.6-10.3)
[2018-02-07] MEDS ORDERED: *HR* Heparin 5,000 UNIT/ML VIAL IVP PRN ×2 (12:57)
[2018-02-07] MEDS ORDERED: *HR* Heparin 5,000 UNIT/ML VIAL IVP ONE (12:57)
--- NOTE | 2018-02-07 13:41 | Pulmonology Consult Note ---
<RafaCharles - Last Filed: 02/07/18 14:34> Date of Encounter: 02/07/18 Time of Encounter: 13:37 Assessment and Plan (1) Altered mental status Current Visit: Yes Status: Acute - Altered mentation, multifactorial, evidence of b/l PNA, acute on chronic kidney injury, electrolyte imbalance - Neurologically patient confused but able to move all 4 extremities, no particular weakness discomfort at this time. Head CT on 02/06/18 demonstrated the following: - Basal ganglia lacunar infarct on the right - Mild chronic small vessel white matter ischemic changes Brain MRI & Head MRA on 02/07/18 demonstrated the following: - Multifocal small-vessel ischemic change bilaterally with multiple old infarcts - No acute infarct or hemorrhage - No focal significant arterial narrowing in the head - No discrete aneurysm Neuro checks Q4 hours (2) HCAP (healthcare-associated pneumonia) Current Visit: Yes Status: Acute - Healthcare associated pneumonia versus severe pulmonary edema - Initially given a one-time dose of Levaquin, Xyvox, Aztreonam - CXR 02/06/18 demonstrated the following: multifocal infiltrates, greater on the R, suspicious for PNA - Was initially on Azactam 1000 mg IV Q8 - Cefepime 1000 mg IV Q8h - Duoneb 3 mL IH Q4 PRN (3) Acute kidney injury Current Visit: Yes Status: Acute Acute on chronic renal failure; etiology unknown - Patient with persistent hyperkalemia, myoclonic jerking - Patient underwent stat HD catheter placement, with stat dialysis - CT abdomen and pelvis no evidence of obstruction, [place] catheter to drainage - Appreciate nephrology recommendations Retroperitoneal U/S on 02/06/18 demonstrated the following: - Limited exam. - No obvious acute abnormality detected (4) Lacunar infarction Current Visit: Yes Status: Acute Head CT on 02/06/18 demonstrated the following: - Basal ganglia lacunar infarct on the right - Mild chronic small vessel white matter ischemic changes Brain MRI & Head MRA on 02/07/18 demonstrated the following: - Multifocal small-vessel ischemic change bilaterally with multiple old infarcts - No acute infarct or hemorrhage - No focal significant arterial narrowing in the head - No discrete aneurysm Neuro checks Q4 hours (5) History of pulmonary embolism Current Visit: Yes Status: Acute History of pulmonary embolism - On anticoagulation as an outpatient - Currently on heparin drip (6) Hyperkalemia Current Visit: Yes Status: Acute - Improved; initially 6.9; has since decreased to 5.3 - Appreciate nephrology recommendations (7) Volume overload Current Visit: Yes Status: Acute History of Present Illness Consult date: 02/07/18 Reason for consult: dyspnea, abnormal CXR/CT Chief complaint: AMS History of present illness: Ms. Lamb is a 67 year old female with a PMH of arthritis, hypertension, GERD, and DM who presented to the ED via EMS from [facility] with the chief complaint of AMS. Onset was 2 days prior to admission; progressively worsening. EMS reported that she had a witnessed fall out of her in wheelchair 2 days prior where she slumped out of the chair on her back on the floor. No associated head injury or LOC. Had elevated temperature of 100.3 degrees on the morning of presentation. She has been more confused than usual in the setting of twitching of her L UE. Upon arrival, was unable to provide any history. CXR demonstrated increasing bilateral airspace disease; pulmonary edema vs multifocal infection. Initially given a one-time dose of Levaquin, Xyvox, Aztreonam. She was then placed on Azactam 1000 mg IV Q8 for 2 days; was then switched to Cefepime 1000 mg IV Q8h. Laboratory analysis demonstrated acute kidney injury and hyperkalemia. Was also hypotensive and bradycardic on arrival; was started on Levophed. Nephrology was consulted; patient underwent stat HD catheter placement, with stat dialysis. Potassium decreased from 6.[address] on 02/06/18 demonstrated the following: Basal ganglia lacunar infarct on the right, and mild chronic small vessel white matter ischemic changes. Brain MRI & Head MRA on 02/07/18 demonstrated the following: multifocal small- vessel ischemic change bilaterally with multiple old infarcts. Patient was transferred to ICU for higher level of care. Patient seen and examined at bedside. Currently receiving dialysis. No complaints at this time. Past Med Surg Social Fam HX - Past Medical History Medical history: arthritis, diabetes, GERD, hypertension, other Psychiatric history: anxiety, depression - Past Surgical History Surgical History: appendectomy, sinus surgery, bariatric surgery - Social History Smoking Status: Never smoker Smokeless Tobacco Status: No Alcohol use: none Drug use: none - Family History Mother Living Status: Hx Family Neurologic Disorders: Yes (Migraines) Hx Family Autoimmune Disorders: Yes (MS) Sister Hx Family Cancer: Yes Hx Family Autoimmune Disorders: Yes (Lupus) Father Living Status: Hx Family Cancer: Yes Hx Family Endocrine Disorder: Yes (diabetes) Medications and Allergies Citalopram [CeleXA] 20 mg PO DAILY 04/12/17 [History] GuaiFENesin/Dextromethorphan [Mucinex Dm] 1 each PO HS 04/12/17 [History] Loperamide HCl [Imodium A-D] 2 mg PO PRN PRN 04/12/17 [History] Losartan Potassium [Cozaar] 50 mg PO DAILY 04/12/17 [History] Multivitamin [Multi-Day Vitamins] 1 each PO DAILY 04/12/17 [History] Pioglitazone [Actos] 45 mg PO 0800 04/12/17 [History] Venlafaxine XR (24 HR) [Effexor Xr] 300 mg PO QAM 04/12/17 [History] Vitamin B Complex 1 each PO DAILY 04/12/17 [History] Ascorbic Acid [Vitamin C] 500 mg PO DAILY #30 tablet 04/16/17 [Rx] Ferrous Sulfate 325 mg PO BIDWM #60 tablet 04/16/17 [Rx] Diltiazem CD (24hr) [Cardizem CD] 120 mg PO DAILY 30 Days cap.er.24h 04/30/17 [ Rx] Gabapentin [Neurontin] 300 mg PO BID #30 capsule 05/03/17 [Rx] Rivaroxaban [Xarelto] 20 mg PO DAILY #30 tablet 05/03/17 [Rx] HYDROcodone/Acet 5/325 mg [[place] 5-325 mg] 1 - 2 tab PO Q4H PRN #20 tablet 05/17 [Rx] Acetaminophen [Extra Strength Non-Aspirin] 1,000 mg PO Q8H PRN 02/06/18 [History ] Baclofen 20 mg PO TID PRN 02/06/18 [History] Caffeine [Stay Awake] 100 mg PO TID 02/06/18 [History] Diclofenac Sodium [Voltaren] 75 mg PO BID 02/06/18 [History] Furosemide [Lasix] 40 mg PO BID 02/06/18 [History] Insulin DETEMIR [Levemir] 40 unit SQ HS 02/06/18 [History] Loratadine [Allergy Relief] 10 mg PO DAILY PRN 02/06/18 [History] Metoprolol [Lopressor] 50 mg PO DAILY 02/06/18 [History] Omeprazole [PriLOSEC] 20 mg PO DAILY 02/06/18 [History] Potassium Chloride [K-Tab ER] 20 meq PO BID 02/06/18 [History] Calcium Carbonate [Tums] 500 mg PO Q4HR PRN 02/07/18 [History] Mag Hydrox/Aluminum Hyd/Simeth [Cvs Antacid Plus Anti-Gas Liq] 30 ml PO DAILY PRN 02/07/18 [History] metFORMIN [Glucophage] 500 mg PO BIDWM 02/07/18 [History] 3 Allergy/AdvReac Type Severity Reaction Status Date / Time Penicillins AdvReac Gastrointestinal Verified 04/12/17 14:05 Upset shellfish derived AdvReac Headache Verified 04/12/17 14:05 Tetracyclines AdvReac Rash Verified 04/12/17 14:05 ROS unobtainable: due to mental status All Systems: The remainder of the systems were reviewed and are negative Physical Examination Vital Signs: Vital Signs, Last 4 Hours Temp Pulse Resp BP Pulse Ox 02/07/18 13:00 87 18 148/51 98 02/07/18 12:00 97.6 F 85 16 168/55 96 02/07/18 11:00 85 18 159/57 95 02/07/18 10:00 81 14 142/48 92 General appearance: no acute distress Eyes: nonicteric ENT: oropharynx moist Neck: supple Effort: normal Inspection: normal Auscultation: bilateral: diminished breath sounds, rales Percussion: bilateral: not dull Tactile fremitus: bilateral: normal Cardiovascular: regular rate and rhythm Integumentary: normal Extremities: no cyanosis, no edema, no clubbing Musculoskeletal: no deformities, ROM normal Results - Laboratory Findings CBC and BMP: 02/07/18 13:28 02/07/18 12:00 PT/INR, D-dimer PT 15.3 Seconds (9.4-12.1) H 02/06/18 17:20 Abnormal lab findings: Abnormal lab results RBC 2.74 M/mcL (3.82-4.97) L 02/07/18 04:10 Hgb 8.3 g/dL (11.5-15.4) L 02/07/18 04:10 Hct 26.8 % (35.3-44.9) L 02/07/18 04:10 MCHC 31.0 g/dL (31.6-35.5) L 02/07/18 04:10 Nucleated RBCs/100 WBC 0.3 /100 WBC (0) H 02/07/18 04:10 PT 15.3 Seconds (9.4-12.1) H 02/06/18 17:20 Sodium 132 mEq/L (136-145) L 02/07/18 12:00 Potassium 5.3 mEq/L (3.5-5.1) H 02/07/18 12:00 Carbon Dioxide 21 mEq/L (23-29) L 02/07/18 12:00 BUN 68 mg/dL (8-23) H 02/07/18 12:00 Creatinine 2.68 mg/dL (0.60-1.20) H 02/07/18 12:00 Est GFR ( Amer) 21 (> 60) L 02/07/18 12:00 Est GFR (Non-Af Amer) 18 (> 60) L 02/07/18 12:00 Glucose 107 mg/dL (70-105) H 02/07/18 12:00 POC Glucose 104 mg/dL (70-99) H 02/07/18 00:44 Serum Osmolality 312 mOsm/kg (280-300) H 02/06/18 17:20 Calcium 8.1 mg/dL (8.6-10.3) L 02/07/18 12:00 Phosphorus 6.3 mg/dL (2.7-4.5) H 02/07/18 04:00 Iron 48 mcg/dL (50-170) L 02/06/18 17:20 Direct Bilirubin 0.3 mg/dL (0.0-0.2) H 02/07/18 04:00 Alkaline Phosphatase 161 Units/L (34-104) H 02/07/18 04:00 Serum Total Protein 5.7 g/dL (6.4-8.9) L 02/07/18 04:00 Albumin 3.0 g/dL (3.5-5.7) L 02/07/18 04:00 25-OH Vitamin D Total 17 ng/mL (30-80) L 02/06/18 17:20 Folate > 22.3 ng/mL (3.0-16.0) H 02/06/18 17:20 Urine Clarity Turbid (Clear) A 02/06/18 11:31 Urine Protein >=300 mg/dL (Neg-Trace) H 02/06/18 11:31 Urine Blood Large (Negative) H 02/06/18 11:31 Ur Leukocyte Esterase Large (Negative) H 02/06/18 11:31 Urine Microscopic WBC TNTC per hpf (0-3) H 02/06/18 11:31 Ur Squamous Epith Cells Many per lpf (None-Few) H 02/06/18 11:31 Urine Bacteria Many per hpf (None-Few) H 02/06/18 11:31 Protein/Creatinin Ratio 20.22 mg/mg (0.00-0.20) H 02/06/18 21:48 Urine Total Protein 1011 mg/dL (1-14) H 02/06/18 21:48 - Microbiology Findings Microbiology Findings: Microbiology, Last 48 Hours 02/07/18 09:35 Group A Streptococcus Rapid Screen - Final Throat 02/06/18 21:48 Legionella Antigen - Final Urine,Catheterized Streptococcus pneumoniae Antigen (M - Final - Clinical Findings Intake & Output: Intake & Output 02/06/18 02/07/18 02/07/18 23:59 07:59 15:59 Intake Total 1311.2 / 1311.2 141.9 / 141.9 4510 / 4510 Output Total 150 / 150 114 / 114 354 / 354 Balance 1161.2 / 1161.2 27.9 / 27.9 4156 / 4156 Weight 171.9 kg Consult Discharge Plan - Plan Referrals: David Lou MD [Primary Care Provider] - <Kayy Lanier - Last Filed: 02/07/18 17:55> Date of Encounter: 02/07/18 All Systems: The remainder of the systems were reviewed and are negative Physical Examination Vital Signs: Vital Signs, Last 4 Hours Pulse Resp BP Pulse Ox 02/07/18 16:00 92 16 164/57 97 02/07/18 15:00 90 18 167/60 100 02/07/18 14:00 87 14 152/52 94 Results - Laboratory Findings CBC and BMP: 02/07/18 13:28 02/07/18 12:00 PT/INR, D-dimer PT 13.7 Seconds (9.4-12.1) H 02/07/18 13:28 Abnormal lab findings: Abnormal lab results RBC 2.83 M/mcL (3.82-4.97) L 02/07/18 13:28 Hgb 8.5 g/dL (11.5-15.4) L 02/07/18 13:28 Hct 27.2 % (35.3-44.9) L 02/07/18 13:28 MCHC 31.3 g/dL (31.6-35.5) L 02/07/18 13:28 Nucleated RBCs/100 WBC 0.3 /100 WBC (0) H 02/07/18 04:10 PT 13.7 Seconds (9.4-12.1) H 02/07/18 13:28 Sodium 132 mEq/L (136-145) L 02/07/18 12:00 Potassium 5.3 mEq/L (3.5-5.1) H 02/07/18 12:00 Carbon Dioxide 21 mEq/L (23-29) L 02/07/18 12:00 BUN 68 mg/dL (8-23) H 02/07/18 12:00 Creatinine 2.68 mg/dL (0.60-1.20) H 02/07/18 12:00 Est GFR ( Amer) 21 (> 60) L 02/07/18 12:00 Est GFR (Non-Af Amer) 18 (> 60) L 02/07/18 12:00 Glucose 107 mg/dL (70-105) H 02/07/18 12:00 POC Glucose 104 mg/dL (70-99) H 02/07/18 00:44 Hemoglobin A1c 6.1 % (-5.6) H 02/07/18 04:10 Serum Osmolality 312 mOsm/kg (280-300) H 02/06/18 17:20 Calcium 8.1 mg/dL (8.6-10.3) L 02/07/18 12:00 Phosphorus 6.3 mg/dL (2.7-4.5) H 02/07/18 04:00 Iron 48 mcg/dL (50-170) L 02/06/18 17:20 Direct Bilirubin 0.3 mg/dL (0.0-0.2) H 02/07/18 04:00 Alkaline Phosphatase 161 Units/L (34-104) H 02/07/18 04:00 Serum Total Protein 5.7 g/dL (6.4-8.9) L 02/07/18 04:00 Albumin 3.0 g/dL (3.5-5.7) L 02/07/18 04:00 25-OH Vitamin D Total 17 ng/mL (30-80) L 02/06/18 17:20 Folate > 22.3 ng/mL (3.0-16.0) H 02/06/18 17:20 Urine Clarity Turbid (Clear) A 02/06/18 11:31 Urine Protein >=300 mg/dL (Neg-Trace) H 02/06/18 11:31 Urine Blood Large (Negative) H 02/06/18 11:31 Ur Leukocyte Esterase Large (Negative) H 02/06/18 11:31 Urine Microscopic WBC TNTC per hpf (0-3) H 02/06/18 11:31 Ur Squamous Epith Cells Many per lpf (None-Few) H 02/06/18 11:31 Urine Bacteria Many per hpf (None-Few) H 02/06/18 11:31 Protein/Creatinin Ratio 20.22 mg/mg (0.00-0.20) H 02/06/18 21:48 Urine Total Protein 1011 mg/dL (1-14) H 02/06/18 21:48 - Microbiology Findings Microbiology Findings: Microbiology, Last 48 Hours 02/07/18 09:35 Group A Streptococcus Rapid Screen - Final Throat 02/06/18 21:48 Legionella Antigen - Final Urine,Catheterized Streptococcus pneumoniae Antigen (M - Final - Clinical Findings Intake & Output: Intake & Output 02/07/18 02/07/18 02/07/18 07:59 15:59 23:59 Intake Total 141.9 / 141.9 4510 / 4510 Output Total 114 / 114 623 / 623 155 / 155 Balance 27.9 / 27.9 3887 / 3887 -130 / -130 - Attending Attestation I examined this patient and my medical decision-making was reviewed with the Resident Physician. I agree with the documented findings, disposition and treatment plan as described except to the extent set forth below. Patient seen and examined. Labs, radiology, chart personally reviewed. Agree with resident's history and physical, assessment, plan with following comments: GANG INVESTIGATOR: Patient follows commands, mental status has improved significantly patient alert and oriented. Pulmonary: Acceptable oxygenation and ventilation. Keep SPO2 around 90%. Overall patient denies any significant dyspnea. Cardiovascular: Patient is not hypertensive anymore, in fact blood pressure is elevated and to resume her beta anne marie. GI: Nutrition per dietary and GI prophylaxis per routine Heme: DVT prophylaxis per routine ID: Continue antibiotics and plan to de-escalation Renal; urine out put and renal funtion reviewed. Patient is on Cynthia and her blood pressure has improved and they suspect she will tolerate hemodialysis. Nephrology follow-up. Endorcine: blood glucose is monitored Lines: all lines checked and no evidence of infections Skin: skin care to prevent pressure ulcers per nursing routine care Overall patient has multiple comorbidities and she is at risk her condition could deteriorate. Thank you very much for consultation.
[2018-02-07 13:50] LABS: Hematocrit 27.2 % (35.3-44.9); Hemoglobin 8.5 g/dL (11.5-15.4); Mean Corpuscular HGB Conc 31.3 g/dL (31.6-35.5); Mean Corpuscular Volume 96.1 fL (83.0-100.0); Mean Platelet Volume 9.6 fL (9.4-12.4); Platelet Count 183 K/mcL (140-400); Red Blood Count 2.83 M/mcL (3.82-4.97); Red Cell Distribution Width 14.2 % (11.5-14.5)
[2018-02-07 13:55] LABS: INR 1.3; Prothrombin Time 13.7 Seconds (9.4-12.1)
[2018-02-07 13:57] LABS: Activated Partial Thrombo Time 31.9 Seconds (26.0-36.0)
[2018-02-07 14:19] LABS: Estimated Average Glucose 128 mg/dl; Hemoglobin A1C 6.1 %
[2018-02-07] MEDS: Heparin 25,000 UNIT/500 ML D5W 25,000 UNIT/500 ML BAG IVC SCH (14:39)
[2018-02-07] MEDS: Cefepime HCl 1,000 MG in Water for inj. (sterile) 20 ML 10 ML IVP SCH (16:06)
[2018-02-07] MEDS ORDERED: *HR* Metoprolol 5 MG/5 ML VIAL IVP PRN (16:06)
--- NOTE | 2018-02-07 16:49 | Internal Med Progress Note ---
Date of Encounter: 02/07/18 Time of Encounter: 11:00 - Assessment and plan (1) HCAP (healthcare-associated pneumonia) Current Visit: Yes Status: Acute Assessment and plan: Patient's leukocytosis has improved and is currently afebrile IV antibiotics was changed this morning to cefepime Continue IV antibiotics and monitor (2) Altered mental status Current Visit: Yes Status: Acute Assessment and plan: Resolved; patient is alert and oriented 3 months morning Suspect secondary to pneumonia versus acute renal failure Continue to monitor Qualifiers: Altered mental status type: unspecified Qualified Code(s): R41.82 - Altered mental status, unspecified (3) Renal failure, acute Current Visit: Yes Status: Acute Assessment and plan: Patient's creatinine and hyperkalemia has improved on continuous hemodialysis per nephrology recommendations Nephrology following and appreciate any additional recommendations. Qualifiers: Acute renal failure type: unspecified Qualified Code(s): N17.9 - Acute kidney failure, unspecified (4) Hyperkalemia Current Visit: Yes Status: Acute Assessment and plan: Hyperkalemia improving on continuous hemodialysis as above (5) Atrial flutter Current Visit: No Status: Acute Assessment and plan: History of atrial fibrillation on anticoagulation Patient currently on heparin drip Qualifiers: Atrial flutter type: unspecified Qualified Code(s): I48.92 - Unspecified atrial flutter (6) Myoclonus Current Visit: Yes Status: Acute Assessment and plan: Likely secondary to medication effect due to acute renal failure (7) Morbid obesity Current Visit: No Status: Chronic Assessment and plan: Lifestyle modifications (8) DVT prophylaxis Current Visit: Yes Status: Acute Assessment and plan: Heparin drip as above - Time Spent With Patient Total time spent is greater than 50% in coordination of care (as documented) at patient's floor/unit and/or counseling patient: - Subjective Interval history: Patient's altered mental status has resolved and is now alert and oriented 3. Renal function is improving after undergoing continuous dialysis per nephrology recommendations. Patient's leukocytosis has also improved and she remains afebrile with treatment of suspected pneumonia on IV antibiotics. - Constitutional Vitals: Temp Pulse Resp BP Pulse Ox 97.6 F 92 16 164/57 97 02/07/18 12:00 02/07/18 16:00 02/07/18 16:00 02/07/18 16:00 02/07/18 16:00 General appearance: Present: A&O X 3, no acute distress - Cardiovascular Cardiovascular exam: Present: RRR, +S1, +S2. Absent: diastolic murmur, gallop, rubs, systolic murmur - GI/Abdominal GI/Abdominal exam: Present: soft. Absent: distended Internal Medicine: Result - Labs CBC & Chem 7: 02/07/18 13:28 02/07/18 12:00 Labs: Short CBC 02/07/18 02/07/18 Range/Units 04:10 13:28 WBC 7.2 7.1 (4.3-11.1) K/mcL Hgb 8.3 L 8.5 L (11.5-15.4) g/dL Hct 26.8 L 27.2 L (35.3-44.9) % Plt Count 184 183 (140-400) K/mcL Neutrophils # 5.5 (1.6-8.9) K/mcL BMP 02/06/18 02/06/18 02/06/18 17:20 20:44 21:42 Sodium 127 L 127 L 128 L Potassium 7.5 H* 6.8 H* 6.9 H* Chloride 102 103 102 Carbon Dioxide 16 L 15 L 16 L BUN 101 H 112 H 110 H Creatinine 4.34 H 4.39 H 4.41 H Glucose 116 H 87 93 Calcium 8.1 L 8.0 L 8.0 L 02/07/18 02/07/18 04:00 12:00 Sodium 131 L 132 L Potassium 5.7 H 5.3 H Chloride 103 103 Carbon Dioxide 19 L 21 L BUN 89 H 68 H Creatinine 3.50 H 2.68 H Glucose 105 107 H Calcium 7.9 L 8.1 L Cardiac Enzymes 02/06/18 Range/Units 21:42 Troponin I < 0.03 (< 0.04) ng/mL Liver Function 02/06/18 02/06/18 02/07/18 Range/Units 17:20 21:42 04:00 Total Bilirubin 0.5 (0.3-1.0) mg/dL Direct Bilirubin 0.3 H (0.0-0.2) mg/dL AST 16 (13-39) Units/L ALT 19 (7-52) Units/L Alkaline Phosphatase 161 H (34-104) Units/L Albumin 2.9 L 2.9 L 3.0 L (3.5-5.7) g/dL - ABG Interpretation ABG results: PT/INR, D-dimer PT 13.7 Seconds (9.4-12.1) H 02/07/18 13:28 - Impressions Impressions Retroperitoneum Ultrasound 02/06/18 16:59 IMPRESSION: Limited exam. No obvious acute abnormality detected. D/ / Clay Worthington MD / Clay Worthington MD Interpreting Provider: Clay Worthington MD Chest X-Ray 02/06/18 18:10 IMPRESSION: Dialysis catheter tip overlies the right atrium, without pneumothorax. Increasing bilateral airspace disease, which could be related to pulmonary edema or multifocal infection. D/ / Cornel Read MD / Cornel Read MD Interpreting Provider: Cornel Read MD Brain MRI 02/07/18 22:33 IMPRESSION: Multifocal small-vessel ischemic change bilaterally with multiple old infarcts No acute infarct or hemorrhage. No focal significant arterial narrowing in the head. No discrete aneurysm. D/ / Feliz Grace / Feliz Grace Interpreting Provider: Feliz Grace Head MRA 02/07/18 22:34 IMPRESSION: Multifocal small-vessel ischemic change bilaterally with multiple old infarcts No acute infarct or hemorrhage. No focal significant arterial narrowing in the head. No discrete aneurysm. D/ / Feliz Grace / Feliz Grace Interpreting Provider: Feliz Grace Consult Discharge Plan - Plan Referrals: David Lou MD [Primary Care Provider] -
--- NOTE | 2018-02-07 16:59 | Electrocardiograph Report ---
[address] [address] Test Date: 2018-02-06 Pat Name: Jacquie Lamb Department: 109 Room: [facility] Gender: F Human Factors Specialist: MERNA : [id number] Requested By: Tara Hook Order Number: [id number] Reading MD: Ilene Yu Measurements Intervals [place] Rate: 72 P: 60 WI: 231 QRS: 50 QRSD: 114 T: 59 QT: 392 QTc: 416 Interpretive Statements SINUS RHYTHM WITH MARKED SINUS ARRHYTHMIA WITH FIRST DEGREE AV BLOCK MODERATE INTRAVENTRICULAR CONDUCTION DELAY Electronically Signed On 02-07-2018 16:57:30 EDT by Ilene Yu
[2018-02-07 18:55] LABS: Calcium 7.9 mg/dL (8.6-10.3); Potassium 5.2 mEq/L (3.5-5.1)
[2018-02-07] MEDS: Norepinephrine 4 MG in D5% in Water 250 ML IVC SCH (19:33)
[2018-02-07] MEDS: *HR* HYDROcodone/Acet 5/325 mg TABLET PO PRN (21:41)
[2018-02-08] MEDS: Cefepime HCl 1,000 MG in Water for inj. (sterile) 20 ML 10 ML IVP SCH ×3 (00:33→17:56)
[2018-02-08] MEDS: Insulin LISPRO 300 UNITS/3 ML VIAL SQ SCH ×4 (00:33→20:20)
[2018-02-08] MEDS: PrismaSATE BGK 4/2.5 5,000 ML CRRT SCH ×5 (01:54→16:25)
[2018-02-08] MEDS: Heparin 25,000 UNIT/500 ML D5W 25,000 UNIT/500 ML BAG IVC SCH ×3 (01:55→17:56)
[2018-02-08 03:52] LABS: Basophils % 0.3 %; Eosinophils # 0.1 K/mcL (0.0-0.6); Eosinophils % 1.9 %; Hematocrit 23.1 % (35.3-44.9); Hemoglobin 7.2 g/dL (11.5-15.4); Immature Granulocytes % 0.8 % (0-4); Lymphocytes # 0.6 K/mcL (0.6-4.6); Lymphocytes % 10.3 %; Mean Corpuscular HGB Conc 31.2 g/dL (31.6-35.5); Mean Corpuscular Hemoglobin 29.6 pg (28.0-33.3); Mean Corpuscular Volume 95.1 fL (83.0-100.0); Mean Platelet Volume 9.5 fL (9.4-12.4); Monocytes # 0.5 K/mcL (0.0-1.3); Monocytes % 8.8 %; Neutrophils # 4.6 K/mcL (1.6-8.9); Platelet Count 161 K/mcL (140-400); Red Blood Count 2.43 M/mcL (3.82-4.97); Red Cell Distribution Width 14.4 % (11.5-14.5); Segmented Neutrophils % 77.9 %
[2018-02-08 04:13] LABS: Calcium 7.7 mg/dL (8.6-10.3); Magnesium 2.1 mg/dL (1.6-2.6); Potassium 4.6 mEq/L (3.5-5.1)
[2018-02-08] MEDS: *HR* HYDROcodone/Acet 5/325 mg TABLET PO PRN (04:37)
--- NOTE | 2018-02-08 07:41 | Pulmonology Progress Note ---
<Jermaine Garcia - Last Filed: 02/08/18 11:06> Date of Encounter: 02/08/18 Time of Encounter: 07:41 Assessment and Plan (1) Renal failure, acute Current Visit: Yes Status: Acute Acute on chronic renal failure. Presented hyperkalemic with myoclonic jerking requiring stat hemodialysis catheter placement and continuous dialysis. CT abdomen and pelvis without acute pathology. Nephrology consulted, following recommendations. Also underwent retroperitoneal ultrasound without acute findings reviewed Renal function panel is improving. Continue daily BMP. Qualifiers: Acute renal failure type: unspecified Qualified Code(s): N17.9 - Acute kidney failure, unspecified (2) HCAP (healthcare-associated pneumonia) Current Visit: Yes Status: Acute Pneumonia versus pulmonary edema given her volume overload status. Previously received linezolid, aztreonam and Levaquin. Aztreonam transition to cefepime on 02/07/18. Chest x-ray on presentation on 02/06/18 with concern for multifocal pneumonia. Continue DuoNeb treatments as needed. (3) Anemia Current Visit: No Status: Chronic Hemoglobin of 7.2 today down from 8.5 yesterday. She is on heparin infusion although no obvious source of bleeding. Previously on oral anticoagulation for pulmonary embolism. At this time we will continue heparin given her drop in hemoglobin with continued monitoring Likely secondary to acute renal failure. Daily CBC. Qualifiers: Anemia type: iron deficiency Iron deficiency anemia type: unspecified iron deficiency Qualified Code(s): D50.9 - Iron deficiency anemia, unspecified (4) Generalized weakness Current Visit: No Status: Acute Multifactorial from metabolic derangements, deconditioning. (5) Sleep apnea Current Visit: No Status: Chronic Reports previous diagnosis of PEDRO. Reports the BiPAP does not help her and she does not wear it at night. 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 Currently on cefepime for suspected healthcare associated pneumonia. Qualifiers: Urinary tract infection type: acute cystitis Hematuria presence: with hematuria Qualified Code(s): N30.01 - Acute cystitis with hematuria (9) Altered mental status Current Visit: Yes Status: Resolved Initial altered mental status likely secondary to UTI as well as metabolic derangement. Alert and oriented as of today with a nonfocal exam. Head CT 02/06/18 with right basal ganglier lacunar infarct. 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 Resolved. Qualifiers: Altered mental status type: unspecified Qualified Code(s): R41.82 - Altered mental status, unspecified (10) Volume overload Current Visit: Yes Status: Acute Patient previously on continuous dialysis. Qualifiers: Hypervolemia type: unspecified Qualified Code(s): E87.70 - Fluid overload, unspecified (11) DVT prophylaxis Current Visit: Yes Status: Acute Heparin infusion Subjective Principal diagnosis: YEIMY Interval history: Labs and hemodynamics reviewed. No acute events overnight. She did come off continuous dialysis yesterday. Renal function appears to be improving. Was noted to be anemic at 7.2 this morning. Began on heparin drip yesterday as she was previously on oral anticoagulants at home. On evaluation this morning the patient is alert answering questions appropriately and remarks that she feels much better than when she first got to the hospital. Objective PUL Vital signs: Last Vital Signs Temp 97.7 F 02/08/18 03:00 Pulse 87 02/08/18 06:00 Resp 20 02/08/18 06:00 BP 114/44 02/08/18 06:00 Pulse Ox 98 02/08/18 06:00 General appearance: no acute distress Eyes: nonicteric Effort: other (Hypoventilatory) Auscultation: bilateral: diminished breath sounds Cardiovascular: regular rate and rhythm Gastrointestinal: soft, non-tender, non-distended Integumentary: normal Extremities: no cyanosis, edema (1+ bilateral lower extremity pitting edema) Musculoskeletal: no deformities normal mental status mood appropriate Results - Laboratory Findings CBC and BMP: 02/08/18 03:33 02/08/18 03:33 PT/INR, D-dimer PT 13.7 Seconds (9.4-12.1) H 02/07/18 13:28 Abnormal lab findings: Abnormal lab results RBC 2.43 M/mcL (3.82-4.97) L 02/08/18 03:33 Hgb 7.2 g/dL (11.5-15.4) L 02/08/18 03:33 Hct 23.1 % (35.3-44.9) L 02/08/18 03:33 MCHC 31.2 g/dL (31.6-35.5) L 02/08/18 03:33 Nucleated RBCs/100 WBC 0.3 /100 WBC (0) H 02/07/18 04:10 PT 13.7 Seconds (9.4-12.1) H 02/07/18 13:28 APTT 106.0 Seconds (26.0-36.0) H 02/08/18 03:33 Sodium 134 mEq/L (136-145) L 02/08/18 03:33 BUN 39 mg/dL (8-23) H 02/08/18 03:33 Creatinine 1.87 mg/dL (0.60-1.20) H 02/08/18 03:33 Est GFR ( Amer) 33 (> 60) L 02/08/18 03:33 Est GFR (Non-Af Amer) 27 (> 60) L 02/08/18 03:33 Glucose 106 mg/dL (70-105) H 02/08/18 03:33 POC Glucose 104 mg/dL (70-99) H 02/07/18 00:44 Hemoglobin A1c 6.1 % (-5.6) H 02/07/18 04:10 Serum Osmolality 312 mOsm/kg (280-300) H 02/06/18 17:20 Calcium 7.7 mg/dL (8.6-10.3) L 02/08/18 03:33 Phosphorus 6.3 mg/dL (2.7-4.5) H 02/07/18 04:00 Iron 48 mcg/dL (50-170) L 02/06/18 17:20 Direct Bilirubin 0.3 mg/dL (0.0-0.2) H 02/07/18 04:00 Alkaline Phosphatase 161 Units/L (34-104) H 02/07/18 04:00 Serum Total Protein 5.7 g/dL (6.4-8.9) L 02/07/18 04:00 Albumin 3.0 g/dL (3.5-5.7) L 02/07/18 04:00 25-OH Vitamin D Total 17 ng/mL (30-80) L 02/06/18 17:20 Folate > 22.3 ng/mL (3.0-16.0) H 02/06/18 17:20 Urine Clarity Turbid (Clear) A 02/06/18 11:31 Urine Protein >=300 mg/dL (Neg-Trace) H 02/06/18 11:31 Urine Blood Large (Negative) H 02/06/18 11:31 Ur Leukocyte Esterase Large (Negative) H 02/06/18 11:31 Urine Microscopic WBC TNTC per hpf (0-3) H 02/06/18 11:31 Ur Squamous Epith Cells Many per lpf (None-Few) H 02/06/18 11:31 Urine Bacteria Many per hpf (None-Few) H 02/06/18 11:31 Protein/Creatinin Ratio 20.22 mg/mg (0.00-0.20) H 02/06/18 21:48 Urine Total Protein 1011 mg/dL (1-14) H 02/06/18 21:48 - Microbiology Findings Microbiology Findings: Microbiology, Last 48 Hours 02/07/18 09:35 Group A Streptococcus Rapid Screen - Final Throat 02/06/18 21:48 Legionella Antigen - Final Urine,Catheterized Streptococcus pneumoniae Antigen (M - Final - Clinical Findings Intake & Output: Intake & Output 02/07/18 02/07/18 02/08/18 15:59 23:59 07:59 Intake Total 4510 / 4510 285 / 285 395 / 395 Output Total 623 / 623 1302 / 1302 440 / 440 Balance 3887 / 3887 -1017 / -1017 -45 / -45 Weight 173.3 kg Consult Discharge Plan - Plan Referrals: David Lou MD [Primary Care Provider] - <Kayy Lanier M - Last Filed: 02/08/18 16:01> Date of Encounter: 02/08/18 Objective PUL Vital signs: Last Vital Signs Temp 100.3 F H 02/08/18 12:00 Pulse 90 02/08/18 13:00 Resp 20 02/08/18 13:00 BP 134/55 02/08/18 13:00 Pulse Ox 97 02/08/18 13:00 Results - Laboratory Findings CBC and BMP: 02/08/18 03:33 02/08/18 03:33 PT/INR, D-dimer PT 13.7 Seconds (9.4-12.1) H 02/07/18 13:28 Abnormal lab findings: Abnormal lab results RBC 2.43 M/mcL (3.82-4.97) L 02/08/18 03:33 Hgb 7.2 g/dL (11.5-15.4) L 02/08/18 03:33 Hct 23.1 % (35.3-44.9) L 02/08/18 03:33 MCHC 31.2 g/dL (31.6-35.5) L 02/08/18 03:33 Nucleated RBCs/100 WBC 0.3 /100 WBC (0) H 02/07/18 04:10 PT 13.7 Seconds (9.4-12.1) H 02/07/18 13:28 APTT 82.8 Seconds (26.0-36.0) H 02/08/18 10:40 Sodium 134 mEq/L (136-145) L 02/08/18 03:33 BUN 39 mg/dL (8-23) H 02/08/18 03:33 Creatinine 1.87 mg/dL (0.60-1.20) H 02/08/18 03:33 Est GFR ( Amer) 33 (> 60) L 02/08/18 03:33 Est GFR (Non-Af Amer) 27 (> 60) L 02/08/18 03:33 Glucose 106 mg/dL (70-105) H 02/08/18 03:33 POC Glucose 104 mg/dL (70-99) H 02/08/18 00:32 Hemoglobin A1c 6.1 % (-5.6) H 02/07/18 04:10 Serum Osmolality 312 mOsm/kg (280-300) H 02/06/18 17:20 Calcium 7.7 mg/dL (8.6-10.3) L 02/08/18 03:33 Phosphorus 6.3 mg/dL (2.7-4.5) H 02/07/18 04:00 Iron 48 mcg/dL (50-170) L 02/06/18 17:20 Direct Bilirubin 0.3 mg/dL (0.0-0.2) H 02/07/18 04:00 Alkaline Phosphatase 161 Units/L (34-104) H 02/07/18 04:00 Serum Total Protein 5.7 g/dL (6.4-8.9) L 02/07/18 04:00 Albumin 3.0 g/dL (3.5-5.7) L 02/07/18 04:00 25-OH Vitamin D Total 17 ng/mL (30-80) L 02/06/18 17:20 Folate > 22.3 ng/mL (3.0-16.0) H 02/06/18 17:20 Urine Clarity Turbid (Clear) A 02/06/18 11:31 Urine Protein >=300 mg/dL (Neg-Trace) H 02/06/18 11:31 Urine Blood Large (Negative) H 02/06/18 11:31 Ur Leukocyte Esterase Large (Negative) H 02/06/18 11:31 Urine Microscopic WBC TNTC per hpf (0-3) H 02/06/18 11:31 Ur Squamous Epith Cells Many per lpf (None-Few) H 02/06/18 11:31 Urine Bacteria Many per hpf (None-Few) H 02/06/18 11:31 Protein/Creatinin Ratio 20.22 mg/mg (0.00-0.20) H 02/06/18 21:48 Urine Total Protein 1011 mg/dL (1-14) H 02/06/18 21:48 - Microbiology Findings Microbiology Findings: Microbiology, Last 48 Hours 02/07/18 09:35 Throat Culture - Preliminary Throat No pathogenic beta-hemolytic streptococci isolated. Group A Streptococcus Rapid Screen - Final 02/06/18 21:48 Legionella Antigen - Final Urine,Catheterized Streptococcus pneumoniae Antigen (M - Final - Clinical Findings Intake & Output: Intake & Output 02/08/18 02/08/18 02/08/18 07:59 15:59 23:59 Intake Total 395 / 395 Output Total 440 / 440 145 / 145 Balance -45 / -45 -145 / -145 Weight 173.3 kg - Attending Attestation I examined this patient and my medical decision-making was reviewed with the Resident Physician. I agree with the documented findings, disposition and treatment plan as described except to the extent set forth below. Patient seen and examined. Labs, radiology, chart personally reviewed. Agree with resident's history and physical, assessment, plan with following comments: CRANK HAND: Patient follows commands, Pulmonary: Acceptable oxygenation and ventilation. Patient with history of obstructive sleep apnea but not tolerating CPAP treatment. Encourage incentive spirometry. Cardiovascular: stable GI: Nutrition per dietary and GI prophylaxis per routine Heme: DVT prophylaxis per routine ID: Continue antibiotics and plan to de-escalation Renal; urine out put and renal funtion reviewed. Nephrology follow-up. Endorcine: blood glucose is monitored Lines: all lines checked and no evidence of infections Skin: skin care to prevent pressure ulcers per nursing routine care
[2018-02-08] MEDS ORDERED: Venlafaxine XR (24 HR) 150 MG CAP.ER.24H PO SCH (11:15)
[2018-02-08] MEDS ORDERED: 0.9 % Sodium Chloride 250 ML IVC PRN (14:57)
[2018-02-08] MEDS ORDERED: *HR* Metoprolol 5 MG/5 ML VIAL IVP PRN (14:57)
[2018-02-08] MEDS ORDERED: Ipratropium/Albuterol Neb 3 ML IH PRN (14:57)
[2018-02-08] MEDS ORDERED: 0.9 % Sodium Chloride 1,000 ML PRIME SCH ×2 (14:57)
[2018-02-08] MEDS ORDERED: *HR* Alteplase (Cathflo) 2 MG VIAL IVP PRN (14:57)
[2018-02-08] MEDS ORDERED: *HR* Heparin 5,000 UNIT/ML VIAL IVP PRN ×2 (14:57)
[2018-02-08] MEDS ORDERED: D5% in Water 1,000 ML IVC PRN (14:57)
[2018-02-08] MEDS ORDERED: Dextrose Gel 15 GM/37.5 ML TUBE PO PRN ×2 (14:57)
[2018-02-08] MEDS ORDERED: Naloxone 0.4 MG/ML INJ IVP PRN (14:57)
[2018-02-08] MEDS ORDERED: Norepinephrine 4 MG in D5% in Water 250 ML IVC SCH (14:57)
[2018-02-08] MEDS ORDERED: *HR* Dextrose 50 % in Water (Syg) 50 ML SYRINGE IVP PRN (14:57)
[2018-02-08] MEDS ORDERED: *HR* Heparin 5,000 UNIT/ML VIAL IV PRN (14:57)
[2018-02-08] MEDS ORDERED: Cefepime HCl 1,000 MG in Water for inj. (sterile) 20 ML 10 ML IVP SCH (18:00)
--- NOTE | 2018-02-08 23:58 | Nephrology Progress Note ---
Date of Encounter: 02/08/18 Time of Encounter: 12:00 - Assessment and Plan (1) Acute kidney injury Status: Acute SCr improved at 1.8, GFR 27 with CVVDHF now discontinued, will reassess tomorrow whether intermittent HD needed UOP not impressive at 340cc in the past 24hrs, encouraged po fluids Continue to avoid nephrotoxins if possible Avoid nephrotoxins if possible (2) Acute respiratory failure Status: Acute Resolved Qualifiers: Respiratory failure complication: hypoxia Qualified Code(s): J96.01 - Acute respiratory failure with hypoxia (3) Anemia Status: Chronic Hgb noted at 7.2 today, will monitor. Appears to be iron deficient Transfusion parameter; will transfuse for hgb <7 Qualifiers: Anemia type: iron deficiency Iron deficiency anemia type: unspecified iron deficiency Qualified Code(s): D50.9 - Iron deficiency anemia, unspecified Subjective Principal diagnosis: YEIMY Interval history: Interim events noted, pt seen and examined with complaint of epigastric abd pain and poor appetite. CVVHDF stopped at 5am this am. Objective - Vital Signs Vital signs: Vital Signs Temp Pulse Resp BP Pulse Ox 02/08/18 19:47 97.7 F 81 16 141/78 95 02/08/18 16:36 98.4 F 88 16 120/54 95 02/08/18 13:00 90 20 134/55 97 02/08/18 12:00 100.3 F H 84 20 122/47 97 02/08/18 11:00 84 20 147/47 98 02/08/18 10:00 91 20 167/53 95 02/08/18 09:00 81 20 125/42 95 02/08/18 08:30 98.9 F 90 20 128/45 95 02/08/18 08:00 98.9 F 02/08/18 07:00 95 20 117/44 95 02/08/18 06:00 87 20 114/44 98 02/08/18 05:00 86 18 161/54 100 02/08/18 04:30 85 20 165/54 98 02/08/18 03:30 87 02/08/18 03:00 97.7 F 82 18 137/39 100 02/08/18 02:00 82 16 149/44 97 02/08/18 01:10 86 18 114/41 99 02/08/18 00:10 98.3 F 80 12 149/44 99 Intake and Output 02/08/18 02/08/18 02/08/18 07:59 15:59 23:59 Intake Total 395 / 395 400 / 400 Output Total 440 / 440 145 / 145 0 / 0 Balance -45 / -45 -145 / -145 400 / 400 Intake: IV Fluids 360 / 360 400 / 400 PrismaSATE BGK 4/2.5 5,000 ML @ 0 / 0 1500 mls/hr CRRT CONT INGRID Rx#: [id number] Heparin 25,000 UNIT/500 ML D5W 350 / 350 400 / 400 25,000 unit In 500 ml @ 14 UNIT /KG/HR 48.132 mls/hr IVC . [id number] INGRID Rx#:[id number] Maxipime 1,000 MG In Water for inj. (sterile) 10 ML @ 150 mls/ hr IVP Q8HR INGRID Rx#:[id number] Oral 35 / 35 0 / 0 Output: Cynthia 345 / 345 Catheter 95 / 95 145 / 145 0 / 0 Other: Stool Size Large Large Stool Consistency soft liquid Stool Characteristics Pasty Pasty Stool Color Brown Brown # Bowel Movements 1 Weight 173.3 kg Blood Glucose* 104 104 154 Patient Weight 02/08/18 23:59 Weight 173.3 kg - General Appearance General appearance: Present: well-developed, well-nourished EENT: Present: ATNC, mucous membranes moist Neck: Present: no JVD, supple Respiratory: Present: clear Cardiology: Present: edema, normal S1, normal S2 Dialysis Vascular Access: Venous Catheter (temp HD) Gastrointestinal: Present: no tenderness, no guarding, obese Integumentary: Present: warm and dry Neurologic: Present: no focal deficit Musculoskeletal: Present: no deformities Psychiatric: Present: mood/affect appropriate, cooperative - Lab 02/15/18 08:00 02/15/18 08:00 Most recent lab results Calcium 7.7 mg/dL (8.6-10.3) L 02/08/18 03:33 Phosphorus 6.3 mg/dL (2.7-4.5) H 02/07/18 04:00 Magnesium 2.1 mg/dL (1.6-2.6) 02/08/18 03:33 Urine Creatinine 50 mg/dL 02/06/18 21:48 Urine Sodium 41.3 mEq/L 02/06/18 21:48 Urine Total Protein 1011 mg/dL (1-14) H 02/06/18 21:48 - VTE Documentation of Mechanical Device: Intermittent pneumatic compression device Consult Discharge Plan - Plan Instructions: Acute Kidney Injury (DC), Newby Catheter Placement and Care (DC) , Bacterial Pneumonia (DC), Anemia (DC) Additional Instructions: Please review instructions printed out for you Please adhere to all follow-ups including with the primary care provider within 77 days and nephrology within 7 to 10 days Reasons to seek further evaluation include confusion, fevers, chills, sweats, lightheadedness, chest pain, palpitations, cough, shortness of breath, nausea, vomiting, abdominal pain, diarrhea, dysuria, or any evidence of blood in stools/ urine. If you experience any of these symptoms, I advised to call you primary care provider or to present to the emergency department for further workup. Referrals: [facility] [Provider Group] (1-2 weeks) David Lou MD [Primary Care Provider] -
[2018-02-09 00:41] LABS: Basophils % 0.5 %; Eosinophils # 0.2 K/mcL (0.0-0.6); Eosinophils % 2.6 %; Hematocrit 26.9 % (35.3-44.9); Hemoglobin 8.1 g/dL (11.5-15.4); Immature Granulocytes % 1.4 % (0-4); Lymphocytes # 0.9 K/mcL (0.6-4.6); Lymphocytes % 14.5 %; Mean Corpuscular HGB Conc 30.1 g/dL (31.6-35.5); Mean Corpuscular Hemoglobin 30.6 pg (28.0-33.3); Mean Platelet Volume 10.1 fL (9.4-12.4); Monocytes # 0.6 K/mcL (0.0-1.3); Monocytes % 9.2 %; Neutrophils # 4.5 K/mcL (1.6-8.9); Platelet Count 192 K/mcL (140-400); Red Blood Count 2.65 M/mcL (3.82-4.97); Red Cell Distribution Width 14.9 % (11.5-14.5); Segmented Neutrophils % 71.8 %
[2018-02-09 00:43] LABS: Mean Corpuscular Volume 101.5 fL (83.0-100.0)
[2018-02-09] MEDS: Insulin LISPRO 300 UNITS/3 ML VIAL SQ SCH ×4 (00:46→21:46)
[2018-02-09 01:04] LABS: Calcium 8.2 mg/dL (8.6-10.3); Magnesium 2.3 mg/dL (1.6-2.6); Potassium 4.4 mEq/L (3.5-5.1)
[2018-02-09] MEDS: *HR* HYDROcodone/Acet 5/325 mg TABLET PO PRN ×2 (01:29→21:59)
[2018-02-09] MEDS ORDERED: D5% in Water 1,000 ML IVC PRN (02:42)
[2018-02-09] MEDS: Heparin 25,000 UNIT/500 ML D5W 25,000 UNIT/500 ML BAG IVC SCH ×2 (05:29→19:05)
--- NOTE | 2018-02-09 06:41 | Electrocardiograph Report ---
[facility] Test Date: 2018-02-06 Pat Name: Jacuqie Lamb Department: 102 Room: 3A21 Gender: F Cloth Inspector: Phylicia DE LA CRUZB: 1950 Requested By: Bobby Benavidez Order Number: [id number] Reading MD: Arminda Christie Measurements Intervals [place] Rate: 58 P: 45 SD: 168 QRS: 31 QRSD: 117 T: 61 QT: 394 QTc: 390 Interpretive Statements SINUS BRADYCARDIA MODERATE INTRAVENTRICULAR CONDUCTION DELAY [105+ ms QRS DURATION, 80+ ms Q/S IN V1/V2, NO Q AND 60+ ms R IN I/aVL/V5/V6] Electronically Signed On 02-09-2018 6:39:57 EDT by Arminda Christie
[2018-02-09] MEDS ORDERED: Insulin LISPRO 300 UNITS/3 ML VIAL SQ SCH (07:30)
[2018-02-09] MEDS: Venlafaxine XR (24 HR) 150 MG CAP.ER.24H PO SCH (08:26)
[2018-02-09 10:35] LABS: Mycoplasma pneumoniae IgG 0.62 U/L (<=0.09)
[2018-02-09 10:37] LABS: Complement Component 3 152 mg/dL (88-201)
[2018-02-09 10:38] LABS: ANA IgG by ELISA NONE DETECTED (None Detected); Complement Component 4 21 mg/dL (10-40)
[2018-02-09] MEDS ORDERED: *HR* Heparin 10,000 UNIT/10 ML VIAL IV PRN (13:47)
[2018-02-09] MEDS ORDERED: 0.9 % Sodium Chloride 250 ML IVC PRN (13:47)
[2018-02-09] MEDS ORDERED: 0.9 % Sodium Chloride 1,000 ML PRIME SCH (14:00)
[2018-02-09] MEDS ORDERED: 0.9 % Sodium Chloride 1,000 ML ONE (14:06)
[2018-02-09] MEDS: PrismaSATE BGK 4/2.5 5,000 ML CRRT SCH ×3 (14:37→14:38)
--- NOTE | 2018-02-09 15:56 | Nephrology Progress Note ---
Date of Encounter: 02/09/18 Time of Encounter: 15:00 - Assessment and Plan (1) Acute kidney injury Status: Acute SCr worse at 2.59, GFR 18with off CVVDHF, will dialyze today and reassess daily whether intermittent HD needed UOP still not impressive at 240cc in the past 24hrs, encouraged po fluids Continue to avoid nephrotoxins if possible (2) Anemia Status: Chronic Hgb improved at 8.1today, will monitor. Appears to be iron deficient Transfusion parameter; will transfuse for hgb <7 Qualifiers: Anemia type: iron deficiency Iron deficiency anemia type: unspecified iron deficiency Qualified Code(s): D50.9 - Iron deficiency anemia, unspecified Subjective Principal diagnosis: YEIMY Interval history: Pt seen and examined on HD today feeling better and making more UOP today. Trying to drink more fluids. Objective - Vital Signs Vital signs: Vital Signs Temp Pulse Resp BP Pulse Ox 02/09/18 14:24 98.4 F 86 16 132/70 96 02/09/18 10:24 98.1 F 88 16 123/66 95 02/09/18 09:35 95 02/09/18 07:40 99.2 F 92 18 162/66 96 02/09/18 04:17 98.9 F 93 18 131/50 96 02/09/18 00:20 98.2 F 88 16 144/71 97 02/08/18 19:47 97.7 F 81 16 141/78 95 02/08/18 16:36 98.4 F 88 16 120/54 95 Intake and Output 02/08/18 02/09/18 02/09/18 23:59 07:59 15:59 Intake Total 400 / 400 500 / 500 545 / 545 Output Total 0 / 0 450 / 450 500 / 500 Balance 400 / 400 50 / 50 45 / 45 Intake: IV Fluids 400 / 400 500 / 500 305 / 305 Heparin 25,000 UNIT/500 ML D5W 400 / 400 500 / 500 295 / 295 25,000 unit In 500 ml @ 14 UNIT /KG/HR 48.132 mls/hr IVC . [id number] INGRID Rx#:[id number] Maxipime 1,000 MG In Water for 10 / 10 inj. (sterile) 10 ML @ 150 mls/ hr IVP Q24H INGRID Rx#:[id number] Oral 0 / 0 0 / 0 240 / 240 Output: Catheter 0 / 0 450 / 450 500 / 500 Other: Meal Lunch Percent of Meal Consumed 75% Stool Size Large Stool Consistency liquid Stool Characteristics Pasty Stool Color Brown # Bowel Movements 1 Weight 173.3 kg Blood Glucose* 154 147 160 Patient Weight 02/09/18 23:59 Weight 173.3 kg - General Appearance General appearance: Present: chronically ill (NAD) EENT: Present: ATNC, mucous membranes moist Neck: Present: no JVD, supple Respiratory: Present: clear Cardiology: Present: edema, normal S1, normal S2 Dialysis Vascular Access: Venous Catheter (temp HD) Gastrointestinal: Present: no tenderness, no guarding, obese Integumentary: Present: warm and dry Neurologic: Present: no focal deficit Musculoskeletal: Present: no deformities Psychiatric: Present: mood/affect appropriate, cooperative - Lab 02/15/18 08:00 02/15/18 08:00 Most recent lab results Calcium 8.2 mg/dL (8.6-10.3) L 02/09/18 00:17 Phosphorus 6.3 mg/dL (2.7-4.5) H 02/07/18 04:00 Magnesium 2.3 mg/dL (1.6-2.6) 02/09/18 00:17 Urine Creatinine 50 mg/dL 02/06/18 21:48 Urine Sodium 41.3 mEq/L 02/06/18 21:48 Urine Total Protein 1011 mg/dL (1-14) H 02/06/18 21:48 - VTE Documentation of Mechanical Device: Intermittent pneumatic compression device Consult Discharge Plan - Plan Instructions: Acute Kidney Injury (DC), Newby Catheter Placement and Care (DC) , Bacterial Pneumonia (DC), Anemia (DC) Additional Instructions: Please review instructions printed out for you Please adhere to all follow-ups including with the primary care provider within 77 days and nephrology within 7 to 10 days Reasons to seek further evaluation include confusion, fevers, chills, sweats, lightheadedness, chest pain, palpitations, cough, shortness of breath, nausea, vomiting, abdominal pain, diarrhea, dysuria, or any evidence of blood in stools/ urine. If you experience any of these symptoms, I advised to call you primary care provider or to present to the emergency department for further workup. Referrals: [facility] [Provider Group] (1-2 weeks) David Lou MD [Primary Care Provider] -
--- NOTE | 2018-02-09 18:06 | Internal Med Progress Note ---
Date of Encounter: 02/09/18 Time of Encounter: 11:00 - Assessment and plan (1) HCAP (healthcare-associated pneumonia) Current Visit: Yes Status: Acute Assessment and plan: Patient's leukocytosis has resolved and she is afebrile Continue current management with IV cefepime (2) Renal failure, acute Current Visit: Yes Status: Acute Assessment and plan: Patient's creatinine and hyperkalemia has improved on intermittent hemodialysis per nephrology recommendations Nephrology following and appreciate any additional recommendations. Qualifiers: Acute renal failure type: unspecified Qualified Code(s): N17.9 - Acute kidney failure, unspecified (3) Hyperkalemia Current Visit: Yes Status: Acute Assessment and plan: Hyperkalemia has resolved with intermittent hemodialysis as above (4) Altered mental status Current Visit: Yes Status: Resolved Assessment and plan: Resolved; patient is alert and oriented 3 months morning Suspect secondary to pneumonia versus acute renal failure Continue to monitor Qualifiers: Altered mental status type: unspecified Qualified Code(s): R41.82 - Altered mental status, unspecified (5) Atrial flutter Current Visit: No Status: Acute Assessment and plan: History of atrial fibrillation on anticoagulation Patient with no evidence of bleeding so we will restart Xarelto Qualifiers: Atrial flutter type: unspecified Qualified Code(s): I48.92 - Unspecified atrial flutter (6) Myoclonus Current Visit: Yes Status: Acute Assessment and plan: Likely secondary to medication effect due to acute renal failure (7) Morbid obesity Current Visit: No Status: Chronic Assessment and plan: Lifestyle modifications (8) DVT prophylaxis Current Visit: Yes Status: Acute Assessment and plan: Discontinue heparin drip and restart patient's home dose of Xarelto - Time Spent With Patient Total time spent is greater than 50% in coordination of care (as documented) at patient's floor/unit and/or counseling patient: - Subjective Interval history: Patient's altered mental status has resolved and is now alert and oriented 3. Renal function is improving after undergoing intermittent dialysis per nephrology recommendations. - Constitutional Vitals: Temp Pulse Resp BP Pulse Ox 97.8 F 86 18 162/50 96 02/09/18 15:00 02/09/18 14:24 02/09/18 15:00 02/09/18 17:45 02/09/18 14:24 General appearance: Present: A&O X 3, no acute distress - Respiratory Respiratory exam: Present: CTAB. Absent: accessory muscle use, rales, rhonchi, wheezes - Cardiovascular Cardiovascular exam: Present: RRR, +S1, +S2. Absent: diastolic murmur, gallop, rubs, systolic murmur Internal Medicine: Result - Labs CBC & Chem 7: 02/09/18 00:17 02/09/18 00:17 Labs: Short CBC 02/09/18 Range/Units 00:17 WBC 6.2 (4.3-11.1) K/mcL Hgb 8.1 L (11.5-15.4) g/dL Hct 26.9 L (35.3-44.9) % Plt Count 192 (140-400) K/mcL Neutrophils # 4.5 (1.6-8.9) K/mcL BMP 02/09/18 00:17 Sodium 133 L Potassium 4.4 Chloride 101 Carbon Dioxide 24 BUN 45 H Creatinine 2.59 H Glucose 144 H Calcium 8.2 L - ABG Interpretation ABG results: PT/INR, D-dimer PT 13.7 Seconds (9.4-12.1) H 02/07/18 13:28 - VTE Documentation of Mechanical Device: Intermittent pneumatic compression device Consult Discharge Plan - Plan Referrals: David Lou MD [Primary Care Provider] -
[2018-02-09] MEDS: Cefepime HCl 1,000 MG in Water for inj. (sterile) 20 ML 10 ML IVP SCH (19:04)
[2018-02-09] MEDS: *HR* Rivaroxaban 10 MG TABLET PO SCH (19:04)
[2018-02-10 01:29] LABS: Alpha 2 Globulin (PEP) 0.89 g/dL (0.48-1.05); Beta Globulin (PEP) 0.77 g/dL (0.48-1.10)
[2018-02-10 04:41] LABS: Basophils # 0.1 K/mcL (0.0-0.2); Basophils % 0.8 %; Eosinophils # 0.3 K/mcL (0.0-0.6); Hematocrit 23.4 % (35.3-44.9); Hemoglobin 7.3 g/dL (11.5-15.4); Immature Granulocytes % 3.2 % (0-4); Lymphocytes # 1.1 K/mcL (0.6-4.6); Lymphocytes % 16.9 %; Mean Corpuscular HGB Conc 31.2 g/dL (31.6-35.5); Mean Corpuscular Hemoglobin 29.9 pg (28.0-33.3); Mean Corpuscular Volume 95.9 fL (83.0-100.0); Mean Platelet Volume 9.3 fL (9.4-12.4); Monocytes # 0.7 K/mcL (0.0-1.3); Monocytes % 11.4 %; Neutrophils # 4.1 K/mcL (1.6-8.9); Platelet Count 182 K/mcL (140-400); Red Blood Count 2.44 M/mcL (3.82-4.97); Red Cell Distribution Width 14.6 % (11.5-14.5); Segmented Neutrophils % 63.7 %
[2018-02-10 05:08] LABS: Calcium 8.1 mg/dL (8.6-10.3); Magnesium 1.9 mg/dL (1.6-2.6); Potassium 3.7 mEq/L (3.5-5.1)
[2018-02-10] MEDS: Insulin LISPRO 300 UNITS/3 ML VIAL SQ SCH ×4 (07:52→21:31)
[2018-02-10] MEDS: Venlafaxine XR (24 HR) 150 MG CAP.ER.24H PO SCH (09:10)
[2018-02-10] MEDS: PrismaSATE BGK 4/2.5 5,000 ML CRRT SCH ×3 (12:22)
--- NOTE | 2018-02-10 15:14 | Internal Med Progress Note ---
Date of Encounter: 02/10/18 Time of Encounter: 11:00 - Assessment and plan (1) Renal failure, acute Current Visit: Yes Status: Acute Assessment and plan: Patient's acute renal failure has improved on intermittent hemodialysis but creatinine still not at baseline. Nephrology following and appreciate any additional recommendations. Qualifiers: Acute renal failure type: unspecified Qualified Code(s): N17.9 - Acute kidney failure, unspecified (2) Hyperkalemia Current Visit: Yes Status: Resolved Assessment and plan: Hyperkalemia has resolved with intermittent hemodialysis as above Continue to monitor (3) HCAP (healthcare-associated pneumonia) Current Visit: Yes Status: Acute Assessment and plan: Patient's acute hypoxic respiratory failure has also resolved and her supplemental oxygenation has been weaned off to room air Patient's leukocytosis has resolved and she is afebrile Continue current management with IV cefepime (4) Altered mental status Current Visit: Yes Status: Resolved Assessment and plan: Resolved; patient is alert and oriented 3 months morning Suspect secondary to pneumonia versus acute renal failure Continue to monitor Qualifiers: Altered mental status type: unspecified Qualified Code(s): R41.82 - Altered mental status, unspecified (5) Atrial flutter Current Visit: No Status: Acute Assessment and plan: Continue Xarelto Qualifiers: Atrial flutter type: unspecified Qualified Code(s): I48.92 - Unspecified atrial flutter (6) Myoclonus Current Visit: Yes Status: Acute Assessment and plan: Likely secondary to medication effect due to acute renal failure (7) Morbid obesity Current Visit: No Status: Chronic Assessment and plan: Lifestyle modifications (8) DVT prophylaxis Current Visit: Yes Status: Acute Assessment and plan: On Xarelto - Time Spent With Patient Total time spent is greater than 50% in coordination of care (as documented) at patient's floor/unit and/or counseling patient: - Subjective Interval history: Patient's altered mental status has resolved and is now alert and oriented 3. Patient's acute hypoxic respiratory failure has also resolved and her supplemental oxygenation has been weaned off to room air Renal function is improving intermittent dialysis per nephrology recommendations. - Constitutional Vitals: Temp Pulse Resp BP Pulse Ox 98.4 F 85 18 155/71 97 02/10/18 11:31 02/10/18 11:31 02/10/18 11:31 02/10/18 11:31 02/10/18 11:31 General appearance: Present: A&O X 3, no acute distress - Respiratory Respiratory exam: Present: CTAB. Absent: accessory muscle use, rales, rhonchi, wheezes - Cardiovascular Cardiovascular exam: Present: RRR, +S1, +S2. Absent: diastolic murmur, gallop, rubs, systolic murmur Internal Medicine: Result - Labs CBC & Chem 7: 02/10/18 04:20 02/10/18 04:20 Labs: Short CBC 02/10/18 Range/Units 04:20 WBC 6.5 (4.3-11.1) K/mcL Hgb 7.3 L (11.5-15.4) g/dL Hct 23.4 L (35.3-44.9) % Plt Count 182 (140-400) K/mcL Neutrophils # 4.1 (1.6-8.9) K/mcL BMP 02/10/18 04:20 Sodium 133 L Potassium 3.7 Chloride 99 Carbon Dioxide 27 BUN 28 H Creatinine 2.28 H Glucose 153 H Calcium 8.1 L - ABG Interpretation ABG results: PT/INR, D-dimer PT 13.7 Seconds (9.4-12.1) H 02/07/18 13:28 - VTE Documentation of Mechanical Device: Intermittent pneumatic compression device Consult Discharge Plan - Plan Referrals: David Lou MD [Primary Care Provider] -
--- NOTE | 2018-02-10 15:23 | Nephrology Progress Note ---
Date of Encounter: 02/10/18 Time of Encounter: 14:00 - Assessment and Plan (1) Acute kidney injury Status: Acute SCr better at 2.28, GFR 21 after HD yesterday, will hold off on any further HD for now to see if in renal recovery UOP more impressive at 1350cc in the past 24hrs, encouraged po fluids Continue to avoid nephrotoxins if possible Avoid nephrotoxins if possible (2) Anemia Status: Chronic Hgb dropped at 7.3 today, will monitor. Appears to be iron deficient Transfusion parameter; will transfuse for hgb <7 Qualifiers: Anemia type: iron deficiency Iron deficiency anemia type: unspecified iron deficiency Qualified Code(s): D50.9 - Iron deficiency anemia, unspecified Subjective Principal diagnosis: YEIMY Interval history: Pt seen and examined feels better overall and defiitely making more UOP with 1350cc in the past 24hrs Objective - Vital Signs Vital signs: Vital Signs Temp Pulse Resp BP Pulse Ox 02/10/18 11:31 98.4 F 85 18 155/71 97 02/10/18 07:32 98.0 F 80 18 126/47 98 02/10/18 03:44 98.6 F 83 18 119/67 98 02/09/18 23:49 99.4 F 127 16 95/62 97 02/09/18 18:38 97.7 F 18 180/68 02/09/18 18:00 168/84 02/09/18 17:45 162/50 02/09/18 17:30 158/56 02/09/18 17:15 161/64 02/09/18 17:00 157/64 02/09/18 16:45 171/66 02/09/18 16:30 163/63 02/09/18 16:15 165/73 02/09/18 16:00 162/58 02/09/18 15:45 166/67 02/09/18 15:30 159/70 Intake and Output 02/09/18 02/10/18 02/10/18 23:59 07:59 15:59 Intake Total 160 / 160 400 / 400 0 / 0 Output Total 4000 / 4000 200 / 200 150 / 150 Balance -3840 / -3840 200 / 200 -150 / -150 Intake: IV Fluids 10 / 10 Maxipime 1,000 MG In Water for 10 10 inj. (sterile) 10 ML @ 150 mls/ hr IVP Q24H [facility] Rx#:[id number] Oral 150 / 150 400 / 400 0 / 0 Output: Urine 0 / 0 Total Dialysis (HD) Output 3600 / 3600 Catheter 400 / 400 200 / 200 150 / 150 Other: Meal Breakfast Percent of Meal Consumed 60% Stool Size Small Stool Consistency formed Stool Color Brown Black # Bowel Movements 1 Weight 173.322 kg Blood Glucose* 146 132 168 Hemodialysis Net Fluid Removed 3000 (mL) Patient Weight 02/10/18 23:59 Weight 173.322 kg - General Appearance General appearance: Present: chronically ill EENT: Present: ATNC, mucous membranes moist Neck: Present: no JVD, supple Respiratory: Present: clear Cardiology: Present: edema, normal S1, normal S2 Dialysis Vascular Access: Venous Catheter (temp HD) Gastrointestinal: Present: no tenderness, no guarding, obese Integumentary: Present: warm and dry Neurologic: Present: no focal deficit Musculoskeletal: Present: no deformities Psychiatric: Present: mood/affect appropriate, cooperative - Lab 02/15/18 08:00 02/15/18 08:00 Most recent lab results Calcium 8.1 mg/dL (8.6-10.3) L 02/10/18 04:20 Phosphorus 6.3 mg/dL (2.7-4.5) H 02/07/18 04:00 Magnesium 1.9 mg/dL (1.6-2.6) 02/10/18 04:20 Urine Creatinine 50 mg/dL 02/06/18 21:48 Urine Sodium 41.3 mEq/L 02/06/18 21:48 Urine Total Protein 1011 mg/dL (1-14) H 02/06/18 21:48 - VTE Documentation of Mechanical Device: Intermittent pneumatic compression device Consult Discharge Plan - Plan Instructions: Acute Kidney Injury (DC), Newby Catheter Placement and Care (DC) , Bacterial Pneumonia (DC), Anemia (DC) Additional Instructions: Please review instructions printed out for you Please adhere to all follow-ups including with the primary care provider within 77 days and nephrology within 7 to 10 days Reasons to seek further evaluation include confusion, fevers, chills, sweats, lightheadedness, chest pain, palpitations, cough, shortness of breath, nausea, vomiting, abdominal pain, diarrhea, dysuria, or any evidence of blood in stools/ urine. If you experience any of these symptoms, I advised to call you primary care provider or to present to the emergency department for further workup. Referrals: Arabella Samson/[facility]ENNIFER/[facility] [Provider Group] (1-2 weeks) David Lou MD [Primary Care Provider] -
[2018-02-10] MEDS: *HR* HYDROcodone/Acet 5/325 mg TABLET PO PRN ×2 (15:48→23:20)
[2018-02-10] MEDS: *HR* Rivaroxaban 10 MG TABLET PO SCH (17:24)
[2018-02-10] MEDS: Cefepime HCl 1,000 MG in Water for inj. (sterile) 20 ML 10 ML IVP SCH (17:25)
[2018-02-11] MEDS: Venlafaxine XR (24 HR) 150 MG CAP.ER.24H PO SCH (07:54)
[2018-02-11] MEDS: Insulin LISPRO 300 UNITS/3 ML VIAL SQ SCH ×4 (08:00→21:33)
[2018-02-11 08:10] LABS: IFE Reflexed NOT DONE
[2018-02-11 08:12] LABS: Myeloperoxidase Ab 0 AU/mL (0-19); Serine Protease-3 Antibody 1 AU/mL (0-19)
[2018-02-11 09:07] LABS: Hematocrit 25.7 % (35.3-44.9); Hemoglobin 7.9 g/dL (11.5-15.4); Mean Corpuscular HGB Conc 30.7 g/dL (31.6-35.5); Mean Corpuscular Hemoglobin 30.3 pg (28.0-33.3); Mean Corpuscular Volume 98.5 fL (83.0-100.0); Mean Platelet Volume 9.5 fL (9.4-12.4); Platelet Count 201 K/mcL (140-400); Red Blood Count 2.61 M/mcL (3.82-4.97); Red Cell Distribution Width 14.5 % (11.5-14.5)
[2018-02-11 09:25] LABS: Calcium 8.6 mg/dL (8.6-10.3); Potassium 3.9 mEq/L (3.5-5.1)
[2018-02-11] MEDS: *HR* Rivaroxaban 15 MG TABLET PO SCH (17:25)
[2018-02-11] MEDS: Cefepime HCl 1,000 MG in Water for inj. (sterile) 20 ML 10 ML IVP SCH (17:28)
--- NOTE | 2018-02-11 18:56 | Internal Med Progress Note ---
Date of Encounter: 02/11/18 Time of Encounter: 11:00 - Assessment and plan (1) Renal failure, acute Current Visit: Yes Status: Acute Assessment and plan: Patient's acute renal failure has improved on intermittent hemodialysis but creatinine still not at baseline. Nephrology following and appreciate any additional recommendations. Qualifiers: Acute renal failure type: unspecified Qualified Code(s): N17.9 - Acute kidney failure, unspecified (2) Hyperkalemia Current Visit: Yes Status: Resolved Assessment and plan: Hyperkalemia has resolved with intermittent hemodialysis as above Continue to monitor (3) HCAP (healthcare-associated pneumonia) Current Visit: Yes Status: Acute Assessment and plan: Patient's acute hypoxic respiratory failure has also resolved and her supplemental oxygenation has been weaned off to room air Patient's leukocytosis has resolved and she is afebrile Continue current management with IV cefepime (4) Altered mental status Current Visit: Yes Status: Resolved Assessment and plan: Resolved; patient is alert and oriented 3 months morning Suspect secondary to pneumonia versus acute renal failure Continue to monitor Qualifiers: Altered mental status type: unspecified Qualified Code(s): R41.82 - Altered mental status, unspecified (5) Atrial flutter Current Visit: No Status: Acute Assessment and plan: Continue Xarelto Qualifiers: Atrial flutter type: unspecified Qualified Code(s): I48.92 - Unspecified atrial flutter (6) Myoclonus Current Visit: Yes Status: Acute Assessment and plan: Likely secondary to medication effect due to acute renal failure (7) Morbid obesity Current Visit: No Status: Chronic Assessment and plan: Lifestyle modifications (8) DVT prophylaxis Current Visit: Yes Status: Acute Assessment and plan: On Xarelto - Time Spent With Patient Total time spent is greater than 50% in coordination of care (as documented) at patient's floor/unit and/or counseling patient: - Subjective Interval history: Patient with acute respiratory hypoxia failure secondary to HCAP in addition to acute renal failure with altered mental status that has resolved. Patient's acute hypoxic respiratory failure has also resolved and her supplemental oxygenation has been weaned off to room air Renal function is improving intermittent dialysis per nephrology recommendations. - Constitutional Vitals: Temp Pulse Resp BP Pulse Ox 98.0 F 80 16 147/76 99 02/11/18 14:00 02/11/18 14:00 02/11/18 14:00 02/11/18 14:00 02/11/18 14:00 General appearance: Present: A&O X 3, no acute distress - Respiratory Respiratory exam: Present: CTAB. Absent: accessory muscle use, rales, rhonchi, wheezes - Cardiovascular Cardiovascular exam: Present: RRR, +S1, +S2. Absent: diastolic murmur, gallop, rubs, systolic murmur Internal Medicine: Result - Labs CBC & Chem 7: 02/11/18 07:24 02/11/18 07:24 Labs: Short CBC 02/11/18 Range/Units 07:24 WBC 6.8 (4.3-11.1) K/mcL Hgb 7.9 L (11.5-15.4) g/dL Hct 25.7 L (35.3-44.9) % Plt Count 201 (140-400) K/mcL BMP 02/11/18 07:24 Sodium 132 L Potassium 3.9 Chloride 99 Carbon Dioxide 28 BUN 34 H Creatinine 2.53 H Glucose 145 H Calcium 8.6 - ABG Interpretation ABG results: PT/INR, D-dimer PT 13.7 Seconds (9.4-12.1) H 02/07/18 13:28 - VTE Documentation of Mechanical Device: Intermittent pneumatic compression device Consult Discharge Plan - Plan Referrals: David Lou MD [Primary Care Provider] -
[2018-02-11 19:48] LABS: APTT (LE Anticoag) 51 sec (32-48); Diluted Russell Viper Venom 31 sec (33-44); LE Coag APTT Mixing 49 sec (32-48); LE Hexagonal Phospholipid Neut POSITIVE (Negative); PT (LE-Anticoag) 16.3 sec (12.0-15.5); Thrombin Time 15.1 sec (14.7-19.5)
--- NOTE | 2018-02-11 23:50 | Nephrology Progress Note ---
Date of Encounter: 02/11/18 Time of Encounter: 12:00 - Assessment and Plan (1) Acute kidney injury Current Visit: Yes Status: Acute SCr slightly worse today at 2.53, GFR 19 last HD on sunday. Given continued good UOP, will hold off on any further HD for now to see if in renal recovery for another day UOP good at 750cc in the past 24hrs, encouraged po fluids Continue to avoid nephrotoxins if possible Avoid nephrotoxins if possible (2) Anemia Current Visit: No Status: Chronic Hgb noted low at 7.9, will monitor Transfusion parameter; will transfuse for hgb <7 Qualifiers: Anemia type: iron deficiency Iron deficiency anemia type: unspecified iron deficiency Qualified Code(s): D50.9 - Iron deficiency anemia, unspecified Subjective Principal diagnosis: YEIMY Interval history: Pt seen and examined feels better overall and still making good amount of UOP at 750cc in the past 24hrs. Objective - Vital Signs Vital signs: Vital Signs Temp Pulse Resp BP Pulse Ox 02/11/18 20:50 99.0 F 80 15 169/70 97 02/11/18 14:00 98.0 F 80 16 147/76 99 02/11/18 11:02 98.5 F 81 17 153/71 100 02/11/18 07:20 97.7 F 75 16 139/75 97 02/11/18 03:40 97.8 F 77 14 133/71 98 02/11/18 00:06 98.4 F 87 14 143/74 98 Intake and Output 02/11/18 02/11/18 02/11/18 07:59 15:59 23:59 Intake Total 240 / 240 475 / 475 130 / 130 Output Total 400 / 400 925 / 925 Balance -160 / -160 -450 / -450 130 / 130 Intake: IV Fluids Maxipime 1,000 MG In Water for inj. (sterile) 10 ML @ 150 mls/ hr IVP Q24H [facility] Rx#:[id number] Oral 240 / 240 475 / 475 120 / 120 Output: Catheter 400 / 400 925 / 925 Other: Meal Lunch Dinner Percent of Meal Consumed 100% 90% Stool Size Moderate Stool Consistency formed Stool Color Brown Black # Bowel Movements 1 Weight 173.045 kg Blood Glucose* 161 183 Patient Weight 02/11/18 23:59 Weight 173.045 kg - General Appearance General appearance: Present: obese, chronically ill (nAD) EENT: Present: ATNC, mucous membranes moist Neck: Present: no JVD, supple Respiratory: Present: clear (ant bilat) Cardiology: Present: edema (LE bilat extending to thighs and abdomen), normal S1 , normal S2 Dialysis Vascular Access: Venous Catheter (temp IJ) Gastrointestinal: Present: no tenderness, no guarding, obese Integumentary: Present: warm and dry Neurologic: Present: no focal deficit Musculoskeletal: Present: no deformities Psychiatric: Present: mood/affect appropriate, cooperative - Lab 02/11/18 07:24 02/11/18 07:24 Most recent lab results Calcium 8.6 mg/dL (8.6-10.3) 02/11/18 07:24 Phosphorus 6.3 mg/dL (2.7-4.5) H 02/07/18 04:00 Magnesium 1.9 mg/dL (1.6-2.6) 02/10/18 04:20 Urine Creatinine 50 mg/dL 02/06/18 21:48 Urine Sodium 41.3 mEq/L 02/06/18 21:48 Urine Total Protein 1011 mg/dL (1-14) H 02/06/18 21:48 - VTE Documentation of Mechanical Device: Intermittent pneumatic compression device Consult Discharge Plan - Plan Referrals: David Lou MD [Primary Care Provider] -
[2018-02-12 03:31] LABS: Hematocrit 23.6 % (35.3-44.9); Hemoglobin 7.3 g/dL (11.5-15.4); Mean Corpuscular HGB Conc 30.9 g/dL (31.6-35.5); Mean Corpuscular Hemoglobin 30.4 pg (28.0-33.3); Mean Corpuscular Volume 98.3 fL (83.0-100.0); Mean Platelet Volume 9.4 fL (9.4-12.4); Platelet Count 185 K/mcL (140-400); Red Cell Distribution Width 14.2 % (11.5-14.5)
[2018-02-12 03:55] LABS: Calcium 8.3 mg/dL (8.6-10.3); Potassium 4.1 mEq/L (3.5-5.1)
[2018-02-12] MEDS ORDERED: 0.9 % Sodium Chloride 250 ML IVC PRN (07:32)
[2018-02-12] MEDS ORDERED: *HR* Heparin 10,000 UNIT/10 ML VIAL IV PRN (07:32)
[2018-02-12] MEDS: Insulin LISPRO 300 UNITS/3 ML VIAL SQ SCH ×4 (10:26→20:19)
[2018-02-12] MEDS: Venlafaxine XR (24 HR) 75 MG CAP.ER.24H PO SCH ×2 (10:36→10:57)
[2018-02-12] MEDS: *HR* HYDROcodone/Acet 5/325 mg TABLET PO PRN (10:38)
--- NOTE | 2018-02-12 11:37 | Internal Med Progress Note ---
<Mary Sung - Last Filed: 02/12/18 14:39> Date of Encounter: 02/12/18 Time of Encounter: 11:37 - Assessment and plan (1) Renal failure, acute Current Visit: Yes Status: Acute Assessment and plan: Patient's acute renal failure with intermittent hemodialysis but creatinine still not at baseline Had HD on Sunday creatinine 2.8 worsening -Nephrology following and appreciate any recommendations -avoid nephrotoxic toxins. Patient demanded to get her full dose of Effexor despite informing her of importance of renal dose -monitor I&O Qualifiers: Acute renal failure type: unspecified Qualified Code(s): N17.9 - Acute kidney failure, unspecified (2) HCAP (healthcare-associated pneumonia) Current Visit: Yes Status: Acute Assessment and plan: Healthcare associated pneumonia WBC WNL, afebrile urine strep, Legionella urine antigen, throat culture negative SPO2 100 room air no wheezing or rhonchi on examination. Patient denies shortness of breath and cough. -Patient has received 5 days of cefepime. Will stop cefepime and will give Levaquin renal dosed which will end up being just one more dose of Levaquin since it is given once every 48 hours (3) Anemia Current Visit: No Status: Chronic Assessment and plan: Anemia most likely of chronic disease, CKD Hgb 7.3 baseline 8.3-8.5) -will continue to monitor, if drops below 7 will transfuse PRBC -will request records from long-term to trend hemoglobin and creatinine Qualifiers: Anemia type: iron deficiency Iron deficiency anemia type: unspecified iron deficiency Qualified Code(s): D50.9 - Iron deficiency anemia, unspecified (4) Hyperkalemia Current Visit: Yes Status: Resolved Assessment and plan: Resolved. Hyperkalemia not responsive to medical therapy and required intermittent HD catheter, dialysis potassium WNL -will continue to monitor (5) Altered mental status Current Visit: Yes Status: Resolved Assessment and plan: Resolved. Most likely multifactorial secondary to bilateral pneumonia, acute on chronic kidney injury, electrolyte imbalances Basilar lacunar infarct noted on CT brain head MRA in brain MRI noted multifocal small vessel ischemic changes bilaterally with multiple old infarcts, no acute infarct or hemorrhage. Qualifiers: Altered mental status type: unspecified Qualified Code(s): R41.82 - Altered mental status, unspecified (6) Atrial flutter Current Visit: No Status: Acute Assessment and plan: History of atrial fibrillation on anticoagulation with xarelto and rate controlled with Cardizem -continue Cardizem cd and Xarelto renal dose Qualifiers: Atrial flutter type: unspecified Qualified Code(s): I48.92 - Unspecified atrial flutter (7) Myoclonus Current Visit: Yes Status: Acute Assessment and plan: Resolved Likely secondary to gabapentin in setting of acute renal failure head MRA in brain MRI noted multifocal small vessel ischemic changes bilaterally with multiple old infarcts, no acute infarct or hemorrhage. -Nephrology recommends stopping gabapentin if renal failure continues (8) Morbid obesity Current Visit: No Status: Chronic Assessment and plan: Lifestyle modifications (9) DVT prophylaxis Current Visit: Yes Status: Acute Assessment and plan: On Xarelto - Time Spent With Patient Total time spent is greater than 50% in coordination of care (as documented) at patient's floor/unit and/or counseling patient: - Subjective Interval history: She is sitting up in bed comfortably. She denies fever, chills, shortness of breath, cough. Her nurse reported that the patient was upset that she was not getting her full dose of Effexor due to us renal dosing it, she stated that she wanted her full dose of Effexor. - Constitutional Vitals: Temp Pulse Resp BP Pulse Ox 97.7 F 84 20 145/56 100 02/12/18 10:56 02/12/18 10:56 02/12/18 10:56 02/12/18 10:56 02/12/18 10:56 General appearance: Present: A&O X 3, no acute distress Exam: Gen.: Vitals noted. No acute distress. AAOx3 HEENT: oropharynx clear, Normocephalic, atraumatic Neck: Supple. No adenopathy. Cardiac: RRR, no murmur, +S1/S2 Pulmonary: CTA bilaterally, no wheezes, rales or rhonchi, equal chest expansion Abdomen: soft, nontender, Bowel sounds noted, no guarding Extremities: +BLE edema, nontender calf, no cyanosis or clubbing Neuro: A&Ox3, moves all extremities, no focal deficits Psych: Appropriate mood and behavior Internal Medicine: Result - Labs CBC & Chem 7: 02/12/18 03:20 02/12/18 03:20 Labs: Short CBC 02/12/18 Range/Units 03:20 WBC 6.8 (4.3-11.1) K/mcL Hgb 7.3 L (11.5-15.4) g/dL Hct 23.6 L (35.3-44.9) % Plt Count 185 (140-400) K/mcL BMP 02/12/18 03:20 Sodium 131 L Potassium 4.1 Chloride 98 Carbon Dioxide 28 BUN 40 H Creatinine 2.80 H Glucose 190 H Calcium 8.3 L - ABG Interpretation ABG results: PT/INR, D-dimer PT 13.7 Seconds (9.4-12.1) H 02/07/18 13:28 - VTE Documentation of Mechanical Device: Intermittent pneumatic compression device Consult Discharge Plan - Plan Referrals: David Lou MD [Primary Care Provider] - <Nellie Callahan - Last Filed: 02/12/18 16:56> Date of Encounter: 02/12/18 - Assessment and plan (1) Anemia Current Visit: No Status: Chronic Qualifiers: Anemia type: iron deficiency Iron deficiency anemia type: unspecified iron deficiency Qualified Code(s): D50.9 - Iron deficiency anemia, unspecified (2) Morbid obesity Current Visit: No Status: Chronic (3) Atrial flutter Current Visit: No Status: Acute Qualifiers: Atrial flutter type: unspecified Qualified Code(s): I48.92 - Unspecified atrial flutter (4) HCAP (healthcare-associated pneumonia) Current Visit: Yes Status: Acute (5) Renal failure, acute Current Visit: Yes Status: Acute Qualifiers: Acute renal failure type: unspecified Qualified Code(s): N17.9 - Acute kidney failure, unspecified (6) Hyperkalemia Current Visit: Yes Status: Resolved (7) Altered mental status Current Visit: Yes Status: Resolved Qualifiers: Altered mental status type: unspecified Qualified Code(s): R41.82 - Altered mental status, unspecified (8) Myoclonus Current Visit: Yes Status: Acute (9) DVT prophylaxis Current Visit: Yes Status: Acute - Time Spent With Patient Total time spent is greater than 50% in coordination of care (as documented) at patient's floor/unit and/or counseling patient: - Constitutional Vitals: Temp Pulse Resp BP Pulse Ox 98.7 F 77 20 141/74 91 02/12/18 16:13 02/12/18 16:13 02/12/18 16:13 02/12/18 16:13 02/12/18 16:13 Internal Medicine: Result - Labs CBC & Chem 7: 02/12/18 03:20 02/12/18 03:20 Labs: Short CBC 02/12/18 Range/Units 03:20 WBC 6.8 (4.3-11.1) K/mcL Hgb 7.3 L (11.5-15.4) g/dL Hct 23.6 L (35.3-44.9) % Plt Count 185 (140-400) K/mcL BMP 02/12/18 03:20 Sodium 131 L Potassium 4.1 Chloride 98 Carbon Dioxide 28 BUN 40 H Creatinine 2.80 H Glucose 190 H Calcium 8.3 L - ABG Interpretation ABG results: PT/INR, D-dimer PT 13.7 Seconds (9.4-12.1) H 02/07/18 13:28 - Attending Attestation I examined this patient and my medical decision-making was reviewed with the Resident Physician Dr. Sung. I agree with the documented findings, disposition and treatment plan as described except to the extent set forth below. Ms. Lamb is 67 y/o F admitted here for Yeimy with CKD. She was required HD initially. Pt is alert, awake and O 3 Denied any CP / SOB. She also had h/o PE and Atrial flutter for which she is on Xarelto Gen: A,A,Ox 3 Chest: Diminished BS b/l no crackles Heart: S1S2 + RRR no murmurs a/p 1. YEIMY with CKD No recent Cr to compare. her Cr from 04/14 showed normal level however her current presentation concerns for me she is developing CKD-3 Her Cr cont to go high so far non oliguric Nephro on board cont to monitor 2. Atrial flutter rate controlled on Xarelto for anti coag- really dosed pt does not want to switch to Coumadin
[2018-02-12] MEDS: Venlafaxine XR (24 HR) 150 MG CAP.ER.24H PO SCH (12:22)
[2018-02-12] MEDS: Loratadine 10 MG TABLET PO SCH (17:18)
[2018-02-12] MEDS: *HR* Rivaroxaban 15 MG TABLET PO SCH (17:18)
--- NOTE | 2018-02-12 23:22 | Nephrology Progress Note ---
Date of Encounter: 02/12/18 Time of Encounter: 12:00 - Assessment and Plan (1) Acute kidney injury Current Visit: Yes Status: Acute SCr worse today at 2.8, GFR 17 with last HD on sunday despite good UOP at 1325cc in the past 24hrs, will proceed with HD today with minimal UF Continue po fluids Continue to avoid nephrotoxins if possible Avoid nephrotoxins if possible (2) Anemia Current Visit: No Status: Chronic Hgb noted low at 7.3, dropping, will monitor Transfusion parameter; will transfuse for hgb <7 Qualifiers: Anemia type: iron deficiency Iron deficiency anemia type: unspecified iron deficiency Qualified Code(s): D50.9 - Iron deficiency anemia, unspecified Subjective Principal diagnosis: YEIMY Interval history: Pt seen and examined with no new complaints. Objective - Vital Signs Vital signs: Vital Signs Temp Pulse Resp BP Pulse Ox 02/12/18 20:19 94 02/12/18 19:38 98.7 F 83 18 145/72 94 02/12/18 16:13 98.7 F 77 20 141/74 91 02/12/18 10:56 97.7 F 84 20 145/56 100 02/12/18 10:20 97.2 F L 17 164/70 02/12/18 10:10 149/62 02/12/18 09:55 142/56 02/12/18 09:40 151/66 02/12/18 09:25 142/63 02/12/18 09:10 141/58 02/12/18 08:55 152/62 02/12/18 08:40 135/61 02/12/18 08:25 138/59 02/12/18 08:10 147/59 02/12/18 07:55 143/60 02/12/18 07:40 137/66 02/12/18 07:25 150/68 02/12/18 07:10 98.3 F 17 153/40 02/12/18 05:19 98.3 F 83 16 154/62 99 Intake and Output 02/12/18 02/12/18 02/12/18 07:59 15:59 23:59 Intake Total 840 / 840 0 / 0 835 / 835 Output Total 1650 / 1650 2150 / 2150 400 / 400 Balance -810 / -810 -2150 / -2150 435 / 435 Intake: Oral 240 / 240 0 / 0 835 / 835 Intake, Rinseback and Flushes 600 / 600 Output: Urine 0 / 0 Total Dialysis (HD) Output 1600 / 1600 Catheter 1650 / 1650 550 / 550 400 / 400 Other: Meal Dinner Percent of Meal Consumed 0% Weight 174.2 kg Blood Glucose* 150 201 Hemodialysis Net Fluid Removed 402 1000 (mL) Patient Weight 02/12/18 23:59 Weight 174.2 kg - General Appearance General appearance: Present: chronically ill EENT: Present: ATNC, mucous membranes moist Neck: Present: no JVD, supple Respiratory: Present: clear Cardiology: Present: edema, normal S1, normal S2 Dialysis Vascular Access: Venous Catheter (temp ij) Gastrointestinal: Present: no tenderness, no guarding, obese Integumentary: Present: warm and dry Neurologic: Present: no focal deficit Musculoskeletal: Present: no deformities Psychiatric: Present: mood/affect appropriate - Lab 02/12/18 03:20 02/12/18 03:20 Most recent lab results Calcium 8.3 mg/dL (8.6-10.3) L 02/12/18 03:20 Phosphorus 6.3 mg/dL (2.7-4.5) H 02/07/18 04:00 Magnesium 1.9 mg/dL (1.6-2.6) 02/10/18 04:20 Urine Creatinine 50 mg/dL 02/06/18 21:48 Urine Sodium 41.3 mEq/L 02/06/18 21:48 Urine Total Protein 1011 mg/dL (1-14) H 02/06/18 21:48 - VTE Documentation of Mechanical Device: Intermittent pneumatic compression device Consult Discharge Plan - Plan Referrals: David Lou MD [Primary Care Provider] -
[2018-02-13] MEDS: *HR* HYDROcodone/Acet 5/325 mg TABLET PO PRN ×3 (02:54→19:31)
[2018-02-13 04:12] LABS: Hematocrit 24.9 % (35.3-44.9); Hemoglobin 7.6 g/dL (11.5-15.4); Mean Corpuscular HGB Conc 30.5 g/dL (31.6-35.5); Mean Corpuscular Volume 98.4 fL (83.0-100.0); Mean Platelet Volume 9.3 fL (9.4-12.4); Platelet Count 180 K/mcL (140-400); Red Blood Count 2.53 M/mcL (3.82-4.97); Red Cell Distribution Width 14.2 % (11.5-14.5)
[2018-02-13 04:36] LABS: Calcium 8.4 mg/dL (8.6-10.3); Potassium 3.8 mEq/L (3.5-5.1)
[2018-02-13] MEDS ORDERED: levoFLOXacin 750 MG TABLET PO ONE (07:00)
[2018-02-13] MEDS: Venlafaxine XR (24 HR) 150 MG CAP.ER.24H PO SCH (08:02)
[2018-02-13] MEDS: Diltiazem CD (24hr) 120 MG CAPSULE PO SCH (08:02)
[2018-02-13] MEDS: Insulin LISPRO 300 UNITS/3 ML VIAL SQ SCH ×4 (08:03→20:40)
[2018-02-13] MEDS: Insulin DETEMIR 100 UNIT/ML X5UNITS SQ SCH ×2 (10:33→20:39)
--- NOTE | 2018-02-13 11:30 | Internal Med Progress Note ---
<Neville Gifford - Last Filed: 02/13/18 16:52> Date of Encounter: 02/13/18 Time of Encounter: 08:45 - Assessment and plan (1) Altered mental status Current Visit: Yes Status: Resolved Assessment and plan: Resolved & is AOx3 Most likely multifactorial secondary to bilateral pneumonia, acute on chronic kidney injury, electrolyte imbalances Basilar lacunar infarct noted on CT brain head MRA in brain MRI noted multifocal small vessel ischemic changes bilaterally with multiple old infarcts, no acute infarct or hemorrhage. Qualifiers: Altered mental status type: unspecified Qualified Code(s): R41.82 - Altered mental status, unspecified (2) Renal failure, acute Current Visit: Yes Status: Acute Assessment and plan: Patient's acute renal failure with intermittent hemodialysis but creatinine still not at baseline Had HD on Sunday creatinine 1.97 down from 2.8 yesterday -monitor BMP qAM -Nephrology following and appreciate any recommendations -avoid nephrotoxic toxins. Patient demanded to get her full dose of Effexor despite informing her of importance of renal dose Qualifiers: Acute renal failure type: unspecified Qualified Code(s): N17.9 - Acute kidney failure, unspecified (3) Hyperkalemia Current Visit: Yes Status: Resolved Assessment and plan: Resolved and stable this AM. Hyperkalemia not responsive to medical therapy and required intermittent HD catheter, dialysis potassium WNL -will continue to monitor (4) HCAP (healthcare-associated pneumonia) Current Visit: Yes Status: Resolved Assessment and plan: Respiratory status normal and stable requiring no supplementation. Pt is without abnormal lung sounds and is conversational with no signs of distress. -- has finished appropriate course of cefepime & Levaquin (5) Anemia Current Visit: No Status: Chronic Assessment and plan: Anemia most likely of chronic disease, CKD Hgb 7.6 (baseline 8.3-8.5); no significant changes through current course and no signs of decompensation due to anemia -CBC qAM, if drops below 7 will transfuse PRBC Qualifiers: Anemia type: iron deficiency Iron deficiency anemia type: unspecified iron deficiency Qualified Code(s): D50.9 - Iron deficiency anemia, unspecified (6) Atrial flutter Current Visit: No Status: Acute Assessment and plan: History of atrial fibrillation on anticoagulation with xarelto and rate controlled with Cardizem -continue Cardizem cd and Xarelto renal dose -RRR this AM on auscultation Qualifiers: Atrial flutter type: unspecified Qualified Code(s): I48.92 - Unspecified atrial flutter (7) Morbid obesity Current Visit: No Status: Chronic (8) Myoclonus Current Visit: Yes Status: Acute Assessment and plan: Resolved Likely secondary to gabapentin in setting of acute renal failure head MRA in brain MRI noted multifocal small vessel ischemic changes bilaterally with multiple old infarcts, no acute infarct or hemorrhage. -Nephrology recommends stopping gabapentin if renal failure continues (9) DVT prophylaxis Current Visit: Yes Status: Acute Assessment and plan: On Xarelto - Time Spent With Patient Total time spent is greater than 50% in coordination of care (as documented) at patient's floor/unit and/or counseling patient: - Subjective Interval history: Has begun having diarrhea this AM; was on Lactulose due to apparent constipation. Patient also requests to be removed from ADA diet as she is concerned of various types of artificial sugars causing her to have abdominal pain & diarrhea. Dietitian present who states will place carb-controlled regular diet. - Constitutional Vitals: Temp Pulse Resp BP Pulse Ox 98.6 F 87 22 154/71 89 02/13/18 06:50 02/13/18 06:50 02/13/18 06:50 02/13/18 06:50 02/13/18 06:50 General appearance: Present: A&O X 3, morbidly obese, no acute distress, answers questions appropriately - Head Head exam: Present: atraumatic, normocephalic - Eye Eye exam: Present: PERRL, conjuntiva pink, sclera anicteric. Absent: scleral icterus - Neck Neck exam general surgery: Present: supple, trachea midline. Absent: lymphadenopathy - Respiratory Respiratory exam: Present: CTAB. Absent: accessory muscle use, rales, respiratory distress, rhonchi, stridor, wheezes, tachypnea - Cardiovascular Cardiovascular exam: Present: RRR, +S1, +S2. Absent: diastolic murmur, gallop, rubs, +S3, +S4, systolic murmur - GI/Abdominal GI/Abdominal exam: Present: normal bowel sounds, soft, no peritoneal signs. Absent: distended, guarding, tenderness - Extremities Exam Extremities exam: Present: pedal edema (2+ pitting; chronic per patient), warm, radial pulses palpable and symmetrical. Absent: calf tenderness, cyanotic - Neurological Exam Neurological exam: Present: CN II-XII intact, oriented X3, no focal deficits. Absent: pronater drift, facial droop, speech deficit - Skin Skin exam: Present: dry, intact, normal color Internal Medicine: Result - Labs CBC & Chem 7: 02/13/18 04:00 02/13/18 04:00 Labs: Short CBC 02/13/18 Range/Units 04:00 WBC 6.7 (4.3-11.1) K/mcL Hgb 7.6 L (11.5-15.4) g/dL Hct 24.9 L (35.3-44.9) % Plt Count 180 (140-400) K/mcL BMP 02/13/18 04:00 Sodium 134 L Potassium 3.8 Chloride 101 Carbon Dioxide 30 H BUN 23 Creatinine 1.97 H Glucose 232 H Calcium 8.4 L - ABG Interpretation ABG results: PT/INR, D-dimer PT 13.7 Seconds (9.4-12.1) H 02/07/18 13:28 - VTE Documentation of Mechanical Device: Intermittent pneumatic compression device Consult Discharge Plan - Plan Referrals: David Lou MD [Primary Care Provider] - <Nellie Callahan - Last Filed: 02/13/18 17:42> Date of Encounter: 02/13/18 - Assessment and plan (1) Anemia Current Visit: No Status: Chronic Qualifiers: Anemia type: iron deficiency Iron deficiency anemia type: unspecified iron deficiency Qualified Code(s): D50.9 - Iron deficiency anemia, unspecified (2) Morbid obesity Current Visit: No Status: Chronic (3) Atrial flutter Current Visit: No Status: Acute Qualifiers: Atrial flutter type: unspecified Qualified Code(s): I48.92 - Unspecified atrial flutter (4) HCAP (healthcare-associated pneumonia) Current Visit: Yes Status: Resolved (5) Renal failure, acute Current Visit: Yes Status: Acute Qualifiers: Acute renal failure type: unspecified Qualified Code(s): N17.9 - Acute kidney failure, unspecified (6) Hyperkalemia Current Visit: Yes Status: Resolved (7) Altered mental status Current Visit: Yes Status: Resolved Qualifiers: Altered mental status type: unspecified Qualified Code(s): R41.82 - Altered mental status, unspecified (8) Myoclonus Current Visit: Yes Status: Acute (9) DVT prophylaxis Current Visit: Yes Status: Acute - Time Spent With Patient Total time spent is greater than 50% in coordination of care (as documented) at patient's floor/unit and/or counseling patient: - Constitutional Vitals: Temp Pulse Resp BP Pulse Ox 98.0 F 67 18 138/73 93 02/13/18 16:13 02/13/18 16:13 02/13/18 16:13 02/13/18 16:13 02/13/18 16:13 Internal Medicine: Result - Labs CBC & Chem 7: 02/13/18 04:00 02/13/18 04:00 Labs: Short CBC 02/13/18 Range/Units 04:00 WBC 6.7 (4.3-11.1) K/mcL Hgb 7.6 L (11.5-15.4) g/dL Hct 24.9 L (35.3-44.9) % Plt Count 180 (140-400) K/mcL BMP 02/13/18 04:00 Sodium 134 L Potassium 3.8 Chloride 101 Carbon Dioxide 30 H BUN 23 Creatinine 1.97 H Glucose 232 H Calcium 8.4 L - ABG Interpretation ABG results: PT/INR, D-dimer PT 13.7 Seconds (9.4-12.1) H 02/07/18 13:28 - Attending Attestation I examined this patient and my medical decision-making was reviewed with the Resident Physician Dr. Gifford. I agree with the documented findings, disposition and treatment plan as described except to the extent set forth below. Ms. Lamb is 67 y/o F admitted here for Yeimy with CKD. She was required HD initially. Pt is alert, awake and O 3 Denied any CP / SOB. She also had h/o PE and Atrial flutter for which she is on Xarelto Gen: A,A,Ox 3 Chest: Diminished BS b/l no crackles Heart: S1S2 + RRR no murmurs a/p 1. YEIMY with CKD No recent Cr to compare. her Cr from 04/14 showed normal level however her current presentation concerns for me she is developing CKD-3 Her Cr started trending down so far non oliguric Nephro on board cont to monitor 2. Atrial flutter rate controlled on Xarelto for anti coag- really dosed pt does not want to switch to Coumadin
[2018-02-13] MEDS: *HR* Rivaroxaban 15 MG TABLET PO SCH (17:20)
--- NOTE | 2018-02-13 22:36 | Nephrology Progress Note ---
Date of Encounter: 02/13/18 Time of Encounter: 12:00 - Assessment and Plan (1) Acute kidney injury Current Visit: Yes Status: Acute SCr improved today at 1.97, GFR 22 after HD yesterday with minimal UF of 1liter , will reassess HD need tomorrow UOP great at 2600cc in the past 24hrs Continue po fluids Continue to avoid nephrotoxins if possible (2) Anemia Current Visit: No Status: Chronic Hgb slightly better at 7.6 today, will monitor Transfusion parameter; will transfuse for hgb <7 Qualifiers: Anemia type: iron deficiency Iron deficiency anemia type: unspecified iron deficiency Qualified Code(s): D50.9 - Iron deficiency anemia, unspecified Subjective Principal diagnosis: YEIMY Interval history: Pt seen and examined with no new complaints., feels better. s/p HD yesterday with still 2600cc of UOP in the past 24hrs Objective - Vital Signs Vital signs: Vital Signs Temp Pulse Resp BP Pulse Ox 02/13/18 19:58 99.0 F 75 18 149/59 93 02/13/18 19:29 93 02/13/18 16:13 98.0 F 67 18 138/73 93 02/13/18 11:30 98.3 F 74 20 144/71 95 02/13/18 06:50 98.6 F 87 22 154/71 89 02/13/18 03:13 97.9 F 82 18 152/74 95 Intake and Output 02/13/18 02/13/18 02/13/18 07:59 15:59 23:59 Intake Total 480 / 480 480 / 480 Output Total 750 / 750 0 / 0 Balance -270 / -270 480 / 480 0 / 0 Intake: Oral 480 / 480 480 / 480 Output: Urine 0 / 0 Catheter 750 / 750 Other: Meal Lunch Percent of Meal Consumed 60% # Bowel Movements 0 Weight 174.6 kg Blood Glucose* 182 172 150 Patient Weight 02/13/18 23:59 Weight 174.6 kg - General Appearance General appearance: Present: chronically ill EENT: Present: ATNC, mucous membranes moist Neck: Present: no JVD, supple Cardiology: Present: edema, normal S1, normal S2 Dialysis Vascular Access: Venous Catheter (temp IJ) Gastrointestinal: Present: no tenderness, no guarding, obese Integumentary: Present: warm and dry Neurologic: Present: no focal deficit Musculoskeletal: Present: no deformities Psychiatric: Present: mood/affect appropriate - Lab 02/13/18 04:00 02/13/18 04:00 Most recent lab results Calcium 8.4 mg/dL (8.6-10.3) L 02/13/18 04:00 Phosphorus 6.3 mg/dL (2.7-4.5) H 02/07/18 04:00 Magnesium 1.9 mg/dL (1.6-2.6) 02/10/18 04:20 Urine Creatinine 50 mg/dL 02/06/18 21:48 Urine Sodium 41.3 mEq/L 02/06/18 21:48 Urine Total Protein 1011 mg/dL (1-14) H 02/06/18 21:48 - VTE Documentation of Mechanical Device: Intermittent pneumatic compression device Consult Discharge Plan - Plan Referrals: David Lou MD [Primary Care Provider] -
[2018-02-14 03:39] LABS: Hematocrit 25.2 % (35.3-44.9); Hemoglobin 7.5 g/dL (11.5-15.4); Mean Corpuscular HGB Conc 29.8 g/dL (31.6-35.5); Mean Corpuscular Hemoglobin 29.3 pg (28.0-33.3); Mean Corpuscular Volume 98.4 fL (83.0-100.0); Mean Platelet Volume 9.6 fL (9.4-12.4); Platelet Count 186 K/mcL (140-400); Red Blood Count 2.56 M/mcL (3.82-4.97); Red Cell Distribution Width 14.6 % (11.5-14.5)
[2018-02-14 03:50] LABS: Calcium 8.6 mg/dL (8.6-10.3)
[2018-02-14] MEDS: Insulin LISPRO 300 UNITS/3 ML VIAL SQ SCH ×4 (08:02→22:27)
[2018-02-14] MEDS: Venlafaxine XR (24 HR) 150 MG CAP.ER.24H PO SCH (08:03)
[2018-02-14] MEDS: Diltiazem CD (24hr) 120 MG CAPSULE PO SCH (08:03)
[2018-02-14] MEDS: Insulin DETEMIR 100 UNIT/ML X5UNITS SQ SCH ×2 (08:10→23:32)
[2018-02-14] MEDS ORDERED: Metoprolol XL (24 HR) Succ 25 MG TAB.ER.24H PO SCH ×2 (09:00)
[2018-02-14] MEDS ORDERED: Metoprolol XL (24 HR) Succ 25 MG TAB.ER.24H PO ONE (10:00)
[2018-02-14] MEDS: *HR* HYDROcodone/Acet 5/325 mg TABLET PO PRN ×3 (10:38→23:31)
--- NOTE | 2018-02-14 11:49 | Nephrology Progress Note ---
<Megha Valadez Melissa - Last Filed: 02/14/18 11:50> Date of Encounter: 02/14/18 Time of Encounter: 11:45 - Assessment and Plan (1) Acute kidney injury Status: Acute Scr 2.21 GFR 22-kidney function decreased some from yesterday Want to hold on further HD at this time and see if kidneys will start working better Would like to give 0.9 NS IV at 60ml/hour x 1 liter bag however patient wants d/ c "NOW" Patient states she is drinking 1-2 of the large hospital cups/day but can "force " more if needed UOP continues to be robost Avoid nephrotoxins if possible (2) Anemia Status: Chronic Hgb 7.5 Goal hgb 10-11 Transfuse per parameters Qualifiers: Anemia type: iron deficiency Iron deficiency anemia type: unspecified iron deficiency Qualified Code(s): D50.9 - Iron deficiency anemia, unspecified Subjective Principal diagnosis: YEIMY Interval history: Patient seen and examined. States she is very stressed out and homesick. Wants "out now". Objective - Vital Signs Vital signs: Vital Signs Temp Pulse Resp BP Pulse Ox 02/14/18 11:13 98.5 F 70 18 137/58 96 02/14/18 07:05 98.5 F 76 20 160/72 92 02/14/18 04:06 97.5 F L 68 16 140/74 95 02/14/18 00:03 98.5 F 74 18 129/73 94 02/13/18 19:58 99.0 F 75 18 149/59 93 02/13/18 19:29 93 02/13/18 16:13 98.0 F 67 18 138/73 93 Intake and Output 02/13/18 02/14/18 02/14/18 23:59 07:59 15:59 Intake Total 0 / 0 Output Total 0 / 0 2300 / 2300 Balance 0 / 0 -2300 / -2300 Intake: Oral 0 / 0 Output: Urine 0 / 0 Catheter 0 / 2300 Other: Meal Breakfast Percent of Meal Consumed 10% # Bowel Movements 0 Blood Glucose* 150 158 164 - General Appearance General appearance: Present: obese EENT: Present: ATNC, mucous membranes moist, hearing intact, vision intact Neck: Present: supple Respiratory: Present: clear Cardiology: Present: edema, normal S1, normal S2 Dialysis Vascular Access: Venous Catheter Gastrointestinal: Present: no tenderness, no guarding Integumentary: Present: warm and dry Neurologic: Present: alert and oriented x3 Psychiatric: Present: agitated, cooperative - Lab 02/14/18 03:20 02/14/18 03:20 Most recent lab results Calcium 8.6 mg/dL (8.6-10.3) 02/14/18 03:20 Phosphorus 6.3 mg/dL (2.7-4.5) H 02/07/18 04:00 Magnesium 1.9 mg/dL (1.6-2.6) 02/10/18 04:20 Urine Creatinine 50 mg/dL 02/06/18 21:48 Urine Sodium 41.3 mEq/L 02/06/18 21:48 Urine Total Protein 1011 mg/dL (1-14) H 02/06/18 21:48 - VTE Documentation of Mechanical Device: Intermittent pneumatic compression device Consult Discharge Plan - Plan Instructions: Acute Kidney Injury (DC), Newby Catheter Placement and Care (DC) , Bacterial Pneumonia (DC), Anemia (DC) Additional Instructions: Please review instructions printed out for you Please adhere to all follow-ups including with the primary care provider within 77 days and nephrology within 7 to 10 days Reasons to seek further evaluation include confusion, fevers, chills, sweats, lightheadedness, chest pain, palpitations, cough, shortness of breath, nausea, vomiting, abdominal pain, diarrhea, dysuria, or any evidence of blood in stools/ urine. If you experience any of these symptoms, I advised to call you primary care provider or to present to the emergency department for further workup. Referrals: [facility] [Provider Group] (1-2 weeks) David Lou MD [Primary Care Provider] - <Iraj Hendricks - Last Filed: 03/04/18 00:04> Date of Encounter: 02/14/18 - Assessment and Plan (1) Acute kidney injury Status: Acute (2) Anemia Status: Chronic Qualifiers: Anemia type: iron deficiency Iron deficiency anemia type: unspecified iron deficiency Qualified Code(s): D50.9 - Iron deficiency anemia, unspecified Objective - Lab 02/15/18 08:00 02/15/18 08:00 Most recent lab results Calcium 8.7 mg/dL (8.6-10.3) 02/15/18 08:00 Phosphorus 6.3 mg/dL (2.7-4.5) H 02/07/18 04:00 Magnesium 1.9 mg/dL (1.6-2.6) 02/10/18 04:20 Urine Creatinine 50 mg/dL 02/06/18 21:48 Urine Sodium 41.3 mEq/L 02/06/18 21:48 Urine Total Protein 1011 mg/dL (1-14) H 02/06/18 21:48 - Attending Attestation I examined this patient and my medical decision-making was reviewed with the Resident Physician/[employer]. I agree with the documented findings, disposition and treatment plan as described except to the extent set forth below. Pt seen and examined veryagitated today wanting to be discharged but unfortunately renla fxn yet to improve as SCr worse today despite good UOP. Will hold off on any further HD and give gentle fluid for just one bag.
--- NOTE | 2018-02-14 13:52 | Internal Med Progress Note ---
<Neville Gifford - Last Filed: 02/14/18 13:49> Date of Encounter: 02/14/18 Time of Encounter: 08:00 - Assessment and plan (1) Altered mental status Current Visit: Yes Status: Resolved Assessment and plan: Resolved & is AOx3 Most likely multifactorial secondary to bilateral pneumonia, acute on chronic kidney injury, electrolyte imbalances Basilar lacunar infarct noted on CT brain head MRA in brain MRI noted multifocal small vessel ischemic changes bilaterally with multiple old infarcts, no acute infarct or hemorrhage. Qualifiers: Altered mental status type: unspecified Qualified Code(s): R41.82 - Altered mental status, unspecified (2) Renal failure, acute Current Visit: Yes Status: Acute Assessment and plan: Patient has acute renal failure with intermittent hemodialysis but creatinine still not at baseline. Renal function has historically been normal as recently as April 2017, however, has been elevated since 02/06/2018; no definitive chronic kidney disease. Creatinine has gone up to 2.21 from previous value 1.97. Per nephrology recommendations, will keep patient at least one more night to monitor renal function in hopes of seeing it resolved. -monitor BMP qAM until resolves -will continue to attend to any further nephrology recommendations and proceed accordingly -avoid nephrotoxic toxins as able Qualifiers: Acute renal failure type: unspecified Qualified Code(s): N17.9 - Acute kidney failure, unspecified (3) Hyperkalemia Current Visit: Yes Status: Resolved Assessment and plan: Continues to be within normal limits this a.m.; will monitor daily. (4) HCAP (healthcare-associated pneumonia) Current Visit: Yes Status: Resolved Assessment and plan: Respiratory status normal and stable requiring no supplementation. Pt is without abnormal lung sounds and is conversational with no signs of distress. -- has finished appropriate course of cefepime & Levaquin (5) Anemia Current Visit: No Status: Chronic Assessment and plan: Normocephalic anemia that is most likely multifactorial. Hemoglobin stable at 7.5 g/dL this a.m. Hgb 7.6 (baseline 8.3-8.5); no significant changes through current course and no signs of decompensation due to anemia -CBC qAM, if drops below 7 will transfuse PRBC Qualifiers: Anemia type: iron deficiency Iron deficiency anemia type: unspecified iron deficiency Qualified Code(s): D50.9 - Iron deficiency anemia, unspecified (6) Atrial flutter Current Visit: No Status: Acute Assessment and plan: History of atrial fibrillation on anticoagulation with xarelto and rate controlled with Cardizem -continue Cardizem cd and Xarelto renal dose -RRR this AM on auscultation Qualifiers: Atrial flutter type: unspecified Qualified Code(s): I48.92 - Unspecified atrial flutter (7) Morbid obesity Current Visit: No Status: Chronic Assessment and plan: Chronic; likely disposed to [facility] for further reconditioning. (8) Myoclonus Current Visit: Yes Status: Resolved Assessment and plan: Resolved Likely secondary to gabapentin in setting of acute renal failure head MRA in brain MRI noted multifocal small vessel ischemic changes bilaterally with multiple old infarcts, no acute infarct or hemorrhage. (9) DVT prophylaxis Current Visit: Yes Status: Acute Assessment and plan: On Xarelto - Time Spent With Patient Total time spent is greater than 50% in coordination of care (as documented) at patient's floor/unit and/or counseling patient: - Subjective Interval history: Patient continues to be without any acute complaints this morning and is anxious to find out when she can be discharged back to [facility]. Patient did have elevated creatinine this morning compared to yesterday's value. We are monitoring patient for resolving YEIMY. Patient does not have any notable history beyond recent course of chronic kidney disease; renal function has been normal as recently as April 2017. Spoke with nephrology team who recommends further inpatient monitoring as patient cannot be safely discharged with acutely worsening renal function that does not show consistent signs of resolution. They have spoken with patient and she is amenable to further inpatient monitoring renal function. - Constitutional Vitals: Temp Pulse Resp BP Pulse Ox 98.5 F 70 18 137/58 96 02/14/18 11:13 02/14/18 11:13 02/14/18 11:13 02/14/18 11:13 02/14/18 11:13 CONSTITUTIONAL: Alert and oriented X3, well-nourished, well appearing, in no apparent distress HEAD: Normocephalic; atraumatic. EYES: PER, no scleral icterus, no drainage, no conjunctival injection Oropharynx: pink/moist RESP: NRD without use of accessory musculature, CTA b/l with no wheezes/rales/ rhonchi CARD: Regular rhythm, without murmurs, rubs, or gallop ABD: grossly normal, soft, non-tender, no guarding/distention/rigidity SKIN: normal appearance, no pallor/diaphoresis,mottling,jaundice,cyanosis EXT: Rad pulses 2+ and symmetrical; baseline pedal edema unchanged from previous exams PSYCH: appropriate mood/affect General appearance: Present: A&O X 3, morbidly obese, no acute distress, answers questions appropriately Internal Medicine: Result - Labs CBC & Chem 7: 02/14/18 03:20 02/14/18 03:20 Labs: Short CBC 02/14/18 Range/Units 03:20 WBC 7.4 (4.3-11.1) K/mcL Hgb 7.5 L (11.5-15.4) g/dL Hct 25.2 L (35.3-44.9) % Plt Count 186 (140-400) K/mcL BMP 02/14/18 03:20 Sodium 133 L Potassium 4.0 Chloride 100 Carbon Dioxide 30 H BUN 26 H Creatinine 2.21 H Glucose 211 H Calcium 8.6 - ABG Interpretation ABG results: PT/INR, D-dimer PT 13.7 Seconds (9.4-12.1) H 02/07/18 13:28 - VTE Documentation of Mechanical Device: Intermittent pneumatic compression device Consult Discharge Plan - Plan Referrals: David Lou MD [Primary Care Provider] - <Nellie Callahan - Last Filed: 02/14/18 14:24> Date of Encounter: 02/14/18 - Assessment and plan (1) Anemia Current Visit: No Status: Chronic Qualifiers: Anemia type: iron deficiency Iron deficiency anemia type: unspecified iron deficiency Qualified Code(s): D50.9 - Iron deficiency anemia, unspecified (2) Morbid obesity Current Visit: No Status: Chronic (3) Atrial flutter Current Visit: No Status: Acute Qualifiers: Atrial flutter type: unspecified Qualified Code(s): I48.92 - Unspecified atrial flutter (4) HCAP (healthcare-associated pneumonia) Current Visit: Yes Status: Resolved (5) Renal failure, acute Current Visit: Yes Status: Acute Qualifiers: Acute renal failure type: unspecified Qualified Code(s): N17.9 - Acute kidney failure, unspecified (6) Hyperkalemia Current Visit: Yes Status: Resolved (7) Altered mental status Current Visit: Yes Status: Resolved Qualifiers: Altered mental status type: unspecified Qualified Code(s): R41.82 - Altered mental status, unspecified (8) Myoclonus Current Visit: Yes Status: Resolved (9) DVT prophylaxis Current Visit: Yes Status: Acute - Time Spent With Patient Total time spent is greater than 50% in coordination of care (as documented) at patient's floor/unit and/or counseling patient: - Constitutional Vitals: Temp Pulse Resp BP Pulse Ox 98.5 F 70 18 137/58 96 02/14/18 11:13 02/14/18 11:13 02/14/18 11:13 02/14/18 11:13 02/14/18 11:13 Internal Medicine: Result - Labs CBC & Chem 7: 02/14/18 03:20 02/14/18 03:20 Labs: Short CBC 02/14/18 Range/Units 03:20 WBC 7.4 (4.3-11.1) K/mcL Hgb 7.5 L (11.5-15.4) g/dL Hct 25.2 L (35.3-44.9) % Plt Count 186 (140-400) K/mcL BMP 02/14/18 03:20 Sodium 133 L Potassium 4.0 Chloride 100 Carbon Dioxide 30 H BUN 26 H Creatinine 2.21 H Glucose 211 H Calcium 8.6 - ABG Interpretation ABG results: PT/INR, D-dimer PT 13.7 Seconds (9.4-12.1) H 02/07/18 13:28 - Attending Attestation I examined this patient and my medical decision-making was reviewed with the Resident Physician Dr. Gifford. I agree with the documented findings, disposition and treatment plan as described except to the extent set forth below. Ms. Lamb is 67 y/o F admitted here for YEIMY with CKD. She was required HD initially. Pt is alert, awake and O 3 Denied any CP / SOB. She also had h/o PE and Atrial flutter for which she is on Xarelto Gen: A,A,Ox 3 Chest: Diminished BS b/l no crackles Heart: S1S2 + RRR no murmurs a/p 1. YEIMY with CKD No recent Cr to compare. her Cr from 04/14 showed normal level however her current presentation concerns for me she is developing CKD-3 Her Cr fluctuating around 2.0 so far non oliguric Nephro on board cont to monitor 2. Atrial flutter rate controlled on Xarelto for anti coag- really dosed pt does not want to switch to Coumadin
[2018-02-14] MEDS ORDERED: 0.9 % Sodium Chloride 1,000 ML IVC SCH (14:00)
[2018-02-14] MEDS: Loratadine 10 MG TABLET PO SCH (15:36)
[2018-02-14] MEDS: *HR* Rivaroxaban 15 MG TABLET PO SCH (17:06)
[2018-02-15 08:19] LABS: Basophils % 0.4 %; Eosinophils # 0.3 K/mcL (0.0-0.6); Eosinophils % 4.1 %; Hematocrit 26.9 % (35.3-44.9); Hemoglobin 8.1 g/dL (11.5-15.4); Immature Granulocytes % 2.4 % (0-4); Lymphocytes # 1.2 K/mcL (0.6-4.6); Mean Corpuscular HGB Conc 30.1 g/dL (31.6-35.5); Mean Corpuscular Hemoglobin 30.1 pg (28.0-33.3); Mean Platelet Volume 9.6 fL (9.4-12.4); Monocytes # 0.6 K/mcL (0.0-1.3); Monocytes % 8.4 %; Neutrophils # 4.5 K/mcL (1.6-8.9); Platelet Count 200 K/mcL (140-400); Red Blood Count 2.69 M/mcL (3.82-4.97); Red Cell Distribution Width 14.8 % (11.5-14.5); Segmented Neutrophils % 66.7 %
[2018-02-15 08:34] LABS: Calcium 8.7 mg/dL (8.6-10.3); Potassium 4.1 mEq/L (3.5-5.1)
[2018-02-15] MEDS: Venlafaxine XR (24 HR) 150 MG CAP.ER.24H PO SCH (08:58)
[2018-02-15] MEDS: Diltiazem CD (24hr) 120 MG CAPSULE PO SCH (08:58)
[2018-02-15] MEDS: Insulin LISPRO 300 UNITS/3 ML VIAL SQ SCH ×2 (08:59→13:12)
[2018-02-15] MEDS ORDERED: Metoprolol XL (24 HR) Succ 25 MG TAB.ER.24H PO SCH (09:00)
[2018-02-15] MEDS: Insulin DETEMIR 100 UNIT/ML X5UNITS SQ SCH (09:00)
--- NOTE | 2018-02-15 10:07 | Discharge Summary ---
<Neville Gifford - Last Filed: 02/15/18 10:05> - NOTES TO OUTPATIENT PROVIDER Notes to Outpatient Provider: Majority of admitting diagnoses resolved with the exception of a K I. Patient did have normal renal function as recently as April 2017. Patient's renal function persistently maintains statically creatinine level of about 2.2 over the last couple of days. Patient will require outpatient follow-up with nephrology as well as attention to renal function on an ongoing basis. Patient has had plenty of PO fluid intake and plenty of urine output. Date of Encounter: 02/15/18 Time of Encounter: 10:05 - Discharge Diagnosis (1) Altered mental status Priority: Primary Status: Resolved Qualifiers: Altered mental status type: unspecified Qualified Code(s): R41.82 - Altered mental status, unspecified (2) Renal failure, acute Priority: Primary Status: Acute Comments: Will require close attention including labs and nephrology outpatient follow-up. Qualifiers: Acute renal failure type: unspecified Qualified Code(s): N17.9 - Acute kidney failure, unspecified (3) Hyperkalemia Priority: Primary Status: Resolved (4) HCAP (healthcare-associated pneumonia) Priority: Primary Status: Resolved (5) Anemia Priority: Primary Status: Chronic Comments: Stable Qualifiers: Anemia type: iron deficiency Iron deficiency anemia type: unspecified iron deficiency Qualified Code(s): D50.9 - Iron deficiency anemia, unspecified (6) Atrial flutter Priority: Secondary Status: Resolved Qualifiers: Atrial flutter type: unspecified Qualified Code(s): I48.92 - Unspecified atrial flutter (7) Morbid obesity Priority: Secondary Status: Chronic (8) Myoclonus Priority: Primary Status: Resolved Hospital course: Ms. Lamb is a 67 year old female who was sent by EMS from her ECF due to altered mental status low-grade fever on 02/06/18. Initial imaging included chest x-ray, chest CT, abdominal CT, and head CT; collectively read as no acute intracranial abnormality, bilateral opacification to lungs concerning for pneumonia, and small hiatal hernia. On initial lab evaluation, patient patient was found to be hyperkalemia with values of 7.7/peaking at 7.9. Nephrology and IR consulted, and tempted dialysis catheter was placed for hemodialysis/keagan ( 02/07, 02/08, 02/09, 02/12). Initially admitted to ICU and transferredPotassium rapidly stabilized and has been within normal range since 02/08/18. She was also initially leukocytosic at 12.6k, however this is been invariably within normal range since initial date of presentation. Patient is chronically anemic and has remained at or around her baseline and has been stable throughout hospital course. Though patient has no known history of chronic renal disease, patient has had significantly elevated creatinine levels initially at 4.28 which have improved significantly, however have not normalized. Did have evidence of UTI which was concurrently treated. Currently creatinine levels have remained static at about 2.2 over the past couple of days. Nephrology is cleared patient for discharge granted close follow-up of renal function and outpatient follow-up with nephrology. HD catheter was removed on 02/15/18 with no complications. All presenting conditions have resolved with the exception of renal function which include altered mentation, pneumonia, and hyperkalemia; full antibiotic course has been complete for several days with no relapse of acute infectious symptoms/signs. Patient tolerates PO intake with no difficulties and is drinking adequate amount of fluids. Patient does have chronic history of severe osteoarthritis, degenerative disc disease, and morbid obesity's severely limiting mobility. Due to these issues, patient also has difficulty with urinary incontinence and will be sent to ECF/SNF with Newby in place ideally to be removed within the next couple of days. Other imaging: brain MRI/head MRA: small vessel ischemic change with old infarcts, no acute in /hemorrhage, no arterial narrowing, no discrete aneurysm B/L LE VD-U/S: negative for DVT Retroperitoneal U/S: limited without abnormality Patient returning to [facility] and will require continual PT/OT evaluation and treatment while there. Will need at least weekly reassessment of renal function and outpatient follow-up with nephrology within one to 2 weeks. Discharge discussed with: patient - Time Spent with Patient Total time spent providing and/or coordinating discharge services: - Discharge Medications Home Medications: Citalopram [CeleXA] 20 mg PO DAILY 04/12/17 [History] GuaiFENesin/Dextromethorphan [Mucinex Dm] 1 each PO HS 04/12/17 [History] Loperamide HCl [Imodium A-D] 2 mg PO PRN PRN 04/12/17 [History] Losartan Potassium [Cozaar] 50 mg PO DAILY 04/12/17 [History] Multivitamin [Multi-Day Vitamins] 1 each PO DAILY 04/12/17 [History] Pioglitazone [Actos] 45 mg PO 0800 04/12/17 [History] Venlafaxine XR (24 HR) [Effexor Xr] 300 mg PO QAM 04/12/17 [History] Vitamin B Complex 1 each PO DAILY 04/12/17 [History] Ascorbic Acid [Vitamin C] 500 mg PO DAILY #30 tablet 04/16/17 [Rx] Ferrous Sulfate 325 mg PO BIDWM #60 tablet 04/16/17 [Rx] Diltiazem CD (24hr) [Cardizem CD] 120 mg PO DAILY 30 Days cap.er.24h 04/30/17 [ Rx] Gabapentin [Neurontin] 300 mg PO BID #30 capsule 05/03/17 [Rx] Rivaroxaban [Xarelto] 20 mg PO DAILY #30 tablet 05/03/17 [Rx] HYDROcodone/Acet 5/325 mg [[place] 5-325 mg] 1 - 2 tab PO Q4H PRN #20 tablet 05/17 [Rx] Acetaminophen [Extra Strength Non-Aspirin] 1,000 mg PO Q8H PRN 02/06/18 [History ] Baclofen 20 mg PO TID PRN 02/06/18 [History] Caffeine [Stay Awake] 100 mg PO TID 02/06/18 [History] Diclofenac Sodium [Voltaren] 75 mg PO BID 02/06/18 [History] Furosemide [Lasix] 40 mg PO BID 02/06/18 [History] Insulin DETEMIR [Levemir] 40 unit SQ HS 02/06/18 [History] Loratadine [Allergy Relief] 10 mg PO DAILY PRN 02/06/18 [History] Metoprolol [Lopressor] 50 mg PO DAILY 02/06/18 [History] Omeprazole [PriLOSEC] 20 mg PO DAILY 02/06/18 [History] Potassium Chloride [K-Tab ER] 20 meq PO BID 02/06/18 [History] Calcium Carbonate [Tums] 500 mg PO Q4HR PRN 02/07/18 [History] Mag Hydrox/Aluminum Hyd/Simeth [Cvs Antacid Plus Anti-Gas Liq] 30 ml PO DAILY PRN 02/07/18 [History] metFORMIN [Glucophage] 500 mg PO BIDWM 02/07/18 [History] Allergies/Adverse Reactions: 3 Allergy/AdvReac Type Severity Reaction Status Date / Time Penicillins AdvReac Gastrointestinal Verified 04/12/17 14:05 Upset shellfish derived AdvReac Headache Verified 04/12/17 14:05 Tetracyclines AdvReac Rash Verified 04/12/17 14:05 Date of admission: 02/06/18 15:55 Primary care physician: David Lou MD Consults: 02/06/18 18:15 Consult to Dialysis [CONS] ONCE 02/07/18 10:30 Consult to Pulmonology [CONS] Routine Consulting Provider: [facility] Reason for Consult: AMS WITH ANASARCA AND RENAL FAILURE Call Completed: Yes 02/09/18 14:00 Consult to Dialysis [CONS] ONCE 02/12/18 07:45 Consult to Dialysis [CONS] ONCE 02/15/18 09:21 Consult to Interventional Radiology [CONS] Routine Consulting Provider: Radiology [facility] Reason for Consult: Please remove the temporary HD catheter as she will no longer need ongoing HD at this time. Thank you. Call Completed: No Discharging clinician: Neville Gifford Anticipated date of discharge: 02/15/18 - Constitutional Vitals: Temp Pulse Resp BP Pulse Ox 98.1 F 69 14 154/79 96 02/15/18 08:13 02/15/18 08:13 02/15/18 08:13 02/15/18 08:13 02/15/18 08:13 CONSTITUTIONAL: Alert and oriented X3, well-nourished, well appearing, in no apparent distress HEAD: Normocephalic; atraumatic. EYES: PERRL, no scleral icterus, no drainage, no conjunctival injection NOSE: The nose is normal in appearance without rhinorrhea Oropharynx: pink/moist, no tonsillar edema/erythema/exudates RESP: NRD without use of accessory musculature, CTA b/l with no wheezes/rales/ rhonchi CARD: Regular rhythm, without murmurs, rubs, or gallop ABD: grossly normal, soft, non-tender, no guarding/distention/rigidity : catheter in place with clear yellow urine SKIN: normal appearance, no pallor/diaphoresis,mottling,jaundice,cyanosis EXT: Rad pulses 2+ and symmetrical; unchanged symmetrical bilaterally lower extremity edema is 2-3+; no other lesions seen PSYCH: appropriate mood/affect General appearance: Present: A&O X 3, morbidly obese, no acute distress, answers questions appropriately - Patient Status Disposition: Transfer SNF Condition: Fair Functional capacity at discharge: wheelchair bound Overall status at discharge: patient is progressing back to baseline - Ambulatory Orders Ambulatory Orders: Basic Metabolic Panel [CHEM] Time Frame: 3 Days, Facility: [facility], Location: [facility] - Discharge Instructions Instructions: Acute Kidney Injury (DC), Newby Catheter Placement and Care (DC) , Bacterial Pneumonia (DC), Anemia (DC) Follow Up With: David Lou MD [Primary Care Provider] - [facility] [Provider Group] (1-2 weeks) Additional Instructions: Please review instructions printed out for you Please adhere to all follow-ups including with the primary care provider within 77 days and nephrology within 7 to 10 days Reasons to seek further evaluation include confusion, fevers, chills, sweats, lightheadedness, chest pain, palpitations, cough, shortness of breath, nausea, vomiting, abdominal pain, diarrhea, dysuria, or any evidence of blood in stools/ urine. If you experience any of these symptoms, I advised to call you primary care provider or to present to the emergency department for further workup. - Diet and Activity Activity: as per physical therapy, increase activity as tolerated Diet: diabetic diet - VTE Documentation of Mechanical Device: Intermittent pneumatic compression device <Nellie Callahan - Last Filed: 02/15/18 17:17> Date of Encounter: 02/15/18 - Discharge Diagnosis (1) Anemia Status: Chronic Qualifiers: Anemia type: iron deficiency Iron deficiency anemia type: unspecified iron deficiency Qualified Code(s): D50.9 - Iron deficiency anemia, unspecified (2) Morbid obesity Status: Chronic (3) Atrial flutter Status: Resolved Qualifiers: Atrial flutter type: unspecified Qualified Code(s): I48.92 - Unspecified atrial flutter (4) HCAP (healthcare-associated pneumonia) Status: Resolved (5) Renal failure, acute Status: Acute Qualifiers: Acute renal failure type: unspecified Qualified Code(s): N17.9 - Acute kidney failure, unspecified (6) Hyperkalemia Status: Resolved (7) Altered mental status Status: Resolved Qualifiers: Altered mental status type: unspecified Qualified Code(s): R41.82 - Altered mental status, unspecified (8) Myoclonus Status: Resolved Hospital course: Ms. Lamb is a 67 year old female - Time Spent with Patient Total time spent providing and/or coordinating discharge services: Date of admission: 02/06/18 15:55 Primary care physician: David Lou MD Consults: 02/06/18 18:15 Consult to Dialysis [CONS] ONCE 02/07/18 10:30 Consult to Pulmonology [CONS] Routine Consulting Provider: [facility] Reason for Consult: AMS WITH ANASARCA AND RENAL FAILURE Call Completed: Yes 02/09/18 14:00 Consult to Dialysis [CONS] ONCE 02/12/18 07:45 Consult to Dialysis [CONS] ONCE 02/15/18 09:21 Consult to Interventional Radiology [CONS] Routine Consulting Provider: Radiology Inter[facility] Reason for Consult: Please remove the temporary HD catheter as she will no longer need ongoing HD at this time. Thank you. Call Completed: No - Constitutional Vitals: Temp Pulse Resp BP Pulse Ox 97.9 F 64 15 144/77 96 02/15/18 10:42 02/15/18 10:42 02/15/18 10:42 02/15/18 10:42 02/15/18 10:42 - Attending Attestation I examined this patient and my medical decision-making was reviewed with the Resident Physician Dr. Gifford. I agree with the documented findings, disposition and treatment plan as described except to the extent set forth below. Ms. Lamb is 67 y/o F admitted here for YEIMY with CKD. She was required HD initially. Pt is alert, awake and O 3 Denied any CP / SOB. She also had h/o PE and Atrial flutter for which she is on Xarelto Gen: A,A,Ox 3 Chest: Diminished BS b/l no crackles Heart: S1S2 + RRR no murmurs a/p 1. YEIMY with CKD No recent Cr to compare. her Cr from 04/14 showed normal level however her current presentation concerns for me she is developing CKD-3 Her Cr fluctuating around 2.0 so far non oliguric 2. Atrial flutter rate controlled on Xarelto for anti coag- really dosed pt does not want to switch to Coumadin 3. Acute hypoxic resp failure - resolved mostly due to volume overload and pneumonia finished full abx course here Medically stable to d/c back to ECF today
[2018-02-15 10:46] VITALS: BP 144/77
--- NOTE | 2018-02-15 10:48 | Physician Discharge Referral ---
ExtendedCare Referral Info Transfer To: [facility] Provider in Charge after Transfer: PCP Institutional Level of Care: Skilled - Diagnosis (1) Altered mental status Priority: Primary Status: Resolved (2) Renal failure, acute Priority: Primary Status: Acute (3) Hyperkalemia Priority: Primary Status: Resolved (4) HCAP (healthcare-associated pneumonia) Priority: Primary Status: Resolved (5) Anemia Priority: Secondary Status: Chronic (6) Atrial flutter Priority: Secondary Status: Resolved (7) Morbid obesity Priority: Secondary Status: Chronic (8) Myoclonus Priority: Secondary Status: Resolved Prognosis: Fair Aware of Diagnosis: Patient Aware of Prognosis: Patient - Transfer Medications Home Medications: Citalopram [CeleXA] 20 mg PO DAILY 04/12/17 [History] GuaiFENesin/Dextromethorphan [Mucinex Dm] 1 each PO HS 04/12/17 [History] Loperamide HCl [Imodium A-D] 2 mg PO PRN PRN 04/12/17 [History] Losartan Potassium [Cozaar] 50 mg PO DAILY 04/12/17 [History] Multivitamin [Multi-Day Vitamins] 1 each PO DAILY 04/12/17 [History] Pioglitazone [Actos] 45 mg PO 0800 04/12/17 [History] Venlafaxine XR (24 HR) [Effexor Xr] 300 mg PO QAM 04/12/17 [History] Vitamin B Complex 1 each PO DAILY 04/12/17 [History] Ascorbic Acid [Vitamin C] 500 mg PO DAILY #30 tablet 04/16/17 [Rx] Ferrous Sulfate 325 mg PO BIDWM #60 tablet 04/16/17 [Rx] Diltiazem CD (24hr) [Cardizem CD] 120 mg PO DAILY 30 Days cap.er.24h 04/30/17 [ Rx] Gabapentin [Neurontin] 300 mg PO BID #30 capsule 05/03/17 [Rx] Rivaroxaban [Xarelto] 20 mg PO DAILY #30 tablet 05/03/17 [Rx] HYDROcodone/Acet 5/325 mg [[place] 5-325 mg] 1 - 2 tab PO Q4H PRN #20 tablet 05/17 [Rx] Acetaminophen [Extra Strength Non-Aspirin] 1,000 mg PO Q8H PRN 02/06/18 [History ] Baclofen 20 mg PO TID PRN 02/06/18 [History] Caffeine [Stay Awake] 100 mg PO TID 02/06/18 [History] Diclofenac Sodium [Voltaren] 75 mg PO BID 02/06/18 [History] Furosemide [Lasix] 40 mg PO BID 02/06/18 [History] Insulin DETEMIR [Levemir] 40 unit SQ HS 02/06/18 [History] Loratadine [Allergy Relief] 10 mg PO DAILY PRN 02/06/18 [History] Metoprolol [Lopressor] 50 mg PO DAILY 02/06/18 [History] Omeprazole [PriLOSEC] 20 mg PO DAILY 02/06/18 [History] Potassium Chloride [K-Tab ER] 20 meq PO BID 02/06/18 [History] Calcium Carbonate [Tums] 500 mg PO Q4HR PRN 02/07/18 [History] Mag Hydrox/Aluminum Hyd/Simeth [Cvs Antacid Plus Anti-Gas Liq] 30 ml PO DAILY PRN 02/07/18 [History] metFORMIN [Glucophage] 500 mg PO BIDWM 02/07/18 [History] Allergies/Adverse Reactions: 3 Allergy/AdvReac Type Severity Reaction Status Date / Time Penicillins AdvReac Gastrointestinal Verified 04/12/17 14:05 Upset shellfish derived AdvReac Headache Verified 04/12/17 14:05 Tetracyclines AdvReac Rash Verified 04/12/17 14:05 - Respiratory Orders Oxygen / L per min (per need) Smoking Cessation: Smoking cessation has been advised. For more information, call the [place] Tobacco Quit Line at 9-090-OIXI-NOW. - Ancillary Orders May use pressure relief devices daily prn - Advance Directives Code Status: Full Code - Mobility Orders Chair - Rehabiliation Orders Rehab Potential: Fair Rehab Orders: ROM Exercises, Evaluation for Physical Therapy, Evaluation for Occupational Therapy - Treatments Skin tear care topically daily PRN per policy, May check for fecal impaction rectally daily PRN, Fleet enema rectally every other day PRN cleansing purposes - Diet Orders No Concentrated Sweets CERTIFICATION: I certify that the transfer of the above named patient to an Extended Care Facility is necessary for the continuing treatment of the diagnosis listed. The above information is true and accurate reflection of patient's current condition. Confidential - Redisclosure prohibited without a patient's written consent.
--- NOTE | 2018-02-15 11:14 | Nephrology Progress Note ---
Date of Encounter: 02/15/18 Time of Encounter: 09:30 - Assessment and Plan (1) Acute kidney injury Status: Acute trending better such that she will not need HD, and her eGFR has been stable in the 20s without HD since Sunday; so, it's safe now to remove the temporary HD catheter. Would highly recommend avoiding Nephrotoxic meds to help facilitate and improve the odds of renal recovery: hold NSAIDs, and metformin is contraindicated since her eGFR is still <30. I counseled her for >50% of the encounter on the importance of following a renal protective strategy such as avoidance of nephrotoxins, adequate fluid hydration, low sodium diet, and improvement in obesity and DM to help with renal care. Would also recommend follow up in Nephrology with Dr. Arias who oritinally established with the pt in about 2-5 weeks with follow-up BMP or RFP to be checked to ensure that she is not worsening in terms of renal function. Discussed with the hospitalist. Thank you. (2) Diabetic renal disease Status: Chronic Suspect this as one of the risk factors for renal disease. My colleague started the renal / YEIMY work up. Qualifiers: Diabetes mellitus type: type 2 Qualified Code(s): E11.21 - Type 2 diabetes mellitus with diabetic nephropathy (3) Volume overload Status: Acute appears to be improving. Qualifiers: Hypervolemia type: unspecified Qualified Code(s): E87.70 - Fluid overload, unspecified (4) Hyperkalemia Status: Resolved (5) Morbid obesity Status: Chronic Subjective Principal diagnosis: YEIMY Interval history: Pt was S/E and did not affirm N/V/D or F/C, but she said that she wants to continue to take NSAIDs and Metformin despite my recommendations. She was under the impression, she said, that her renal function had already resolved -- I corrected her. Objective - Vital Signs Vital signs: Vital Signs Temp Pulse Resp BP Pulse Ox 02/15/18 10:42 97.9 F 64 15 144/77 96 02/15/18 08:13 98.1 F 69 14 154/79 96 02/15/18 04:12 98.4 F 66 16 128/55 95 02/14/18 23:56 98.8 F 69 18 143/70 95 02/14/18 19:12 98.4 F 70 17 114/54 93 02/14/18 14:51 98.3 F 74 18 146/71 92 02/14/18 11:13 98.5 F 70 18 137/58 96 Intake and Output 02/14/18 02/15/18 02/15/18 23:59 07:59 15:59 Intake Total 380 / 380 Output Total 300 / 300 300 / 300 650 / 650 Balance -300 / -300 -300 / -300 -270 / -270 Intake: Oral 380 / 380 Output: Straight Cath 300 / 300 Catheter 300 / 300 650 / 650 Other: Meal Breakfast Percent of Meal Consumed 85% Blood Glucose* 186 155 - General Appearance General appearance: Present: well-developed, well-nourished, obese, chronically ill, fatigue EENT: Present: ATNC, PERRL, mucous membranes moist Neck: Present: supple Respiratory: Present: clear (though limited by her obese body habitus) Cardiology: Present: edema (nonpitting, nontense B/L LE edema ), regular rate, regular rhythm, normal S1, normal S2 Gastrointestinal: Present: normoactive bowel sounds, no tenderness, no masses, obese Integumentary: Present: warm and dry Neurologic: Present: no focal deficit, no asterixis, alert and oriented x3 Musculoskeletal: Present: no cyanosis, no clubbing Additional Comments: Her ankles appeared as though she were nonambulatory for quite some time Psychiatric: Present: agitated (and argumentative) - Lab 02/15/18 08:00 02/15/18 08:00 Most recent lab results Calcium 8.7 mg/dL (8.6-10.3) 02/15/18 08:00 Phosphorus 6.3 mg/dL (2.7-4.5) H 02/07/18 04:00 Magnesium 1.9 mg/dL (1.6-2.6) 02/10/18 04:20 Urine Creatinine 50 mg/dL 02/06/18 21:48 Urine Sodium 41.3 mEq/L 02/06/18 21:48 Urine Total Protein 1011 mg/dL (1-14) H 02/06/18 21:48 - VTE Documentation of Mechanical Device: Intermittent pneumatic compression device Consult Discharge Plan - Plan Instructions: Acute Kidney Injury (DC), Newby Catheter Placement and Care (DC) , Bacterial Pneumonia (DC), Anemia (DC) Additional Instructions: Please review instructions printed out for you Please adhere to all follow-ups including with the primary care provider within 77 days and nephrology within 7 to 10 days Reasons to seek further evaluation include confusion, fevers, chills, sweats, lightheadedness, chest pain, palpitations, cough, shortness of breath, nausea, vomiting, abdominal pain, diarrhea, dysuria, or any evidence of blood in stools/ urine. If you experience any of these symptoms, I advised to call you primary care provider or to present to the emergency department for further workup. Referrals: [facility] [Provider Group] (1-2 weeks) David Lou MD [Primary Care Provider] -
== END 2018-02-15 13:20 | DRG 682 ==
LOC: 2ANU 11:17 → EMEROO 11:17 → SUATTDRO 15:55 → OBSVTOIN 15:55 → ICNU 18:02 → 3ANU 02-08 15:50
PROVIDERS: ADMIT Internal Medicine; ATTEND Hospitalist

== ENCOUNTER 2019-03-31 19:08 | Inpatient (IN) ==
[2019-03-31] MEDS ORDERED: Furosemide 40 MG/4 ML VIAL IVP ONE ×2 (19:24→20:20)
--- NOTE | 2019-03-31 19:24 | Emergency Department Note ---
Disposition Clinical Impression: Pneumonia Qualifiers: Pneumonia type: due to unspecified organism Laterality: unspecified laterality Lung location: unspecified part of lung Qualified Code(s): J18.9 - Pneumonia, unspecified organism Sepsis Qualifiers: Sepsis type: sepsis due to unspecified organism Qualified Code(s): A41.9 - Sepsis, unspecified organism Febrile Qualifiers: Fever type: unspecified Qualified Code(s): R50.9 - Fever, unspecified Disposition: Still a Patient Condition: Serious Referrals: Anmol Mancuso MD [Primary Care Provider] - Forms: ED Satisfaction Letter Time of Disposition: 20:24 General Adult HPI - General Stated complaint: sob, leg pain Time Seen by Provider: 03/31/19 19:09 Source: patient, EMS Mode of arrival: EMS Limitations: no limitations Nursing Notes Reviewed: Yes Vital Signs Reviewed: Yes - History of Present Illness HPI Narrative: Patient is a 68-year-old female that presents emergency department via EMS for left lower extremity pain and chest pain and shortness of breath. Patient states that this is been ongoing for the past day or so. Patient states that s he has recently been admitted to the hospital. Patient does not provide much else for history. States that she has had significant weight gain over the past 6 weeks of approximate 60 pounds of potential water weight. Patient also has wounds to the right lower extremity that have been dressed. EMS did report that she had had a recent compression fracture of her left lower extremity. Pain Scale: 10 - Related Data Home Medications Medication Instructions Recorded Confirmed Citalopram [CeleXA] 20 mg PO DAILY 04/12/17 02/24/19 Loperamide HCl [Imodium A-D] 2 mg PO PRN PRN 04/12/17 02/24/19 Losartan Potassium [Cozaar] 50 mg PO DAILY 04/12/17 02/24/19 Pioglitazone [Actos] 45 mg PO DAILY 04/12/17 02/24/19 Venlafaxine XR (24 HR) [Effexor Xr] 300 mg PO DAILY 04/12/17 02/24/19 Vitamin B Complex 1 cap PO DAILY 04/12/17 02/24/19 Acetaminophen [Extra Strength 1,000 mg PO Q8H PRN 02/06/18 02/24/19 Non-Aspirin] Baclofen 20 mg PO TID PRN 02/06/18 02/24/19 Loratadine [Allergy Relief] 10 mg PO DAILY PRN 02/06/18 02/24/19 Omeprazole [PriLOSEC] 20 mg PO DAILY 02/06/18 02/24/19 Calcium Carbonate [Tums] 500 mg PO Q4HR PRN 02/07/18 02/24/19 metFORMIN [Glucophage] 500 mg PO BIDWM 02/07/18 02/24/19 GuaiFENesin/Dextromethorphan 1 each PO BID 03/18/18 02/24/19 [Mucinex Dm ER 600-30 mg Tablet] Caffeine [Stay Awake] 50 mg PO TID 12/01/18 02/24/19 Ciclopirox Olamine [Ciclopirox] 1 appl TP BID PRN 12/01/18 02/24/19 DiphenhydraMINE [Benadryl] 50 mg PO Q6HR PRN 12/01/18 02/24/19 Insulin Glargine [Lantus] 40 unit SQ HS 12/01/18 02/24/19 Magnesium Hydroxide/Al Hydrox 30 ml PO DAILY PRN 12/01/18 02/24/19 [Mag-Al Liquid] Nystatin OINT [Mycostatin] 1 appl TP BID 12/01/18 02/24/19 Potassium Chloride [K-Tab ER] 20 meq PO DAILY 12/01/18 02/24/19 Apixaban [Eliquis] 2.5 mg PO BID 12/03/18 02/24/19 Diltiazem HCl [Diltiazem 24Hr Cd] 120 mg PO DAILY 12/03/18 02/24/19 Furosemide [Lasix] 40 mg PO BID 12/03/18 02/24/19 Glucagon,Human Recombinant 1 mg IM AD PRN 12/03/18 02/24/19 [Glucagen] HYDROcodone/Acet 5/325 mg [[place] 1 tab PO BID 12/03/18 02/24/19 5-325 mg] HYDROcodone/Acet 5/325 mg [[place] 1 tab PO Q4H PRN 12/03/18 02/24/19 5-325 mg] Metoprolol Tartrate [Lopressor] 50 mg PO DAILY 12/03/18 02/24/19 Multivitamin [Daily Multiple 1 tab PO DAILY 12/03/18 02/24/19 Vitamin] Previous Rx's Medication Instructions Recorded Ferrous Sulfate 325 mg PO BIDWM #60 tablet 04/16/17 Budesonide/Formoterol 160/4.5 2 puff IH BIDR #1 applic 12/06/18 [Symbicort 160/4.5] Gabapentin [Neurontin] 300 mg PO BID #30 capsule 12/06/18 GuaiFENesin ER [Mucinex] 600 mg PO BID #20 tbbp.12hr 12/06/18 predniSONE [PredniSONE] 10 mg PO DAILY #30 tablet 12/06/18 Levofloxacin [Levaquin] 500 mg PO DAILY #7 tablet 12/25/18 Allergies Allergy/AdvReac Type Severity Reaction Status Date / Time Penicillins AdvReac Gastrointestinal Verified 02/24/19 11:20 Upset shellfish derived AdvReac Headache Verified 02/24/19 11:20 Tetracyclines AdvReac Rash Verified 02/24/19 11:20 All systems ED: reviewed and negative except as stated. Constitutional: Reports: fever Cardiovascular: Reports: chest pain Respiratory: Reports: dyspnea Gastrointestinal: Denies: nausea, vomiting Musculoskeletal: Reports: other (Left lower extremity pain) Past Medical History - Past Medical History Medical history: Reports: arthritis, diabetes, GERD, hypertension, renal disease, other Surgical history: Reports: appendectomy, sinus surgery, bariatric surgery Psychiatric history: Reports: anxiety, depression - Social History Smoking Status: Never smoker Smokeless Tobacco Status: No Alcohol use: Reports: none Drug use: Reports: none Physical Exam - General Limitations: no limitations General appearance: alert, in no apparent distress - Head Head exam: atraumatic, normocephalic - Eye Eye exam: Present: normal appearance, EOMI - Neck Neck exam: Present: normal inspection, full ROM, trachea midline - Respiratory Respiratory exam: Present: other (Patient has crackles bilaterally.) - Cardiovascular Cardiovascular exam: Present: regular rate, normal rhythm, normal heart sounds, +S1, +S2 - Abdominal Exam Abdominal exam: Present: soft, Non-Tender, normal bowel sounds - Neurological Exam Neurological exam: Present: alert, oriented X3 - Psychiatric Psychiatric exam: Present: normal affect, normal mood - Skin Skin exam: Present: warm, dry, intact Course Vital Signs Temperature 102.1 F H 03/31/19 19:11 Pulse Rate 85 03/31/19 19:11 Respiratory Rate 27 03/31/19 19:11 Blood Pressure 144/132 03/31/19 19:11 O2 Sat by Pulse Oximetry 92 03/31/19 19:11 Temperature 102.1 F H 03/31/19 19:11 Pulse Rate 79 03/31/19 19:23 Respiratory Rate 25 03/31/19 19:23 Blood Pressure 144/132 03/31/19 19:11 O2 Sat by Pulse Oximetry 97 03/31/19 19:23 Oxygen Delivery Oxygen Delivery Nasal Cannula Medical Decision Making - [facility] Narrative Medical decision making narrative: Due the patient presenting to the emergency department from the [facility] and having multiple wounds and complaints of shortness of breath there is increased concern for potential sepsis. Patient does meet sepsis criteria. Patient was started on vancomycin and Zosyn. At this time we will not provide any additional fluid resuscitation due to the patient being significantly fluid overloaded on exam. Chest x-ray shows concern for possible pneumonia. Patient has an elevated lactic acid of 2.3. Patient will be given some gentle fluid resuscitation due to the elevated lactic acid level. He does have a significant elevated white blood cell count 22,000. Patient will be signed out to the attending Dr. Aguero. Please see his documentation for further medical decision making and final disposition of the patient. - Medical Records Medical records reviewed: Yes I reviewed the patient's medical records. - Lab Data Lab results reviewed: Yes I reviewed the patient's lab results. Result diagrams: 03/31/19 19:37 Lab Results 03/31/19 03/31/19 03/31/19 Range/Units 19:27 19:37 19:37 WBC 22.6 H (4.3-11.1) K/mcL RBC 3.24 L (3.82-4.97) M/mcL Hgb 9.7 L (11.5-15.4) g/dL Hct 32.1 L (35.3-44.9) % MCV 99.1 (83.0-100.0) fL MCH 29.9 (28.0-33.3) pg MCHC 30.2 L (31.6-35.5) g/dL RDW 14.6 H (11.5-14.5) % Plt Count 272 (140-400) K/mcL MPV 10.3 (9.4-12.4) fL Immature Gran % 1.2 (0-4) % Seg Neutrophils % 89.8 % Lymphocytes % 4.9 % Monocytes % 3.6 % Eosinophils % 0.3 % Basophils % 0.2 % Neutrophils # 20.3 H (1.6-8.9) K/mcL Lymphocytes # 1.1 (0.6-4.6) K/mcL Monocytes # 0.8 (0.0-1.3) K/mcL Eosinophils # 0.1 (0.0-0.6) K/mcL Basophils # 0.0 (0.0-0.2) K/mcL PT 20.1 H (9.4-12.1) Seconds INR 1.8 APTT 34.2 (26.0-36.0) Seconds Lactic Acid 2.3 H (0.5-2.2) mmol/L - Radiology Data Radiology results reviewed: Yes I reviewed the patient's radiology results. Chest X-Ray 03/31/19 19:21 IMPRESSION: Prominence of central pulmonary vasculature. Correlation for pulmonary vascular congestion is recommended. Right basilar airspace disease and probable right pleural effusion, asymmetric edema versus pneumonia. Follow-up is recommended, preferably with a PA and lateral study. D/ / Justine Farrar Cha, MD / Justine Farrar Cha, MD Interpreting Provider: Justine Farrar Cha, MD - EKG Data EKG #1 EKG attestation: Yes I reviewed and interpreted this EKG. EKG results narrative: EKG shows sinus rhythm at a rate of 84 bpm, HI interval 185, QRS duration 97, QTc of 419. There is no evidence of STEMI and EKG.
[2019-03-31] MEDS ORDERED: Piperacillin/Tazobactam 3.375 GM in 0.9 % Sodium Chloride Mini Bag 100 ML IVPB ONE (19:26)
[2019-03-31 20:05] LABS: Basophils % 0.2 %; Eosinophils # 0.1 K/mcL (0.0-0.6); Eosinophils % 0.3 %; Hematocrit 32.1 % (35.3-44.9); Hemoglobin 9.7 g/dL (11.5-15.4); Immature Granulocytes % 1.2 % (0-4); Lymphocytes # 1.1 K/mcL (0.6-4.6); Lymphocytes % 4.9 %; Mean Corpuscular HGB Conc 30.2 g/dL (31.6-35.5); Mean Corpuscular Hemoglobin 29.9 pg (28.0-33.3); Mean Corpuscular Volume 99.1 fL (83.0-100.0); Mean Platelet Volume 10.3 fL (9.4-12.4); Monocytes # 0.8 K/mcL (0.0-1.3); Monocytes % 3.6 %; Neutrophils # 20.3 K/mcL (1.6-8.9); Platelet Count 272 K/mcL (140-400); Red Blood Count 3.24 M/mcL (3.82-4.97); Red Cell Distribution Width 14.6 % (11.5-14.5); Segmented Neutrophils % 89.8 %; White Blood Count 22.6 K/mcL (4.3-11.1)
--- NOTE | 2019-03-31 20:08 | Emergency Department Note ---
Disposition Clinical Impression: Pneumonia Qualifiers: Pneumonia type: due to unspecified organism Laterality: unspecified laterality Lung location: unspecified part of lung Qualified Code(s): J18.9 - Pneumonia, unspecified organism Sepsis Qualifiers: Sepsis type: sepsis due to unspecified organism Qualified Code(s): A41.9 - Sepsis, unspecified organism Febrile Qualifiers: Fever type: unspecified Qualified Code(s): R50.9 - Fever, unspecified Disposition: Admitted As Inpatient Condition: Fair Time of Disposition: 21:22 General Adult HPI - General Chief complaint: ED Shortness of Breath/Dyspnea Stated complaint: sob, leg pain Time Seen by Provider: 03/31/19 19:09 Source: patient, EMS Mode of arrival: EMS Limitations: no limitations Nursing Notes Reviewed: Yes Vital Signs Reviewed: Yes - History of Present Illness Pain Scale: 10 - Related Data Home Medications Medication Instructions Recorded Confirmed Citalopram [CeleXA] 20 mg PO DAILY 04/12/17 02/24/19 Loperamide HCl [Imodium A-D] 2 mg PO PRN PRN 04/12/17 02/24/19 Losartan Potassium [Cozaar] 50 mg PO DAILY 04/12/17 02/24/19 Pioglitazone [Actos] 45 mg PO DAILY 04/12/17 02/24/19 Venlafaxine XR (24 HR) [Effexor Xr] 300 mg PO DAILY 04/12/17 02/24/19 Vitamin B Complex 1 cap PO DAILY 04/12/17 02/24/19 Acetaminophen [Extra Strength 1,000 mg PO Q8H PRN 02/06/18 02/24/19 Non-Aspirin] Baclofen 20 mg PO TID PRN 02/06/18 02/24/19 Loratadine [Allergy Relief] 10 mg PO DAILY PRN 02/06/18 02/24/19 Omeprazole [PriLOSEC] 20 mg PO DAILY 02/06/18 02/24/19 Calcium Carbonate [Tums] 500 mg PO Q4HR PRN 02/07/18 02/24/19 metFORMIN [Glucophage] 500 mg PO BIDWM 02/07/18 02/24/19 GuaiFENesin/Dextromethorphan 1 each PO BID 03/18/18 02/24/19 [Mucinex Dm ER 600-30 mg Tablet] Caffeine [Stay Awake] 50 mg PO TID 12/01/18 02/24/19 Ciclopirox Olamine [Ciclopirox] 1 appl TP BID PRN 12/01/18 02/24/19 DiphenhydraMINE [Benadryl] 50 mg PO Q6HR PRN 12/01/18 02/24/19 Insulin Glargine [Lantus] 40 unit SQ HS 12/01/18 02/24/19 Magnesium Hydroxide/Al Hydrox 30 ml PO DAILY PRN 12/01/18 02/24/19 [Mag-Al Liquid] Nystatin OINT [Mycostatin] 1 appl TP BID 12/01/18 02/24/19 Potassium Chloride [K-Tab ER] 20 meq PO DAILY 12/01/18 02/24/19 Apixaban [Eliquis] 2.5 mg PO BID 12/03/18 02/24/19 Diltiazem HCl [Diltiazem 24Hr Cd] 120 mg PO DAILY 12/03/18 02/24/19 Furosemide [Lasix] 40 mg PO BID 12/03/18 02/24/19 Glucagon,Human Recombinant 1 mg IM AD PRN 12/03/18 02/24/19 [Glucagen] HYDROcodone/Acet 5/325 mg [[place] 1 tab PO BID 12/03/18 02/24/19 5-325 mg] HYDROcodone/Acet 5/325 mg [[place] 1 tab PO Q4H PRN 12/03/18 02/24/19 5-325 mg] Metoprolol Tartrate [Lopressor] 50 mg PO DAILY 12/03/18 02/24/19 Multivitamin [Daily Multiple 1 tab PO DAILY 12/03/18 02/24/19 Vitamin] Previous Rx's Medication Instructions Recorded Ferrous Sulfate 325 mg PO BIDWM #60 tablet 04/16/17 Budesonide/Formoterol 160/4.5 2 puff IH BIDR #1 applic 12/06/18 [Symbicort 160/4.5] Gabapentin [Neurontin] 300 mg PO BID #30 capsule 12/06/18 GuaiFENesin ER [Mucinex] 600 mg PO BID #20 tbbp.12hr 12/06/18 predniSONE [PredniSONE] 10 mg PO DAILY #30 tablet 12/06/18 Levofloxacin [Levaquin] 500 mg PO DAILY #7 tablet 12/25/18 Allergies Allergy/AdvReac Type Severity Reaction Status Date / Time Penicillins AdvReac Gastrointestinal Verified 02/24/19 11:20 Upset shellfish derived AdvReac Headache Verified 02/24/19 11:20 Tetracyclines AdvReac Rash Verified 02/24/19 11:20 Constitutional: Reports: fever Cardiovascular: Reports: chest pain Respiratory: Reports: dyspnea Gastrointestinal: Denies: nausea, vomiting Musculoskeletal: Reports: other (Left lower extremity pain) Past Medical History - Past Medical History Medical history: Reports: arthritis, diabetes, GERD, hypertension, renal disease, other Surgical history: Reports: appendectomy, sinus surgery, bariatric surgery Psychiatric history: Reports: anxiety, depression - Social History Smoking Status: Never smoker Smokeless Tobacco Status: No Alcohol use: Reports: none Drug use: Reports: none Physical Exam - General Limitations: no limitations General appearance: alert Course Vital Signs Temperature 102.1 F H 03/31/19 19:11 Pulse Rate 85 03/31/19 19:11 Respiratory Rate 27 03/31/19 19:11 Blood Pressure 144/132 03/31/19 19:11 O2 Sat by Pulse Oximetry 92 03/31/19 19:11 Temperature 102.1 F H 03/31/19 19:11 Pulse Rate 79 03/31/19 19:23 Respiratory Rate 25 03/31/19 19:23 Blood Pressure 144/132 03/31/19 19:11 O2 Sat by Pulse Oximetry 97 03/31/19 19:23 Oxygen Delivery Oxygen Delivery Nasal Cannula Medical Decision Making - [facility] Narrative Medical decision making narrative: Chest X-Ray 03/31/19 19:21 IMPRESSION: Prominence of central pulmonary vasculature. Correlation for pulmonary vascular congestion is recommended. Right basilar airspace disease and probable right pleural effusion, asymmetric edema versus pneumonia. Follow-up is recommended, preferably with a PA and lateral study. D/ / Justine Farrar Cha, MD / Justine Farrar Cha, MD Interpreting Provider: Justine Farrar Cha, MD 2050 hrs.: Patient denies chest pain. Because of her meeting sepsis criteria were giving her fluids but also Lasix. Since she does have some fluid overload. She has elevated troponin and an elevated creatinine but she does not have any chest pain. She did get aspirin here. She is on vancomycin and Zosyn. Renagel and bring her into the hospital. Impression #1 is sepsis with UTI pneumonia pulmonary edema and peripheral edema. She is in agreement with plan. - Lab Data Result diagrams: 03/31/19 19:37 03/31/19 19:37 Lab Results 03/31/19 03/31/19 03/31/19 Range/Units 19:27 19:37 19:37 WBC 22.6 H (4.3-11.1) K/mcL RBC 3.24 L (3.82-4.97) M/mcL Hgb 9.7 L (11.5-15.4) g/dL Hct 32.1 L (35.3-44.9) % MCV 99.1 (83.0-100.0) fL MCH 29.9 (28.0-33.3) pg MCHC 30.2 L (31.6-35.5) g/dL RDW 14.6 H (11.5-14.5) % Plt Count 272 (140-400) K/mcL MPV 10.3 (9.4-12.4) fL Immature Gran % 1.2 (0-4) % Seg Neutrophils % 89.8 % Lymphocytes % 4.9 % Monocytes % 3.6 % Eosinophils % 0.3 % Basophils % 0.2 % Neutrophils # 20.3 H (1.6-8.9) K/mcL Lymphocytes # 1.1 (0.6-4.6) K/mcL Monocytes # 0.8 (0.0-1.3) K/mcL Eosinophils # 0.1 (0.0-0.6) K/mcL Basophils # 0.0 (0.0-0.2) K/mcL PT 20.1 H (9.4-12.1) Seconds INR 1.8 APTT 34.2 (26.0-36.0) Seconds Sodium (136-145) mEq/L Potassium (3.5-5.1) mEq/L Chloride (98-107) mEq/L Carbon Dioxide (23-29) mEq/L BUN (8-23) mg/dL Creatinine (0.60-1.20) mg/dL Est GFR ( Amer) (> 60) Est GFR (Non-Af Amer) (> 60) BUN/Creatinine Ratio (6-26) Glucose (70-105) mg/dL Calculated Osmolality (280-300) Lactic Acid 2.3 H (0.5-2.2) mmol/L Calcium (8.6-10.3) mg/dL Total Bilirubin (0.3-1.0) mg/dL Direct Bilirubin (0.0-0.2) mg/dL Indirect Bilirubin (0.0-1.2) mg/dL AST (13-39) Units/L ALT (7-52) Units/L Alkaline Phosphatase (34-104) Units/L Troponin I (< 0.04) ng/mL Serum Total Protein (6.4-8.9) g/dL Albumin (3.5-5.7) g/dL Globulin (2.4-3.5) g/dL Albumin/Globulin Ratio (1.1-2.2) Urine Color (Yellow) Urine Clarity (Clear) Urine pH (5.0-8.0) pH Units Ur Specific [place] (1.010-1.025) Urine Protein (Neg-Trace) mg/dL Urine Glucose (UA) (Normal) mg/dL Urine Ketones (Negative) mg/dL Urine Blood (Negative) Urine Nitrite (Negative) Urine Bilirubin (Negative) Urine Urobilinogen (Normal) mg/dL Ur Leukocyte Esterase (Negative) Urine Microscopic RBC (0-3) per hpf Urine Microscopic WBC (0-3) per hpf Ur Squamous Epith Cells (None-Few) per lpf Urine Bacteria (None-Few) per hpf Hyaline Casts (None-Few) per lpf Ur Culture Indicated? (NO) 03/31/19 03/31/19 Range/Units 19:37 20:22 WBC (4.3-11.1) K/mcL RBC (3.82-4.97) M/mcL Hgb (11.5-15.4) g/dL Hct (35.3-44.9) % MCV (83.0-100.0) fL MCH (28.0-33.3) pg MCHC (31.6-35.5) g/dL RDW (11.5-14.5) % Plt Count (140-400) K/mcL MPV (9.4-12.4) fL Immature Gran % (0-4) % Seg Neutrophils % % Lymphocytes % % Monocytes % % Eosinophils % % Basophils % % Neutrophils # (1.6-8.9) K/mcL Lymphocytes # (0.6-4.6) K/mcL Monocytes # (0.0-1.3) K/mcL Eosinophils # (0.0-0.6) K/mcL Basophils # (0.0-0.2) K/mcL PT (9.4-12.1) Seconds INR APTT (26.0-36.0) Seconds Sodium 131 L (136-145) mEq/L Potassium 5.5 H (3.5-5.1) mEq/L Chloride 99 (98-107) mEq/L Carbon Dioxide 21 L (23-29) mEq/L BUN 52 H (8-23) mg/dL Creatinine 2.85 H (0.60-1.20) mg/dL Est GFR ( Amer) 20 L (> 60) Est GFR (Non-Af Amer) 16 L (> 60) BUN/Creatinine Ratio 18 (6-26) Glucose 102 (70-105) mg/dL Calculated Osmolality 286 (280-300) Lactic Acid (0.5-2.2) mmol/L Calcium 8.6 (8.6-10.3) mg/dL Total Bilirubin 1.0 (0.3-1.0) mg/dL Direct Bilirubin 0.6 H (0.0-0.2) mg/dL Indirect Bilirubin 0.4 (0.0-1.2) mg/dL AST 123 H (13-39) Units/L ALT 72 H (7-52) Units/L Alkaline Phosphatase 301 H (34-104) Units/L Troponin I 1.68 H* (< 0.04) ng/mL Serum Total Protein 6.2 L (6.4-8.9) g/dL Albumin 2.8 L (3.5-5.7) g/dL Globulin 3.4 (2.4-3.5) g/dL Albumin/Globulin Ratio 0.8 L (1.1-2.2) Urine Color Dark Yellow (Yellow) Urine Clarity Turbid A (Clear) Urine pH 5.0 (5.0-8.0) pH Units Ur Specific [place] 1.016 (1.010-1.025) Urine Protein Trace (Neg-Trace) mg/dL Urine Glucose (UA) Normal (Normal) mg/dL Urine Ketones Negative (Negative) mg/dL Urine Blood Small H (Negative) Urine Nitrite Negative (Negative) Urine Bilirubin Small H (Negative) Urine Urobilinogen Normal (Normal) mg/dL Ur Leukocyte Esterase Large H (Negative) Urine Microscopic RBC 15-30 H (0-3) per hpf Urine Microscopic WBC TNTC H (0-3) per hpf Ur Squamous Epith Cells Many H (None-Few) per lpf Urine Bacteria Many H (None-Few) per hpf Hyaline Casts None Seen (None-Few) per lpf Ur Culture Indicated? YES A (NO) Critical Care Time Critical Care Time: Yes Total Critical Care Time: 50 Attestation: Excluding any separately billable procedures. Attestation Statement - Attestation Attestation: This documentation is done with the assistance of Dragon dictation. Despite efforts made to ensure accuracy, there may be inaccuracies in top lift scourer or spelling and typographical errors. I examined this patient and my medical decision-making was reviewed with the Resident Physician. I agree with the documented findings, disposition and treatment plan as described except to the extent set forth below. Patient was seen on arrival with EMS and Dr. Wyman, I agree with his evaluation management plan, supervise care the patient's stay. Patient presents from nursing facility. She says she is getting somewhat over 4060 pounds of water weight sounds like they cut back on her Lasix. She has been somewhat dyspneic. This been complaining of pain in her feet because she says she has somewhat swelling. She does have extremely large legs with that are edematous. She has crackles in her lungs. She is a fairly poor historian her GCS is 14. However she is alert person place and time. We will order a workup on her and most like she will need admission.
[2019-03-31 20:17] LABS: INR 1.8; Prothrombin Time 20.1 Seconds (9.4-12.1)
[2019-03-31 20:20] LABS: Activated Partial Thrombo Time 34.2 Seconds (26.0-36.0)
[2019-03-31] MEDS ORDERED: 0.9 % Sodium Chloride 1,000 ML IVC ONE (20:20)
[2019-03-31 20:40] LABS: Albumin 2.8 g/dL (3.5-5.7); Albumin/Globulin Ratio 0.8 (1.1-2.2); Bilirubin,Direct 0.6 mg/dL (0.0-0.2); Bilirubin,Indirect 0.4 mg/dL (0.0-1.2); Calcium 8.6 mg/dL (8.6-10.3); Globulin 3.4 g/dL (2.4-3.5); Potassium 5.5 mEq/L (3.5-5.1); Total Protein 6.2 g/dL (6.4-8.9); Troponin I 1.68 ng/mL (< 0.04)
[2019-03-31] MEDS ORDERED: Aspirin 81 MG TAB.CHEW PO STA (20:42)
[2019-03-31 20:46] LABS: Bilirubin,Urine Small (Negative); Blood,Urine Small (Negative); Clarity,Urine Turbid (Clear); Color,Urine Dark Yellow (Yellow); Glucose,Urine (UA) Normal (Normal); Ketones,Urine Negative (Negative); Leukocyte Esterase,Urine Large (Negative); Nitrite,Urine Negative (Negative); Protein,Urine Trace mg/dL (Neg-Trace); Specific Gravity,Urine 1.016 (1.010-1.025); Urobilinogen,Urine Normal (Normal)
[2019-03-31 20:48] LABS: Bacteria,Urine Many per hpf (None-Few); Hyaline Casts,Urine None Seen per lpf (None-Few); RBC,Urine 15-30 per hpf (0-3); Squamous Epithelial Cell,Urine Many per lpf (None-Few); WBC,Urine TNTC per hpf (0-3)
[2019-03-31] MEDS ORDERED: Acetaminophen 325 MG TABLET PO ONE (20:52)
[2019-03-31 21:31] LABS: VBG HCO3 14 mEq/L (21-27); VBG PCO2 20 mmHg (41-51); VBG PH 7.44 pH Units (7.32-7.42); VBG PO2 186 mmHg (25-50)
[2019-03-31] MEDS ORDERED: Naloxone 0.4 MG/ML INJ IVP PRN (23:52)
[2019-03-31] MEDS ORDERED: Albuterol 2.5 MG/3 ML NEBULIZER IH PRN (23:57)
--- NOTE | 2019-04-01 00:15 | Internal Med History&Physical ---
Date of Encounter: 03/31/19 Time of Encounter: 23:24 Internal Medicine - H&P: HPI Chief complaint: Sepsis Admitted From: Emergency Dept Plans for Post Hospital Care: Home History of present illness: Ms. Lamb is a 68 year old female Patient presented to the emergency room with shortness of breath and chest pain as well as lower extremity swelling. She states that her symptoms really began to worsen yesterday and she has noted a several pound weight gain to to the accumulating fluid. She sees nephrology regularly who has been working on titrating her Lasix. [facility] a [facility], and she states that the doctor at the jail recently changed her Lasix dose which caused her to retain fluid. She is also had decreased appetite as well. An ambulance was called to transport the patient to the hospital. In the emergency room patient's vital signs were: Temperature returned 2.1, pulse 85, respiratory rate 27, blood pressure 144/132 and O2 saturation 92% on 4 L. CBC notable for white count of 22.6, hemoglobin of 9.7 INR 1.8 VBG demonstrated a pH of 7.44 CMP: Sodium 131, potassium 5.5 creatinine 2.85, glucose 102, AST 123, ALT 72, alkaline phosphatase 301 Lactic acid 2.3 Troponin 1.68 Urinalysis: Small blood, negative nitrite, large leukocyte esterase, too numerous to count white blood cells and many bacteria Chest x-ray: Prominence of central pulmonary vasculature, right basilar pleural effusion versus edema. EKG: Normal sinus rhythm, QTC 419 no ischemic changes. Patient was given a total of 80 mg of Lasix as well as IV fluids she was started on vancomycin and Zosyn. Blood and urine cultures were obtained. She was sent to medical floor for further management. Upon my evaluation, patient is resting comfortably in the hospital bed in no acute distress. She is somnolent but easily arousable and answers questions and cooperates with exam. She is morbidly obese. She currently denies chest pain, abdominal pain, nausea, vomiting, diarrhea and constipation. She denies dysuria. She is a full code. Past Med Surg Social Fam HX - Past Medical History Medical history: arthritis, diabetes, GERD, hypertension, renal disease, other Additional medical history: Atrial Flutter Psychiatric history: anxiety, depression - Past Surgical History Surgical History: appendectomy, sinus surgery, bariatric surgery Additional surgical history: tonsilectomy, Stomach stappling, Sinus surgery,csection - Social History Smoking Status: Never smoker Smokeless Tobacco Status: No Alcohol use: none Drug use: none - Family History Mother Living Status: Hx Family Neurologic Disorders: Yes (Migraines) Hx Family Autoimmune Disorders: Yes (MS) Sister Hx Family Cancer: Yes Hx Family Autoimmune Disorders: Yes (Lupus) Father Living Status: Hx Family Cancer: Yes Hx Family Endocrine Disorder: Yes (diabetes) Internal Medicine - H&P: Meds Citalopram [CeleXA] 20 mg PO DAILY 04/12/17 [History] Loperamide HCl [Imodium A-D] 2 mg PO PRN PRN 04/12/17 [History] Losartan Potassium [Cozaar] 50 mg PO DAILY 04/12/17 [History] Pioglitazone [Actos] 45 mg PO DAILY 04/12/17 [History] Venlafaxine XR (24 HR) [Effexor Xr] 300 mg PO DAILY 04/12/17 [History] Vitamin B Complex 1 cap PO 1200 04/12/17 [History] Ferrous Sulfate 325 mg PO BIDWM #60 tablet 04/16/17 [Rx] Baclofen 20 mg PO TID PRN 02/06/18 [History] Loratadine [Allergy Relief] 10 mg PO DAILY PRN 02/06/18 [History] Omeprazole [PriLOSEC] 20 mg PO HS 02/06/18 [History] Calcium Carbonate [Tums] 500 mg PO Q4HR PRN 02/07/18 [History] metFORMIN [Glucophage] 500 mg PO BIDWM 02/07/18 [History] Caffeine [Stay Awake] 50 mg PO TID 12/01/18 [History] DiphenhydraMINE [Benadryl] 50 mg PO BID PRN 12/01/18 [History] Insulin Glargine [Lantus] 40 unit SQ HS 12/01/18 [History] Magnesium Hydroxide/Al Hydrox [Mag-Al Liquid] 30 ml PO DAILY PRN 12/01/18 [Hist ory] Potassium Chloride [K-Tab ER] 20 meq PO DAILY 12/01/18 [History] Apixaban [Eliquis] 2.5 mg PO BID 12/03/18 [History] Diltiazem HCl [Diltiazem 24Hr Cd] 120 mg PO DAILY 12/03/18 [History] Glucagon,Human Recombinant [Glucagen] 1 mg IM AD PRN 12/03/18 [History] HYDROcodone/Acet 5/325 mg [Benavides 5-325 mg] 1 tab PO BID 12/03/18 [History] HYDROcodone/Acet 5/325 mg [Benavides 5-325 mg] 1 tab PO Q4H PRN 12/03/18 [History] Metoprolol Tartrate [Lopressor] 50 mg PO DAILY 12/03/18 [History] Multivitamin [Daily Multiple Vitamin] 1 tab PO DAILY 12/03/18 [History] Gabapentin [Neurontin] 300 mg PO BID #30 capsule 12/06/18 [Rx] GuaiFENesin ER [Mucinex] 600 mg PO BID #20 tbbp.12hr 12/06/18 [Rx] Furosemide [Lasix] 20 mg PO BID 03/31/19 [History] Allergy/AdvReac Type Severity Reaction Status Date / Time Tetracyclines Allergy Rash Verified 03/31/19 21:57 Penicillins AdvReac Gastrointestinal Verified 03/31/19 21:57 Upset shellfish derived AdvReac Headache Verified 03/31/19 21:57 All Systems PM: A 10-system review of systems was performed and is negative for pertinent findings except as documented above in the HPI. - Constitutional Vitals: Temp Pulse Resp BP Pulse Ox 100.6 F H 89 20 92/40 92 03/31/19 23:05 03/31/19 23:29 03/31/19 23:05 03/31/19 23:05 03/31/19 23:05 General appearance: Present: cooperative, A&O X 3, pleasant, no acute distress, answers questions appropriately Exam: Drowsy on exam, but arousable - Head Head exam: Present: normal inspection - Eye Eye exam: Present: EOMI, normal appearance - Respiratory Respiratory exam: Present: rales, wheezes. Absent: CTAB, respiratory distress, rhonchi - Cardiovascular Cardiovascular exam: Present: RRR. Absent: diastolic murmur, systolic murmur - GI/Abdominal GI/Abdominal exam: Present: normal bowel sounds, soft. Absent: tenderness - Extremities Exam Extremities exam: Present: pedal edema, tenderness, warm, radial pulses palpable and symmetrical Additional comments: Very large extremities secondary to baseline obesity and fluid overload: Upper extremities: 3+ pitting edema from hand to elbow bilaterally. Pulses felt, normal strength. Left lower extremity: In soft splint secondary to fracture, 3+ pitting edema, tender with palpation Right lower extremity: Dressing applied to ankle area for wound, large cellulitic area to medial/dorsal foot, tender to palpation Erythema localized to foot. 3+ pitting edema, pain with palpation - Neurological Exam Neurological exam: Present: motor sensory deficit, no focal deficits, strengths equal and symetr throughout. Absent: facial droop, speech deficit - Skin Skin exam: Present: dry, erythema, excoriation, warm Additional comments: Large area of excoriation to back side, wound to right ankle currently wrapped in dressing. Left leg in soft splint secondary to fracture. Cellulitis of right foot. Internal Med - H&P Results - Labs CBC & Chem 7: 03/31/19 19:37 03/31/19 19:37 Labs: Short CBC 03/31/19 Range/Units 19:37 WBC 22.6 H (4.3-11.1) K/mcL Hgb 9.7 L (11.5-15.4) g/dL Hct 32.1 L (35.3-44.9) % Plt Count 272 (140-400) K/mcL Neutrophils # 20.3 H (1.6-8.9) K/mcL BMP 03/31/19 19:37 Sodium 131 L Potassium 5.5 H Chloride 99 Carbon Dioxide 21 L BUN 52 H Creatinine 2.85 H Glucose 102 Calcium 8.6 Cardiac Enzymes 03/31/19 Range/Units 19:37 Troponin I 1.68 H* (< 0.04) ng/mL Liver Function 03/31/19 Range/Units 19:37 Total Bilirubin 1.0 (0.3-1.0) mg/dL Direct Bilirubin 0.6 H (0.0-0.2) mg/dL AST 123 H (13-39) Units/L ALT 72 H (7-52) Units/L Alkaline Phosphatase 301 H (34-104) Units/L Albumin 2.8 L (3.5-5.7) g/dL Urine 03/31/19 Range/Units 20:22 Urine Color Dark Yellow (Yellow) Urine Clarity Turbid A (Clear) Urine pH 5.0 (5.0-8.0) pH Units Ur Specific [place] 1.016 (1.010-1.025) Urine Protein Trace (Neg-Trace) mg/dL Urine Glucose (UA) Normal (Normal) mg/dL - ABG Interpretation ABG results: 03/31/19 21:28 VBG pH 7.44 H VBG pCO2 20 L VBG pO2 186 H VBG HCO3 14 L - Impressions ITS Impressions Chest X-Ray 03/31/19 19:21 IMPRESSION: Prominence of central pulmonary vasculature. Correlation for pulmonary vascular congestion is recommended. Right basilar airspace disease and probable right pleural effusion, asymmetric edema versus pneumonia. Follow-up is recommended, preferably with a PA and lateral study. D/ / Justine Farrar Cha, MD / Justine Farrar Cha, MD Interpreting Provider: Justine Farrar Cha, MD - Assessment and Plan (1) Sepsis Current Visit: Yes Status: Acute Assessment and plan: Patient met sepsis criteria with elevated temperature, respiratory rate lactic acid of 2.3 ->2.7 and likely source urinary tract infection, pneumonia and cellulitis. She was given Tylenol in the emergency room and started on 1 L bolus of IV fluids. Blood and urine cultures were drawn and she was given vancomycin and Zosyn. We will hold off on further IV fluids but will try oxygenation to help improve the lactic acidosis. Treatment as below Repeat lactic acid in 6 hours Qualifiers: Sepsis type: sepsis due to unspecified organism Qualified Code(s): A41.9 - Sepsis, unspecified organism (2) Pneumonia Current Visit: Yes Status: Acute Assessment and plan: As seen on chest x-ray. Radiologist recommended a two-view chest x-ray for further clarification however patient body habitus would make this technically difficult. Patient also too large for CT machine. Patient was started on anti biotics in the emergency room. Continue oxygen supplementation as needed Continue IV antibiotics vancomycin and Zosyn Follow-up blood cultures when available Monitor vitals Qualifiers: Pneumonia type: due to unspecified organism Laterality: unspecified laterality Lung location: unspecified part of lung Qualified Code(s): J18.9 - Pneumonia, unspecified organism (3) UTI (urinary tract infection) Current Visit: No Status: Acute Assessment and plan: Urinalysis suggestive of UTI. Patient started on Zosyn by the emergency room, and urine culture is pending. Follow-up urine culture Continue IV antibiotics Qualifiers: Urinary tract infection type: acute cystitis Hematuria presence: with hematuria Qualified Code(s): N30.01 - Acute cystitis with hematuria (4) Cellulitis of right leg Current Visit: Yes Status: Acute Assessment and plan: Patient's right leg has an area of erythema over the foot. Tender to palpation. Patient started on vancomycin and Zosyn in the emergency room. Continue vancomycin Wound care consult (5) Acute exacerbation of chronic obstructive pulmonary disease (COPD) Current Visit: No Status: Acute Assessment and plan: Patient wheezy on exam. Likely secondary to pneumonia and fluid overload. Oxygen supplementation as needed Breathing treatments IV steroids Antibiotics as above Hold further IV fluids (6) Acute respiratory failure Current Visit: No Status: Acute Assessment and plan: Secondary to fluid overload and COPD. patient does not wear oxygen at home, states that her gear design engineer is trying to get her on a CPAP machine. CPAP tonight Treating pneumonia and fluid overload Qualifiers: Respiratory failure complication: hypoxia Qualified Code(s): J96.01 - Acute respiratory failure with hypoxia (7) Acute kidney injury Current Visit: No Status: Acute Assessment and plan: Patient has baseline creatinine of 1.7. Currently 2.85. Patient follows with nephrology. She has been on Lasix at home, and recently had her dose decreased due to her kidney function, resulting in fluid accumulation. Patient has received 80 mg of Lasix IV. Nephrology consult, follow up recommendations Hold further Lasix due to kidney function Renally dose meds Avoid nephrotoxic medication (8) Acute on chronic diastolic CHF (congestive heart failure) Current Visit: No Status: Acute Assessment and plan: Last echocardiogram from March 2017: Impressions: Technically sub-optimal due to body habitus. LVEF 60%. Normal LV chamber size. Not all LV segments were well visualized, but overall function appeared normal. Mild concentric left ventricular hypertrophy. Right ventricular size not well evaluated. RV function appears normal. Moderate to severely dilated left atrium. Mild left ventricular diastolic dysfunction. No evidence of pulmonary hypertension identified. RVSP was not well visualized. No significant valvular dysfunction. Obtain repeat echocardiogram Strict I's and O's Daily weights (9) Volume overload Current Visit: No Status: Acute Assessment and plan: Secondary to Lasix dose adjustment. Patient received 80 mg of Lasix in the emergency room. Strict I's and O's Daily weights Qualifiers: Hypervolemia type: unspecified Qualified Code(s): E87.70 - Fluid overload, unspecified (10) Hyponatremia Current Visit: No Status: Acute Assessment and plan: Sodium is 131 in the emergency room. Patient received a liter bolus of IV fluids. Repeat a.m. labs (11) Hyperkalemia Current Visit: No Status: Acute Assessment and plan: Potassium 5.5. No EKG changes, likely elevated due to worsening renal function. Repeat a.m. labs Cardiac monitoring (12) History of pulmonary embolism Current Visit: No Status: Acute Assessment and plan: Patient on Eliquis. (13) Elevated troponin Current Visit: Yes Status: Acute Assessment and plan: Patient on Eliquis. Denies chest pain. EKG negative for ischemia. Troponin in the emergency room was 1.68. 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 panel monitor Continue Eliquis Echocardiogram in the morning (14) Compression fracture Current Visit: No Status: Acute Assessment and plan: Currently in a splint. Patient was seen the emergency room yesterday and had an x-ray showing impaction of the left medial aspect of proximal tibia. She was to see Dr. Orellana outpatient later this week. Consider inpatient also consult versus outpatient follow-up (15) Anemia Current Visit: No Status: Chronic Assessment and plan: Seen outpatient by oncology, patient has anemia of chronic disease Qualifiers: Anemia type: iron deficiency Iron deficiency anemia type: unspecified iron deficiency Qualified Code(s): D50.9 - Iron deficiency anemia, unspecified (16) Atrial fibrillation Current Visit: No Status: Chronic Assessment and plan: On Eliquis, currently controlled Qualifiers: Atrial fibrillation type: paroxysmal Qualified Code(s): I48.0 - Paroxysmal atrial fibrillation (17) Diabetes Current Visit: No Status: Chronic Assessment and plan: Patient is an insulin dependent diabetic Monitor sugars Q6H NPO Low dose insulin sliding scale as needed Hold home meds. Qualifiers: Diabetes mellitus type: type 2 Diabetes mellitus terminologist insulin use: with terminologist use Diabetes mellitus complication status: with kidney complications Diabetes mellitus complication detail: with chronic kidney disease Chronic kidney disease stage: stage 3 (moderate) Qualified Code(s): E11.22 - Type 2 diabetes mellitus with diabetic chronic kidney disease; N18.3 - Chronic kidney disease, stage 3 (moderate); Z79.4 - alf (current) use of insulin (18) Sleep apnea Current Visit: No Status: Chronic Assessment and plan: Start CPAP Respiratory therapy consult Qualifiers: Sleep apnea type: unspecified type Qualified Code(s): G47.30 - Sleep apnea, unspecified (19) DVT prophylaxis Current Visit: No Status: Acute Assessment and plan: Continue home Eliquis - Time Spent With Patient Total time spent is greater than 50% in coordination of care (as documented) at patient's floor/unit and/or counseling patient:
[2019-04-01] MEDS: MethylPREDNISolone 40 MG/ML VIAL IVP SCH ×3 (01:13→11:37)
[2019-04-01 01:48] LABS: Red Cell Distribution Width 14.6 % (11.5-14.5)
[2019-04-01 01:49] LABS: Hematocrit 31.4 % (35.3-44.9); Hemoglobin 9.5 g/dL (11.5-15.4); Mean Corpuscular HGB Conc 30.3 g/dL (31.6-35.5); Mean Corpuscular Hemoglobin 29.5 pg (28.0-33.3); Mean Corpuscular Volume 97.5 fL (83.0-100.0); Mean Platelet Volume 10.1 fL (9.4-12.4); Platelet Count 255 K/mcL (140-400); Red Blood Count 3.22 M/mcL (3.82-4.97); White Blood Count 28.3 K/mcL (4.3-11.1)
[2019-04-01] MEDS: Ipratropium/Albuterol Neb 3 ML IH SCH ×5 (01:52→22:45)
[2019-04-01 01:58] LABS: Albumin 2.7 g/dL (3.5-5.7); Albumin/Globulin Ratio 0.9 (1.1-2.2); Bilirubin,Total 1.1 mg/dL (0.3-1.0); Calcium 8.3 mg/dL (8.6-10.3); Globulin 3.1 g/dL (2.4-3.5); Potassium 5.7 mEq/L (3.5-5.1); Total Protein 5.8 g/dL (6.4-8.9)
[2019-04-01] MEDS ORDERED: Piperacillin/Tazobactam 3.375 GM in 0.9 % Sodium Chloride Mini Bag 100 ML IVPB SCH (04:00)
[2019-04-01] MEDS ORDERED: Aminoglycoside Consult 1 EACH MC ONE (07:38)
[2019-04-01] MEDS: Piperacillin/Tazobactam 3.375 GM in 0.9 % Sodium Chloride Mini Bag 100 ML IVPB SCH ×3 (08:34→16:58)
[2019-04-01] MEDS: Apixaban 2.5 MG TABLET PO SCH ×2 (08:34→21:54)
--- NOTE | 2019-04-01 09:54 | Event Note ---
<KalyaniRadha - Last Filed: 04/01/19 16:30> Date of Encounter: 04/01/19 I examined this patient and my medical decision-making was reviewed with the Resident Physician Dr Sung. I agree with the documented findings, disposition and treatment plan as described except to the extent set forth below. Mrs Lamb is admitted with sepsis , uti, pna, cellulitis and bacteremia as well as acute respiratory failure She is from SNF with pmhx super morbid obesity, DM, HTN, Afib and PE on AC, CKD. asleep, awakes to name. answers questions apprpraitely but very tired. denies cp, pressure, sob on o2 or cough. denies abd pain, n/v. gen- alert, awake,appears stated age, morbidly obese eyes- pupils equal round cv- reg rate and rhythm, normal s1,s2, cannot appreciate pitting le edema, + dependent edema lungs- ctabl, no wheezing, rhonchi or crackles, normal resp effort on o2 abd- soft, non tender, non distended skin- RLE wrapped with gauze, + erythema, + increased warmth, excoriations and erythema bl groing and extending dorsally to buttocks msk- left leg is in soft splint neuro- AAOx3, CN grossly intact sepsis- Suspected UTI, Pna, Cellulitis and Bacteremia (gpc)- all organisms yet uk -repeat bl cxs, cont vanc + zosyn, IVFs cautiously given fluid overload but necessary if hypotensive cannot simply given sepsis rate fluids as will compromise her resp state further Acute resp failure 2/2 Pna and Acute on chronic HFpEF -o2 nc , pna treatment, wean steroids Acute on chronic HFpEF - attempted to repeat echo but given habitus difficlt and definity to not seem to help, holding lasix due to YEIMY on CKD, cautious use of fluids YEIMY on CKD stage uk Hyperkalemia w/o EKG changes - nephro following, may require temp HD, kayexalate + ca gluconate Hyponatremia suspected ot be hypervolemic hyponatremia- possible HD for fluid removal Trop Elevation without ekg ischemic changes- suspect combination deman in setting of sepsis + renal failure- down trending, asx, cont to monitor, echo as above, cont to trend, ekg in am Tibia compression fx hx- would benefit from ortho eval but not critical at this time, is bedbound at baseline Eelvated LFTs and no prior hx- will attempt to obtain RUQ US, trend further diagnoses and plan as noted by resident <Mary Sung - Last Filed: 04/01/19 18:24> Date of Encounter: 04/01/19 Time of Encounter: 09:45 Ms. Lamb is a 68 year old female with past medical history of CKD, diabetes, Gerd, hypertension, atrial fibrillation on anticoagulation with eliquis, super morbid obesity that is bedbound. She presented from the residential due to hypoxia and shortness of breath. The patient presented with multiple complaints. Gen.: Vitals noted. No acute distress. AAOx3, supra morbidly obese, swelling of entire body HEENT: oropharynx clear, Normocephalic, atraumatic Cardiac: RRR, no murmur, +S1/S2 Pulmonary: bilaterally mild wheezes, no rhonchi, equal chest expansion Abdomen: soft, nontender, Bowel sounds noted, no guarding MSK: ROM not intact, Extremities: swelling of bilateral lower extremities. Left leg is wrapped and bandage and splinted. Right foot is wrapped and bandage. Neuro: A&Ox3, no focal deficits Psych: Appropriate mood and behavior Sepsis -Patient met sepsis criteria with elevated temperature, respiratory rate lactic acid of 2.3 ->2.7. Patient received IV fluids in ED. -likely source bacteremia, urinary tract infection, pneumonia and cellulitis. -Patient has had borderline low blood pressures -Afebrile -WBC 28.3 increased but this is also in the setting of steroids -lactic acid 1.1 improved -Chest x-ray showing findings suggestive of pneumonia and right pleural effusion. -Urinalysis: + leukocyte esterase, WBC -blood culture 03/31/2019 growing GPC -continue vancomycin with pharmacy to dose -patient required a small bolus of IV fluids due to borderline low blood pressure -continue Zosyn -continue Solu-Medrol -await blood cultures and repeat blood cultures Acute respiratory failure -likely secondary to pneumonia and right basilar pleural effusion -VBG: pH 7.44 CO2 20, O2 186,HCO3 14 -continue antibiotics and steroids as above -continue supplemental oxygen as needed -continue bronchodilators -nephrology to possibly take patient for dialysis in place of diuresis with diuretics due to acute kidney injury Acute on chronic HFpEF -TTE March 2017: EF 60%, diastolic dysfunction. -Echocardiogram pending -patient's blood pressure medications are being held due to borderline blood pressure YEIMY on CKD -history is unclear and patient is a poor historian however this likely multifactorial with the patient possibly dehydrated as she was septic on admission, chronic kidney disease. -creatinine 2. 91 -baseline creatinine 1.6 to 1.9, she follows with the cold water machine operator Dr. Arias -[place] catheter in place -nephrology is following, will await the recommendations. They may want to place a temporary dialysis catheter to begin dialysis. -Will monitor urine output and creatinine -will avoid nephrotoxic agents and renal dust medications Hyponatremia-sodium 131, this is likely secondary to volume overload. Will continue to monitor. Troponin elevation-troponin 1.68 at admission and now 1.57 trending down. Patient denies chest pain and there were no acute changes on EKG to suggest ischemia. Will continue to monitor and echocardiogram is pending. hyperkalemia-potassium 5.7 this is in the setting of acute kidney injury. Will give Kayexalate and continue to monitor. Patient given calcium gluconate. Tibia compression fracture history-reported history of recent fall on Sunday f or which she was seen in the ER and imaging should possible compression fracture or sprain. Patient was to have an outpatient ortho appointment on Sunday. The patient is currently bedbound and there is not a critical need for evaluation at this time however will likely benefit for ortho eval at some point. She is bedbound and at baseline. Elevated LFTs -unclear etiology as the patient denies abdominal pain. No history of heavy alcohol use. -May be secondary to obstructive gallstone, nonalcoholic fatty liver disease, STEPHEN. -AST/ ALT 198/ 123 -alkaline phosphatase 227 -will continue to monitor and order a liver/gallbladder ultrasound Atrial fibrillation-on anticoagulation with eliquis. Rate controlled with Cardizem and metoprolol, however holding due to borderline low BP. Normal sinus rhythm and rate controlled thus far. Diabetes-continue low dose sliding scale insulin, Levemir 10 units, Accu checks, diabetic diet DVT prophylaxis-continue home eliquis
[2019-04-01] MEDS ORDERED: Perflutren Lipid Microsphere 1.3 ML in 0.9 % Sodium Chloride 8.7 ML IVP ONE (10:32)
--- NOTE | 2019-04-01 10:59 | Nephrology Consult Note ---
Date of Encounter: 04/01/19 Time of Encounter: 08:45 Assessment and Plan (1) Acute kidney injury Current Visit: No Status: Acute Severe anasarca with acute kidney injury on chronic kidney disease stage IV. She appears to be oliguric. Diuretics were recently adjusted by her outpatient provider, and since then her edema has dramatically worsened, according to the patient. She is typically followed by my colleague Dr. Arias, and diuretics have also been adjusted recently. I reviewed the outp eCW chart. If her edema and renal function do not improve, then she may very well need to reinitiate hemodialysis as she was once previously requiring it. The patient actually asked to be started on dialysis again. Continue to following a renal protective strategy including avoidance of nephrotoxic agents, strict I's and O's, daily weights, and renal dosing of medications. Thank you for consult and the [facility] group on this very co mplex and high risk patient who required a high degree of evaluation management plus medical decision making. (2) CKD (chronic kidney disease) stage 3, GFR 30-59 ml/min Current Visit: No Status: Chronic stage IIIb-IV. Her avg GFR was in the 20s at baseline (so primarily stage IV CKD), but recently it improved 30, prior to admission. (3) Anasarca Current Visit: Yes Status: Acute Recommend lifestyle mods such as lower Na diet, weight loss, and fluid restric tion of <48oz per day. (4) Hyperkalemia Current Visit: No Status: Acute Ongoing. Recommend a low K+ diet. She appears to be asymptomatic. (5) Morbid obesity Current Visit: No Status: Chronic I recommend lifestyle modifications. History of Present Illness - Reason for Consult Consult date: 04/01/19 Acute Kidney Injury, hyperkalemia Requesting physician: Ankit Christopher - Chief Complaint YEIMY on CKD, Uncontrolled Edema, Hyperkalemia - History of Present Illness The patient is a 68-year-old super morbidly obese female with a past medical history of chronic kidney disease stage IV, hypertension, chronic edema, and et al who presented with worsening swelling and shortness of breath. Nephrology was consulted she is typically followed by my colleague Dr. Arias in the office, and the patient said that her assisted provider recently adjusted diuretics, and since then her swelling has been worsening. She reported that during a prior admission she was once on temporary hemodialysis. She did not affirm using OTC NSAIDs, or having recent nausea or vomiting; however, she has had diminished appetite over the last several days to weeks. She reported that her swelling has become quite severe and especially in the lower extremities and right upper committee. She did not affirm having any pall iative or known provocative factors for her swelling. Family history: She did not affirm having any first-degree relatives with a history of ESRD Past Med Surg Social Fam HX - Past Medical History Medical history: arthritis, diabetes, GERD, hypertension, renal disease, other Additional medical history: Atrial Flutter Psychiatric history: anxiety, depression - Past Surgical History Surgical History: appendectomy, sinus surgery, bariatric surgery Additional surgical history: tonsilectomy, Stomach stappling, Sinus surgery,csection - Social History Smoking Status: Never smoker Smokeless Tobacco Status: No Alcohol use: none Drug use: none - Family History Mother Living Status: Hx Family Neurologic Disorders: Yes (Migraines) Hx Family Autoimmune Disorders: Yes (MS) Sister Hx Family Cancer: Yes Hx Family Autoimmune Disorders: Yes (Lupus) Father Living Status: Hx Family Cancer: Yes Hx Family Endocrine Disorder: Yes (diabetes) Medications and Allergies Citalopram [CeleXA] 20 mg PO DAILY 04/12/17 [History] Loperamide HCl [Imodium A-D] 2 mg PO PRN PRN 04/12/17 [History] Losartan Potassium [Cozaar] 50 mg PO DAILY 04/12/17 [History] Pioglitazone [Actos] 45 mg PO DAILY 04/12/17 [History] Venlafaxine XR (24 HR) [Effexor Xr] 300 mg PO DAILY 04/12/17 [History] Vitamin B Complex 1 cap PO 1200 04/12/17 [History] Ferrous Sulfate 325 mg PO BIDWM #60 tablet 04/16/17 [Rx] Baclofen 20 mg PO TID PRN 02/06/18 [History] Loratadine [Allergy Relief] 10 mg PO DAILY PRN 02/06/18 [History] Omeprazole [PriLOSEC] 20 mg PO HS 02/06/18 [History] Calcium Carbonate [Tums] 500 mg PO Q4HR PRN 02/07/18 [History] metFORMIN [Glucophage] 500 mg PO BIDWM 02/07/18 [History] Caffeine [Stay Awake] 50 mg PO TID 12/01/18 [History] DiphenhydraMINE [Benadryl] 50 mg PO BID PRN 12/01/18 [History] Insulin Glargine [Lantus] 40 unit SQ HS 12/01/18 [History] Magnesium Hydroxide/Al Hydrox [Mag-Al Liquid] 30 ml PO DAILY PRN 12/01/18 [History] Potassium Chloride [K-Tab ER] 20 meq PO DAILY 12/01/18 [History] Apixaban [Eliquis] 2.5 mg PO BID 12/03/18 [History] Diltiazem HCl [Diltiazem 24Hr Cd] 120 mg PO DAILY 12/03/18 [History] Glucagon,Human Recombinant [Glucagen] 1 mg IM AD PRN 12/03/18 [History] HYDROcodone/Acet 5/325 mg [Hector 5-325 mg] 1 tab PO BID 12/03/18 [History] HYDROcodone/Acet 5/325 mg [Hector 5-325 mg] 1 tab PO Q4H PRN 12/03/18 [History] Metoprolol Tartrate [Lopressor] 50 mg PO DAILY 12/03/18 [History] Multivitamin [Daily Multiple Vitamin] 1 tab PO DAILY 12/03/18 [History] Gabapentin [Neurontin] 300 mg PO BID #30 capsule 12/06/18 [Rx] GuaiFENesin ER [Mucinex] 600 mg PO BID #20 tbbp.12hr 12/06/18 [Rx] Furosemide [Lasix] 20 mg PO BID 03/31/19 [History] 3 Allergy/AdvReac Type Severity Reaction Status Date / Time Tetracyclines Allergy Rash Verified 03/31/19 21:57 Penicillins AdvReac Gastrointestinal Verified 03/31/19 21:57 Upset shellfish derived AdvReac Headache Verified 03/31/19 21:57 Review of Systems All Systems: reviewed and no additional remarkable complaints except as stated Exam - Vital Signs Vital signs: Initial Vital Signs Temp Pulse Resp BP Pulse Ox 102.1 F H 85 27 144/132 92 03/31/19 19:11 03/31/19 19:11 03/31/19 19:11 03/31/19 19:11 03/31/19 19:11 Vital Signs - Last 8 Hours Temp Pulse Resp BP Pulse Ox 04/01/19 07:53 97.9 F 73 18 101/60 100 04/01/19 05:45 83 04/01/19 03:40 97.9 F 84 19 99/84 97 Intake and Output 03/31/19 04/01/19 04/01/19 23:59 07:59 15:59 Intake Total 0 / 0 0 / 0 Balance 0 / 0 0 / 0 Intake: Oral 0 / 0 0 / 0 Other: Meal npo Percent of Meal Consumed 0% Weight 203.9 kg 202.2 kg Blood Glucose* 80 78 Patient Weight 04/01/19 23:59 Weight 202.2 kg - General Appearance Exam: General appearance: Present: well-developed, well-nourished, morbidly obese, fatigue, frail EENT: Present: ATNC, PERRL, mucous membranes moist Neck: Present: no JVD, supple Respiratory: Present: no kyphosis, course breath sounds (but difficult to auscultate due to her large body habitus) Cardiology: Present: edema (anasarca plus tense lymphedema of the right upper extremity), regular rate, regular rhythm, normal S1, normal S2 Gastrointestinal: Present: normoactive bowel sounds, no tenderness, obese (with large pannus) Integumentary: Present: LE wounds, ecchymotic and LE wraps Neurologic: Present: no focal deficit, no asterixis, alert and oriented x3 Musculoskeletal: Present: no cyanosis, no clubbing Psychiatric: Present: depressed, cooperative Results - Lab Results 04/03/19 03:15 04/03/19 03:15 Most recent lab results 04/01/19 01:33 Calcium 8.3 L Consult Discharge Plan - Plan Referrals: Anmol Mancuso MD [Primary Care Provider] - 04/14/19 1:15 pm
[2019-04-01 11:36] LABS: Acinetobacter baumannii by PCR Not Detected (Not Detect); Candida albicans by PCR Not Detected (Not Detect); Candida glabrata by PCR Not Detected (Not Detect); Candida krusei by PCR Not Detected (Not Detect); Candida parapsilosis by PCR Not Detected (Not Detect); Candida tropicalis by PCR Not Detected (Not Detect); Enterobacter cloacae Cmplx PCR Not Detected (Not Detect); Enterobacteriaceae by PCR Not Detected (Not Detect); Enterococcus by PCR Not Detected (Not Detect); Escherichia coli by PCR Not Detected (Not Detect); Klebsiella oxytoca by PCR Not Detected (Not Detect); Klebsiella pneumoniae by PCR Not Detected (Not Detect); Proteus by PCR Not Detected (Not Detect); Pseudomonas aeruginosa by PCR Not Detected (Not Detect); Serratia marcescens by PCR Not Detected (Not Detect); Staphylococcus aureus by PCR Not Detected (Not Detect); Staphylococcus by PCR Not Detected (Not Detect); Streptococcus agalactiae(B)PCR Not Detected (Not Detect); Streptococcus by PCR DETECTED (Not Detect); Streptococcus pneumoniae PCR Not Detected (Not Detect); Streptococcus pyogenes (A) PCR DETECTED (Not Detect)
[2019-04-01] MEDS ORDERED: Calcium Gluconate 2,000 MG in 0.9 % Sodium Chloride 100 ML IVPB ONE (11:47)
--- NOTE | 2019-04-01 14:17 | Electrocardiograph Report ---
[place] [id number] Test Date: 2019-03-31 Pat Name: Jacquie Lamb Department: [id number] Room: 2N07 Gender: F Development Analyst: : 1950 Requested By: Figueroa Wyman Order Number: [id number] Reading MD: Chirag Norton Measurements Intervals [place] Rate: 84 P: 84 ND: 185 QRS: 82 QRSD: 97 T: 74 QT: 354 QTc: 419 Interpretive Statements Sinus rhythm Borderline right axis deviation Borderline low voltage, extremity leads BASELINE ARTIFACT Electronically Signed On 04-01-2019 14:15:46 EDT by Chirag Norton
[2019-04-01] MEDS ORDERED: 0.9 % Sodium Chloride 250 ML IVC ONE (16:26)
[2019-04-01] MEDS ORDERED: *HR* Dextrose 50 % in Water (Syg) 50 ML SYRINGE IVP PRN (18:28)
[2019-04-01] MEDS ORDERED: D5% in Water 1,000 ML IVC PRN (18:28)
[2019-04-01] MEDS ORDERED: Dextrose Gel 15 GM/37.5 ML TUBE PO PRN ×2 (18:28)
[2019-04-01 20:32] LABS: ABG Base Excess -6 mEq/L (-2 to 3); ABG HCO3 21 mEq/L (21-27); ABG Oxygen Saturation 93 % (95-98); ABG PCO2 45 mmHg (35-45); ABG PH 7.28 pH Units (7.32-7.45); ABG PO2 74 mmHg (85-104); ABG TCO2 22 mEq/L (20-26)
[2019-04-01] MEDS ORDERED: Insulin LISPRO 300 UNITS/3 ML VIAL SQ SCH (21:00)
[2019-04-01] MEDS: Insulin DETEMIR 100 UNIT/ML X5UNITS SQ SCH (21:56)
[2019-04-02] MEDS: Insulin LISPRO 300 UNITS/3 ML VIAL SQ SCH ×4 (00:03→17:41)
[2019-04-02] MEDS: Piperacillin/Tazobactam 3.375 GM in 0.9 % Sodium Chloride Mini Bag 100 ML IVPB SCH ×2 (04:18→17:00)
[2019-04-02 04:50] LABS: Basophils % 0.2 %; Eosinophils % 0.1 %; Mean Platelet Volume 10.3 fL (9.4-12.4); Nucleated Red Blood Cells 0.1 /100 WBC (0); Red Blood Count 3.06 M/mcL (3.82-4.97); Red Cell Distribution Width 14.9 % (11.5-14.5)
[2019-04-02 04:52] LABS: Basophils # 0.1 K/mcL (0.0-0.2); Hematocrit 29.9 % (35.3-44.9); Hemoglobin 9.1 g/dL (11.5-15.4); Lymphocytes # 1.2 K/mcL (0.6-4.6); Lymphocytes % 4.1 %; Mean Corpuscular HGB Conc 30.4 g/dL (31.6-35.5); Mean Corpuscular Hemoglobin 29.7 pg (28.0-33.3); Mean Corpuscular Volume 97.7 fL (83.0-100.0); Monocytes % 2.5 %; Platelet Count 243 K/mcL (140-400); Segmented Neutrophils % 92.1 %; White Blood Count 29.8 K/mcL (4.3-11.1)
[2019-04-02 04:59] LABS: Monocytes # 0.8 K/mcL (0.0-1.3); Neutrophils # 27.5 K/mcL (1.6-8.9)
[2019-04-02 05:10] LABS: Albumin 2.4 g/dL (3.5-5.7); Albumin/Globulin Ratio 0.8 (1.1-2.2); Bilirubin,Total 0.9 mg/dL (0.3-1.0); Calcium 8.2 mg/dL (8.6-10.3); Potassium 5.4 mEq/L (3.5-5.1); Total Protein 5.4 g/dL (6.4-8.9)
[2019-04-02 05:48] LABS: Platelet Estimate Normal (Normal)
[2019-04-02] MEDS ORDERED: Insulin LISPRO 300 UNITS/3 ML VIAL SQ SCH (07:30)
[2019-04-02] MEDS: Apixaban 2.5 MG TABLET PO SCH ×2 (07:59→21:19)
[2019-04-02] MEDS: MethylPREDNISolone 40 MG/ML VIAL IVP SCH (07:59)
--- NOTE | 2019-04-02 12:34 | Nephrology Progress Note ---
Date of Encounter: 04/02/19 Time of Encounter: 09:20 - Assessment and Plan (1) Acute kidney injury Current Visit: No Status: Acute Progressively worsening serum creatinine, and still elevated hyperkalemia. She will very likely need dialysis by tomorrow. We discussed the pros versus cons, the risks, the benefits and alternatives, and she agreed to proceed. She actually asked for dialysis. In the meantime, I recommend following a renal protective strategy including avoidance of nephrotoxic agents, strict I's and O's, daily weights, and renal dosing of medications. Thank you. (2) CKD (chronic kidney disease) stage 3, GFR 30-59 ml/min Current Visit: No Status: Chronic stage IIIb-IV. Her avg GFR was in the 20s at baseline, but recently it improved 30, prior to admission. (3) Anasarca Current Visit: Yes Status: Acute See above (4) Hyperkalemia Current Visit: No Status: Acute See above (5) Morbid obesity Current Visit: No Status: Chronic this is a high risk comorbidity, and I recommend lifestyle modifications. (6) Hyponatremia Current Visit: No Status: Acute Most likely a hypervolemic hyponatremia, and I recommend a slow correction of 6- 8 mEq in the first 24 hours. She should follow a less than 48 oz free water fluid restriction per day. Do not recommend adding excessive sodium chloride to her diet. Subjective Principal diagnosis: YEIMY, Hyperkalemia, Hx of prior temporary HD Interval history: The patient was seen and examined in her 2N room earlier today, and she affirmed feeling fatigued with ongoing severe swelling, and she actually requested to initiate dialysis during this admission. She also re-iterated her complaints about Lasix dosing with previous providers at the custod[facility] prior to admission. She did not affirm chest pain, but did affirm that she is bedbound. Objective - Vital Signs Vital signs: Vital Signs Temp Pulse Resp BP Pulse Ox 04/02/19 11:39 97.8 F 77 18 90/66 96 04/02/19 07:51 98.1 F 78 18 90/46 95 04/02/19 04:21 92/58 04/02/19 04:12 97.6 F 72 16 84/45 90 04/01/19 23:08 97.8 F 75 16 102/79 04/01/19 18:56 97.9 F 77 18 116/59 95 04/01/19 17:33 112/79 04/01/19 16:27 98.0 F 75 18 97/63 95 Intake and Output 04/01/19 04/02/19 04/02/19 23:59 07:59 15:59 Intake Total 350 / 1070 600 / 600 Output Total 50 / 50 Balance 350 / 995 -50 / 550 600 / 550 Intake: IV Fluids 350 / 1070 600 / 600 0.9 % Sodium Chloride 250 ML @ 250 / 250 937.5 mls/hr IVC .Q16M ONE Rx#: [id number] Zosyn 3.375 GM In 0.9 % Sodium 100 / 200 100 / 100 Chloride (Mini-Bag +) 100 ML @ 25 mls/hr IVPB Q12H INGRID Rx#: [id number] Vancocin 2,000 MG In 0.9 % 500 / 500 Sodium Chloride 500 ML @ 334. 014 mls/hr IVPB Q24H INGRID Rx#: [id number] Output: Catheter 50 / 50 Other: Blood Glucose* 70 73 70 - General Appearance General appearance: Present: well-developed, well-nourished, obese (very morbidly obese), fatigue, frail Exam: She was laying supine in an extra large bed EENT: Present: ATNC, PERRL, mucous membranes moist Neck: Present: no JVD, supple Respiratory: Present: no kyphosis, course breath sounds (but difficult to aulscultate due to her large body habitus) Cardiology: Present: edema (anasarca plus lymphedema of the right upper extremity), regular rate, regular rhythm, normal S1, normal S2 Gastrointestinal: Present: normoactive bowel sounds, no tenderness, obese (with large pannus) Integumentary: Present: warm and dry, ecchymotic Neurologic: Present: no focal deficit, no asterixis, alert and oriented x3 Musculoskeletal: Present: no cyanosis, no clubbing Psychiatric: Present: depressed, cooperative - Lab 04/02/19 04:28 04/02/19 04:28 Most recent lab results 04/02/19 04:28 Calcium 8.2 L Consult Discharge Plan - Plan Referrals: Anmol Mancuso MD [Primary Care Provider] - 04/14/19 1:15 pm
[2019-04-02] MEDS: Miconazole 2% ointment 141 APPL/141 GM TUBE TP SCH (14:56)
[2019-04-02 15:03] LABS: Hepatitis B Surface Antibody < 3.10 mIU/mL
[2019-04-02 15:13] LABS: Hepatitis B Surface Antigen Nonreactive (Nonreactive)
--- NOTE | 2019-04-02 18:46 | Internal Med Progress Note ---
Hospitalist Progress Note - Encounter Date of Encounter: 04/02/19 Time of Encounter: 11:00 - Subjective Interval History: Patient with no acute events overnight - Exam Vitals: Temp Pulse Resp BP Pulse Ox 97.8 F 75 18 94/38 97 04/02/19 16:19 04/02/19 16:19 04/02/19 16:19 04/02/19 16:19 04/02/19 16:19 Exam: Gen.: Nonacute distress, alert and oriented 3 ENT: Mucosal membranes moist Respiratory: Lungs are clear to auscultation bilaterally without any wheezing rhonchi or rales Cardiovascular: Normal S1 and S2 regular rate rhythm no murmurs rubs or gallops Abdomen: Soft, nontender and nondistended with positive bowel sounds Extremities: No lower extremity edema Skin: Normal color - Assessment and Plan (1) Sepsis Current Visit: Yes Status: Acute Assessment and Plan: We will continue IV antibiotics (2) Acute respiratory failure Current Visit: No Status: Acute Assessment and Plan: Secondary to fluid overload and COPD. CPAP tonight Treating pneumonia (3) UTI (urinary tract infection) Current Visit: No Status: Acute Assessment and Plan: Urinalysis suggestive of UTI. Patient started on Zosyn by the emergency room, and urine culture is pending. Follow-up urine culture Continue IV antibiotics (4) Anemia Current Visit: No Status: Chronic Assessment and Plan: Seen outpatient by oncology, patient has anemia of chronic disease (5) Sleep apnea Current Visit: No Status: Chronic Assessment and Plan: Start CPAP Respiratory therapy consult (6) Hyperkalemia Current Visit: No Status: Acute Assessment and Plan: Potassium 5.5 at admission and 5.4 today No EKG changes, likely elevated due to worsening renal function. Repeat a.m. labs Cardiac monitoring (7) Acute kidney injury Current Visit: No Status: Acute Assessment and Plan: Patient has baseline creatinine of 1.7. Currently 2.85 on admission and this morning 3.20. Nephrology following suspect patient might need dialysis (8) History of pulmonary embolism Current Visit: No Status: Acute Assessment and Plan: Patient on Eliquis. (9) Acute on chronic diastolic CHF (congestive heart failure) Current Visit: No Status: Acute Assessment and Plan: Last echocardiogram from March 2017: Impressions: Technically sub-optimal due to body habitus. LVEF 60%. Normal LV chamber size. Not all LV segments were well visualized, but overall function appeared normal. Mild concentric left ventricular hypertrophy. Right ventricular size not well evaluated. RV function appears normal. Moderate to severely dilated left atrium. Mild left ventricular diastolic dysfunction. No evidence of pulmonary hypertension identified. RVSP was not well visualized. No significant valvular dysfunction. Obtain repeat echocardiogram Strict I's and O's Daily weights (10) Acute exacerbation of chronic obstructive pulmonary disease (COPD) Current Visit: No Status: Acute Assessment and Plan: Patient wheezy on exam. Oxygen supplementation as needed Breathing treatments IV steroids Antibiotics as above Hold further IV fluids (11) Diabetes Current Visit: No Status: Chronic Assessment and Plan: Patient is an insulin dependent diabetic Monitor sugars Q6H NPO Low dose insulin sliding scale as needed Hold home meds. (12) Atrial fibrillation Current Visit: No Status: Chronic Assessment and Plan: On Eliquis, currently controlled (13) Compression fracture Current Visit: No Status: Acute Assessment and Plan: Currently in a splint. Patient was seen the emergency room yesterday and had an x-ray showing impaction of the left medial aspect of proximal tibia. She was to see Dr. Orellana outpatient later this week. Consider inpatient also consult versus outpatient follow-up (14) Pneumonia Current Visit: Yes Status: Acute Assessment and Plan: As seen on chest x-ray. Radiologist recommended a two-view chest x-ray for fu rther clarification however patient body habitus would make this technically difficult. Patient also too large for CT machine. Patient was started on antibiotics in the emergency room. Continue oxygen supplementation as needed Continue IV Zosyn Follow-up blood cultures when available Monitor vitals (15) Cellulitis of right leg Current Visit: Yes Status: Acute Assessment and Plan: Patient's right leg has an area of erythema over the foot. Tender to palpation. Patient started on vancomycin and Zosyn in the emergency room. Vancomycin discontinued today Will continue to monitor (16) Elevated troponin Current Visit: Yes Status: Acute Assessment and Plan: Patient on Eliquis. Denies chest pain. EKG negative for ischemia. Troponin in the emergency room was 1.68. 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 Continue Eliquis Echocardiogram in the morning - Time Spent with Patient Total time spent is greater than 50% in coordination of care (as documented) at patient's floor/unit and/or counseling patient: Internal Medicine: Result - Labs CBC & Chem 7: 04/02/19 04:28 04/02/19 04:28 Labs: Short CBC 04/02/19 Range/Units 04:28 WBC 29.8 H (4.3-11.1) K/mcL Hgb 9.1 L (11.5-15.4) g/dL Hct 29.9 L (35.3-44.9) % Plt Count 243 (140-400) K/mcL Neutrophils # 27.5 H (1.6-8.9) K/mcL BMP 04/02/19 04:28 Sodium 130 L Potassium 5.4 H Chloride 102 Carbon Dioxide 19 L BUN 62 H Creatinine 3.20 H Glucose 77 Calcium 8.2 L Cardiac Enzymes 04/01/19 Range/Units 22:54 Troponin I 1.18 H* (< 0.04) ng/mL Liver Function 04/02/19 Range/Units 04:28 Total Bilirubin 0.9 (0.3-1.0) mg/dL AST 202 H (13-39) Units/L ALT 145 H (7-52) Units/L Alkaline Phosphatase 178 H (34-104) Units/L Albumin 2.4 L (3.5-5.7) g/dL - ABG Interpretation ABG results: ABG ABG pH 7.28 pH Units (7.32-7.45) L 04/01/19 20:28 ABG pCO2 45 mmHg (35-45) 04/01/19 20:28 ABG pO2 74 mmHg (85-104) L 04/01/19 20:28 ABG O2 Saturation 93 % (95-98) L 04/01/19 20:28 PT/INR, D-dimer PT 20.1 Seconds (9.4-12.1) H 03/31/19 19:37 - Impressions Impressions Abdomen Ultrasound 04/01/19 11:49 IMPRESSION: Fatty infiltration of the liver. Suspected gallbladder sludge. D/ / Justine Farrar Cha, MD / Justine Farrar Cha, MD Interpreting Provider: Justine Farrar Cha, MD Consult Discharge Plan - Plan Referrals: Anmol Mancuso MD [Primary Care Provider] - 04/14/19 1:15 pm (1) Sepsis Qualifiers: Sepsis type: sepsis due to unspecified organism Qualified Code(s): A41.9 - Sepsis, unspecified organism (2) Acute respiratory failure Qualifiers: Respiratory failure complication: hypoxia Qualified Code(s): J96.01 - Acute respiratory failure with hypoxia (3) UTI (urinary tract infection) Qualifiers: Urinary tract infection type: acute cystitis Hematuria presence: with hematuria Qualified Code(s): N30.01 - Acute cystitis with hematuria (4) Anemia Qualifiers: Anemia type: iron deficiency Iron deficiency anemia type: unspecified iron deficiency Qualified Code(s): D50.9 - Iron deficiency anemia, unspecified (5) Sleep apnea Qualifiers: Sleep apnea type: unspecified type Qualified Code(s): G47.30 - Sleep apnea, unspecified (11) Diabetes Qualifiers: Diabetes mellitus type: type 2 Diabetes mellitus 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 insulin use: with 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 use Diabetes mellitus complication status: with kidney complications Diabetes mellitus complication detail: with chronic kidney disease Chronic kidney disease stage: stage 3 (moderate) Qualified Code(s): E11.22 - Type 2 diabetes mellitus with diabetic chronic kidney disease; N18.3 - Chronic kidney disease, stage 3 (moderate); 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
[2019-04-02] MEDS: Insulin DETEMIR 100 UNIT/ML X5UNITS SQ SCH (21:19)
[2019-04-03] MEDS: Insulin LISPRO 300 UNITS/3 ML VIAL SQ SCH ×4 (00:46→18:38)
[2019-04-03 03:39] LABS: Hematocrit 27.7 % (35.3-44.9); Hemoglobin 8.4 g/dL (11.5-15.4); Mean Corpuscular HGB Conc 30.3 g/dL (31.6-35.5); Mean Platelet Volume 10.2 fL (9.4-12.4); Nucleated Red Blood Cells 0.2 /100 WBC (0); Platelet Count 250 K/mcL (140-400)
[2019-04-03 03:41] LABS: Mean Corpuscular Hemoglobin 29.7 pg (28.0-33.3); Mean Corpuscular Volume 97.9 fL (83.0-100.0); Red Blood Count 2.83 M/mcL (3.82-4.97)
[2019-04-03 03:50] LABS: White Blood Count 34.6 K/mcL (4.3-11.1)
[2019-04-03 04:01] LABS: Albumin 2.4 g/dL (3.5-5.7); Phosphorous 6.1 mg/dL (2.7-4.5); Potassium 5.4 mEq/L (3.5-5.1)
[2019-04-03 04:06] LABS: Lymphocytes # 0.7 K/mcL (0.6-4.6); Neutrophils # 33.9 K/mcL (1.6-8.9); Platelet Estimate Normal (Normal)
[2019-04-03] MEDS: Piperacillin/Tazobactam 3.375 GM in 0.9 % Sodium Chloride Mini Bag 100 ML IVPB SCH (04:53)
[2019-04-03] MEDS ORDERED: 0.9 % Sodium Chloride 250 ML IVC PRN (07:21)
[2019-04-03] MEDS ORDERED: Albumin 25% 25gram/100mL 25 GM/100 ML IV.SOLN IVPB PRN (07:21)
[2019-04-03] MEDS ORDERED: 0.9 % Sodium Chloride 1,000 ML PRIME SCH (07:30)
[2019-04-03] MEDS: MethylPREDNISolone 40 MG/ML VIAL IVP SCH (08:01)
[2019-04-03] MEDS: Miconazole 2% ointment 141 APPL/141 GM TUBE TP SCH (08:02)
[2019-04-03] MEDS: Apixaban 2.5 MG TABLET PO SCH ×2 (08:02→21:43)
[2019-04-03] MEDS ORDERED: *HR* Heparin 5,000 UNIT/ML VIAL ONE (10:21)
--- NOTE | 2019-04-03 10:25 | IR Procedure Note ---
Date of procedure: 04/03/19 Consent Obtained: Verbal consent, Written consent Timeout: Correct patient and procedure verified, Correct site verified, Time out performed, Skin prep completed Local anesthetic: Lidocaine 1% Was there an visitor information assistant present: No Results/Findings: Temp HD catheter placement Estimated blood loss (cc): 1 Complications: None; Tolerated procedure well Indications: Renal failure Procedure Performed: Temp HD catheter placement Site/Technique: US guided temp HD catheter placement Results/Findings (any specimens removed): Temp HD catheter placement Post Procedure Treatment Plan: OK to use Specimen: None
--- NOTE | 2019-04-03 10:49 | Internal Med Progress Note ---
Hospitalist Progress Note - Encounter Date of Encounter: 04/03/19 Time of Encounter: 11:00 - Subjective Interval History: Patient is a 68-year-old morbidly obese female with a BMI of 78.3 presented due to lower extremity swelling/cellulitis with difficulty breathing. Patient has been afebrile in the last 24 hours but with worsening leukocytosis. Patient found to be septic secondary to bacteremia positive for strep pyogenes in addition to urine cultures that are growing gram-negative rods. In addition patient also with no improvement in acute kidney injury and temporary hemodialysis catheter was placed today on 04/03/19 - Exam Vitals: Temp Pulse Resp BP Pulse Ox 98.1 F 80 18 87/58 96 04/03/19 07:23 04/03/19 10:40 04/03/19 07:23 04/03/19 07:23 04/03/19 07:23 Exam: Gen.: Nonacute distress, alert and oriented 3 ENT: Mucosal membranes moist Respiratory: Lungs are clear to auscultation bilaterally without any wheezing rhonchi or rales Cardiovascular: Normal S1 and S2 regular rate rhythm no murmurs rubs or gallops Abdomen: Soft, nontender and nondistended with positive bowel sounds Extremities: No lower extremity edema Skin: Normal color - Assessment and Plan (1) Sepsis Current Visit: Yes Status: Acute Assessment and Plan: Patient has been afebrile in the last 24 hours but with worsening leukocytosis. Patient found to be septic secondary to bacteremia positive for strep pyogenes in addition to urine cultures that are growing gram-negative rods. Patient also a questionable pneumonia on imaging Patient currently on IV Zosyn; Vancomycin was stopped on 04/02/19 Infectious disease consulted and appreciate recommendations (2) Bacteremia Current Visit: Yes Status: Acute Assessment and Plan: Patient growing strength pyogenes group A which is pansensitive Patient currently on IV Zosyn which was not listed and sensitivities Infectious disease following and appreciate recommendations (3) Cellulitis of right leg Current Visit: Yes Status: Acute Assessment and Plan: Patient's right leg has an area of erythema over the foot which is tender to palpation. Patient was started on vancomycin and Zosyn in the emergency room but vancomycin was discontinued on 04/02/19 Infectious disease consulted and appreciate recommendations (4) UTI (urinary tract infection) Current Visit: No Status: Acute Assessment and Plan: Urine cultures currently growing gram-negative rods Continue IV Zosyn (5) Pneumonia Current Visit: Yes Status: Acute Assessment and Plan: Concerns for infiltrate on chest x-ray therefore radiologist recommended a two- view chest x-ray for further clarification however patient body habitus would ma ke this technically difficult. Patient also too large for CT machine. Continue oxygen supplementation as needed Continue IV Zosyn Infectious disease following and appreciate recommendations (6) Acute respiratory failure Current Visit: No Status: Acute Assessment and Plan: Suspect secondary to fluid overload and COPD. She still requiring supplemental oxygenation but at decreased amount at 2 L/m th is morning Will continue to monitor and wean as tolerates (7) Acute kidney injury Current Visit: No Status: Acute Assessment and Plan: Patient with no improvement in acute kidney injury and temporary hemodialysis catheter was placed today on 04/03/19 Nephrology following with recommendations for hemodialysis (8) Hyperkalemia Current Visit: No Status: Acute Assessment and Plan: Potassium 5.5 at admission and 5.4 today; suspect secondary to renal failure above No EKG changes Will continue to monitor; nephrology following and appreciate recommendations (9) Elevated troponin Current Visit: Yes Status: Acute Assessment and Plan: Suspect secondary to demand ischemia Patient on Eliquis. Denies chest pain. Neurology consulted and appreciate recommendations (10) Acute on chronic diastolic CHF (congestive heart failure) Current Visit: No Status: Acute Assessment and Plan: Echocardiogram showed LVEF of 55% with mild left ventricular diastolic dysfunction; evaluation difficult due to body habitus Will continue to monitor (11) Acute exacerbation of chronic obstructive pulmonary disease (COPD) Current Visit: No Status: Acute Assessment and Plan: Will continue bronchodilators in addition to IV Solu-Medrol (12) Atrial fibrillation Current Visit: No Status: Chronic Assessment and Plan: On Eliquis, currently controlled (13) Compression fracture Current Visit: No Status: Acute Assessment and Plan: Currently in a splint. Patient was seen in the emergency room on admission and had an x-ray showing impaction of the left medial aspect of proximal tibia. She was to see Dr. Orellana outpatient later this week. After patient medically stable; will consider inpatient consult versus outpatient follow-up (14) Anemia Current Visit: No Status: Chronic Assessment and Plan: Seen outpatient by oncology, patient has anemia of chronic disease (15) History of pulmonary embolism Current Visit: No Status: Acute Assessment and Plan: Patient on Eliquis. (16) Diabetes Current Visit: No Status: Chronic Assessment and Plan: Continue coverage with sliding-scale insulin (17) Sleep apnea Current Visit: No Status: Chronic Assessment and Plan: CPAP daily at bedtime Respiratory therapy following DVT Prophylaxis: Patient on Eliquis as above - Time Spent with Patient Total time spent is greater than 50% in coordination of care (as documented) at patient's floor/unit and/or counseling patient: Internal Medicine: Result - Labs CBC & Chem 7: 04/03/19 03:15 04/03/19 03:15 Labs: Short CBC 04/03/19 Range/Units 03:15 WBC 34.6 H* (4.3-11.1) K/mcL Hgb 8.4 L (11.5-15.4) g/dL Hct 27.7 L (35.3-44.9) % Plt Count 250 (140-400) K/mcL Neutrophils # 33.9 H (1.6-8.9) K/mcL BMP 04/03/19 03:15 Sodium 133 L Potassium 5.4 H Chloride 101 Carbon Dioxide 20 L BUN 72 H Creatinine 3.76 H Glucose 75 Calcium 8.0 L Liver Function 04/03/19 Range/Units 03:15 Albumin 2.4 L (3.5-5.7) g/dL - ABG Interpretation ABG results: ABG ABG pH 7.28 pH Units (7.32-7.45) L 04/01/19 20:28 ABG pCO2 45 mmHg (35-45) 04/01/19 20:28 ABG pO2 74 mmHg (85-104) L 04/01/19 20:28 ABG O2 Saturation 93 % (95-98) L 04/01/19 20:28 PT/INR, D-dimer PT 20.1 Seconds (9.4-12.1) H 03/31/19 19:37 Consult Discharge Plan - Plan Referrals: Anmol Mancuso MD [Primary Care Provider] - 04/14/19 1:15 pm (1) Sepsis Qualifiers: Sepsis type: sepsis due to unspecified organism Qualified Code(s): A41.9 - Sepsis, unspecified organism (4) UTI (urinary tract infection) Qualifiers: Urinary tract infection type: acute cystitis Hematuria presence: with hematuria Qualified Code(s): N30.01 - Acute cystitis with hematuria (5) Pneumonia Qualifiers: Pneumonia type: due to unspecified organism Laterality: unspecified laterality Lung location: unspecified part of lung Qualified Code(s): J18.9 - Pneumonia, unspecified organism (6) Acute respiratory failure Qualifiers: Respiratory failure complication: hypoxia Qualified Code(s): J96.01 - Acute respiratory failure with hypoxia (12) Atrial fibrillation Qualifiers: Atrial fibrillation type: paroxysmal Qualified Code(s): I48.0 - Paroxysmal atrial fibrillation (14) Anemia Qualifiers: Anemia type: iron deficiency Iron deficiency anemia type: unspecified iron deficiency Qualified Code(s): D50.9 - Iron deficiency anemia, unspecified (16) Diabetes Qualifiers: Diabetes mellitus type: type 2 Diabetes mellitus half-way insulin use: with half-way use Diabetes mellitus complication status: with kidney complications Diabetes mellitus complication detail: with chronic kidney disease Chronic kidney disease stage: stage 3 (moderate) Qualified Code(s): E11.22 - Type 2 diabetes mellitus with diabetic chronic kidney disease; N18.3 - Chronic kidney disease, stage 3 (moderate); Z79.4 - emt intermediate (current) use of insulin (17) Sleep apnea Qualifiers: Sleep apnea type: unspecified type Qualified Code(s): G47.30 - Sleep apnea, unspecified
--- NOTE | 2019-04-03 11:55 | Nephrology Progress Note ---
Date of Encounter: 04/03/19 Time of Encounter: 08:50 - Assessment and Plan (1) Acute kidney injury Current Visit: No Status: Acute Recommend HD initiation today (). Appreciate IR. Will plan for 3 consecutive dialysis treatments. I've initially only ordered a very gentle dialysis as she is relatively hypotensive. If she develops intradialytic hyp otension, then she may need Midodrine. Will has such severe anasarca, that she may need UF on day 4 and to resume HD on day 5 to target her severe edema. Continue to following a renal protective strategy including avoidance of nephrotoxic agents, strict I's and O's, daily weights, and renal dosing of medications. My colleague Dr. Arias will be on-call starting tomorrow, and I will provide a thorough handoff. Thank you. (2) CKD (chronic kidney disease) stage 3, GFR 30-59 ml/min Current Visit: No Status: Chronic stage IIIb-IV. Her avg GFR was in the 20s at baseline, but recently it improved 30, prior to admission. (3) Anasarca Current Visit: Yes Status: Acute See above. Tense. See above, re: initiation of [employer]. (4) Hyperkalemia Current Visit: No Status: Acute Ongoing. Recommend a low K+ diet. She has not responded to routine medical mgt, and so I recommend [employer] to begin today (). I reviewed with her the pros vs cons and R/B/I/A for dialysis and for placement of a dialysis catheter. She voiced consent to proceed. She actually was asking for dialysis. (5) Morbid obesity Current Visit: No Status: Chronic this is a high risk comorbidity, and I recommend lifestyle modifications. (6) Hyponatremia Current Visit: No Status: Acute Most likely a hypervolemic hyponatremia, and I recommend a slow correction of 6- 8 mEq in the first 24 hours. She should follow a less than 48 oz free water fluid restriction per day. Do not recommend adding excessive sodium chloride to her diet. Subjective Principal diagnosis: YEIMY, Hyperkalemia, Hx of prior temporary HD Interval history: The patient was seen and examined in her 2N room earlier today, and she affirmed feeling fatigued with ongoing severe swelling, and she actually requested to initiate dialysis during this admission. She voiced still have fatigue and diminished appetite, and some nausea when she tries to eat. She has been bedbound, she affirmed. Objective - Vital Signs Vital signs: Vital Signs Temp Pulse Resp BP Pulse Ox 04/03/19 11:29 97.8 F 82 18 112/46 97 04/03/19 10:40 80 04/03/19 07:29 82 04/03/19 07:23 98.1 F 86 18 87/58 96 04/03/19 03:47 97.2 F L 84 16 94/52 95 04/03/19 03:00 83 16 84/40 95 04/02/19 23:55 98.3 F 84 18 101/48 96 04/02/19 19:11 98.2 F 78 18 90/47 95 04/02/19 16:19 97.8 F 75 18 94/38 97 Intake and Output 04/02/19 04/03/19 04/03/19 23:59 07:59 15:59 Intake Total 100 / 700 0 / 100 100 / 100 Output Total 0 / 50 0 / 0 Balance 100 / 650 0 / 100 100 / 100 Intake: IV Fluids 100 / 700 100 / 100 Zosyn 3.375 GM In 0.9 % Sodium 100 / 200 100 / 100 Chloride (Mini-Bag +) 100 ML @ 25 mls/hr IVPB Q12H [facility] Rx#: [id number] Oral 0 / 0 0 / 0 0 / 0 Output: Catheter 0 / 50 0 / 0 Other: Meal NPO Percent of Meal Consumed 0% Weight 200.4 kg Blood Glucose* 88 71 66 Patient Weight 04/03/19 23:59 Weight 200.4 kg - General Appearance Exam: General appearance: Present: well-developed, well-nourished, obese (very morbidly obese), fatigue, frail Exam: She was laying supine in an extra large bed EENT: Present: ATNC, PERRL, mucous membranes moist Neck: Present: no JVD, supple Respiratory: Present: no kyphosis, course breath sounds (but difficult to aulscultate due to her large body habitus) Cardiology: Present: edema (anasarca plus tense lymphedema of the right upper extremity), regular rate, regular rhythm, normal S1, normal S2 Gastrointestinal: Present: normoactive bowel sounds, no tenderness, obese (with large pannus) Integumentary: Present: LE wounds, ecchymotic and LE wraps Neurologic: Present: no focal deficit, no asterixis, alert and oriented x3 Musculoskeletal: Present: no cyanosis, no clubbing Psychiatric: Present: depressed, cooperative - Lab 04/03/19 03:15 04/03/19 03:15 Most recent lab results 04/03/19 03:15 Calcium 8.0 L Phosphorus 6.1 H Consult Discharge Plan - Plan Referrals: Anmol Mancuso MD [Primary Care Provider] - 04/14/19 1:15 pm
--- NOTE | 2019-04-03 13:59 | Cardiology Consult Note ---
<Matt Robin - Last Filed: 04/03/19 14:11> Date of Encounter: 04/03/19 Time of Encounter: 13:55 Assessment and Plan (1) Elevated troponin Current Visit: Yes Status: Acute Per Cardiology: Elevated troponins a few days ago with peak of 1.87 in setting of multiple comorbid conditions: Sepsis, bacteremia, YEIMY now on dialysis, leukocytosis. Denies any chest pain. Echo showed EF preserved at 55%, mild diastolic dysfunction. Patient has allergy to shellfish. Additionally, morbidly obese with a BMI over 78. Patient does not desire further ischemic evaluation at this time. Suspect type to demand ischemia. No cardiac rehabilitation consult warranted. If were to require further ischemic evaluation would most likely need to be completed once recovered from acute illnesses and at tertiary facility (morbid obesity). Consider addition of asa, however on Eliquis and has low H&H. Consider addition of statin, however has elevated LFTs. Consider addition of beta anne marie, however systolic blood pressures 80s to 100s. Discussed and reviewed with Dr. Ann, cardiology signing off. Discussion w patient/family: The assessment and plan as outlined above was discussed with the patient and/or family members who expressed understanding and agreement. All questions were answered. Thank you for involving us in the care of your patient. Please call with any questions. History of Present Illness Consult date: 04/03/19 Requesting physician: Chuck Oliva Consult reason: Elevated Troponin Chief complaint: Edema History of present illness: Ms. Lamb is a 68 year old female with a relevant past medical history of DM 2, CKD with history of temporal dialysis, GERD, HTN, history of PE on anticoagulation, morbid obesity. Cardiology consult for elevated troponin from a few days ago. Patient denies any chest pain. She reports initially presented with worsening swelling and infection to lower extremity. She reports no history of CAD; has never had stenting. Reports history PE on a blood thinner. Resides in detention. Seen during dialysis. Past Med Surg Social Fam HX - Past Medical History Attestation: Yes The following information was validated with the patient. Source: patient, old records reviewed Medical history: arthritis, diabetes, GERD, hypertension, renal disease, other Additional medical history: Atrial Flutter Psychiatric history: anxiety, depression - Past Surgical History Surgical History: appendectomy, sinus surgery, bariatric surgery Additional surgical history: tonsilectomy, Stomach stappling, Sinus surg sergio,csection - Social History Smoking Status: Never smoker Smokeless Tobacco Status: No Alcohol use: none Drug use: none - Family History Mother Living Status: Hx Family Neurologic Disorders: Yes (Migraines) Hx Family Autoimmune Disorders: Yes (MS) Sister Hx Family Cancer: Yes Hx Family Autoimmune Disorders: Yes (Lupus) Father Living Status: Hx Family Cancer: Yes Hx Family Endocrine Disorder: Yes (diabetes) Medications and Allergies Citalopram [CeleXA] 20 mg PO DAILY 04/12/17 [History] Loperamide HCl [Imodium A-D] 2 mg PO PRN PRN 04/12/17 [History] Losartan Potassium [Cozaar] 50 mg PO DAILY 04/12/17 [History] Pioglitazone [Actos] 45 mg PO DAILY 04/12/17 [History] Venlafaxine XR (24 HR) [Effexor Xr] 300 mg PO DAILY 04/12/17 [History] Vitamin B Complex 1 cap PO 1200 04/12/17 [History] Ferrous Sulfate 325 mg PO BIDWM #60 tablet 04/16/17 [Rx] Baclofen 20 mg PO TID PRN 02/06/18 [History] Loratadine [Allergy Relief] 10 mg PO DAILY PRN 02/06/18 [History] Omeprazole [PriLOSEC] 20 mg PO HS 02/06/18 [History] Calcium Carbonate [Tums] 500 mg PO Q4HR PRN 02/07/18 [History] metFORMIN [Glucophage] 500 mg PO BIDWM 02/07/18 [History] Caffeine [Stay Awake] 50 mg PO TID 12/01/18 [History] DiphenhydraMINE [Benadryl] 50 mg PO BID PRN 12/01/18 [History] Insulin Glargine [Lantus] 40 unit SQ HS 12/01/18 [History] Magnesium Hydroxide/Al Hydrox [Mag-Al Liquid] 30 ml PO DAILY PRN 12/01/18 [History] Potassium Chloride [K-Tab ER] 20 meq PO DAILY 12/01/18 [History] Apixaban [Eliquis] 2.5 mg PO BID 12/03/18 [History] Diltiazem HCl [Diltiazem 24Hr Cd] 120 mg PO DAILY 12/03/18 [History] Glucagon,Human Recombinant [Glucagen] 1 mg IM AD PRN 12/03/18 [History] HYDROcodone/Acet 5/325 mg [[place] 5-325 mg] 1 tab PO BID 12/03/18 [History] HYDROcodone/Acet 5/325 mg [[place] 5-325 mg] 1 tab PO Q4H PRN 12/03/18 [History] Metoprolol Tartrate [Lopressor] 50 mg PO DAILY 12/03/18 [History] Multivitamin [Daily Multiple Vitamin] 1 tab PO DAILY 12/03/18 [History] Gabapentin [Neurontin] 300 mg PO BID #30 capsule 12/06/18 [Rx] GuaiFENesin ER [Mucinex] 600 mg PO BID #20 tbbp.12hr 12/06/18 [Rx] Furosemide [Lasix] 20 mg PO BID 03/31/19 [History] Allergy/AdvReac Type Severity Reaction Status Date / Time Tetracyclines Allergy Rash Verified 03/31/19 21:57 Penicillins AdvReac Gastrointestinal Verified 03/31/19 21:57 Upset shellfish derived AdvReac Headache Verified 03/31/19 21:57 All Systems Review: The remainder of the systems were reviewed and are negative - Constitutional Constitutional: fatigue, weight gain - Cardiovascular Cardiovascular: as per HPI, dyspnea at rest, dyspnea on exertion, leg edema Physical Examination Vital Signs, Last 4 Hours Temp Pulse Resp BP Pulse Ox 04/03/19 11:29 97.8 F 82 18 112/46 97 04/03/19 10:40 80 General: Conversant, No Apparent Distress HEENT: Atraumatic, Normocephaly, Mucus Membranes Moist Neck: No JVD, Normal carotid pulses Cardiac: Reg Rate and Rhythm, Normal S1 and S2, No Murmur Lungs: Other (diminished BS anteriorly) Neuro: Alert and responsive, No focal deficits noted Abdomen: Soft, Non-Tender, Other (morbidly obese) Skin: No rashes noted on visualized skin Musculoskeletal: No Chest Wall Tenderness Extremities: Other (generalized anasarca) Results 04/03/19 03:15 04/03/19 03:15 Lab Results Laboratory Tests 03/31/19 03/31/19 03/31/19 19:37 19:37 19:37 WBC 22.6 H Hgb 9.7 L Hct 32.1 L Plt Count INR 1.8 Potassium Creatinine Est GFR (Non-Af Amer) Troponin I 1.68 H* Ur Leukocyte Esterase Ur Culture Indicated? Streptococcus sp PCR Group A Strep DNA 03/31/19 03/31/19 04/01/19 20:14 20:22 01:33 WBC Hgb Hct Plt Count INR Potassium Creatinine Est GFR (Non-Af Amer) Troponin I 1.87 H* Ur Leukocyte Esterase Large H Ur Culture Indicated? YES A Streptococcus sp PCR DETECTED A Group A Strep DNA DETECTED A 04/01/19 04/01/19 04/01/19 09:13 17:45 22:54 WBC Hgb Hct Plt Count INR Potassium Creatinine Est GFR (Non-Af Amer) Troponin I 1.57 H* 1.33 H* 1.18 H* Ur Leukocyte Esterase Ur Culture Indicated? Streptococcus sp PCR Group A Strep DNA 04/03/19 04/03/19 03:15 03:15 WBC 34.6 H* Hgb 8.4 L Hct 27.7 L Plt Count 250 INR Potassium 5.4 H Creatinine 3.76 H Est GFR (Non-Af Amer) 12 L Troponin I Ur Leukocyte Esterase Ur Culture Indicated? Streptococcus sp PCR Group A Strep DNA ITS Impressions Chest X-Ray 03/31/19 19:21 IMPRESSION: Prominence of central pulmonary vasculature. Correlation for pulmonary vascular congestion is recommended. Right basilar airspace disease and probable right pleural effusion, asymmetric edema versus pneumonia. Follow-up is recommended, preferably with a PA and lateral study. D/ / Justine Farrar Cha, MD / Justine Farrar Cha, MD Interpreting Provider: Justine Farrar Cha, MD Echocardiogram 04/01/19 01:13 Impressions: LVEF 55%. Not all LV wall segments were well visualized. Definity was attempted but unsuccessful at opacification of LV borders. Mild left ventricular diastolic dysfunction. Right ventricular structure and function are not well evaluated. Bi-atrial enlargement. Mild tricuspid regurgitation. No pulmonary hypertension based on TR signal obtained. Left Ventricular Wall Motion: Rest Echo Findings The mid anterior septal and mid inferior lateral jung were not visualized. All other wall segments showed normal motion. Findings: Study Quality * Technically challenging due to body habitus. ECG Findings * Normal sinus rhythm. Left Ventricle * Definity was attempted. * Mild left ventricular diastolic dysfunction. * LVEF 55%. * LV chamber size and wall thickness measurements are normal. Right Ventricle * Right ventricular structure and function are not well evaluated. Left Atrium * Moderately dilated left atrium. Right Atrium * Moderately dilated right atrium. Mitral Valve * Normal mitral valve structure. * No mitral regurgitation. * Mild mitral annular calcification * No mitral stenosis. Aortic Valve * No aortic regurgitation. * Trileaflet aortic valve. * No aortic stenosis. Tricuspid Valve * Tricuspid valve not well visualized. * Mild tricuspid regurgitation. Pulmonic Valve * Pulmonic valve is not well visualized. * No pulmonic stenosis. * No pulmonic regurgitation. Pulmonary Artery * Pulmonary artery not well visualized. Aorta * Normally sized aortic root. Pericardium * There is no pericardial effusion present. Interatrial Septum * Interatrial septum not well evaluated. IVC * The IVC is not well evaluated. Abdomen Ultrasound 04/01/19 11:49 IMPRESSION: Fatty infiltration of the liver. Suspected gallbladder sludge. D/ / Justine Farrar Cha, MD / Justine Farrar Cha, MD Interpreting Provider: Justine Farrar Cha, MD Guidance Ultrasound 04/03/19 00:00 IMPRESSION: Ultrasound-guided temporary hemodialysis catheter placement. No immediate complications. A postprocedure radiograph confirms appropriate positioning. The catheter is ready for use. D/ / Agustín Alberto MD / Agustín Alberto MD Interpreting Provider: Agustín Alberto MD Insertion Non-Tunneled Catheter 04/03/19 00:00 IMPRESSION: Ultrasound-guided temporary hemodialysis catheter placement. No immediate complications. A postprocedure radiograph confirms appropriate positioning. The catheter is ready for use. D/ / Agustín Alberto MD / Agustín Alberto MD Interpreting Provider: Agustín Alberto MD Chest X-Ray 04/03/19 10:38 IMPRESSION: Right central venous catheter placement with the tip projecting over the cavoatrial junction. No pneumothorax. D/ / Fatuma Apple MD / Fatuma Apple MD Interpreting Provider: Fatuma Apple MD Active Medications Acetaminophen (Tylenol) 650 mg PO Q6HR PRN PRN Reason: Fever Stop: 10/01/19 00:05 Albuterol Sulfate (Proventil Neb) 2.5 mg IH Q2H PRN PRN Reason: Shortness Of Breath/Wheezing Stop: 09/30/19 23:58 Apixaban (Eliquis) 2.5 mg PO BID INGRID Stop: 10/01/19 09:01 Last Admin: 04/03/19 08:02 Dose: 2.5 mg Documented by: Dextrose/Water (Dextrose 50% (Syg)) 25 ml IVP AD PRN PRN Reason: Hypoglycemia Stop: 10/01/19 18:29 Glucagon (Glucagen) 1 mg IM ONCE PRN PRN Reason: Hypoglycemia Stop: 10/01/19 18:29 Glucose (Gluctose) 15 gm PO ONCE PRN PRN Reason: Hypoglycemia Stop: 10/01/19 18:29 Glucose (Gluctose) 30 gm PO ONCE PRN PRN Reason: Hypoglycemia Stop: 10/01/19 18:29 Piperacillin Sod/Tazobactam (Sod 3.375 gm/ Sodium Chloride) 100 mls @ 25 mls/hr IVPB Q12H INGRID Stop: 10/01/19 17:01 Last Infusion: 04/03/19 08:48 Dose: Infused Documented by: Dextrose (Dextrose 5%) 1,000 mls @ 100 mls/hr IVC .Q10H PRN PRN Reason: HYPOGLYCEMIA Stop: 10/01/19 18:29 Sodium Chloride (0.9 % Sodium Chloride) 250 mls @ 937.5 mls/hr IVC .Q16M PRN PRN Reason: Hypotension Stop: 10/03/19 07:22 Albumin Human (Flexbumin) 25 gm in 100 mls @ 60 mls/hr IVPB ONCE PRN PRN Reason: Hypotension Stop: 10/03/19 07:22 Sodium Chloride (0.9 % Sodium Chloride) 1,000 mls @ 0 mls/hr PRIME .Q0M INGRID Stop: 10/03/19 07:31 Insulin Detemir (Levemir) 10 unit SQ HS INGRID Stop: 10/01/19 21:01 Last Admin: 04/02/19 21:19 Dose: 10 unit Documented by: Insulin Human Lispro (Humalog) 0 units SQ Q6HR [facility]; Protocol Stop: 10/02/19 00:01 Last Admin: 04/03/19 11:37 Dose: Not Given Documented by: Methylprednisolone (Solu-Medrol) 40 mg IVP DAILY [facility] Stop: 10/02/19 09:01 Last Admin: 04/03/19 08:01 Dose: 40 mg Documented by: Miconazole (Aloe [place] Antifungal Ointment) 1 appl TP DAILY [facility] Stop: 10/02/19 12:46 Last Admin: 04/03/19 08:02 Dose: Not Given Documented by: Miconazole Nitrate (Consuelo Antifungal) 1 appl TP BID [facility] Stop: 10/02/19 12:46 Last Admin: 04/03/19 08:02 Dose: Not Given Documented by: Naloxone HCl (Narcan) 0.4 mg IVP Q2MPRN PRN PRN Reason: SEE COMMENTS Stop: 09/30/19 23:53 Omeprazole (Prilosec) 20 mg PO HS [facility]; Protocol Stop: 10/01/19 21:01 Last Admin: 04/02/19 21:19 Dose: 20 mg Documented by: - Imaging and Cardiology Echo: report reviewed - EKG Interpretation EKG results cardiology: personally reviewed (SR 80's), normal ECG, sinus rhythm, no diagnostic ischemia Consult Discharge Plan - Plan Referrals: Anmol Mancuso MD [Primary Care Provider] - 04/14/19 1:15 pm <Sanjay Ann - Last Filed: 04/03/19 15:58> Date of Encounter: 04/03/19 - Attending Attestation I have personally performed a face to face evaluation on this patient. I have reviewed and agree with the care plan. History and Exam by me shows: 68-year-old female with diabetes presents with positive blood cultures elevated LFTs possible UTI, elevated troponins 1.68 and acute renal failure with worsening renal function. Patient denies any chest pain but is short of breath. Recent echocardiogram shows a preserved ejection fraction with no major valvular abnormalities. Possible cellulitis versus necrotizing fasciitis in lower extremity CT pending. On antibiotics with worsening white blood count and left shift. Possible demand ischemia with multiple comorbidities and cardiac r isk factors. Patient likely would benefit from an ischemic workup once infection is better controlled and patient more stable. Please trend cardiac enzymes to evaluate extent and significance of demand ischemia EKG unremarkable with subtle ST changes laterally. Heparin, aspirin if safe, patient currently with anemia and worsening hemoglobin. Assessment and Plan Discussion w patient/family: The assessment and plan as outlined above was discussed with the patient and/or family members who expressed understanding and agreement. All questions were answered. Thank you for involving us in the care of your patient. Please call with any questions. History of Present Illness History of present illness: Ms. Lamb is a 68 year old female All Systems Review: The remainder of the systems were reviewed and are negative Physical Examination Vital Signs, Last 4 Hours Temp Pulse Resp BP 04/03/19 15:28 78 04/03/19 15:00 107/78 04/03/19 14:45 96/47 04/03/19 14:30 102/55 04/03/19 14:15 108/56 04/03/19 14:00 94/44 04/03/19 13:45 97.6 F 17 102/52 Results 04/03/19 03:15 04/03/19 03:15 Lab Results 04/03/19 04/03/19 03:15 03:15 WBC 34.6 H* Hgb 8.4 L Hct 27.7 L Plt Count 250 Sodium 133 L Potassium 5.4 H Chloride 101 Carbon Dioxide 20 L BUN 72 H Creatinine 3.76 H Glucose 75 Calcium 8.0 L
[2019-04-03] MEDS ORDERED: *HR* Heparin 10,000 UNIT/10 ML VIAL IV PRN (14:28)
[2019-04-03] MEDS ORDERED: Vancomycin 1 EACH in 0.9 % Sodium Chloride 250 ML IVPB PRN (15:00)
--- NOTE | 2019-04-03 15:37 | Infectious Disease Consult ---
Infectious Disease-Consult - Encounter Date/Time Date of Encounter: 04/03/19 Time of Encounter: 15:27 - Data of Consult Patient: new to practice Reason for consult: Leukocytosis Consult date: 04/03/19 Requesting Physician: Chuck Oliva Primary Care Provider: Anmol Mancuso MD - HPI HPI: Patient is a 68-year-old woman who presented to [facility] on 03/31/2019 with shortness of breath and leg pain. We are consulted on 04/03/2019 for leukocytosis at. Patient is a 68-year-old woman with extensive past medical history mentioned below including morbid obesity BMI 78, diabetes mellitus type 2, hypertension, dyslipidemia, arthritis and multiple antibiotic allergies presented [facility] for shortness of breath, chest pain and lower extremity edema and swelling. Patient also apparently has been complaining of decreased appetite. No fevers no chills no other symptoms. Since admission, vital signs MAXIMUM TEMPERATURE 102.1, tachycardia and a pr esenting WBC of 22.6 with 90% neutrophils no bands. BUN 52 creatinine 2.85 lactic acid 2.7 with elevated liver function tests and a troponin leak at 1.68. A urinalysis was obtained and cultures were obtained and blood cultures were obtained. Blood cultures 2/2 sets were positive for group A streptococcus and urinalysis is positive for gram-negative kamran final ID is pending. Repeat cultures on April 01 of April 02 are no growth to date. Patient supposedly allergic to penicillin but has been on Zosyn and tolerating it well. When asked patient was told she had nausea and vomiting the day penicillin. - ROS Review of Systems: 10 point review of systems done, negative other for what mentioned in history of present illness - Results CBC & Chem 7: 04/03/19 03:15 04/03/19 03:15 - Exam Vitals: Temp Pulse Resp BP Pulse Ox 97.6 F 82 17 107/78 97 04/03/19 13:45 04/03/19 11:29 04/03/19 13:45 04/03/19 15:00 04/03/19 11:29 Exam: GENERAL: Laying in bed, appears comfortable. HEAD: Normocephalic atraumatic EYES: PERRLA, EOMI, no conjunctival hemorrhage, sclera anicteric ENT: Mucous membranes dry. Positive oral thrush. NECK: Supple. No meningeal signs. No masses. Dialysis catheter right neck LUNGS: Chest expanding symmetrically. Lungs sounds audible both lung [place]. No wheezing, no rhonchi. Limited exam due to body habitus CV: RRR, S1S2, ABDOMEN: Soft, nontender, nondistended. Bowel sounds audible EXTREMITY: Diffuse edema bilateral lower extremities with some decubitus ulcers. Right foot with erythema and the bullae. No crepitus. NEURO: Awake alert oriented 3. No obvious focal deficit PSYCH: Calm and appropriate. No agitation. Citalopram [CeleXA] 20 mg PO DAILY 04/12/17 [History] Loperamide HCl [Imodium A-D] 2 mg PO PRN PRN 04/12/17 [History] Losartan Potassium [Cozaar] 50 mg PO DAILY 04/12/17 [History] Pioglitazone [Actos] 45 mg PO DAILY 04/12/17 [History] Venlafaxine XR (24 HR) [Effexor Xr] 300 mg PO DAILY 04/12/17 [History] Vitamin B Complex 1 cap PO 1200 04/12/17 [History] Ferrous Sulfate 325 mg PO BIDWM #60 tablet 04/16/17 [Rx] Baclofen 20 mg PO TID PRN 02/06/18 [History] Loratadine [Allergy Relief] 10 mg PO DAILY PRN 02/06/18 [History] Omeprazole [PriLOSEC] 20 mg PO HS 02/06/18 [History] Calcium Carbonate [Tums] 500 mg PO Q4HR PRN 02/07/18 [History] metFORMIN [Glucophage] 500 mg PO BIDWM 02/07/18 [History] Caffeine [Stay Awake] 50 mg PO TID 12/01/18 [History] DiphenhydraMINE [Benadryl] 50 mg PO BID PRN 12/01/18 [History] Insulin Glargine [Lantus] 40 unit SQ HS 12/01/18 [History] Magnesium Hydroxide/Al Hydrox [Mag-Al Liquid] 30 ml PO DAILY PRN 12/01/18 [History] Potassium Chloride [K-Tab ER] 20 meq PO DAILY 12/01/18 [History] Apixaban [Eliquis] 2.5 mg PO BID 12/03/18 [History] Diltiazem HCl [Diltiazem 24Hr Cd] 120 mg PO DAILY 12/03/18 [History] Glucagon,Human Recombinant [Glucagen] 1 mg IM AD PRN 12/03/18 [History] HYDROcodone/Acet 5/325 mg [[place] 5-325 mg] 1 tab PO BID 12/03/18 [History] HYDROcodone/Acet 5/325 mg [[place] 5-325 mg] 1 tab PO Q4H PRN 12/03/18 [History] Metoprolol Tartrate [Lopressor] 50 mg PO DAILY 12/03/18 [History] Multivitamin [Daily Multiple Vitamin] 1 tab PO DAILY 12/03/18 [History] Gabapentin [Neurontin] 300 mg PO BID #30 capsule 12/06/18 [Rx] GuaiFENesin ER [Mucinex] 600 mg PO BID #20 tbbp.12hr 12/06/18 [Rx] Furosemide [Lasix] 20 mg PO BID 03/31/19 [History] Allergy/AdvReac Type Severity Reaction Status Date / Time Tetracyclines Allergy Rash Verified 03/31/19 21:57 Penicillins AdvReac Gastrointestinal Verified 03/31/19 21:57 Upset shellfish derived AdvReac Headache Verified 03/31/19 21:57 - Assessment and Plan (1) Severe sepsis Current Visit: Yes Status: Acute Patient had 2 SIRS criteria plus lactic acidosis and end organ damage on admission Likely secondary to bacteremia and cellulitis SNOMED Code(s): 67769254 (2) Gram-positive bacteremia Current Visit: Yes Status: Acute 2/2 sets 03/31/2019 positive for group A streptococcus Source not clear concern for necrotizing fasciitis or cellulitis of the right lower extremity Repeat cultures on 04/01/2019 and 04/02/2019 no growth to date Patient supposedly allergic to penicillin but was on Zosyn and tolerating it well I will start the patient on vancomycin, clindamycin and penicillin We will need to dose adjust based on the creatinine clearance Discussed with the pharmacy team Monitor labs and for drug toxicity SNOMED Code(s): 068232180623 (3) Cellulitis of right leg Current Visit: Yes Status: Acute There is also some bullae changes. A shoe with morbid obesity and limited exam due to body due to body habitus. Recommend CT lower extremity without contrast to rule out necrotizing fasciitis Check CK level SNOMED Code(s): 729213619 (4) Drug allergy, antibiotic Current Visit: Yes Status: Acute Tolerating Zosyn even psoas abscesses allergic to penicillin When asked apparently gives her nausea and vomiting so no true allergies but intolerance SNOMED Code(s): 582525658609590 (5) Morbid obesity Current Visit: No Status: Chronic BMI 78 SNOMED Code(s): 167992213 (6) Elevated troponin Current Visit: Yes Status: Acute Cardiology following SNOMED Code(s): 933336383, 023684802, 932315235 (7) Acute on chronic kidney failure Current Visit: Yes Status: Acute Qualifiers: Acute renal failure type: unspecified Chronic kidney disease stage: unspec ified stage Qualified Code(s): N17.9 - Acute kidney failure, unspecified; N18.9 - Chronic kidney disease, unspecified SNOMED Code(s): 179984155 (8) Diabetes Current Visit: No Status: Chronic Qualifiers: Diabetes mellitus type: type 2 Diabetes mellitus custodial insulin use: with custodial use Diabetes mellitus complication status: with kidney complications Diabetes mellitus complication detail: with chronic kidney disease Chronic kidney disease stage: stage 3 (moderate) Qualified Code(s): E11.22 - Type 2 diabetes mellitus with diabetic chronic kidney disease; N18.3 - Chronic kidney disease, stage 3 (moderate); 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 SNOMED Code(s): 57787799 Past Med Surg Social Fam HX - Past Medical History Medical history: arthritis, diabetes, GERD, hypertension, renal disease, other Additional medical history: Atrial Flutter Psychiatric history: anxiety, depression - Past Surgical History Surgical History: appendectomy, sinus surgery, bariatric surgery Additional surgical history: tonsilectomy, Stomach stappling, Sinus surgery,csection - Social History Smoking Status: Never smoker Smokeless Tobacco Status: No Alcohol use: none Drug use: none - Family History Mother Living Status: Hx Family Neurologic Disorders: Yes (Migraines) Hx Family Autoimmune Disorders: Yes (MS) Sister Hx Family Cancer: Yes Hx Family Autoimmune Disorders: Yes (Lupus) Father Living Status: Hx Family Cancer: Yes Hx Family Endocrine Disorder: Yes (diabetes) Consult Discharge Plan - Plan Referrals: Anmol Mancuso MD [Primary Care Provider] - 04/14/19 1:15 pm
[2019-04-03] MEDS ORDERED: Penicillin G Potassium 4,000,000 UNIT in 0.9 % Sodium Chloride 100 ML IVPB ONE (16:00)
[2019-04-03] MEDS ORDERED: 0.9 % Sodium Chloride 1,000 ML ONE (16:36)
[2019-04-03] MEDS: Clindamycin 900 MG/50 ML 900 MG/50 ML IV.SOLN IVPB SCH (18:37)
[2019-04-03] MEDS: PENICILLIN POTASSIUM IVPB SCH (21:43)
[2019-04-03] MEDS: SODIUM CHLORIDE 0.9% IVPB SCH (21:43)
[2019-04-03] MEDS: Insulin DETEMIR 100 UNIT/ML X5UNITS SQ SCH (21:43)
[2019-04-03 22:01] LABS: Creatine Kinase 220 Units/L (30-223); Vancomycin,Random 20 mcg/mL
[2019-04-04] MEDS: Insulin LISPRO 300 UNITS/3 ML VIAL SQ SCH ×4 (00:50→17:23)
[2019-04-04] MEDS: SODIUM CHLORIDE 0.9% IVPB SCH ×4 (01:09→14:46)
[2019-04-04] MEDS: PENICILLIN POTASSIUM IVPB SCH ×4 (01:09→14:46)
[2019-04-04] MEDS: Clindamycin 900 MG/50 ML 900 MG/50 ML IV.SOLN IVPB SCH ×3 (01:09→16:28)
[2019-04-04 04:23] LABS: Hematocrit 27.4 % (35.3-44.9)
[2019-04-04 04:24] LABS: Hemoglobin 8.6 g/dL (11.5-15.4); Mean Corpuscular HGB Conc 31.4 g/dL (31.6-35.5); Mean Corpuscular Hemoglobin 29.9 pg (28.0-33.3); Mean Corpuscular Volume 95.1 fL (83.0-100.0); Mean Platelet Volume 9.8 fL (9.4-12.4); Nucleated Red Blood Cells 0.1 /100 WBC (0); Platelet Count 236 K/mcL (140-400); Red Blood Count 2.88 M/mcL (3.82-4.97)
[2019-04-04 04:40] LABS: Calcium 8.1 mg/dL (8.6-10.3); Potassium 4.7 mEq/L (3.5-5.1)
[2019-04-04 05:11] LABS: White Blood Count 35.6 K/mcL (4.3-11.1)
[2019-04-04 05:27] LABS: Lymphocytes # 1.4 K/mcL (0.6-4.6); Monocytes # 0.4 K/mcL (0.0-1.3); Neutrophils # 32.4 K/mcL (1.6-8.9); Platelet Estimate Normal (Normal)
[2019-04-04 05:28] LABS: Anisocytosis 1+ (Not Present)
[2019-04-04] MEDS ORDERED: 0.9 % Sodium Chloride 250 ML IVC PRN (06:25)
[2019-04-04] MEDS ORDERED: *HR* Metoprolol 5 MG/5 ML VIAL IVP ONE (09:55)
--- NOTE | 2019-04-04 10:24 | Internal Med Progress Note ---
Hospitalist Progress Note - Encounter Date of Encounter: 04/04/19 Time of Encounter: 11:00 - Subjective Interval History: Patient is a 68-year-old morbidly obese female with a BMI of 78.3 presented due to lower extremity swelling/cellulitis with difficulty breathing and volume overload. Patient found to be septic secondary to bacteremia positive for strep pyogenes in addition to urine cultures that are growing gram-negative rods. Patient with continued worsening leukocytosis despite IV antibiotics. In addition patient also with acute kidney injury and temporary hemodialysis catheter was placed on 04/03/19 - Exam Vitals: Temp Pulse Resp BP Pulse Ox 97.6 F 78 18 140/77 100 04/04/19 09:25 04/04/19 08:48 04/04/19 09:25 04/04/19 09:25 04/04/19 06:52 Exam: Gen.: Nonacute distress, alert and oriented 3 ENT: Mucosal membranes moist Respiratory: Lungs are clear to auscultation bilaterally without any wheezing rhonchi or rales Cardiovascular: Normal S1 and S2 regular rate rhythm no murmurs rubs or gallops Abdomen: Soft, nontender and nondistended with positive bowel sounds Extremities: No lower extremity edema Skin: Normal color - Assessment and Plan (1) Bacteremia Current Visit: Yes Status: Acute Assessment and Plan: Patient growing strength pyogenes group A in 2 of 2 sets; repeat blood cultures no growth to date Infectious disease following with recommendations for patient to be started on IV vancomycin, IV clindamycin and penicillin Appreciate any further recommendations. (2) Cellulitis of right leg Current Visit: Yes Status: Acute Assessment and Plan: Patient's right leg has an area of erythema over the foot which is tender to palpation. Infectious disease with recommendations for CT of the lower extremity without contrast to rule out necrotizing fasciitis (3) Sepsis Current Visit: Yes Status: Acute Assessment and Plan: Patient has been afebrile but with continued worsening leukocytosis. Patient found to be septic secondary to bacteremia positive for strep pyogenes in addition to urine cultures that are growing gram-negative rods. Patient also with questionable pneumonia on imaging Infectious disease with recommendations as above (4) UTI (urinary tract infection) Current Visit: No Status: Acute Assessment and Plan: Urine cultures currently growing gram-negative rods On IV antibiotics as above (5) Pneumonia Current Visit: Yes Status: Acute Assessment and Plan: Concerns for infiltrate on chest x-ray therefore radiologist recommended a two- view chest x-ray for further clarification however patient body habitus would make this technically difficult. Patient also too large for CT machine. Continue oxygen supplementation as needed Infectious disease following and appreciate recommendations (6) Acute respiratory failure Current Visit: No Status: Acute Assessment and Plan: Suspect secondary to fluid overload and COPD. Addition to still requiring supplemental oxygenation but at decreased amount at 3 L/m this morning Will continue to monitor and wean as tolerates (7) Acute kidney injury Current Visit: No Status: Acute Assessment and Plan: Patient with no improvement in acute kidney injury and temporary hemodialysis catheter was placed today on 04/03/19 Nephrology following with recommendations for hemodialysis today (8) Hyperkalemia Current Visit: No Status: Acute Assessment and Plan: Resolved; suspect secondary to renal failure above Will continue to monitor; nephrology following and appreciate recommendations (9) Elevated troponin Current Visit: Yes Status: Acute Assessment and Plan: Suspect secondary to demand ischemia Patient on Eliquis. Denies chest pain. Cardiology consulted and appreciate recommendations (10) Acute on chronic diastolic CHF (congestive heart failure) Current Visit: No Status: Acute Assessment and Plan: Echocardiogram showed LVEF of 55% with mild left ventricular diastolic dysfunction; evaluation difficult due to body habitus Will continue to monitor (11) Acute exacerbation of chronic obstructive pulmonary disease (COPD) Current Visit: No Status: Acute (12) Atrial fibrillation Current Visit: No Status: Chronic Assessment and Plan: Continue oral anticoagulation with Eliquis, and rate control with Cardizem and metoprolol (13) Compression fracture Current Visit: No Status: Acute Assessment and Plan: Currently in a splint. Patient was seen in the emergency room on admission and had an x-ray showing impaction of the left medial aspect of proximal tibia. She was to see Dr. Orellana outpatient later this week. After patient medically stable; will consider inpatient consult versus outpatient follow-up (14) Anemia Current Visit: No Status: Chronic Assessment and Plan: Seen outpatient by oncology, patient has anemia of chronic disease (15) History of pulmonary embolism Current Visit: No Status: Acute Assessment and Plan: Patient on Eliquis. (16) Diabetes Current Visit: No Status: Chronic Assessment and Plan: Continue coverage with sliding-scale insulin (17) Sleep apnea Current Visit: No Status: Chronic Assessment and Plan: CPAP daily at bedtime Respiratory therapy following DVT Prophylaxis: On Eliquis as above - Time Spent with Patient Total time spent is greater than 50% in coordination of care (as documented) at patient's floor/unit and/or counseling patient: Internal Medicine: Result - Labs CBC & Chem 7: 04/04/19 04:00 04/04/19 04:00 Labs: Short CBC 04/04/19 Range/Units 04:00 WBC 35.6 H* (4.3-11.1) K/mcL Hgb 8.6 L (11.5-15.4) g/dL Hct 27.4 L (35.3-44.9) % Plt Count 236 (140-400) K/mcL Neutrophils # 32.4 H (1.6-8.9) K/mcL BMP 04/04/19 04:00 Sodium 134 L Potassium 4.7 Chloride 101 Carbon Dioxide 21 L BUN 52 H Creatinine 2.83 H Glucose 88 Calcium 8.1 L - ABG Interpretation ABG results: ABG ABG pH 7.28 pH Units (7.32-7.45) L 04/01/19 20:28 ABG pCO2 45 mmHg (35-45) 04/01/19 20:28 ABG pO2 74 mmHg (85-104) L 04/01/19 20:28 ABG O2 Saturation 93 % (95-98) L 04/01/19 20:28 PT/INR, D-dimer PT 20.1 Seconds (9.4-12.1) H 03/31/19 19:37 - Impressions Impressions Guidance Ultrasound 04/03/19 00:00 IMPRESSION: Ultrasound-guided temporary hemodialysis catheter placement. No immediate complications. A postprocedure radiograph confirms appropriate positioning. The catheter is ready for use. D/ / Agustín Alberto MD / Agustín Alberto MD Interpreting Provider: Agustín Alberto MD Insertion Non-Tunneled Catheter 04/03/19 00:00 IMPRESSION: Ultrasound-guided temporary hemodialysis catheter placement. No immediate complications. A postprocedure radiograph confirms appropriate positioning. The catheter is ready for use. D/ / Agustín Alberto MD / Agustín Alberto MD Interpreting Provider: Agustín Alberto MD Chest X-Ray 04/03/19 10:38 IMPRESSION: Right central venous catheter placement with the tip projecting over the cavoatrial junction. No pneumothorax. D/ / Fatuma Apple MD / Fatuma Apple MD Interpreting Provider: Fatuma Apple MD Lower Extremity CT 04/03/19 15:44 IMPRESSION: 1. Extensive subcutaneous edema with associated skin thickening. Correlate clinically for cellulitis. No organized drainable fluid collection within the subcutaneous tissues. No evidence for subcutaneous gas. Nonspecific blistering of the distal soft tissues and soft tissues at the level of the foot. 2. Pronounced diffuse heterogeneous appearance of the osseous structures which appears grossly symmetric compared with the partially imaged contralateral left lower extremity and when compared with the contralateral left lower extremity radiographs from March 30, 2019. While findings potentially may be related to severe osteopenia. 3. No acute fracture identified. D/ / Zeyad Whitaker MD / Zeyad Whitaker MD Interpreting Provider: Zeyad Whitaker MD Consult Discharge Plan - Plan Referrals: Anmol Mancuso MD [Primary Care Provider] - 04/14/19 1:15 pm (3) Sepsis Qualifiers: Sepsis type: sepsis due to unspecified organism Qualified Code(s): A41.9 - Sepsis, unspecified organism (4) UTI (urinary tract infection) Qualifiers: Urinary tract infection type: acute cystitis Hematuria presence: with hematuria Qualified Code(s): N30.01 - Acute cystitis with hematuria (5) Pneumonia Qualifiers: Pneumonia type: due to unspecified organism Laterality: unspecified laterality Lung location: unspecified part of lung Qualified Code(s): J18.9 - Pneumonia, unspecified organism (6) Acute respiratory failure Qualifiers: Respiratory failure complication: hypoxia Qualified Code(s): J96.01 - Acute respiratory failure with hypoxia (12) Atrial fibrillation Qualifiers: Atrial fibrillation type: paroxysmal Qualified Code(s): I48.0 - Paroxysmal atrial fibrillation (14) Anemia Qualifiers: Anemia type: iron deficiency Iron deficiency anemia type: unspecified iron deficiency Qualified Code(s): D50.9 - Iron deficiency anemia, unspecified (16) Diabetes Qualifiers: Diabetes mellitus type: type 2 Diabetes mellitus long term care pharmacist insulin use: with long term care pharmacist use Diabetes mellitus complication status: with kidney complications Diabetes mellitus complication detail: with chronic kidney disease Chronic kidney disease stage: stage 3 (moderate) Qualified Code(s): E11.22 - Type 2 diabetes mellitus with diabetic chronic kidney disease; N18.3 - Chronic kidney disease, stage 3 (moderate); Z79.4 - retirement (current) use of insulin (17) Sleep apnea Qualifiers: Sleep apnea type: unspecified type Qualified Code(s): G47.30 - Sleep apnea, unspecified
[2019-04-04] MEDS ORDERED: Fosfomycin Tromethamine 3 GM Packet PO ONE (12:15)
[2019-04-04] MEDS: Diltiazem CD (24hr) 120 MG CAPSULE PO SCH (13:03)
[2019-04-04] MEDS: Apixaban 2.5 MG TABLET PO SCH ×2 (13:04→21:43)
[2019-04-04] MEDS: MethylPREDNISolone 40 MG/ML VIAL IVP SCH (13:04)
[2019-04-04] MEDS: Miconazole 2% ointment 141 APPL/141 GM TUBE TP SCH (13:04)
--- NOTE | 2019-04-04 14:04 | Infectious Disease Progress No ---
ID Progress Note Date of Encounter: 04/04/19 Time of Encounter: 13:30 - Subjective Subjective: Patient seen and examined. No acute events noted overnight. Patient states overall she does not feel very well today and just returned from dialysis. She denies any fevers or chills or rigors. Denies chest pain, but does report shortness of breath with a moist nonproductive cough. Denies nausea, vomiting, diarrhea, or constipation. Newby catheter remains pain with clear yellow urine. She denies abdominal pain. She states her appetite is not very good. She denies oral thrush or skin rashes. She complains of pain in her bilateral lower extremities. - Objective CBC & Chem 7: 04/04/19 04:00 04/04/19 04:00 - Line Documentation Line Documentation: Newby Catheter (Draining clear yellow urine.) - Exam Vitals: Temp Pulse Resp BP Pulse Ox 97.7 F 150 18 115/64 100 04/04/19 12:40 04/04/19 13:40 04/04/19 12:40 04/04/19 12:40 04/04/19 06:52 Exam: Head: Atraumatic, normal inspection, normocephalic. Eye: EOMI, PERRLA, no scleral icterus noted. ENT: Mucous membranes moist. No odontogenic infection noted. Neck: Normal inspection, no meningismus. Temporary dialysis catheter noted to the right neck with transparent dressing clean, dry, and intact. Respiratory: Clear/diminished to auscultation. No rales, respiratory distress, rhonchi, or wheezes noted. Cardiovascular: Irregular rhythm, tachycardic. No murmurs, rubs, or gallops. GI: Soft, morbidly obese, normal bowel sounds. Nontender. Newby catheter draining clear yellow urine. Extremities: Bilateral lower extremity dressings with large amount of serous drainage noted. Multiple areas of weeping noted with serous drainage. Neurological: Alert, oriented 3, no focal deficits. Psychiatric: normal affect, normal mood. Skin: Dry, intact, warm. Normal color. No rashes. Erythema noted to the right breast that is warm and tender to touch. No open lesion or fluctuance noted. - Assessment and Plan (1) Severe sepsis Current Visit: Yes Status: Acute The patient had 2 sepsis criteria plus lactic acidosis. Likely secondary to bacteremia and cellulitis. WBC worse. Developed A. fib with RVR this afternoon postdialysis. Afebrile overnight. Blood cultures drawn 03/31/19 were +2 out of 2 sets for group A strep. Repeat blood cultures drawn 04/01/19 are no growth to date 2 sets. Additional repeat blood cultures drawn 04/02/19 are no growth to date 2 sets. SNOMED Code(s): 11598164 (2) Gram-positive bacteremia Current Visit: Yes Status: Acute Causative organism: Group A strep. Source: Likely lower extremity cellulitis. Blood cultures drawn 03/31/19 were +2 out of 2 sets for group A strep. Repeat blood cultures drawn 04/01/19 are no growth to date 2 sets. Additional repeat blood cultures drawn 04/02/19 are no growth to date 2 sets. Currently on penicillin and clindamycin SNOMED Code(s): 062617063022 (3) Cellulitis of right leg Current Visit: Yes Status: Acute Location: Right lower extremity. Cause of organism: Likely group A strep. The patient is noted to have some bullous lesions to the plantar aspect of the right foot. CT of the right lower extremity showed findings consistent with cellulitis and severe osteopenia, but no necrotizing fasciitis or abscess or osteomyelitis. CK 244. Currently on Clindamycin, Vanc, and PCN. SNOMED Code(s): 697763491 (4) Cellulitis of right breast Current Visit: Yes Status: Acute Location: Right breast. Causative organism: Unclear. Currently on Vanc, PCN, and Clindamycin. SNOMED Code(s): 77355285 (5) UTI (urinary tract infection) Current Visit: No Status: Acute Asymptomatic bacteriuria, the patient has no urinary symptoms. Causative organism: MDRO K. pneumoniae. Qualifiers: Urinary tract infection type: acute cystitis Hematuria presence: with hematuria Qualified Code(s): N30.01 - Acute cystitis with hematuria SNOMED Code(s): 85152371 (6) Acute on chronic kidney failure Current Visit: Yes Status: Acute Temporary dialysis catheter placed 04/03/19 and intermittent hemodialysis started. Nephrology consult and following. Dose-adjust medications and avoid nephrotoxins as able. Qualifiers: Acute renal failure type: unspecified Chronic kidney disease stage: unspecified stage Qualified Code(s): N17.9 - Acute kidney failure, unspecified; N18.9 - Chronic kidney disease, unspecified SNOMED Code(s): 227493961 (7) Diabetes Current Visit: No Status: Chronic Recommend aggressive glucose monitoring and control. Management per the primary team. 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 SNOMED Code(s): 056332740, 001527257, 188374280 (9) Drug allergy, antibiotic Current Visit: Yes Status: Acute Tolerating Zosyn even psoas abscesses allergic to penicillin. When asked apparently gives her nausea and vomiting so no true allergies but intolerance. SNOMED Code(s): 793308787159209 (10) Morbid obesity Current Visit: No Status: Chronic BMI 78. SNOMED Code(s): 666663598 - Recommendations Recommendations: Await repeat blood cultures to finalize. Recommend ultrasound of the right breast with possible CT if ultrasound nonrevealing. Dressing changes per wound care recommendations. AK I management per the nephrology team. Continue clindamycin 900 mg IV every 8 hours. Continue vancomycin IV. Pharmacy to dose. Goal trough approximately 15. Discontinue penicillin. Start cefepime 1 g IV every 24 hours (dose adjusted for HD status). Give fosfomycin 3 grams PO x 1 dose. Duration of treatment depends on the clinical picture. Monitor renal function and for drug toxicity and dose adjust antibiotics. Contact precautions per hospital policy for MDR Klebsiella pneumoniae. Consult Discharge Plan - Plan Referrals: Anmol Mancuso MD [Primary Care Provider] - 04/14/19 1:15 pm - Attending Attestation I have personally performed a face to face evaluation on this patient. I have reviewed and agree with the care plan. History and Exam by me shows: Assessment and plan: Severe sepsis Group A strep bacteremia Cellulitis Mastoiditis Acute on chronic kidney injury requiring dialysis Urinary tract infection with multidrug resistant organism Klebsiella pneumoniae Morbid obesity Diabetes mellitus type 2 Recommendations Await repeat blood cultures to finalize. Recommend ultrasound of the right breast with possible CT if ultrasound nonrevealing. Dressing changes per wound care recommendations. AK I management per the nephrology team. Continue clindamycin 900 mg IV every 8 hours. Continue vancomycin IV. Pharmacy to dose. Goal trough approximately 15. Discontinue penicillin. Start cefepime 1 g IV every 24 hours (dose adjusted for HD status). Give fosfomycin 3 grams PO x 1 dose. Duration of treatment depends on the clinical picture. Monitor renal function and for drug toxicity and dose adjust antibiotics. Contact precautions per hospital policy for MDR Klebsiella pneumoniae.
--- NOTE | 2019-04-04 15:33 | Nephrology Progress Note ---
Date of Encounter: 04/04/19 Time of Encounter: 12:00 - Assessment and Plan (1) Morbid obesity Current Visit: No Status: Chronic (2) Hyperkalemia Current Visit: No Status: Acute (3) Acute kidney injury Current Visit: No Status: Acute (4) CKD (chronic kidney disease) stage 3, GFR 30-59 ml/min Current Visit: No Status: Chronic (5) Anasarca Current Visit: Yes Status: Acute Subjective Principal diagnosis: YEIMY, Hyperkalemia, Hx of prior temporary HD Interval history: Interim noted, pt seen and examined on HD but also well knwon to me from outpatient CKD management. Appears markedly different since our last visit with significant anasarca due to "medication changes" at [facility] per pt. s/p 2 consecutive HD sessions with minimal UF due to hypotension. Episode of Afib up to 160s in HD today with a dose of metoprolol 5mg iv given. Pt was noted off her metoprolol and cardizem this hospital stay so far Objective - Vital Signs Vital signs: Vital Signs Temp Pulse Resp BP Pulse Ox 04/04/19 13:40 150 04/04/19 12:40 97.7 F 18 115/64 04/04/19 12:20 94/67 04/04/19 12:05 103/55 04/04/19 11:50 99/62 04/04/19 11:35 101/66 04/04/19 11:20 109/78 04/04/19 11:05 118/79 04/04/19 10:50 126/77 04/04/19 10:35 118/67 04/04/19 10:20 107/50 04/04/19 10:05 99/66 04/04/19 09:50 103/75 04/04/19 09:35 118/51 04/04/19 09:20 97.6 F 18 140/77 04/04/19 08:48 78 04/04/19 06:52 97.8 F 84 18 111/69 100 04/04/19 03:59 97.9 F 83 18 105/50 100 04/03/19 23:28 97.8 F 84 18 96/54 100 04/03/19 21:00 75 04/03/19 19:34 97.7 F 88 18 104/61 100 04/03/19 17:00 97.8 F 18 97/56 04/03/19 16:45 125/47 04/03/19 16:30 133/58 04/03/19 16:15 122/59 04/03/19 16:00 117/81 04/03/19 15:45 97/72 Intake and Output 04/03/19 04/04/19 04/04/19 23:59 07:59 15:59 Intake Total 100 / 700 250 / 960 710 / 960 Output Total 1150 / 1150 250 / 1850 1600 / 1850 Balance -1050 / -450 0 / -890 -890 / -890 Intake: IV Fluids 100 / 200 250 / 360 110 / 360 Cardizem 50 MG In 0.9 % Sodium 10 / 10 Chloride 40 ML @ 5 MG/HR 5 mls/ hr IVC CONT INGRID Rx#:[id number] Cleocin Premix 900 MG/50 ML 900 50 / 50 mg In 50 ml @ 50 mls/hr IVPB Q8HR INGRID Rx#:[id number] Pfizerpen 3,000,000 Unit In 0.9 100 / 100 200 / 300 100 / 300 % Sodium Chloride 100 ML @ 100 mls/hr IVPB Q4HR INGRID Rx#: [id number] Oral 0 / 0 Intake, Rinseback and Flushes 600 / 600 Output: Urine 0 / 0 Total Dialysis (HD) Output 1000 / 1000 1600 / 1600 Catheter 150 / 150 250 / 250 Other: Stool Size Smear # Bowel Movements 1 Weight 202.7 kg Blood Glucose* 79 Hemodialysis Net Fluid Removed 500 1000 (mL) Patient Weight 04/04/19 23:59 Weight 202.7 kg - Lab 04/04/19 04:00 04/04/19 04:00 Most recent lab results 04/04/19 04:00 Calcium 8.1 L Consult Discharge Plan - Plan Referrals: Anmol Mancuso MD [Primary Care Provider] - 04/14/19 1:15 pm
[2019-04-04] MEDS ORDERED: 0.9 % Sodium Chloride 500 ML ONE ×2 (15:43→16:24)
[2019-04-04] MEDS ORDERED: 0.9 % Sodium Chloride 500 ML IV ONE (15:46)
[2019-04-04] MEDS ORDERED: 0.9 % Sodium Chloride 500 ML IVC ONE ×2 (16:21→17:42)
[2019-04-04] MEDS: Cefepime HCl 1,000 MG in 0.9 % Sodium Chloride Mini Bag 100 ML IVPB SCH (17:29)
[2019-04-04] MEDS: Insulin DETEMIR 100 UNIT/ML X5UNITS SQ SCH (21:44)
[2019-04-05] MEDS: Clindamycin 900 MG/50 ML 900 MG/50 ML IV.SOLN IVPB SCH ×4 (00:30→23:51)
[2019-04-05] MEDS: Insulin LISPRO 300 UNITS/3 ML VIAL SQ SCH ×5 (00:50→23:51)
[2019-04-05 03:41] LABS: Hematocrit 26.3 % (35.3-44.9); Hemoglobin 8.1 g/dL (11.5-15.4); Mean Corpuscular HGB Conc 30.8 g/dL (31.6-35.5); Mean Corpuscular Hemoglobin 29.6 pg (28.0-33.3); Mean Platelet Volume 9.5 fL (9.4-12.4); Platelet Count 223 K/mcL (140-400); Red Blood Count 2.74 M/mcL (3.82-4.97); Red Cell Distribution Width 15.5 % (11.5-14.5); White Blood Count 22.7 K/mcL (4.3-11.1)
[2019-04-05 04:01] LABS: Potassium 4.2 mEq/L (3.5-5.1)
[2019-04-05] MEDS ORDERED: 0.9 % Sodium Chloride 250 ML IVC PRN (07:56)
[2019-04-05] MEDS ORDERED: *HR* Heparin 10,000 UNIT/10 ML VIAL IV PRN (07:56)
[2019-04-05] MEDS ORDERED: 0.9 % Sodium Chloride 1,000 ML PRIME SCH (08:00)
[2019-04-05] MEDS: Diltiazem CD (24hr) 120 MG CAPSULE PO SCH (08:01)
[2019-04-05] MEDS: Apixaban 2.5 MG TABLET PO SCH ×2 (08:01→19:48)
[2019-04-05] MEDS: Miconazole 2% ointment 141 APPL/141 GM TUBE TP SCH (08:02)
[2019-04-05] MEDS: MethylPREDNISolone 40 MG/ML VIAL IVP SCH (08:02)
[2019-04-05] MEDS: Cefepime HCl 1,000 MG in 0.9 % Sodium Chloride Mini Bag 100 ML IVPB SCH (08:02)
--- NOTE | 2019-04-05 10:38 | Internal Med Progress Note ---
Hospitalist Progress Note - Encounter Date of Encounter: 04/05/19 Time of Encounter: 11:00 - Subjective Interval History: Patient is a 68-year-old morbidly obese female with a BMI of 78.3 presented due to lower extremity swelling/cellulitis with difficulty breathing and volume overload. Patient found to be septic secondary to bacteremia positive for strep pyogenes in addition to urine cultures positive for Klebsiella pneumonia multidrug resistant organism In addition patient also with acute kidney injury and temporary hemodialysis catheter was placed on 04/03/19 - Exam Vitals: Temp Pulse Resp BP Pulse Ox 98 F 78 16 111/50 100 04/05/19 09:15 04/05/19 07:22 04/05/19 09:15 04/05/19 10:15 04/05/19 07:22 Exam: Gen.: Nonacute distress, alert and oriented 3 ENT: Mucosal membranes moist Respiratory: Lungs are clear to auscultation bilaterally without any wheezing rhonchi or rales Cardiovascular: Normal S1 and S2 regular rate rhythm no murmurs rubs or gallops Abdomen: Soft, nontender and nondistended with positive bowel sounds Extremities: No lower extremity edema Skin: Normal color - Assessment and Plan (1) Bacteremia Current Visit: Yes Status: Acute Assessment and Plan: Patient growing strength pyogenes group A in 2 of 2 sets; repeat blood cultures no growth to date Suspect secondary to lower extremity cellulitis Patient afebrile and leukocytosis improving Infectious disease following with recommendations for patient to be started on IV vancomycin, IV clindamycin and cefepime Appreciate any further recommendations. (2) Cellulitis of right leg Current Visit: Yes Status: Acute Assessment and Plan: Patient's right leg has an area of erythema over the foot which is tender to palpation. Wound care following Continuing IV antibiotics as above (3) Cellulitis of right breast Current Visit: Yes Status: Acute Assessment and Plan: Patient with erythematous patch on right breasts Suspicion for Aurea infection Will start patient on nystatin (4) UTI (urinary tract infection) Current Visit: No Status: Acute Assessment and Plan: Urine cultures positive for Klebsiella with multidrug-resistant organism Patient was given fosfomycin 3 grams PO x 1 dose per infectious disease recommendations Infectious disease following and appreciate any additional recommendations (5) Sepsis Current Visit: Yes Status: Acute Assessment and Plan: Patient has been afebrile but with leukocytosis. Suspect secondary to UTI and bacteremia due to cellulitis above Continue IV antibiotics as above (6) Acute respiratory failure Current Visit: No Status: Acute Assessment and Plan: Suspect secondary to fluid overload and COPD. Addition to still requiring supplemental oxygenation but at decreased amount at 3 L/m this morning Will continue to monitor and wean as tolerates (7) Acute kidney injury Current Visit: No Status: Acute Assessment and Plan: Patient with no improvement in acute kidney injury and temporary hemodialysis catheter was placed today on 04/03/19 Nephrology following with recommendations for hemodialysis (8) Hyperkalemia Current Visit: No Status: Resolved Assessment and Plan: Resolved; suspect secondary to renal failure above Will continue to monitor (9) Pneumonia Current Visit: Yes Status: Acute Assessment and Plan: Concerns for infiltrate on chest x-ray therefore radiologist recommended a two- view chest x-ray for further clarification however patient body habitus would make this technically difficult. Patient also too large for CT machine. Low concerns for pneumonia at this point Continue oxygen supplementation as needed Infectious disease following and appreciate recommendations (10) Elevated troponin Current Visit: Yes Status: Acute Assessment and Plan: Suspect secondary to demand ischemia Patient on Eliquis. Denies chest pain. Cardiology consulted and appreciate recommendations (11) Acute on chronic diastolic CHF (congestive heart failure) Current Visit: No Status: Acute (12) Acute exacerbation of chronic obstructive pulmonary disease (COPD) Current Visit: No Status: Acute Assessment and Plan: Will continue bronchodilators in addition to IV Solu-Medrol (13) Atrial fibrillation Current Visit: No Status: Chronic Assessment and Plan: Continue oral anticoagulation with Eliquis, and rate control with Cardizem and metoprolol (14) Compression fracture Current Visit: No Status: Acute Assessment and Plan: Currently in a splint. Patient was seen in the emergency room on admission and had an x-ray showing impaction of the left medial aspect of proximal tibia. She was to see Dr. Orellana outpatient later this week. After patient medically stable; will consider inpatient consult versus outpatient follow-up (15) Anemia Current Visit: No Status: Chronic Assessment and Plan: Seen outpatient by oncology, patient has anemia of chronic disease (16) History of pulmonary embolism Current Visit: No Status: Acute Assessment and Plan: Patient on Eliquis. (17) Diabetes Current Visit: No Status: Chronic Assessment and Plan: Continue coverage with sliding-scale insulin (18) Sleep apnea Current Visit: No Status: Chronic Assessment and Plan: CPAP daily at bedtime Respiratory therapy following DVT Prophylaxis: On Eliquis as above - Time Spent with Patient Total time spent is greater than 50% in coordination of care (as documented) at patient's floor/unit and/or counseling patient: Internal Medicine: Result - Labs CBC & Chem 7: 04/06/19 03:45 04/06/19 03:45 Labs: Short CBC 04/05/19 Range/Units 03:30 WBC 22.7 H (4.3-11.1) K/mcL Hgb 8.1 L (11.5-15.4) g/dL Hct 26.3 L (35.3-44.9) % Plt Count 223 (140-400) K/mcL BMP 04/05/19 03:30 Sodium 132 L Potassium 4.2 Chloride 103 Carbon Dioxide 23 BUN 39 H Creatinine 2.31 H Glucose 97 Calcium 8.0 L - ABG Interpretation ABG results: ABG ABG pH 7.28 pH Units (7.32-7.45) L 04/01/19 20:28 ABG pCO2 45 mmHg (35-45) 04/01/19 20:28 ABG pO2 74 mmHg (85-104) L 04/01/19 20:28 ABG O2 Saturation 93 % (95-98) L 04/01/19 20:28 PT/INR, D-dimer PT 20.1 Seconds (9.4-12.1) H 03/31/19 19:37 Consult Discharge Plan - Plan Referrals: Anmol Mancuso MD [Primary Care Provider] - 04/14/19 1:15 pm (4) UTI (urinary tract infection) Qualifiers: Urinary tract infection type: acute cystitis Hematuria presence: with hematuria Qualified Code(s): N30.01 - Acute cystitis with hematuria (5) Sepsis Qualifiers: Sepsis type: sepsis due to unspecified organism Qualified Code(s): A41.9 - Sepsis, unspecified organism (6) Acute respiratory failure Qualifiers: Respiratory failure complication: hypoxia Qualified Code(s): J96.01 - Acute respiratory failure with hypoxia (9) Pneumonia Qualifiers: Pneumonia type: due to unspecified organism Laterality: unspecified laterality Lung location: unspecified part of lung Qualified Code(s): J18.9 - Pneumonia, unspecified organism (13) Atrial fibrillation Qualifiers: Atrial fibrillation type: paroxysmal Qualified Code(s): I48.0 - Paroxysmal atrial fibrillation (15) Anemia Qualifiers: Anemia type: iron deficiency Iron deficiency anemia type: unspecified iron deficiency Qualified Code(s): D50.9 - Iron deficiency anemia, unspecified (17) Diabetes Qualifiers: Diabetes mellitus type: type 2 Diabetes mellitus recycling assistant insulin use: with recycling assistant use Diabetes mellitus complication status: with kidney complications Diabetes mellitus complication detail: with chronic kidney disease Chronic kidney disease stage: stage 3 (moderate) Qualified Code(s): E11.22 - Type 2 diabetes mellitus with diabetic chronic kidney disease; N18.3 - Chronic kidney disease, stage 3 (moderate); Z79.4 - assisted (current) use of insulin (18) Sleep apnea Qualifiers: Sleep apnea type: unspecified type Qualified Code(s): G47.30 - Sleep apnea, unspecified
[2019-04-05] MEDS ORDERED: Vancomycin 500 MG in 0.9 % Sodium Chloride Mini Bag 100 ML IVPB ONE (14:00)
--- NOTE | 2019-04-05 14:54 | Nephrology Progress Note ---
Date of Encounter: 04/05/19 Time of Encounter: 14:00 - Assessment and Plan (1) Acute kidney injury Current Visit: No Status: Acute SCr improved after 2 consecutive HD sessions Will plan for HD/UF for sunday Continue fluid restriction Continue to avoid nephrotoxins if possible (2) Morbid obesity Current Visit: No Status: Chronic (3) Hyperkalemia Current Visit: No Status: Resolved (4) CKD (chronic kidney disease) stage 3, GFR 30-59 ml/min Current Visit: No Status: Chronic (5) Anasarca Current Visit: Yes Status: Acute Subjective Principal diagnosis: YEIMY, Hyperkalemia, Hx of prior temporary HD Interval history: Pt seen and examined s/p UF today with 5liters of fluid removed and well tolerated Objective - Vital Signs Vital signs: Vital Signs Temp Pulse Resp BP Pulse Ox 04/05/19 13:08 73 18 106/62 95 04/05/19 12:10 72 04/05/19 12:00 98.4 F 18 143/74 04/05/19 11:45 136/71 04/05/19 11:30 124/70 04/05/19 11:15 111/75 04/05/19 11:00 104/57 04/05/19 10:45 117/22 04/05/19 10:30 102/69 04/05/19 10:15 111/50 04/05/19 10:00 119/37 04/05/19 09:45 128/54 04/05/19 09:30 129/33 04/05/19 09:15 98 F 16 137/39 04/05/19 08:00 72 04/05/19 07:22 98.3 F 78 18 125/55 100 04/05/19 04:57 74 04/05/19 04:45 98.7 F 75 19 124/62 97 04/05/19 00:27 76 20 121/61 96 04/04/19 21:31 83 04/04/19 19:35 97.7 F 84 16 91/72 100 04/04/19 18:30 98/67 04/04/19 18:00 102/51 04/04/19 17:30 96/68 04/04/19 17:00 73/63 04/04/19 16:30 119/72 04/04/19 16:21 98.0 F 143 20 110/62 Intake and Output 04/04/19 04/05/19 04/05/19 23:59 07:59 15:59 Intake Total 1150 / 2170 50 / 1100 1050 / 1100 Output Total 5600 / 5600 Balance 1150 / 320 50 / -4500 -4550 / -4500 Intake: IV Fluids 1150 / 1570 50 / 200 150 / 200 0.9 % Sodium Chloride 500 ML @ 500 / 500 0 mls/hr .ROUTE .STK-MED ONE Rx #:[id number] 0.9 % Sodium Chloride 500 ML @ 500 / 500 937.5 mls/hr IVC .Q32M ONE Rx#: [id number] Maxipime 1,000 MG In 0.9 % 100 / 100 100 / 100 Sodium Chloride (Mini-Bag +) 100 ML @ 200 mls/hr IVPB DAILY [facility] Rx#:[id number] Cleocin Premix 900 MG/50 ML 900 50 / 150 50 / 100 50 / 100 mg In 50 ml @ 50 mls/hr IVPB Q8HR [facility] Rx#:[id number] Oral 0 / 0 300 / 300 Intake, Rinseback and Flushes 600 / 600 Output: Total Dialysis (HD) Output 5600 / 5600 Other: Meal Dinner Breakfast Percent of Meal Consumed 0% 30% Blood Glucose* 92 86 98 Hemodialysis Net Fluid Removed 5000 (mL) - Lab 04/05/19 03:30 04/05/19 03:30 Most recent lab results 04/05/19 03:30 Calcium 8.0 L Consult Discharge Plan - Plan Referrals: Anmol Mancuso MD [Primary Care Provider] - 04/14/19 1:15 pm
--- NOTE | 2019-04-05 18:07 | Orthopedic Consult Note ---
Date of Encounter: 04/05/19 Time of Encounter: 17:58 History of Present Illness Chief complaint: Chronic right leg pain HPI: Ms. Lamb is a 68 year old female who has been nonambulatory for at least a years time reportedly had a episode occurred about a week ago when she slid out of bed onto her right leg. Patient states that the knee and leg does not hurt her anymore than it did before the injury. The patient [facility] for a fracture of the proximal tibia. She had recently completed x-rays again and then recently had a CT scan performed. Patient is a chronic residential facility resident who is non-ambulatory. She is morbidly obese with a BMI nearly 80. Patient does have a history of severe right knee arthritis. Patient is currently being treated for multiple severe medical concerns. I reviewed the patient's completed history and physical examination as well as the medical record. Physical examination reveals a super obese female lying in the hospital bed. Examination of the right lower extremity does not allow me to delineate the knee from the surrounding tissues. There is no evidence of acute pain though exam is quite limited due to the patient's obesity. I reviewed multiple studies including a left tibia and fibula x-ray, left knee x-rays as well as left ankle x-rays. These all revealed massive soft tissue swelling. On the tibia and fibular x-rays scissors advanced medial more than lateral knee arthritis with a questionable medial tibial plateau fracture in the medial aspect of the tibial cortex. Left knee x-rays reveal severe arthritis findings. There appears to be a questionable old medial tibial plateau fracture. No acute fractures identified. Left ankle x-rays reveals disuse osteoporotic changes with a medial talar tilt. CT scan of the right tibia reveals massive soft tissue swelling with diffuse edema. Unfortunately, the CT scan is immediately at the level of the knee. There does not appear to be evidence of an acute medial tibial plateau fracture though there are severe arthritic findings identified. Ankle and foot reveal severe disuse osteoporotic changes. Impression: 1. Superobesity with BMI of nearly 2. Severe osteoarthritis right knee 3. Disuse osteoporosis right lower extremity 4. No evidence of acute fracture Recommendation: Findings do not reveal an acute fracture of the proximal tibia though these are somewhat suggested on the studies. She does have a severely arthritic right knee. Insofar as the patient is non-ambulatory I would not recommend any specific treatment for the leg even if a nondisplaced fracture was identified. Do not recommend the use of any splinting or bracing. Would not recommend any additional radiologic or imaging studies. Thank you for allowing me to see and care for Mrs. Lamb. Sincerely, Mychal Baptiste,DO Past Med Surg Social Fam HX - Past Medical History Medical history: arthritis, diabetes, GERD, hypertension, renal disease, other Additional medical history: Atrial Flutter Psychiatric history: anxiety, depression - Past Surgical History Surgical History: appendectomy, sinus surgery, bariatric surgery Additional surgical history: tonsilectomy, Stomach stappling, Sinus surgery,csection - Social History Smoking Status: Never smoker Smokeless Tobacco Status: No Alcohol use: none Drug use: none - Family History Mother Living Status: Hx Family Neurologic Disorders: Yes (Migraines) Hx Family Autoimmune Disorders: Yes (MS) Sister Hx Family Cancer: Yes Hx Family Autoimmune Disorders: Yes (Lupus) Father Living Status: Hx Family Cancer: Yes Hx Family Endocrine Disorder: Yes (diabetes) Medications and Allergies Citalopram [CeleXA] 20 mg PO DAILY 04/12/17 [History] Loperamide HCl [Imodium A-D] 2 mg PO PRN PRN 04/12/17 [History] Losartan Potassium [Cozaar] 50 mg PO DAILY 04/12/17 [History] Pioglitazone [Actos] 45 mg PO DAILY 04/12/17 [History] Venlafaxine XR (24 HR) [Effexor Xr] 300 mg PO DAILY 04/12/17 [History] Vitamin B Complex 1 cap PO 1200 04/12/17 [History] Ferrous Sulfate 325 mg PO BIDWM #60 tablet 04/16/17 [Rx] Baclofen 20 mg PO TID PRN 02/06/18 [History] Loratadine [Allergy Relief] 10 mg PO DAILY PRN 02/06/18 [History] Omeprazole [PriLOSEC] 20 mg PO HS 02/06/18 [History] Calcium Carbonate [Tums] 500 mg PO Q4HR PRN 02/07/18 [History] metFORMIN [Glucophage] 500 mg PO BIDWM 02/07/18 [History] Caffeine [Stay Awake] 50 mg PO TID 12/01/18 [History] DiphenhydraMINE [Benadryl] 50 mg PO BID PRN 12/01/18 [History] Insulin Glargine [Lantus] 40 unit SQ HS 12/01/18 [History] Magnesium Hydroxide/Al Hydrox [Mag-Al Liquid] 30 ml PO DAILY PRN 12/01/18 [History] Potassium Chloride [K-Tab ER] 20 meq PO DAILY 12/01/18 [History] Apixaban [Eliquis] 2.5 mg PO BID 12/03/18 [History] Diltiazem HCl [Diltiazem 24Hr Cd] 120 mg PO DAILY 12/03/18 [History] Glucagon,Human Recombinant [Glucagen] 1 mg IM AD PRN 12/03/18 [History] HYDROcodone/Acet 5/325 mg [Wilmore 5-325 mg] 1 tab PO BID 12/03/18 [History] HYDROcodone/Acet 5/325 mg [Wilmore 5-325 mg] 1 tab PO Q4H PRN 12/03/18 [History] Metoprolol Tartrate [Lopressor] 50 mg PO DAILY 12/03/18 [History] Multivitamin [Daily Multiple Vitamin] 1 tab PO DAILY 12/03/18 [History] Gabapentin [Neurontin] 300 mg PO BID #30 capsule 12/06/18 [Rx] GuaiFENesin ER [Mucinex] 600 mg PO BID #20 tbbp.12hr 12/06/18 [Rx] Furosemide [Lasix] 20 mg PO BID 03/31/19 [History] Allergy/AdvReac Type Severity Reaction Status Date / Time Tetracyclines Allergy Rash Verified 03/31/19 21:57 Penicillins AdvReac Gastrointestinal Verified 03/31/19 21:57 Upset shellfish derived AdvReac Headache Verified 03/31/19 21:57 All Systems Reviewed: The remainder of the systems were reviewed and are negative Physical Exam - Constitutional Vitals: Temp Pulse Resp BP Pulse Ox 98.4 F 73 18 106/62 95 04/05/19 12:00 04/05/19 13:08 04/05/19 13:08 04/05/19 13:08 04/05/19 13:08 Results - Labs Result Diagrams: 04/05/19 03:30 04/05/19 03:30 Labs: Abnormal lab results WBC 22.7 K/mcL (4.3-11.1) H 04/05/19 03:30 RBC 2.74 M/mcL (3.82-4.97) L 04/05/19 03:30 Hgb 8.1 g/dL (11.5-15.4) L 04/05/19 03:30 Hct 26.3 % (35.3-44.9) L 04/05/19 03:30 MCHC 30.8 g/dL (31.6-35.5) L 04/05/19 03:30 RDW 15.5 % (11.5-14.5) H 04/05/19 03:30 17.0 % (0-4) H 04/04/19 04:00 1.0 % (0) H 04/04/19 04:00 3.0 % (0) H 04/04/19 04:00 32.4 K/mcL (1.6-8.9) H 04/04/19 04:00 Nucleated RBCs/100 WBC 0.1 /100 WBC (0) H 04/04/19 04:00 1+ (Not Present) A 04/04/19 04:00 PT 20.1 Seconds (9.4-12.1) H 03/31/19 19:37 ABG pH 7.28 pH Units (7.32-7.45) L 04/01/19 20:28 ABG pO2 74 mmHg (85-104) L 04/01/19 20:28 ABG O2 Saturation 93 % (95-98) L 04/01/19 20:28 ABG Base Excess -6 mEq/L (-2 to 3) L 04/01/19 20:28 VBG pH 7.44 pH Units (7.32-7.42) H 03/31/19 21:28 VBG pCO2 20 mmHg (41-51) L 03/31/19 21:28 VBG pO2 186 mmHg (25-50) H 03/31/19 21:28 VBG HCO3 14 mEq/L (21-27) L 03/31/19 21:28 Sodium 132 mEq/L (136-145) L 04/05/19 03:30 Potassium 5.4 mEq/L (3.5-5.1) H 04/03/19 03:15 Carbon Dioxide 21 mEq/L (23-29) L 04/04/19 04:00 BUN 39 mg/dL (8-23) H 04/05/19 03:30 2.31 mg/dL (0.60-1.20) H 04/05/19 03:30 Est GFR ( Amer) 25 (> 60) L 04/05/19 03:30 Est GFR (Non-Af Amer) 21 (> 60) L 04/05/19 03:30 POC Glucose 66 mg/dL (70-99) L 04/03/19 11:32 Lactic Acid 2.7 mmol/L (0.5-2.2) H 03/31/19 23:39 Calcium 8.0 mg/dL (8.6-10.3) L 04/05/19 03:30 Phosphorus 6.1 mg/dL (2.7-4.5) H 04/03/19 03:15 1.1 mg/dL (0.3-1.0) H 04/01/19 01:33 0.6 mg/dL (0.0-0.2) H 03/31/19 19:37 AST 202 Units/L (13-39) H 04/02/19 04:28 ALT 145 Units/L (7-52) H 04/02/19 04:28 178 Units/L (34-104) H 04/02/19 04:28 1.18 ng/mL (< 0.04) H* 04/01/19 22:54 5.4 g/dL (6.4-8.9) L 04/02/19 04:28 2.4 g/dL (3.5-5.7) L 04/03/19 03:15 0.8 (1.1-2.2) L 04/02/19 04:28 Turbid (Clear) A 03/31/19 20:22 Small (Negative) H 03/31/19 20:22 Small (Negative) H 03/31/19 20:22 Ur Leukocyte Esterase Large (Negative) H 03/31/19 20:22 15-30 per hpf (0-3) H 03/31/19 20:22 TNTC per hpf (0-3) H 03/31/19 20:22 Ur Squamous Epith Cells Many per lpf (None-Few) H 06/03/19 20:22 Many per hpf (None-Few) H 03/31/19 20:22 Ur Culture Indicated? YES (NO) A 03/31/19 20:22 Hep Bs Antibody < 3.10 mIU/mL (10.00-) L 04/02/19 13:54 Streptococcus sp PCR DETECTED (Not Detect) A 03/31/19 20:14 Group A Strep DNA DETECTED (Not Detect) A 03/31/19 20:14 H & H 04/05/19 Range/Units 03:30 Hgb 8.1 L (11.5-15.4) g/dL Hct 26.3 L (35.3-44.9) % All other labs normal. - Diagnostic results Knee x-ray: image reviewed Knee CT: image reviewed Ankle/Foot x-ray: image reviewed Ankle/Foot CT: image reviewed Consult Discharge Plan - Plan Referrals: Anmol Mancuso MD [Primary Care Provider] - 04/14/19 1:15 pm
[2019-04-05] MEDS: Insulin DETEMIR 100 UNIT/ML X5UNITS SQ SCH (19:48)
[2019-04-06 04:00] LABS: Hematocrit 27.2 % (35.3-44.9); Hemoglobin 8.4 g/dL (11.5-15.4); Mean Corpuscular HGB Conc 30.9 g/dL (31.6-35.5); Mean Corpuscular Hemoglobin 29.4 pg (28.0-33.3); Mean Corpuscular Volume 95.1 fL (83.0-100.0); Mean Platelet Volume 9.5 fL (9.4-12.4); Platelet Count 242 K/mcL (140-400); Red Blood Count 2.86 M/mcL (3.82-4.97); Red Cell Distribution Width 15.7 % (11.5-14.5); White Blood Count 16.7 K/mcL (4.3-11.1)
[2019-04-06 04:20] LABS: Calcium 7.9 mg/dL (8.6-10.3); Potassium 4.8 mEq/L (3.5-5.1)
[2019-04-06] MEDS: Insulin LISPRO 300 UNITS/3 ML VIAL SQ SCH ×3 (06:27→19:14)
[2019-04-06] MEDS: Clindamycin 900 MG/50 ML 900 MG/50 ML IV.SOLN IVPB SCH ×2 (08:07→15:52)
[2019-04-06] MEDS: Cefepime HCl 1,000 MG in 0.9 % Sodium Chloride Mini Bag 100 ML IVPB SCH (08:08)
[2019-04-06] MEDS: Miconazole 2% ointment 141 APPL/141 GM TUBE TP SCH (08:09)
[2019-04-06] MEDS: Apixaban 2.5 MG TABLET PO SCH ×2 (08:09→21:23)
[2019-04-06] MEDS: Diltiazem CD (24hr) 120 MG CAPSULE PO SCH (08:09)
[2019-04-06] MEDS: MethylPREDNISolone 40 MG/ML VIAL IVP SCH (08:09)
--- NOTE | 2019-04-06 10:09 | Internal Med Progress Note ---
Hospitalist Progress Note - Encounter Date of Encounter: 04/06/19 Time of Encounter: 11:00 - Subjective Interval History: Patient is a 68-year-old morbidly obese female with a BMI of 78.3 presented due to lower extremity swelling/cellulitis with difficulty breathing and volume overload. Patient found to be septic secondary to bacteremia positive for strep pyogenes in addition to urine cultures positive for Klebsiella pneumonia multidrug r esistant organism In addition patient also with acute kidney injury and temporary hemodialysis catheter was placed on 04/03/19 Patient's leukocytosis improving on IV antibiotics and is no longer septic; repeat blood cultures negative to date - Exam Vitals: Temp Pulse Resp BP Pulse Ox 98.3 F 87 16 116/71 96 04/06/19 07:30 04/06/19 08:00 04/06/19 07:30 04/06/19 07:30 04/06/19 07:30 Exam: Gen.: Nonacute distress, alert and oriented 3 ENT: Mucosal membranes moist Respiratory: Lungs are clear to auscultation bilaterally without any wheezing rhonchi or rales Cardiovascular: Normal S1 and S2 regular rate rhythm no murmurs rubs or gallops Abdomen: Soft, nontender and nondistended with positive bowel sounds Extremities: No lower extremity edema Skin: Normal color - Assessment and Plan (1) Bacteremia Current Visit: Yes Status: Acute Assessment and Plan: Patient growing strength pyogenes group A in 2 of 2 sets; repeat blood cultures no growth to date Suspect secondary to lower extremity cellulitis Patient afebrile and leukocytosis improving Infectious disease following with recommendations for patient to be started on IV vancomycin, IV clindamycin and cefepime Appreciate any further recommendations. (2) Cellulitis of right leg Current Visit: Yes Status: Acute Assessment and Plan: Patient's right leg has an area of erythema over the foot which is tender to palpation. Wound care following Continuing IV antibiotics as above (3) Cellulitis of right breast Current Visit: Yes Status: Acute Assessment and Plan: Patient with erythematous patch on right breasts Suspicion for Aurea infection Will start patient on nystatin (4) UTI (urinary tract infection) Current Visit: No Status: Acute Assessment and Plan: Urine cultures positive for Klebsiella with multidrug-resistant organism Patient was given fosfomycin 3 grams PO x 1 dose per infectious disease recomm endations Infectious disease following and appreciate any additional recommendations (5) Sepsis Current Visit: Yes Status: Resolved Assessment and Plan: Resolved; continue IV antibiotics as above (6) Acute respiratory failure Current Visit: No Status: Acute Assessment and Plan: Suspect secondary to fluid overload and COPD. Addition to still requiring supplemental oxygenation but at decreased amount at 3 L/m this morning Will continue to monitor and wean as tolerates (7) Acute kidney injury Current Visit: No Status: Acute Assessment and Plan: Patient with no improvement in acute kidney injury and temporary hemodialysis catheter was placed today on 04/03/19 Nephrology following with recommendations for hemodialysis (8) Hyperkalemia Current Visit: No Status: Resolved Assessment and Plan: Resolved; suspect secondary to renal failure above Will continue to monitor (9) Pneumonia Current Visit: Yes Status: Acute Assessment and Plan: Concerns for infiltrate on chest x-ray therefore radiologist recommended a two- view chest x-ray for further clarification however patient body habitus would make this technically difficult. Patient also too large for CT machine. Low concerns for pneumonia at this point Continue oxygen supplementation as needed Infectious disease following and appreciate recommendations (10) Elevated troponin Current Visit: Yes Status: Acute Assessment and Plan: Suspect secondary to demand ischemia Patient on Eliquis. Denies chest pain. Cardiology consulted and appreciate recommendations (11) Acute on chronic diastolic CHF (congestive heart failure) Current Visit: No Status: Acute Assessment and Plan: Echocardiogram showed LVEF of 55% with mild left ventricular diastolic dys function; evaluation difficult due to body habitus Will continue to monitor (12) Acute exacerbation of chronic obstructive pulmonary disease (COPD) Current Visit: No Status: Acute Assessment and Plan: Will continue bronchodilators in addition to IV Solu-Medrol (13) Atrial fibrillation Current Visit: No Status: Chronic Assessment and Plan: Continue oral anticoagulation with Eliquis, and rate control with Cardizem and metoprolol (14) Compression fracture Current Visit: No Status: Acute Assessment and Plan: Currently in a splint. Patient was seen in the emergency room on admission and had an x-ray showing impaction of the left medial aspect of proximal tibia. She was to see Dr. Orellana outpatient later this week. Patient seen by orthopedics yesterday and is not believe patient has a fracture (15) Anemia Current Visit: No Status: Chronic Assessment and Plan: Seen outpatient by oncology, patient has anemia of chronic disease (16) History of pulmonary embolism Current Visit: No Status: Acute Assessment and Plan: Patient on Eliquis. (17) Diabetes Current Visit: No Status: Chronic Assessment and Plan: Continue coverage with sliding-scale insulin (18) Sleep apnea Current Visit: No Status: Chronic Assessment and Plan: CPAP daily at bedtime Respiratory therapy following DVT Prophylaxis: On Eliquis as above - Time Spent with Patient Total time spent is greater than 50% in coordination of care (as documented) at patient's floor/unit and/or counseling patient: Internal Medicine: Result - Labs CBC & Chem 7: 04/06/19 03:45 04/06/19 03:45 Labs: Short CBC 04/06/19 Range/Units 03:45 WBC 16.7 H (4.3-11.1) K/mcL Hgb 8.4 L (11.5-15.4) g/dL Hct 27.2 L (35.3-44.9) % Plt Count 242 (140-400) K/mcL BMP 04/06/19 03:45 Sodium 133 L Potassium 4.8 Chloride 100 Carbon Dioxide 18 L BUN 51 H Creatinine 2.63 H Glucose 138 H Calcium 7.9 L - ABG Interpretation ABG results: ABG ABG pH 7.28 pH Units (7.32-7.45) L 04/01/19 20:28 ABG pCO2 45 mmHg (35-45) 04/01/19 20:28 ABG pO2 74 mmHg (85-104) L 04/01/19 20:28 ABG O2 Saturation 93 % (95-98) L 04/01/19 20:28 PT/INR, D-dimer PT 20.1 Seconds (9.4-12.1) H 03/31/19 19:37 Consult Discharge Plan - Plan Referrals: Anmol Mancuso MD [Primary Care Provider] - 04/14/19 1:15 pm (4) UTI (urinary tract infection) Qualifiers: Urinary tract infection type: acute cystitis Hematuria presence: with hematuria Qualified Code(s): N30.01 - Acute cystitis with hematuria (5) Sepsis Qualifiers: Sepsis type: sepsis due to unspecified organism Qualified Code(s): A41.9 - Sepsis, unspecified organism (6) Acute respiratory failure Qualifiers: Respiratory failure complication: hypoxia Qualified Code(s): J96.01 - Acute respiratory failure with hypoxia (9) Pneumonia Qualifiers: Pneumonia type: due to unspecified organism Laterality: unspecified laterality Lung location: unspecified part of lung Qualified Code(s): J18.9 - Pneumonia, unspecified organism (13) Atrial fibrillation Qualifiers: Atrial fibrillation type: paroxysmal Qualified Code(s): I48.0 - Paroxysmal atrial fibrillation (15) Anemia Qualifiers: Anemia type: iron deficiency Iron deficiency anemia type: unspecified iron deficiency Qualified Code(s): D50.9 - Iron deficiency anemia, unspecified (17) Diabetes Qualifiers: Diabetes mellitus type: type 2 Diabetes mellitus industrial maintenance instructor insulin use: with industrial maintenance instructor use Diabetes mellitus complication status: with kidney complications Diabetes mellitus complication detail: with chronic kidney disease Chronic kidney disease stage: stage 3 (moderate) Qualified Code(s): E11.22 - Type 2 diabetes mellitus with diabetic chronic kidney disease; N18.3 - Chronic kidney disease, stage 3 (moderate); Z79.4 - teacher home therapy (current) use of insulin (18) Sleep apnea Qualifiers: Sleep apnea type: unspecified type Qualified Code(s): G47.30 - Sleep apnea, unspecified
[2019-04-06] MEDS: Acetaminophen 325 MG TABLET PO PRN (11:10)
--- NOTE | 2019-04-06 13:27 | Nephrology Progress Note ---
Date of Encounter: 04/06/19 Time of Encounter: 12:00 - Assessment and Plan (1) Acute kidney injury Current Visit: No Status: Acute (2) Morbid obesity Current Visit: No Status: Chronic (3) Hyperkalemia Current Visit: No Status: Resolved (4) CKD (chronic kidney disease) stage 3, GFR 30-59 ml/min Current Visit: No Status: Chronic (5) Anasarca Current Visit: Yes Status: Acute Subjective Principal diagnosis: YEIMY, Hyperkalemia, Hx of prior temporary HD Interval history: Pt seen and examined Objective - Vital Signs Vital signs: Vital Signs Temp Pulse Resp BP Pulse Ox 04/06/19 11:33 98.0 F 85 16 127/90 95 04/06/19 08:00 87 04/06/19 07:30 98.3 F 87 16 116/71 96 04/06/19 03:20 98.5 F 82 20 129/52 98 04/05/19 23:36 97.6 F 83 20 129/75 97 04/05/19 18:48 98.3 F 76 24 143/68 95 Intake and Output 04/05/19 04/06/19 04/06/19 23:59 07:59 15:59 Intake Total 170 / 1370 50 / 320 270 / 320 Output Total 0 / 0 Balance 170 / -4230 50 / 320 270 / 320 Intake: IV Fluids 50 / 350 50 / 200 150 / 200 Maxipime 1,000 MG In 0.9 % 100 / 100 Sodium Chloride (Mini-Bag +) 100 ML @ 200 mls/hr IVPB DAILY INGR[facility] Rx#:[id number] Cleocin Premix 900 MG/50 ML 900 50 / 150 50 / 100 50 / 100 mg In 50 ml @ 50 mls/hr IVPB Q8HR INGRID Rx#:[id number] Oral 120 / 420 0 / 120 120 / 120 Output: Urine 0 / 0 Other: Meal Breakfast Percent of Meal Consumed 0% Stool Size Small Stool Consistency soft Stool Color Brown Weight 197.6 kg Blood Glucose* 117 144 143 Patient Weight 04/06/19 23:59 Weight 197.6 kg - Lab 04/06/19 03:45 04/06/19 03:45 Most recent lab results 04/06/19 03:45 Calcium 7.9 L Consult Discharge Plan - Plan Referrals: Anmol Mancuso MD [Primary Care Provider] - 04/14/19 1:15 pm
[2019-04-06] MEDS: *HR* OxyCODONE/APAP 5/325 TABLET PO PRN ×2 (14:40→21:23)
[2019-04-06] MEDS: Insulin DETEMIR 100 UNIT/ML X5UNITS SQ SCH (21:19)
[2019-04-06] MEDS: Nystatin Cream 15 GM TUBE TP SCH (21:24)
[2019-04-07] MEDS: Clindamycin 900 MG/50 ML 900 MG/50 ML IV.SOLN IVPB SCH ×3 (00:23→19:44)
[2019-04-07] MEDS: Insulin LISPRO 300 UNITS/3 ML VIAL SQ SCH ×4 (00:45→21:39)
[2019-04-07 04:23] LABS: Hematocrit 27.5 % (35.3-44.9); Hemoglobin 8.8 g/dL (11.5-15.4); Mean Corpuscular Volume 93.9 fL (83.0-100.0); Mean Platelet Volume 9.3 fL (9.4-12.4); Platelet Count 257 K/mcL (140-400); Red Blood Count 2.93 M/mcL (3.82-4.97); Red Cell Distribution Width 15.5 % (11.5-14.5); White Blood Count 12.4 K/mcL (4.3-11.1)
[2019-04-07 04:39] LABS: Calcium 7.4 mg/dL (8.6-10.3)
[2019-04-07] MEDS: Diltiazem CD (24hr) 120 MG CAPSULE PO SCH (07:49)
[2019-04-07] MEDS: MethylPREDNISolone 40 MG/ML VIAL IVP SCH (07:49)
[2019-04-07] MEDS: Apixaban 2.5 MG TABLET PO SCH ×2 (07:49→19:43)
[2019-04-07] MEDS: Cefepime HCl 1,000 MG in 0.9 % Sodium Chloride Mini Bag 100 ML IVPB SCH (07:50)
[2019-04-07] MEDS ORDERED: 0.9 % Sodium Chloride 250 ML IVC PRN (08:33)
[2019-04-07] MEDS ORDERED: *HR* Heparin 10,000 UNIT/10 ML VIAL IV PRN ×2 (08:33)
[2019-04-07] MEDS: *HR* OxyCODONE/APAP 5/325 TABLET PO PRN ×2 (08:52→19:45)
--- NOTE | 2019-04-07 09:55 | Infectious Disease Progress No ---
ID Progress Note Date of Encounter: 04/07/19 Time of Encounter: 09:00 - Subjective Subjective: Patient seen and examined. No acute events noted overnight. Patient states overall she does not feel very well today and wants to be left alone. She states she doesn't want to go to HD and states he understands she will likely without HD. She is alert/oriented x 3. Per nursing, palliative care team has been consulted. She denies any fevers or chills or rigors. Denies chest pain, but does report shortness of breath with a moist nonproductive cough. Denies nausea, vomiting, diarrhea, or constipation. States she is not sure when her last BM was. Newby catheter remains pain with clear yellow urine. She denies abdominal pain. She states her appetite is not very good. She denies oral thrush or skin rashes. She complains of pain in her lower back that is chronic. - Objective CBC & Chem 7: 04/08/19 04:15 04/08/19 04:15 - Line Documentation Line Documentation: Newby Catheter (Draining clear yellow urine.) - Exam Vitals: Temp Pulse Resp BP Pulse Ox 97.6 F 76 18 136/69 98 04/07/19 07:22 04/07/19 07:22 04/07/19 07:22 04/07/19 07:22 04/07/19 07:22 Exam: Head: Atraumatic, normal inspection, normocephalic. Eye: EOMI, PERRLA, no scleral icterus noted. ENT: Mucous membranes moist. No odontogenic infection noted. Neck: Normal inspection, no meningismus. Temporary dialysis catheter noted to t he right neck with transparent dressing clean, dry, and intact. Respiratory: Clear/diminished to auscultation. No rales, respiratory distress, rhonchi, or wheezes noted. Cardiovascular: Irregular rhythm, tachycardic. No murmurs, rubs, or gallops. GI: Soft, morbidly obese, normal bowel sounds. Nontender. Newby catheter draining clear yellow urine. Extremities: Right lower extremity dressing with large amount of serous drainage noted. Multiple areas of weeping noted with serous drainage. Neurological: Alert, oriented 3, no focal deficits. Psychiatric: normal affect, agitated. Skin: Dry, intact, warm. Normal color. No rashes. Right breast erythema improved. - Assessment and Plan (1) Severe sepsis Current Visit: Yes Status: Acute The patient had 2 sepsis criteria plus lactic acidosis. Likely secondary to bacteremia and cellulitis. WBC improved. Afebrile. Tachycardia resolved. Blood cultures drawn 03/31/19 were +2 out of 2 sets for group A strep. Repeat blood cultures drawn 04/01/19 are negative 2 sets. Additional repeat blood cultures drawn 04/02/19 are no growth to date 2 sets. SNOMED Code(s): 05642396 (2) Gram-positive bacteremia Current Visit: Yes Status: Acute Causative organism: Group A strep. Source: Likely lower extremity cellulitis. Blood cultures drawn 03/31/19 were +2 out of 2 sets for group A strep. Repeat blood cultures drawn 04/01/19 are negative 2 sets. Additional repeat blood cultures drawn 04/02/19 are no growth to date 2 sets. Currently on cefepime and clindamycin. SNOMED Code(s): 212776440519 (3) Cellulitis of right leg Current Visit: Yes Status: Acute Location: Right lower extremity. Cause of organism: Likely group A strep. The patient is noted to have some bullous lesions to the plantar aspect of the right foot. CT of the right lower extremity showed findings consistent with cellulitis and severe osteopenia, but no necrotizing fasciitis or abscess or osteomyelitis. CK 244. Improved. Currently on Clindamycin, Vanc, and cefepime. SNOMED Code(s): 569357906 (4) Cellulitis of right breast Current Visit: Yes Status: Acute Location: Right breast. Causative organism: Unclear. Improved. Currently on Vanc, cefepime, and Clindamycin. SNOMED Code(s): 46880607 (5) UTI (urinary tract infection) Current Visit: No Status: Acute Asymptomatic bacteriuria, the patient has no urinary symptoms. Causative organism: MDRO K. pneumoniae. Received 1 dose of PO fosfomycin. Qualifiers: Urinary tract infection type: acute cystitis Hematuria presence: with hematuria Qualified Code(s): N30.01 - Acute cystitis with hematuria SNOMED Code(s): 96077461 (6) Acute on chronic kidney failure Current Visit: Yes Status: Acute Temporary dialysis catheter placed 04/03/19 and intermittent hemodialysis started. Nephrology consult and following. Patient refusing HD this morning. Dose-adjust medications and avoid nephrotoxins as able. Qualifiers: Acute renal failure type: unspecified Chronic kidney disease stage: unspecified stage Qualified Code(s): N17.9 - Acute kidney failure, unspecified; N18.9 - Chronic kidney disease, unspecified SNOMED Code(s): 139571444 (7) Diabetes Current Visit: No Status: Chronic Recommend aggressive glucose monitoring and control. Management per the primary team. Qualifiers: Diabetes mellitus type: type 2 Diabetes mellitus nursing home insulin use: with intermediate project manager use Diabetes mellitus complication status: with kidney complications Diabetes mellitus complication detail: with chronic kidney disease Chronic kidney disease stage: stage 3 (moderate) Qualified Code(s): E11.22 - Type 2 diabetes mellitus with diabetic chronic kidney disease; N18.3 - Chronic kidney disease, stage 3 (moderate); Z79.4 - termite treater (current) use of insulin SNOMED Code(s): 28529706 (8) Elevated troponin Current Visit: Yes Status: Acute Cardiology following. SNOMED Code(s): 478612936, 510003919, 290209063 (9) Drug allergy, antibiotic Current Visit: Yes Status: Acute Tolerating Zosyn even psoas abscesses allergic to penicillin. When asked apparently gives her nausea and vomiting so no true allergies but intolerance. SNOMED Code(s): 105343387676539 (10) Morbid obesity Current Visit: No Status: Chronic BMI 78. SNOMED Code(s): 583534217 - Recommendations Recommendations: Await repeat blood cultures to finalize. Dressing changes per wound care recommendations. YEIMY management per the nephrology team. Goals of care per the palliative care team. Continue clindamycin 900 mg IV every 8 hours. Continue vancomycin IV. Pharmacy to dose. Goal trough approximately 15. Continue cefepime 1 g IV every 24 hours (dose adjusted for HD status). Duration of treatment depends on the clinical picture. Monitor renal function and for drug toxicity and dose adjust antibiotics. Contact precautions per hospital policy for MDR Klebsiella pneumoniae. Consult Discharge Plan - Plan Referrals: Anmol Mancuso MD [Primary Care Provider] - 04/14/19 1:15 pm - Attending Attestation I have personally performed a face to face evaluation on this patient. I have reviewed and agree with the care plan. History and Exam by me shows: Assessment and plan: 1.Severe sepsis 2.Group A strep bacteremia 3.Cellulitis 4.Acute on chronic kidney injury requiring dialysis 5.Urinary tract infection with multidrug resistant organism Klebsiella pneumoniae 6.Morbid obesity 7.Diabetes mellitus type 2 Recommendations: Patient apparently is refusing dialysis and palliative care is no involvement Continue clindamycin 900 mg IV every 8 hours. Continue vancomycin IV. Pharmacy to dose. Goal trough approximately 15. Continue cefepime 1 g IV every 24 hours (dose adjusted for HD status). Duration of treatment depends on the clinical picture. Monitor renal function and for drug toxicity and dose adjust antibiotics. Contact precautions per hospital policy for MDR Klebsiella pneumoniae.
[2019-04-07] MEDS: Miconazole 2% ointment 141 APPL/141 GM TUBE TP SCH (11:31)
[2019-04-07] MEDS: Nystatin Cream 15 GM TUBE TP SCH ×2 (11:34→22:40)
--- NOTE | 2019-04-07 11:45 | Internal Med Progress Note ---
Hospitalist Progress Note - Encounter Date of Encounter: 04/07/19 Time of Encounter: 11:35 - Subjective Interval History: Patient seen and examined earlier this morning with present at bedside. Patient is very sad and keeps stating she wishes to . As per , pt has been bed bound at at [facility] for the last two years. Pt reports of generalized body pain but denies any shortness of breath or chest pain. Pt is noted to be on Celexa and Effexor at home, will restart these medications today home dose of Baclofen restarted Gabapentin dose adjusted according to renal function Ten point ROS is negative except as listed above - Exam Vitals: Temp Pulse Resp BP Pulse Ox 97.7 F 71 18 146/78 98 04/07/19 11:05 04/07/19 11:05 04/07/19 11:05 04/07/19 11:05 04/07/19 07:22 Exam: General: No acute distress, AAO x 3, morbidly obese HEENT: EOMI, PERRLA, NC/AT, no scleral icterus Respiratory: Diminished breath sounds, no wheezing, no rales Cardiovascular: Regular, Rate, Rhythm, No murmurs GI: Soft, Non tender, non distended, normal bowel sounds Ext: b/l LE edema, right LE dressing intact Neuro: AAO x 3, no focal deficits Skin: Right breast erythema Psych: Depressed, No suicidal ideation Rest of the clinical exam is noncontributory - Assessment and Plan (1) Sepsis Current Visit: Yes Status: Resolved Assessment and Plan: Sepsis likely secondary to underlying bacteremia and MDR UTI sepsis resolved continue IV abx as per ID ID input appreciated (2) Bacteremia Current Visit: Yes Status: Acute Assessment and Plan: ID input appreciated continue abx as per ID repeat blood cultures reporting no growth thus far (3) Anemia Current Visit: No Status: Chronic Assessment and Plan: H&H low but acceptable no acute bleeding reported at this time continue to closely monitor (4) Acute respiratory failure Current Visit: No Status: Acute Assessment and Plan: Resolved Currently saturating well on room air likely secondary to volume overload in the setting of acute renal failure requiring hemodialysis will closely monitor (5) UTI (urinary tract infection) Current Visit: No Status: Acute Assessment and Plan: Urine cultures positive for Klebsiella with multidrug-resistant organism Patient was given fosfomycin 3 grams PO x 1 dose per infectious disease recommendations Infectious disease on board and evaluation appreciated continue abx as per ID (6) Hyperkalemia Current Visit: No Status: Resolved Assessment and Plan: continue [employer] as per nephrology (7) Acute kidney injury Current Visit: No Status: Acute Assessment and Plan: Acute on chronic renal failure now requiring hemodialysis nephrology on board and evaluation appreciated continue [employer] as per nephrology (8) History of pulmonary embolism Current Visit: No Status: Acute Assessment and Plan: continue home dose of Eliquis (9) Acute on chronic diastolic CHF (congestive heart failure) Current Visit: No Status: Acute Assessment and Plan: Echocardiogram showed LVEF of 55% with mild left ventricular diastolic dysfunction continue [employer] as per nephrology fluid restriction diet monitor daily weights, strict I/Os closely monitor respiratory status (10) Acute exacerbation of chronic obstructive pulmonary disease (COPD) Current Visit: No Status: Acute Assessment and Plan: continue systemic steroids and bronchodilator support will switch to Prednisone in am (11) Diabetes Current Visit: No Status: Chronic Assessment and Plan: Sliding scale insulin coverage monitor FS and BG ADA diet (12) Atrial fibrillation Current Visit: No Status: Chronic Assessment and Plan: Rate controlled with Cardizem and Metoprolol anticoagulated with Eliquis (13) Compression fracture Current Visit: No Status: Chronic Assessment and Plan: Supportive care recommended by orthopedic surgery no acute fracture reported continue home meds for pain control (14) Pneumonia Current Visit: Yes Status: Acute Assessment and Plan: ruled out (15) Cellulitis of right leg Current Visit: Yes Status: Acute Assessment and Plan: continue RLE wound care abx as per ID (16) Elevated troponin Current Visit: Yes Status: Acute Assessment and Plan: Suspect secondary to demand ischemia Patient on Eliquis. Denies chest pain. (17) Cellulitis of right breast Current Visit: Yes Status: Acute (18) Sleep apnea Current Visit: No Status: Chronic Assessment and Plan: CPAP daily at bedtime (19) Goals of care, counseling/discussion Current Visit: Yes Status: Acute Assessment and Plan: Palliative care team evaluation requested in regards to establishing goals of care and code status (20) Depression Current Visit: Yes Status: Chronic Assessment and Plan: restarted home medications DVT Prophylaxis: on Eliquis - Time Spent with Patient Total time spent is greater than 50% in coordination of care (as documented) at patient's floor/unit and/or counseling patient: 40 minutes Greater than 35 minutes Plan of Care Discussed with: patient (patient/family/RN/case management/pharmacist/consulting provider) Internal Medicine: Result - Labs CBC & Chem 7: 04/07/19 03:55 04/07/19 03:55 Labs: Short CBC 04/07/19 Range/Units 03:55 WBC 12.4 H (4.3-11.1) K/mcL Hgb 8.8 L (11.5-15.4) g/dL Hct 27.5 L (35.3-44.9) % Plt Count 257 (140-400) K/mcL BMP 04/07/19 03:55 Sodium 134 L Potassium 5.0 Chloride 100 Carbon Dioxide 17 L BUN 61 H Creatinine 3.11 H Glucose 186 H Calcium 7.4 L - ABG Interpretation ABG results: ABG ABG pH 7.28 pH Units (7.32-7.45) L 04/01/19 20:28 ABG pCO2 45 mmHg (35-45) 04/01/19 20:28 ABG pO2 74 mmHg (85-104) L 04/01/19 20:28 ABG O2 Saturation 93 % (95-98) L 04/01/19 20:28 PT/INR, D-dimer PT 20.1 Seconds (9.4-12.1) H 03/31/19 19:37 Consult Discharge Plan - Plan Referrals: Anmol Mancuso MD [Primary Care Provider] - 04/14/19 1:15 pm (1) Sepsis Qualifiers: Sepsis type: sepsis due to unspecified organism Qualified Code(s): A41.9 - Sepsis, unspecified organism (3) Anemia Qualifiers: Anemia type: iron deficiency Iron deficiency anemia type: unspecified iron deficiency Qualified Code(s): D50.9 - Iron deficiency anemia, unspecified (4) Acute respiratory failure Qualifiers: Respiratory failure complication: hypoxia Qualified Code(s): J96.01 - Acute respiratory failure with hypoxia (5) UTI (urinary tract infection) Qualifiers: Urinary tract infection type: acute cystitis Hematuria presence: with hematuria Qualified Code(s): N30.01 - Acute cystitis with hematuria (11) Diabetes Qualifiers: Diabetes mellitus type: type 2 Diabetes mellitus group home insulin use: with group home use Diabetes mellitus complication status: with kidney complications Diabetes mellitus complication detail: with chronic kidney disease Chronic kidney disease stage: stage 3 (moderate) Qualified Code(s): E11.22 - Type 2 diabetes mellitus with diabetic chronic kidney disease; N18.3 - Chronic kidney disease, stage 3 (moderate); Z79.4 - long term care pharmacist (current) use of insulin (12) Atrial fibrillation Qualifiers: Atrial fibrillation type: chronic Qualified Code(s): I48.2 - Chronic atrial fibrillation (14) Pneumonia Qualifiers: Pneumonia type: due to unspecified organism Laterality: unspecified laterality Lung location: unspecified part of lung Qualified Code(s): J18.9 - Pneumonia, unspecified organism (18) Sleep apnea Qualifiers: Sleep apnea type: unspecified type Qualified Code(s): G47.30 - Sleep apnea, unspecified (20) Depression Qualifiers: Depression Type: unspecified Qualified Code(s): F32.9 - Major depressive disorder, single episode, unspecified
[2019-04-07] MEDS: Baclofen 10 MG TABLET PO PRN ×2 (13:16→19:44)
[2019-04-07] MEDS: Venlafaxine XR (24 HR) 150 MG CAP.ER.24H PO SCH (13:17)
--- NOTE | 2019-04-07 13:48 | Palliative - Consult Note ---
Date of Encounter: 04/07/19 Time of Encounter: 12:00 - Assessment and Plan (1) Generalized pain Current Visit: Yes Status: Acute Assessment and plan: Patient has Percocet currently ordered every 6 hours. States this is helpful f or her pain. Just had 2 hours prior to my visit. Will reeval tomorrow. (2) Depression Current Visit: Yes Status: Chronic Assessment and plan: In review of patient record - appears she was on Effexor 300mg/day and Celexa 20mg day at [facility]. I do not see that these have been given during this hospital stay. Patient states she has been on 300mg Effexor for many years and believes she is suffering off of it. D/W Dr. Ferris who will be restarting these medications. Psych consult is pending as well. Qualifiers: Depression Type: unspecified Qualified Code(s): F32.9 - Major depressive disorder, single episode, unspecified (3) Goals of care, counseling/discussion Current Visit: Yes Status: Acute Assessment and plan: Patient was refusing to go to dialysis this am, and has refused some treatment and making statements about wanting to . Upon my visit, patient with no visitors. She was awake and answered questions, keeping eyes closed for most of conversation. States she is willing to do dialysis now, states she thinks she refused earlier because she was in too much pain. Discussed goals of care at length. I did discuss with pt the fact that she has not had her regular medications since been in hospital, and she does feel that maybe this has affected her. She is to her Óscar, and they have one daughter, she states around 36 yr of age. Patient states she lives at home with her dad and has "mental problems". Patient states has been at [facility] for a couple of years. Discussed resuscitative measures and what patient did/did not want done. She states that her and her have had multiple conversation, and she does not want resuscitated if her heart were to stop. States that she has poor quality of life and unhappy she is in [facility], wouldn't want heroic measures. When asked if she wanted intubation, she adamantly stated no. However, regarding care she does desire, she is now agreeable and wants to continue dialysis and all her antibiotic therapy. I called her Jose per her request and discussed the above. He is in agreement with DNR/DNI and states that is consistent with her wishes. He is unable to come back to hospital today r/t someone working on their house. He will be in tomorrow around 1000 and I will meet with him again then. (4) Acute kidney injury Current Visit: No Status: Acute (5) Acute on chronic diastolic CHF (congestive heart failure) Current Visit: No Status: Acute (6) Bacteremia Current Visit: Yes Status: Acute (7) Severe sepsis Current Visit: Yes Status: Acute Palliative-CN HPI - Data of Consult Requesting Physician: Yoon Ferris MD Primary Care Provider: Anmol Mancuso MD - Consult Narrative History of present illness: Ms. Lamb is a 68 year old female who is a resident of [facility] and presented with shortness of breath and leg pain. She has been in the hospital for the last 6 days, was found to have sepsis with + blood and urine cultures, have an Acute kidney injury. Infectious disease and nephrology are following closely. She has severe edema and has been receiving dialysis/ultrafiltration. Right breast erythema has been treated as well. She has PMH of morbid obesity, DM type II, HTN, arthritis. She had injury at [facility] to right lower leg, and Ortho did see patient during this admission, stated no acute fracture. Upon my visit, patient is resting with eyes closed. Alert and oriented x 3. She has flat affect. C/o back pain she states is chronic, and lower leg discomfort. States that was here earlier but has left for the day. Palliative care was consulted for goals of care discussion as patient earlier today refused dialysis, and has been making statements to "let her go" and refusing some care. CC: Yoon Ferris MD - Time Spent with Patient Time: Total time spent is greater than 50% in coordination of care (as documented) at patient's floor/unit and/or counseling patient: Past Med Surg Social Fam HX - Past Medical History Medical history: arthritis, diabetes, GERD, hypertension, renal disease, other Additional medical history: Atrial Flutter Psychiatric history: anxiety, depression - Past Surgical History Surgical History: appendectomy, sinus surgery, bariatric surgery Additional surgical history: tonsilectomy, Stomach stappling, Sinus surgery,csection - Social History Smoking Status: Never smoker Smokeless Tobacco Status: No Alcohol use: none Drug use: none - Family History Mother Living Status: Hx Family Neurologic Disorders: Yes (Migraines) Hx Family Autoimmune Disorders: Yes (MS) Sister Hx Family Cancer: Yes Hx Family Autoimmune Disorders: Yes (Lupus) Father Living Status: Hx Family Cancer: Yes Hx Family Endocrine Disorder: Yes (diabetes) Medications and Allergies Citalopram [CeleXA] 20 mg PO DAILY 04/12/17 [History] Loperamide HCl [Imodium A-D] 2 mg PO PRN PRN 04/12/17 [History] Losartan Potassium [Cozaar] 50 mg PO DAILY 04/12/17 [History] Pioglitazone [Actos] 45 mg PO DAILY 04/12/17 [History] Venlafaxine XR (24 HR) [Effexor Xr] 300 mg PO DAILY 04/12/17 [History] Vitamin B Complex 1 cap PO 1200 04/12/17 [History] Ferrous Sulfate 325 mg PO BIDWM #60 tablet 04/16/17 [Rx] Baclofen 20 mg PO TID PRN 02/06/18 [History] Loratadine [Allergy Relief] 10 mg PO DAILY PRN 02/06/18 [History] Omeprazole [PriLOSEC] 20 mg PO HS 02/06/18 [History] Calcium Carbonate [Tums] 500 mg PO Q4HR PRN 02/07/18 [History] metFORMIN [Glucophage] 500 mg PO BIDWM 02/07/18 [History] Caffeine [Stay Awake] 50 mg PO TID 12/01/18 [History] DiphenhydraMINE [Benadryl] 50 mg PO BID PRN 12/01/18 [History] Insulin Glargine [Lantus] 40 unit SQ HS 12/01/18 [History] Magnesium Hydroxide/Al Hydrox [Mag-Al Liquid] 30 ml PO DAILY PRN 12/01/18 [History] Potassium Chloride [K-Tab ER] 20 meq PO DAILY 12/01/18 [History] Apixaban [Eliquis] 2.5 mg PO BID 12/03/18 [History] Diltiazem HCl [Diltiazem 24Hr Cd] 120 mg PO DAILY 12/03/18 [History] Glucagon,Human Recombinant [Glucagen] 1 mg IM AD PRN 12/03/18 [History] HYDROcodone/Acet 5/325 mg [[place] 5-325 mg] 1 tab PO BID 12/03/18 [History] HYDROcodone/Acet 5/325 mg [[place] 5-325 mg] 1 tab PO Q4H PRN 12/03/18 [History] Metoprolol Tartrate [Lopressor] 50 mg PO DAILY 12/03/18 [History] Multivitamin [Daily Multiple Vitamin] 1 tab PO DAILY 12/03/18 [History] Gabapentin [Neurontin] 300 mg PO BID #30 capsule 12/06/18 [Rx] GuaiFENesin ER [Mucinex] 600 mg PO BID #20 tbbp.12hr 12/06/18 [Rx] Furosemide [Lasix] 20 mg PO BID 03/31/19 [History] Allergy/AdvReac Type Severity Reaction Status Date / Time Tetracyclines Allergy Rash Verified 03/31/19 21:57 Penicillins AdvReac Gastrointestinal Verified 03/31/19 21:57 Upset shellfish derived AdvReac Headache Verified 03/31/19 21:57 All systems: reviewed and no additional remarkable complaints except as stated (back and right leg pain, shortness of breath with exertion, swelling all extremities, poor appetite) Palliative Care-Exam - Constitutional Vitals: Temp Pulse Resp BP Pulse Ox 97.7 F 71 18 146/78 98 04/07/19 11:05 04/07/19 11:05 04/07/19 11:05 04/07/19 11:05 04/07/19 07:22 General appearance: Present: cooperative, morbidly obese - Head Head Exam: Present: normal inspection, normocephalic - Eye Eye exam: Present: normal appearance, PERRL - Respiratory Respiratory exam: Present: decreased breath sounds, CTAB - Cardiovascular Cardiovascular exam: Present: +S1, +S2 - GI/Abdominal Exam GI/Abdominal exam: Present: normal bowel sounds, soft - Catheter Type: Urethral ([place]) - Extremities Exam Additional comments: Right lower extremity wrapped with kerlix, D/I. - Neurological Exam Neurological exam: Present: alert, oriented X3, strengths equal and symetr throughout - Psychiatric Psychiatric exam: Present: depressed, flat affect - Skin Skin exam: Present: dry, pallor, warm Additional comments: Dialysis cath rt chest. Rt breast with erythema - according to notes has been improving Internal Medicine - CN: Reslt - Labs CBC & Chem 7: 04/07/19 03:55 04/07/19 03:55 Labs: Short CBC 04/07/19 Range/Units 03:55 WBC 12.4 H (4.3-11.1) K/mcL Hgb 8.8 L (11.5-15.4) g/dL Hct 27.5 L (35.3-44.9) % Plt Count 257 (140-400) K/mcL BMP 04/07/19 03:55 Sodium 134 L Potassium 5.0 Chloride 100 Carbon Dioxide 17 L BUN 61 H Creatinine 3.11 H Glucose 186 H Calcium 7.4 L - ABG Interpretation ABG results: ABG ABG pH 7.28 pH Units (7.32-7.45) L 04/01/19 20:28 ABG pCO2 45 mmHg (35-45) 04/01/19 20:28 ABG pO2 74 mmHg (85-104) L 04/01/19 20:28 ABG O2 Saturation 93 % (95-98) L 04/01/19 20:28 PT/INR, D-dimer PT 20.1 Seconds (9.4-12.1) H 03/31/19 19:37 Consult Discharge Plan - Plan Referrals: Anmol Mancuso MD [Primary Care Provider] - 04/14/19 1:15 pm Palliative Quality Palliative Quality: Screen for Code Status: Yes, Screen for Goals of Care: Yes, Screen for Pain: Yes, If Pain Regimen Started, Initiate Bowel Regimen: NA, Screen for Nausea/Vomitting: Yes Code Status: 03/31/19 23:52 Resuscitation Status: Active [RES] Routine Comment: Resuscitation Status: Full Code 04/07/19 12:01 DNR [Resuscitation Status: Active] [RES] Routine Comment: Resuscitation Status: [id number]
[2019-04-07] MEDS ORDERED: 0.9 % Sodium Chloride 1,000 ML ONE (14:08)
[2019-04-07] MEDS: Gabapentin 100 MG CAPSULE PO SCH (19:44)
[2019-04-07] MEDS: Acetaminophen 325 MG TABLET PO PRN (22:01)
[2019-04-07] MEDS: Insulin DETEMIR 100 UNIT/ML X5UNITS SQ SCH (22:05)
--- NOTE | 2019-04-07 23:52 | Nephrology Progress Note ---
Date of Encounter: 04/07/19 Time of Encounter: 12:00 - Assessment and Plan (1) Acute kidney injury Current Visit: No Status: Acute ]HD today with UF goal of 2-3kg as tolerated Will also paln for UF tomorrow for 2 hours Continue fluid restriction Continue to avoid nephrotoxins if possible (2) Morbid obesity Current Visit: No Status: Chronic (3) Hyperkalemia Current Visit: No Status: Resolved (4) CKD (chronic kidney disease) stage 3, GFR 30-59 ml/min Current Visit: No Status: Chronic (5) Anasarca Current Visit: Yes Status: Acute Subjective Principal diagnosis: YEIMY, Hyperkalemia, Hx of prior temporary HD Interval history: Pt seen and examined initially refusing HD this am per nurse but now open to it. Pain also better controlled today, remains lethargic. Objective - Vital Signs Vital signs: Vital Signs Temp Pulse Resp BP Pulse Ox 04/07/19 23:32 98.1 F 139 16 114/72 96 04/07/19 20:31 97.8 F 130 16 101/59 92 04/07/19 19:52 97.5 F L 128 14 124/74 97 04/07/19 19:10 97.5 F L 18 128/68 04/07/19 18:55 120/54 04/07/19 18:40 134/62 04/07/19 18:25 146/68 04/07/19 18:10 155/69 04/07/19 17:55 140/60 04/07/19 17:40 136/57 04/07/19 17:25 139/66 04/07/19 17:10 169/77 04/07/19 16:55 164/67 04/07/19 16:40 160/69 04/07/19 16:25 166/74 04/07/19 16:10 160/70 04/07/19 15:55 158/68 04/07/19 15:40 164/67 04/07/19 15:25 97.7 F 18 169/74 04/07/19 11:05 97.7 F 71 18 146/78 04/07/19 07:22 97.6 F 76 18 136/69 98 04/07/19 03:59 98.2 F 77 20 123/87 97 Intake and Output 04/07/19 04/07/1919 07:59 15:59 23:59 Intake Total 50 / 759.6 650 / 759.6 59.6 / 759.6 Output Total 400 / 4550 150 / 4550 4000 / 4550 Balance -350 / -3790.4 500 / -3790.4 -3940.4 / -3790.4 Intake: IV Fluids 50 / 159.6 50 / 159.6 59.6 / 159.6 Cardizem 50 MG In 0.9 % Sodium 9.6 / 9.6 Chloride 40 ML @ 5 MG/HR 5 mls/ hr IVC CONT INGRID Rx#:[id number] Cleocin Premix 900 MG/50 ML 900 50 / 150 50 / 150 50 / 150 mg In 50 ml @ 50 mls/hr IVPB Q8HR [facility] Rx#:[id number] Oral 0 / 0 0 / 0 0 / 0 Intake, Rinseback and Flushes 600 / 600 Output: Urine 0 / 0 0 / 0 Total Dialysis (HD) Output 3600 / 3600 Catheter 400 / 950 150 / 950 400 / 950 Urethral ([place]) 0 / 0 Other: Meal Lunch Percent of Meal Consumed 0% Blood Glucose* 164 180 174 Hemodialysis Net Fluid Removed 575 3000 (mL) - Lab 04/07/19 03:55 04/07/19 03:55 Consult Discharge Plan - Plan Referrals: Anmol Mancuso MD [Primary Care Provider] - 04/14/19 1:15 pm
[2019-04-08] MEDS: Clindamycin 900 MG/50 ML 900 MG/50 ML IV.SOLN IVPB SCH ×2 (00:18→07:36)
[2019-04-08] MEDS: Insulin LISPRO 300 UNITS/3 ML VIAL SQ SCH ×3 (00:18→11:48)
[2019-04-08] MEDS: *HR* OxyCODONE/APAP 5/325 TABLET PO PRN (01:47)
[2019-04-08 04:42] LABS: Hematocrit 28.7 % (35.3-44.9); Hemoglobin 9.1 g/dL (11.5-15.4); Mean Corpuscular HGB Conc 31.7 g/dL (31.6-35.5); Mean Corpuscular Hemoglobin 29.3 pg (28.0-33.3); Mean Corpuscular Volume 92.3 fL (83.0-100.0); Mean Platelet Volume 9.5 fL (9.4-12.4); Nucleated Red Blood Cells 0.4 /100 WBC (0); Platelet Count 291 K/mcL (140-400); Red Blood Count 3.11 M/mcL (3.82-4.97); Red Cell Distribution Width 15.2 % (11.5-14.5); White Blood Count 11.4 K/mcL (4.3-11.1)
[2019-04-08 05:01] LABS: Phosphorous 4.4 mg/dL (2.7-4.5)
[2019-04-08 05:02] LABS: Calcium 7.3 mg/dL (8.6-10.3)
[2019-04-08 05:53] LABS: Lymphocytes # 0.7 K/mcL (0.6-4.6); Monocytes # 0.2 K/mcL (0.0-1.3); Neutrophils # 10.3 K/mcL (1.6-8.9); Platelet Estimate Normal (Normal); Toxic Granulation Present (Not Present)
[2019-04-08] MEDS ORDERED: 0.9 % Sodium Chloride 250 ML IVC PRN (07:35)
[2019-04-08] MEDS ORDERED: *HR* Heparin 10,000 UNIT/10 ML VIAL IV PRN (07:35)
[2019-04-08] MEDS: Gabapentin 100 MG CAPSULE PO SCH (07:37)
[2019-04-08] MEDS: Miconazole 2% ointment 141 APPL/141 GM TUBE TP SCH (07:37)
[2019-04-08] MEDS: Diltiazem CD (24hr) 120 MG CAPSULE PO SCH (07:37)
[2019-04-08] MEDS: Cefepime HCl 1,000 MG in 0.9 % Sodium Chloride Mini Bag 100 ML IVPB SCH (07:37)
[2019-04-08] MEDS: Apixaban 2.5 MG TABLET PO SCH (07:37)
[2019-04-08] MEDS: Nystatin Cream 15 GM TUBE TP SCH (07:37)
[2019-04-08 07:45] VITALS: BP 98/76
[2019-04-08] MEDS ORDERED: 0.9 % Sodium Chloride 1,000 ML PRIME SCH (07:45)
[2019-04-08] MEDS ORDERED: predniSONE 20 MG TABLET PO SCH (09:00)
--- NOTE | 2019-04-08 09:55 | Internal Med Progress Note ---
Hospitalist Progress Note - Encounter Date of Encounter: 04/08/19 Time of Encounter: 09:52 - Subjective Interval History: Patient seen and examined earlier this morning. Resting in bed, states pain is appropriately controlled but she is refusing dialysis this morning. She is not providing any reasons for her refusal for dialysis. Overnight pt was noted to go into Afib with RVR and currently on cardizem drip. Denies any chest pain at this time. Ten point ROS is negative except as listed above. - Exam Vitals: Temp Pulse Resp BP Pulse Ox 98.0 F 127 20 98/76 97 04/08/19 07:43 04/08/19 07:43 04/08/19 07:43 04/08/19 07:43 04/08/19 07:43 Exam: General: No acute distress, AAO x 3, morbidly obese HEENT: EOMI, PERRLA, NC/AT, no scleral icterus Respiratory: Diminished breath sounds, no wheezing, no rales Cardiovascular: Regular, Rate, Rhythm, No murmurs GI: Soft, Non tender, non distended, normal bowel sounds Ext: b/l LE edema, right LE dressing intact Neuro: AAO x 3, no focal deficits Skin: Right breast erythema Psych: Depressed, No suicidal ideation Rest of the clinical exam is noncontributory - Assessment and Plan (1) Atrial fibrillation Current Visit: No Status: Chronic Assessment and Plan: Afib with RVR, now requiring cardizem drip continue home dose of Metoprolol Cardiology evaluation requested continue eliquis for anticoagulation (2) Sepsis Current Visit: Yes Status: Resolved Assessment and Plan: Sepsis likely secondary to underlying bacteremia and MDR UTI sepsis resolved continue IV abx as per ID ID input appreciated (3) Bacteremia Current Visit: Yes Status: Acute Assessment and Plan: ID input appreciated continue abx as per ID repeat blood cultures reporting no growth thus far (4) Anemia Current Visit: No Status: Chronic Assessment and Plan: H&H low but acceptable no acute bleeding reported at this time continue to closely monitor (5) Acute respiratory failure Current Visit: No Status: Acute Assessment and Plan: Resolved Currently saturating well on room air likely secondary to volume overload in the setting of acute renal failure requiring hemodialysis will closely monitor (6) UTI (urinary tract infection) Current Visit: No Status: Acute Assessment and Plan: Urine cultures positive for Klebsiella with multidrug-resistant organism Patient was given fosfomycin 3 grams PO x 1 dose per infectious disease recommendations Infectious disease on board and evaluation appreciated continue abx as per ID (7) Hyperkalemia Current Visit: No Status: Resolved Assessment and Plan: continue FIRE CLAIMS ADJUSTER as per nephrology (8) Acute kidney injury Current Visit: No Status: Acute Assessment and Plan: Acute on chronic renal failure now requiring hemodialysis nephrology on board and evaluation appreciated continue FIRE CLAIMS ADJUSTER as per nephrology (9) History of pulmonary embolism Current Visit: No Status: Acute Assessment and Plan: continue home dose of Eliquis (10) Acute on chronic diastolic CHF (congestive heart failure) Current Visit: No Status: Acute Assessment and Plan: Echocardiogram showed LVEF of 55% with mild left ventricular diastolic dysfunction continue FIRE CLAIMS ADJUSTER as per nephrology fluid restriction diet monitor daily weights, strict I/Os closely monitor respiratory status (11) Acute exacerbation of chronic obstructive pulmonary disease (COPD) Current Visit: No Status: Acute Assessment and Plan: continue systemic steroids and bronchodilator support started on Prednisone today (day 1) (12) Diabetes Current Visit: No Status: Chronic Assessment and Plan: Sliding scale insulin coverage monitor FS and BG ADA diet (13) Compression fracture Current Visit: No Status: Chronic Assessment and Plan: Supportive care recommended by orthopedic surgery no acute fracture reported continue home meds for pain control (14) Pneumonia Current Visit: Yes Status: Acute Assessment and Plan: ruled out (15) Cellulitis of right leg Current Visit: Yes Status: Acute Assessment and Plan: continue RLE wound care abx as per ID (16) Elevated troponin Current Visit: Yes Status: Acute Assessment and Plan: Suspect secondary to demand ischemia Patient on Eliquis. Denies chest pain. (17) Cellulitis of right breast Current Visit: Yes Status: Acute Assessment and Plan: Right breast US noted ID on board, continue abx as per ID (18) Sleep apnea Current Visit: No Status: Chronic Assessment and Plan: CPAP daily at bedtime (19) Goals of care, counseling/discussion Current Visit: Yes Status: Acute Assessment and Plan: Palliative care team evaluation appreciated Palliative care team to have a family meeting today code status changed to DNR/DNI (20) Depression Current Visit: Yes Status: Chronic Assessment and Plan: continue home medications DVT Prophylaxis: On Eliquis - Time Spent with Patient Total time spent is greater than 50% in coordination of care (as documented) at patient's floor/unit and/or counseling patient: Plan of Care Discussed with: patient (patient/RN/pharmacist/consulting provider/case management) Internal Medicine: Result - Labs CBC & Chem 7: 04/08/19 04:15 04/08/19 04:15 Labs: Short CBC 04/08/19 Range/Units 04:15 WBC 11.4 H (4.3-11.1) K/mcL Hgb 9.1 L (11.5-15.4) g/dL Hct 28.7 L (35.3-44.9) % Plt Count 291 (140-400) K/mcL Neutrophils # 10.3 H (1.6-8.9) K/mcL BMP 04/08/19 04:15 Sodium 134 L Potassium 4.0 Chloride 99 Carbon Dioxide 21 L BUN 39 H Creatinine 2.03 H Glucose 177 H Calcium 7.3 L - ABG Interpretation ABG results: ABG ABG pH 7.28 pH Units (7.32-7.45) L 04/01/19 20:28 ABG pCO2 45 mmHg (35-45) 04/01/19 20:28 ABG pO2 74 mmHg (85-104) L 04/01/19 20:28 ABG O2 Saturation 93 % (95-98) L 04/01/19 20:28 PT/INR, D-dimer PT 20.1 Seconds (9.4-12.1) H 03/31/19 19:37 - Impressions Impressions Breast Ultrasound 04/07/19 14:00 IMPRESSION: 1. Diffuse edema in the right breast, compatible with an infectious/inflammatory mastitis. Follow-up ultrasound of the right breast in six weeks is recommended to ensure resolution. 2. No evidence of an abscess. BIRADS: BIRADS - CATEGORY 3 Findings are probably benign. A short interval follow-up is recommended in 6 weeks. OVERALL ASSESSMENT -PROBABLY BENIGN. A letter of notification will be sent to the patient regarding the results. D/ / 04/07/2019 15:05:24 Dale Valdez MD / fany Interpreting Provider: Dale Valdez MD Consult Discharge Plan - Plan Referrals: Anmol Mancuso MD [Primary Care Provider] - 04/14/19 1:15 pm (1) Atrial fibrillation Qualifiers: Atrial fibrillation type: chronic Qualified Code(s): I48.2 - Chronic atrial fibrillation (2) Sepsis Qualifiers: Sepsis type: sepsis due to unspecified organism Qualified Code(s): A41.9 - Sepsis, unspecified organism (4) Anemia Qualifiers: Anemia type: iron deficiency Iron deficiency anemia type: unspecified iron deficiency Qualified Code(s): D50.9 - Iron deficiency anemia, unspecified (5) Acute respiratory failure Qualifiers: Respiratory failure complication: hypoxia Qualified Code(s): J96.01 - Acute respiratory failure with hypoxia (6) UTI (urinary tract infection) Qualifiers: Urinary tract infection type: acute cystitis Hematuria presence: with hematuria Qualified Code(s): N30.01 - Acute cystitis with hematuria (12) Diabetes Qualifiers: Diabetes mellitus type: type 2 Diabetes mellitus long term care administrator insulin use: with halfway use Diabetes mellitus complication status: with kidney complications Diabetes mellitus complication detail: with chronic kidney disease Chronic kidney disease stage: stage 3 (moderate) Qualified Code(s): E11.22 - Type 2 diabetes mellitus with diabetic chronic kidney disease; N18.3 - Chronic kidney disease, stage 3 (moderate); Z79.4 - MCFP (current) use of insulin (14) Pneumonia Qualifiers: Pneumonia type: due to unspecified organism Laterality: unspecified laterality Lung location: unspecified part of lung Qualified Code(s): J18.9 - Pneumonia, unspecified organism (18) Sleep apnea Qualifiers: Sleep apnea type: unspecified type Qualified Code(s): G47.30 - Sleep apnea, unspecified (20) Depression Qualifiers: Depression Type: unspecified Qualified Code(s): F32.9 - Major depressive disorder, single episode, unspecified
--- NOTE | 2019-04-08 09:58 | Infectious Disease Progress No ---
ID Progress Note Date of Encounter: 04/08/19 Time of Encounter: 09:00 - Subjective Subjective: Patient seen and examined. No acute events noted overnight. Patient does not appear very interactive during the exam today. According to the notes, she did agree to HDL yesterday, but per nursing, is refusing today. Palliative care note reviewed. Patient states "I am going to ," but does not offer acute complaints. - Objective CBC & Chem 7: 04/08/19 04:15 04/08/19 04:15 - Line Documentation Line Documentation: Newby Catheter (Draining clear yellow urine.) - Exam Vitals: Temp Pulse Resp BP Pulse Ox 98.0 F 127 20 98/76 97 04/08/19 07:43 04/08/19 07:43 04/08/19 07:43 04/08/19 07:43 04/08/19 07:43 Exam: Head: Atraumatic, normal inspection, normocephalic. Eye: EOMI, PERRLA, no scleral icterus noted. ENT: Mucous membranes moist. No odontogenic infection noted. Neck: Normal inspection, no meningismus. Temporary dialysis catheter noted to the right neck with transparent dressing clean, dry, and intact. Respiratory: Clear/diminished to auscultation. No rales, respiratory distress, rhonchi, or wheezes noted. Cardiovascular: Irregular rhythm, tachycardic. No murmurs, rubs, or gallops. GI: Soft, morbidly obese, normal bowel sounds. Nontender. Newby catheter draining clear yellow urine. Extremities: Right lower extremity dressing with small amount of serous drainage noted. Neurological: Alert, oriented 3, no focal deficits. Psychiatric: normal affect, agitated. Skin: Dry, intact, warm. Normal color. No rashes. Right breast erythema improved. - Assessment and Plan (1) Severe sepsis Status: Acute The patient had 2 sepsis criteria plus lactic acidosis. Likely secondary to bacteremia and cellulitis. WBC improved. Afebrile. Tachycardia recurred after HD yesterday. Blood cultures drawn 03/31/19 were +2 out of 2 sets for group A strep. Repeat blood cultures drawn 04/01/19 are negative 2 sets. Additional repeat blood cultures drawn 04/02/19 are negative 2 sets. SNOMED Code(s): 26021691 (2) Gram-positive bacteremia Status: Acute Causative organism: Group A strep. Source: Likely lower extremity cellulitis. Blood cultures drawn 03/31/19 were +2 out of 2 sets for group A strep. Repeat blood cultures drawn 04/01/19 are negative 2 sets. Additional repeat blood cultures drawn 04/02/19 are negative 2 sets. Currently on cefepime and clindamycin. SNOMED Code(s): 796990019148 (3) Cellulitis of right leg Status: Acute Location: Right lower extremity. Cause of organism: Likely group A strep. The patient is noted to have some bullous lesions to the plantar aspect of the right foot. CT of the right lower extremity showed findings consistent with cellulitis and severe osteopenia, but no necrotizing fasciitis or abscess or osteomyelitis. CK 244. Improved. Currently on Clindamycin, Vanc, and cefepime. SNOMED Code(s): 918263304 (4) Cellulitis of right breast Status: Acute Location: Right breast. Causative organism: Unclear. UTS showed infectious/inflammatory mastitis without abscess. Improved. Currently on Vanc, cefepime, and Clindamycin. SNOMED Code(s): 10959663 (5) UTI (urinary tract infection) Status: Acute Asymptomatic bacteriuria, the patient has no urinary symptoms. Causative organism: MDRO K. pneumoniae. Received 1 dose of PO fosfomycin. Qualifiers: Urinary tract infection type: acute cystitis Hematuria presence: with hematuria Qualified Code(s): N30.01 - Acute cystitis with hematuria SNOMED Code(s): 13403819 (6) Acute on chronic kidney failure Status: Acute Temporary dialysis catheter placed 04/03/19 and intermittent hemodialysis started. Nephrology consult and following. Dose-adjust medications and avoid nephrotoxins as able. Qualifiers: Acute renal failure type: unspecified Chronic kidney disease stage: unspecified stage Qualified Code(s): N17.9 - Acute kidney failure, un specified; N18.9 - Chronic kidney disease, unspecified SNOMED Code(s): 941689343 (7) Diabetes Status: Chronic Recommend aggressive glucose monitoring and control. Management per the primary team. Qualifiers: Diabetes mellitus type: type 2 Diabetes mellitus long-term insulin use: with long-term use Diabetes mellitus complication status: with kidney complications Diabetes mellitus complication detail: with chronic kidney disease Chronic kidney disease stage: stage 3 (moderate) Qualified Code(s): E11.22 - Type 2 diabetes mellitus with diabetic chronic kidney disease; N18.3 - Chronic kidney disease, stage 3 (moderate); Z79.4 - moth exterminator (current) use of insulin SNOMED Code(s): 93667724 (8) Elevated troponin Status: Acute Cardiology following. SNOMED Code(s): 000812909, 583187876, 572983706 (9) Drug allergy, antibiotic Status: Acute Tolerating Zosyn even psoas abscesses allergic to penicillin. When asked apparently gives her nausea and vomiting so no true allergies but intolerance. SNOMED Code(s): 644423925895262 (10) Morbid obesity Status: Chronic BMI 78. SNOMED Code(s): 459640607 - Recommendations Recommendations: Dressing changes per wound care recommendations. YEIMY management per the nephrology team. Goals of care per the palliative care team. Discontinue clindamycin. Continue vancomycin IV. Pharmacy to dose. Goal trough approximately 15. Continue cefepime 1 g IV every 24 hours (dose adjusted for HD status). Duration of treatment depends on the clinical picture. Monitor renal function and for drug toxicity and dose adjust antibiotics. Contact precautions per hospital policy for MDR Klebsiella pneumoniae. Consult Discharge Plan - Plan Referrals: Anmol Mancuso MD [Primary Care Provider] - 04/14/19 1:15 pm - Attending Attestation I have personally performed a face to face evaluation on this patient. I have reviewed and agree with the care plan. History and Exam by me shows: Assessment and plan: 1.Severe sepsis 2.Group A strep bacteremia 3.Cellulitis 4.Acute on chronic kidney injury requiring dialysis 5.Urinary tract infection with multidrug resistant organism Klebsiella pneumoniae 6.Morbid obesity 7.Diabetes mellitus type 2 Recommendations: Patient apparently is refusing dialysis and palliative care is no involvement Continue clindamycin 900 mg IV every 8 hours. Continue vancomycin IV. Pharmacy to dose. Goal trough approximately 15. Continue cefepime 1 g IV every 24 hours (dose adjusted for HD status). Duration of treatment depends on the clinical picture. Monitor renal function and for drug toxicity and dose adjust antibiotics. Contact precautions per hospital policy for MDR Klebsiella pneumoniae.
--- NOTE | 2019-04-08 11:46 | Palliative Progress Note ---
Date of Encounter: 04/08/19 Time of Encounter: 11:40 - Assessment and plan (1) Generalized pain Current Visit: Yes Status: Acute Assessment and plan: Patient states pain is not under control. Has been utilizing Percocet every 6 hours. See discussion below under goals of care. Will be transitioning to inpt hospice for pain control. (2) Depression Current Visit: Yes Status: Chronic Assessment and plan: Continue Effexor/Celexa if patient able to tolerate po. Qualifiers: Depression Type: unspecified Qualified Code(s): F32.9 - Major depressive disorder, single episode, unspecified (3) Goals of care, counseling/discussion Current Visit: Yes Status: Acute Assessment and plan: I was called by nursing that patient stated she was going to refuse any further dialysis. I met with patient and Óscar for 50 min discussion. Patient is alert and oriented. States that she is miserable, and cannot tolerate going to dialysis. She discussed that the last 2 years of her life have been totally miserable and she hates living in correction. States that she does not want anything done to prolong her life further, and only wants to be comfortable. STates she has had a discussion with her last night and today, and she will not "have anything else done". I had discussion with Óscar who stated that he has "seen this coming" over the past year. He discus sed that she has very poor quality of life and that she hates living in the correction. He is tired of seeing her in pain, and states "at this point, we both just want her to be comfortable". Discussed that with her severe edema, some dialysis may help, but they continue to decline. They are aware that without continued treatment of her infection, and without dialysis, she may likely pass soon. Both patient and are aware. Discussed code status and transitioned to DNRCC - state form completed and signed by (POA), as patient with severe edema in her hands and unable to sign. D/W Dr. Baptiste. Patient will be transitioned to [facility] for pain management. Once this is controlled, could transition to ECF with [place] [facility] following. She does not want to return to [facility]. would be interested in placement at ECF in [place] if she survives this hospital stay. (4) Acute kidney injury Current Visit: No Status: Acute (5) Acute on chronic diastolic CHF (congestive heart failure) Current Visit: No Status: Acute (6) Bacteremia Current Visit: Yes Status: Acute (7) Severe sepsis Current Visit: Yes Status: Acute - Time Spent With Patient Total time spent is greater than 50% in coordination of care (as documented) at patient's floor/unit and/or counseling patient: - Subjective Interval history: Patient awake and alert oriented x 3. Óscar at bedside. Patient has refused dialysis again today and refusing most nursing care. States she is "done", and asking me to "please let her go". - Constitutional Vitals: Abnormal lab results WBC 11.4 K/mcL (4.3-11.1) H 04/08/19 04:15 RBC 3.11 M/mcL (3.82-4.97) L 04/08/19 04:15 Hgb 9.1 g/dL (11.5-15.4) L 04/08/19 04:15 Hct 28.7 % (35.3-44.9) L 04/08/19 04:15 MCHC 30.9 g/dL (31.6-35.5) L 04/06/19 03:45 RDW 15.2 % (11.5-14.5) H 04/08/19 04:15 MPV 9.3 fL (9.4-12.4) L 04/07/19 03:55 17.0 % (0-4) H 04/04/19 04:00 1.0 % (0) H 04/04/19 04:00 2.0 % (0) H 04/08/19 04:15 10.3 K/mcL (1.6-8.9) H 04/08/19 04:15 Nucleated RBCs/100 WBC 0.4 /100 WBC (0) H 04/08/19 04:15 Present (Not Present) A 04/08/19 04:15 1+ (Not Present) A 04/04/19 04:00 PT 20.1 Seconds (9.4-12.1) H 03/31/19 19:37 ABG pH 7.28 pH Units (7.32-7.45) L 04/01/19 20:28 ABG pO2 74 mmHg (85-104) L 04/01/19 20:28 ABG O2 Saturation 93 % (95-98) L 04/01/19 20:28 ABG Base Excess -6 mEq/L (-2 to 3) L 04/01/19 20:28 VBG pH 7.44 pH Units (7.32-7.42) H 03/31/19 21:28 VBG pCO2 20 mmHg (41-51) L 03/31/19 21:28 VBG pO2 186 mmHg (25-50) H 03/31/19 21:28 VBG HCO3 14 mEq/L (21-27) L 03/31/19 21:28 Sodium 134 mEq/L (136-145) L 04/08/19 04:15 Potassium 5.4 mEq/L (3.5-5.1) H 04/03/19 03:15 Carbon Dioxide 21 mEq/L (23-29) L 04/08/19 04:15 BUN 39 mg/dL (8-23) H 04/08/19 04:15 2.03 mg/dL (0.60-1.20) H 04/08/19 04:15 Est GFR ( Amer) 30 (> 60) L 04/08/19 04:15 Est GFR (Non-Af Amer) 24 (> 60) L 04/08/19 04:15 Glucose 177 mg/dL (70-105) H 04/08/19 04:15 POC Glucose 175 mg/dL (70-99) H 04/08/19 07:43 Lactic Acid 2.7 mmol/L (0.5-2.2) H 03/31/19 23:39 Calcium 7.3 mg/dL (8.6-10.3) L 04/08/19 04:15 Phosphorus 6.1 mg/dL (2.7-4.5) H 04/03/19 03:15 1.1 mg/dL (0.3-1.0) H 04/01/19 01:33 0.6 mg/dL (0.0-0.2) H 03/31/19 19:37 AST 202 Units/L (13-39) H 04/02/19 04:28 ALT 145 Units/L (7-52) H 04/02/19 04:28 178 Units/L (34-104) H 04/02/19 04:28 1.18 ng/mL (< 0.04) H* 04/01/19 22:54 5.4 g/dL (6.4-8.9) L 04/02/19 04:28 2.4 g/dL (3.5-5.7) L 04/03/19 03:15 0.8 (1.1-2.2) L 04/02/19 04:28 Turbid (Clear) A 03/31/19 20:22 Small (Negative) H 03/31/19 20:22 Small (Negative) H 03/31/19 20:22 Ur Leukocyte Esterase Large (Negative) H 03/31/19 20:22 15-30 per hpf (0-3) H 03/31/19 20:22 TNTC per hpf (0-3) H 03/31/19 20:22 Ur Squamous Epith Cells Many per lpf (None-Few) H 03/31/19 20:22 Many per hpf (None-Few) H 03/31/19 20:22 Ur Culture Indicated? YES (NO) A 03/31/19 20:22 Vancomycin Trough 16 mcg/mL (5-10) H 04/07/19 03:55 Hep Bs Antibody < 3.10 mIU/mL (10.00-) L 04/02/19 13:54 Streptococcus sp PCR DETECTED (Not Detect) A 03/31/19 20:14 Group A Strep DNA DETECTED (Not Detect) A 03/31/19 20:14 General appearance: Present: mild distress - Respiratory Respiratory exam: Present: decreased breath sounds - Cardiovascular Cardiovascular exam: Present: irregular rhythm - GI/Abdominal GI/Abdominal exam: Present: distended, hypoactive bowel sounds, soft - Additional comments: [place] with small amount dk yellow urine - Extremities Exam Additional comments: 4+ edema to all extremities - Neurological Exam Neurological exam: Present: alert, oriented X3 - Psychiatric Psychiatric exam: Present: flat affect - Skin Skin exam: Present: dry, pallor, warm Palliative Quality Palliative Quality: Screen for Code Status: Yes, Screen for Goals of Care: Yes, Screen for Pain: Yes, If Pain Regimen Started, Initiate Bowel Regimen: NA, Screen for Nausea/Vomitting: Yes Code Status: 03/31/19 23:52 Resuscitation Status: Active [RES] Routine Comment: Resuscitation Status: Full Code 04/07/19 12:01 DNR [Resuscitation Status: Active] [RES] Routine Comment: Resuscitation Status: [id number]-[id number] 04/08/19 11:24 DNR [Resuscitation Status: Active] [RES] Routine Comment: Resuscitation Status: DNR-Comfort Care - Labs CBC & Chem 7: 04/08/19 04:15 04/08/19 04:15 Labs: Laboratory Results - last 24 hr 04/04/19 04/07/19 04/07/19 05:44 11:08 17:26 WBC RBC Hgb Hct MCV MCH MCHC RDW Plt Count MPV Seg Neutrophils % Band Neutrophils % Lymphocytes % Monocytes % Myelocytes % Neutrophils # Lymphocytes # Monocytes # Nucleated RBCs/100 WBC Toxic Granulation Platelet Estimate Sodium Potassium Chloride Carbon Dioxide BUN Creatinine Est GFR ( Amer) Est GFR (Non-Af Amer) BUN/Creatinine Ratio Glucose POC Glucose 79 180 H 165 H Calculated Osmolality Calcium Phosphorus Magnesium Random Vancomycin 04/07/19 04/08/19 04/08/19 21:13 04:15 04:15 WBC RBC Hgb Hct MCV MCH MCHC RDW Plt Count MPV Seg Neutrophils % Band Neutrophils % Lymphocytes % Monocytes % Myelocytes % Neutrophils # Lymphocytes # Monocytes # Nucleated RBCs/100 WBC Toxic Granulation Platelet Estimate Sodium 134 L Potassium 4.0 Chloride 99 Carbon Dioxide 21 L BUN 39 H Creatinine 2.03 H Est GFR ( Amer) 30 L Est GFR (Non-Af Amer) 24 L BUN/Creatinine Ratio 19 Glucose 177 H POC Glucose 174 H Calculated Osmolality 292 Calcium 7.3 L Phosphorus Magnesium Random Vancomycin 13 04/08/19 04/08/19 04/08/19 04:15 04:15 05:52 WBC 11.4 H RBC 3.11 L Hgb 9.1 L Hct 28.7 L MCV 92.3 MCH 29.3 MCHC 31.7 RDW 15.2 H Plt Count 291 MPV 9.5 Seg Neutrophils % 86.0 Band Neutrophils % 4.0 Lymphocytes % 6.0 Monocytes % 2.0 Myelocytes % 2.0 H Neutrophils # 10.3 H Lymphocytes # 0.7 Monocytes # 0.2 Nucleated RBCs/100 WBC 0.4 H Toxic Granulation Present A Platelet Estimate Normal Sodium Potassium Chloride Carbon Dioxide BUN Creatinine Est GFR ( Amer) Est GFR (Non-Af Amer) BUN/Creatinine Ratio Glucose POC Glucose 159 H Calculated Osmolality Calcium Phosphorus 4.4 Magnesium 2.0 Random Vancomycin 04/08/19 07:43 WBC RBC Hgb Hct MCV MCH MCHC RDW Plt Count MPV Seg Neutrophils % Band Neutrophils % Lymphocytes % Monocytes % Myelocytes % Neutrophils # Lymphocytes # Monocytes # Nucleated RBCs/100 WBC Toxic Granulation Platelet Estimate Sodium Potassium Chloride Carbon Dioxide BUN Creatinine Est GFR ( Amer) Est GFR (Non-Af Amer) BUN/Creatinine Ratio Glucose POC Glucose 175 H Calculated Osmolality Calcium Phosphorus Magnesium Random Vancomycin - Impressions Impressions Breast Ultrasound 04/07/19 14:00 IMPRESSION: 1. Diffuse edema in the right breast, compatible with an infectious/inflammatory mastitis. Follow-up ultrasound of the right breast in six weeks is recommended to ensure resolution. 2. No evidence of an abscess. BIRADS: BIRADS - CATEGORY 3 Findings are probably benign. A short interval follow-up is recommended in 6 weeks. OVERALL ASSESSMENT -PROBABLY BENIGN. A letter of notification will be sent to the patient regarding the results. D/ / 04/07/2019 15:05:24 Dale Valdez MD / fany Interpreting Provider: Dale Valdez MD - ABG Interpretation ABG results: ABG ABG pH 7.28 pH Units (7.32-7.45) L 04/01/19 20:28 ABG pCO2 45 mmHg (35-45) 04/01/19 20:28 ABG pO2 74 mmHg (85-104) L 04/01/19 20:28 ABG O2 Saturation 93 % (95-98) L 04/01/19 20:28 PT/INR, D-dimer PT 20.1 Seconds (9.4-12.1) H 03/31/19 19:37 Consult Discharge Plan - Plan Referrals: Anmol Mancuso MD [Primary Care Provider] - 04/14/19 1:15 pm
[2019-04-08] MEDS: Venlafaxine XR (24 HR) 150 MG CAP.ER.24H PO SCH (11:47)
--- NOTE | 2019-04-08 12:39 | Cardiology Progress Note ---
Date of Encounter: 04/08/19 Time of Encounter: 12:00 Assessment and Plan (1) Atrial fibrillation Current Visit: Yes Status: Chronic Atrial fibrillation with RVR in the setting of sepsis, morbid obesity (BMI 77), respiratory failure, and volume overload secondary to refusal of dialysis. Hx of PAF; on Eliquis for hx of PE. Please see full consult on 04/03/19. TTE shows preserved LVEF with normal wall motion. On cardizem gtt, HR remained uncontrolled likely secondary to refusal of dialysis and has refused IV atb for treatment of sepsis. Palliative care consulted and following; poor prognosis, patient is now DNR-CC and will be transitioning to inpatient hospice. Goals are towards pain management and comfort. No aggressive measures recommended from Cardiology. Medications per Palliative care team. No further recommendations. Qualifiers: Atrial fibrillation type: paroxysmal Qualified Code(s): I48.0 - Paroxysmal atrial fibrillation Discussion w patient/family: The assessment and plan as outlined above was discussed with the patient and/or family members who expressed understanding and agreement. All questions were answered. Thank you for involving us in the care of your patient. Please call with any questions. The patient will be discussed and reviewed with Dr. Conway; changes to be made accordingly. Subjective Principal diagnosis: YEIMY, Hyperkalemia, sepsis, PAF Interval history: Reconsulted today for afib with RVR. Patient would not open her eyes during exam. No family at bedside. Objective General: Other (morbidly obese) HEENT: Atraumatic, Normocephaly Neck: No JVD Cardiac: Other (tachycardiac,irregularly irregular) Lungs: Normal Breath Sounds (scattered rhonchi, anterior only) Neuro: Other (drowsy, somnolent) Abdomen: Soft (large/obese) Extremities: Other (large, non-pitting LE edema) Results 04/08/19 04:15 04/08/19 04:15 Lab Results 04/08/19 04/08/19 04/08/19 04:15 04:15 04:15 WBC 11.4 H Hgb 9.1 L Hct 28.7 L Plt Count 291 Sodium 134 L Potassium 4.0 Chloride 99 Carbon Dioxide 21 L BUN 39 H Creatinine 2.03 H Glucose 177 H Calcium 7.3 L Magnesium 2.0 Active Medications Acetaminophen (Tylenol) 650 mg PO Q6HR PRN PRN Reason: Fever Stop: 10/01/19 00:05 Last Admin: 04/07/19 22:01 Dose: 650 mg Documented by: Albuterol Sulfate (Proventil Neb) 2.5 mg IH Q2H PRN PRN Reason: Shortness Of Breath/Wheezing Stop: 09/30/19 23:58 Apixaban (Eliquis) 2.5 mg PO BID [facility] Stop: 10/01/19 09:01 Last Admin: 04/08/19 07:37 Dose: 2.5 mg Documented by: Baclofen (Lioresal) 20 mg PO TID PRN PRN Reason: LEG CRAMPS Last Admin: 04/07/19 19:44 Dose: 20 mg Documented by: Citalopram Hydrobromide (Celexa) 20 mg PO DAILY [facility] Stop: 10/07/19 11:31 Last Admin: 04/08/19 07:37 Dose: 20 mg Documented by: Dextrose/Water (Dextrose 50% (Syg)) 25 ml IVP AD PRN PRN Reason: Hypoglycemia Stop: 10/01/19 18:29 Diltiazem HCl (Cardizem Cd) 120 mg PO DAILY [facility] Stop: 10/04/19 10:31 Last Admin: 04/08/19 07:37 Dose: 120 mg Documented by: Gabapentin (Neurontin) 100 mg PO BID [facility] Stop: 10/07/19 21:01 Last Admin: 04/08/19 07:37 Dose: 100 mg Documented by: Glucagon (Glucagen) 1 mg IM ONCE PRN PRN Reason: Hypoglycemia Stop: 10/01/19 18:29 Glucose (Gluctose) 15 gm PO ONCE PRN PRN Reason: Hypoglycemia Stop: 10/01/19 18:29 Glucose (Gluctose) 30 gm PO ONCE PRN PRN Reason: Hypoglycemia Stop: 10/01/19 18:29 Heparin Sodium (Porcine) (Heparin) 0 unit IV ONCE PRN PRN Reason: Hemodialysis Catheter Packing Heparin Sodium (Porcine) (Heparin) 4,000 unit IV ONCE PRN PRN Reason: heparin load Heparin Sodium (Porcine) (Heparin) 0 unit IV ONCE PRN PRN Reason: Hemodialysis Catheter Packing Dextrose (Dextrose 5%) 1,000 mls @ 100 mls/hr IVC .Q10H PRN PRN Reason: HYPOGLYCEMIA Stop: 10/01/19 18:29 Albumin Human (Flexbumin) 25 gm in 100 mls @ 60 mls/hr IVPB ONCE PRN PRN Reason: Hypotension Stop: 10/03/19 07:22 Clindamycin Phosphate/Dextrose (Cleocin Premix 900 Mg/50 Ml) 900 mg in 50 mls @ 50 mls/hr IVPB Q8HR INGRID Stop: 10/03/19 16:01 Last Infusion: 04/08/19 11:52 Dose: Infused Documented by: Vancomycin HCl 1 each/ Sodium (Chloride) 250 mls @ 167 mls/hr IVPB RPHPROT PRN; Protocol PRN Reason: [employer]Y [employer]ING [employer] Stop: 10/03/19 15:01 Cefepime HCl 1,000 mg/ Sodium (Chloride) 100 mls @ 200 mls/hr IVPB DAILY [facility] Stop: 10/04/19 15:01 Last Admin: 04/08/19 07:37 Dose: 200 mls/hr Documented by: Sodium Chloride (0.9 % Sodium Chloride) 250 mls @ 937.5 mls/hr IVC .Q16M PRN PRN Reason: Hypotension Stop: 10/08/19 07:36 Sodium Chloride (0.9 % Sodium Chloride) 1,000 mls @ 0 mls/hr PRIME .Q0M INGRID Stop: 10/08/19 07:46 Diltiazem HCl 125 mg/ Sodium (Chloride) 125 mls @ 5 mls/hr IVC CONT INGRID; Protocol Stop: 10/04/19 12:16 Insulin Detemir (Levemir) 10 unit SQ HS [facility] Stop: 10/01/19 21:01 Last Admin: 04/07/19 22:05 Dose: 10 unit Documented by: Insulin Human Lispro (Humalog) 0 units SQ Q6HR [facility]; Protocol Stop: 10/02/19 00:01 Last Admin: 04/08/19 11:48 Dose: Not Given Documented by: Metoprolol Tartrate (Lopressor) 50 mg PO DAILY [facility] Stop: 10/04/19 10:31 Last Admin: 04/08/19 07:37 Dose: 50 mg Documented by: Miconazole (Aloe Herman Antifungal Ointment) 1 appl TP DAILY [facility] Stop: 10/02/19 12:46 Last Admin: 04/08/19 07:37 Dose: 1 appl Documented by: Miconazole Nitrate (Consuelo Antifungal) 1 appl TP BID [facility] Stop: 10/02/19 12:46 Last Admin: 04/08/19 07:37 Dose: 1 appl Documented by: Naloxone HCl (Narcan) 0.4 mg IVP Q2MPRN PRN PRN Reason: SEE COMMENTS Stop: 09/30/19 23:53 Nystatin (Mycostatin Cream) 1 appl TP BID [facility] Stop: 10/06/19 21:01 Last Admin: 04/08/19 07:37 Dose: 1 appl Documented by: Omeprazole (Prilosec) 20 mg PO HS [facility]; Protocol Stop: 10/01/19 21:01 Last Admin: 04/07/19 19:43 Dose: 20 mg Documented by: Oxycodone/Acetaminophen (Percocet 5/325) 1 each PO Q6HR PRN PRN Reason: Pain Stop: 10/06/19 12:52 Last Admin: 04/08/19 01:47 Dose: 1 each Documented by: Prednisone (Prednisone) 40 mg PO DAILY [facility] Stop: 10/08/19 09:01 Last Admin: 04/08/19 07:37 Dose: 40 mg Documented by: Venlafaxine HCl (Effexor Xr) 300 mg PO DAILY [facility]; Protocol Stop: 10/07/19 11:31 Last Admin: 04/08/19 11:47 Dose: Not Given Documented by: - Imaging and Cardiology Echo: report reviewed Other Results: 12 hour tele: avg [id number] - EKG Interpretation EKG results cardiology: personally reviewed Consult Discharge Plan - Plan Referrals: Anmol Mancuso MD [Primary Care Provider] - 04/14/19 1:15 pm
--- NOTE | 2019-04-08 13:47 | Discharge Summary ---
Orders not resulted at time of discharge: Pending orders 04/09/19 04:00 Basic Metabolic Panel AM 0400 Basic Metabolic Panel AM 0400 CBC no Diff [Complete Blood Count w/o Diff] [HEME] AM 0400 Complete Blood Count [HEME] AM 0400 Magnesium AM 0400 Phosphorous AM 0400 Vancomycin,Random AM 0400 04/10/19 04:00 Basic Metabolic Panel AM 0400 CBC no Diff [Complete Blood Count w/o Diff] [HEME] AM 0400 04/11/19 04:00 Basic Metabolic Panel AM 0400 CBC no Diff [Complete Blood Count w/o Diff] [HEME] AM 0400 04/12/19 04:00 Basic Metabolic Panel AM 0400 CBC no Diff [Complete Blood Count w/o Diff] [HEME] AM 0400 04/13/19 04:00 Basic Metabolic Panel AM 0400 CBC no Diff [Complete Blood Count w/o Diff] [HEME] AM 0400 04/14/19 04:00 Basic Metabolic Panel AM 0400 CBC no Diff [Complete Blood Count w/o Diff] [HEME] AM 0400 Date of Encounter: 04/08/19 Time of Encounter: 09:52 - Discharge Diagnosis (1) Atrial fibrillation Priority: Secondary Status: Chronic Qualifiers: Atrial fibrillation type: paroxysmal Qualified Code(s): I48.0 - Paroxysmal atrial fibrillation (2) Sepsis Priority: Primary Status: Resolved Qualifiers: Sepsis type: sepsis due to unspecified organism Qualified Code(s): A41.9 - Sepsis, unspecified organism (3) Bacteremia Priority: Secondary Status: Acute (4) Anemia Priority: Secondary Status: Chronic Qualifiers: Anemia type: iron deficiency Iron deficiency anemia type: unspecified iron deficiency Qualified Code(s): D50.9 - Iron deficiency anemia, unspecified (5) Acute respiratory failure Priority: Primary Status: Acute Qualifiers: Respiratory failure complication: hypoxia Qualified Code(s): J96.01 - Acute respiratory failure with hypoxia (6) UTI (urinary tract infection) Priority: Secondary Status: Acute Qualifiers: Urinary tract infection type: acute cystitis Hematuria presence: with hematuria Qualified Code(s): N30.01 - Acute cystitis with hematuria (7) Hyperkalemia Priority: Secondary Status: Resolved (8) Acute kidney injury Priority: Secondary Status: Acute (9) History of pulmonary embolism Priority: Secondary Status: Acute (10) Acute on chronic diastolic CHF (congestive heart failure) Priority: Secondary Status: Acute (11) Acute exacerbation of chronic obstructive pulmonary disease (COPD) Priority: Secondary Status: Acute (12) Diabetes Priority: Secondary Status: Chronic Qualifiers: Diabetes mellitus type: type 2 Diabetes mellitus chcf insulin use: with long term care social worker use Diabetes mellitus complication status: with kidney complications Diabetes mellitus complication detail: with chronic kidney disease Chronic kidney disease stage: stage 3 (moderate) Qualified Code(s): E11.22 - Type 2 diabetes mellitus with diabetic chronic kidney disease; N18.3 - Chronic kidney disease, stage 3 (moderate); Z79.4 - jail (current) use of insulin (13) Compression fracture Priority: Secondary Status: Chronic (14) Pneumonia Priority: Secondary Status: Acute Qualifiers: Pneumonia type: due to unspecified organism Laterality: unspecified laterality Lung location: unspecified part of lung Qualified Code(s): J18.9 - Pneumonia, unspecified organism (15) Cellulitis of right leg Priority: Secondary Status: Acute (16) Elevated troponin Priority: Secondary Status: Acute (17) Cellulitis of right breast Priority: Secondary Status: Acute (18) Sleep apnea Priority: Secondary Status: Chronic Qualifiers: Sleep apnea type: unspecified type Qualified Code(s): G47.30 - Sleep apnea, unspecified (19) Goals of care, counseling/discussion Priority: Secondary Status: Acute (20) Depression Priority: Secondary Status: Chronic Qualifiers: Depression Type: unspecified Qualified Code(s): F32.9 - Major depressive disorder, single episode, unspecified Hospital course: Ms. Lamb is a 68 year old female with PMH of CKD stage IV, morbid obesity, DM, Hypertension, CHF, atrial fibrillation, COPD on home oxygen who was admitted for acute on chronic CHF. She was further found to have sepsis secondary to bacteremia, and UTI. She was started broad spectrum IV abx. Throughout her hospitalization, her renal function deteriorated requiring initiation of hemodialysis. Pt's hospital course was also complicated with afib with rvr requiring cardizem drip. ID, nephrology, and cardiology evaluated the patient. Palliative care evaluation was requested. Pt wishes to pursue comfort care measures only at this time. She does not want any dialysis, any lab draws, or any other medications other than comfort meds at this time. Patient will be discharged to inpatient [facility] service for hospice care at this time. Palliative care team had this conversation with the patient and her Discharge discussed with: patient, family, nurse, social work, case management, citrix consultant - Time Spent with Patient Total time spent providing and/or coordinating discharge services: 40 minutes Time spent: Greater than 30 minutes - Discharge Medications Prescriptions: No Action Venlafaxine XR (24 HR) [Effexor Xr] 300 mg PO DAILY Losartan Potassium [Cozaar] 50 mg PO DAILY Vitamin B Complex 1 cap PO 1200 Pioglitazone [Actos] 45 mg PO DAILY Citalopram [CeleXA] 20 mg PO DAILY Loperamide HCl [Imodium A-D] 2 mg PO PRN PRN PRN Reason: Diarrhea Ferrous Sulfate 325 mg PO BIDWM #60 tablet Baclofen 20 mg PO TID PRN PRN Reason: LEG CRAMPS Omeprazole [PriLOSEC] 20 mg PO HS Loratadine [Allergy Relief] 10 mg PO DAILY PRN PRN Reason: allergies Calcium Carbonate [Tums] 500 mg PO Q4HR PRN PRN Reason: Indigestion metFORMIN [Glucophage] 500 mg PO BIDWM DiphenhydraMINE [Benadryl] 50 mg PO BID PRN PRN Reason: Itching Magnesium Hydroxide/Al Hydrox [Mag-Al Liquid] 30 ml PO DAILY PRN PRN Reason: Indigestion Insulin Glargine [Lantus] 40 unit SQ HS Potassium Chloride [K-Tab ER] 20 meq PO DAILY Caffeine [Stay Awake] 50 mg PO TID Apixaban [Eliquis] 2.5 mg PO BID Diltiazem HCl [Diltiazem 24Hr Cd] 120 mg PO DAILY Glucagon,Human Recombinant [Glucagen] 1 mg IM AD PRN PRN Reason: Blood Sugar - Low HYDROcodone/Acet 5/325 mg [[place] 5-325 mg] 1 tab PO BID Metoprolol Tartrate [Lopressor] 50 mg PO DAILY Multivitamin [Daily Multiple Vitamin] 1 tab PO DAILY HYDROcodone/Acet 5/325 mg [[place] 5-325 mg] 1 tab PO Q4H PRN PRN Reason: Pain GuaiFENesin ER [Mucinex] 600 mg PO BID #20 tbbp.12hr Gabapentin [Neurontin] 300 mg PO BID #30 capsule Furosemide [Lasix] 20 mg PO BID Home Medications: Citalopram [CeleXA] 20 mg PO DAILY 04/12/17 [History] Loperamide HCl [Imodium A-D] 2 mg PO PRN PRN 04/12/17 [History] Losartan Potassium [Cozaar] 50 mg PO DAILY 04/12/17 [History] Pioglitazone [Actos] 45 mg PO DAILY 04/12/17 [History] Venlafaxine XR (24 HR) [Effexor Xr] 300 mg PO DAILY 04/12/17 [History] Vitamin B Complex 1 cap PO 1200 04/12/17 [History] Ferrous Sulfate 325 mg PO BIDWM #60 tablet 04/16/17 [Rx] Baclofen 20 mg PO TID PRN 02/06/18 [History] Loratadine [Allergy Relief] 10 mg PO DAILY PRN 02/06/18 [History] Omeprazole [PriLOSEC] 20 mg PO HS 02/06/18 [History] Calcium Carbonate [Tums] 500 mg PO Q4HR PRN 02/07/18 [History] metFORMIN [Glucophage] 500 mg PO BIDWM 02/07/18 [History] Caffeine [Stay Awake] 50 mg PO TID 12/01/18 [History] DiphenhydraMINE [Benadryl] 50 mg PO BID PRN 12/01/18 [History] Insulin Glargine [Lantus] 40 unit SQ HS 12/01/18 [History] Magnesium Hydroxide/Al Hydrox [Mag-Al Liquid] 30 ml PO DAILY PRN 12/01/18 [History] Potassium Chloride [K-Tab ER] 20 meq PO DAILY 12/01/18 [History] Apixaban [Eliquis] 2.5 mg PO BID 12/03/18 [History] Diltiazem HCl [Diltiazem 24Hr Cd] 120 mg PO DAILY 12/03/18 [History] Glucagon,Human Recombinant [Glucagen] 1 mg IM AD PRN 12/03/18 [History] HYDROcodone/Acet 5/325 mg [[place] 5-325 mg] 1 tab PO BID 12/03/18 [History] HYDROcodone/Acet 5/325 mg [[place] 5-325 mg] 1 tab PO Q4H PRN 12/03/18 [History] Metoprolol Tartrate [Lopressor] 50 mg PO DAILY 12/03/18 [History] Multivitamin [Daily Multiple Vitamin] 1 tab PO DAILY 12/03/18 [History] Gabapentin [Neurontin] 300 mg PO BID #30 capsule 12/06/18 [Rx] GuaiFENesin ER [Mucinex] 600 mg PO BID #20 tbbp.12hr 12/06/18 [Rx] Furosemide [Lasix] 20 mg PO BID 03/31/19 [History] Allergies/Adverse Reactions: Allergy/AdvReac Type Severity Reaction Status Date / Time Tetracyclines Allergy Rash Verified 03/31/19 21:57 Penicillins AdvReac Gastrointestinal Verified 03/31/19 21:57 Upset shellfish derived AdvReac Headache Verified 03/31/19 21:57 Date of admission: 03/31/19 21:17 Primary care physician: Anmol Mancuso MD Consults: 03/31/19 23:57 Consult to Nurse Navigator [CONS] Routine Comment: 04/01/19 00:00 Consult to Nephrology [CONS] Routine Consulting Provider: Kidney [place]/TALITA/JENNIFER/DONOVAN Reason for Consult: Fluid overload CKD Call Completed: No 04/01/19 00:08 Consult to Wound Care [CONS] Routine Reason for Consult: Multiple wounds to lower extremities Call Completed: No 04/01/19 12:43 Consult to Invasive Line Access Team [CONS] Routine Reason for Consult: linited iv access Line Type: Midline 04/03/19 06:00 Consult to Interventional Radiology [CONS] Routine Consulting Provider: Radiology Interventional [place] Reason for Consult: Please assess for placement of a temporary HD catheter. Call Completed: No 04/03/19 07:30 Consult to Dialysis [CONS] ONCE 04/03/19 10:34 Consult to Infectious Diseases [CONS] Routine Consulting Provider: Infectious Disease [place] Reason for Consult: Leukocytosis Call Completed: Yes 04/03/19 11:04 Consult to Cardiology [CONS] Routine Comment: Consulting Provider: Cardiology [place] Reason for Consult: Elevated troponins Call Completed: No 04/04/19 06:30 Consult to Dialysis [CONS] ONCE 04/05/19 08:00 Consult to Dialysis [CONS] ONCE 04/05/19 17:22 Consult to Orthopedic Surgery [CONS] Routine Consulting Provider: Mychal Baptiste Reason for Consult: Left leg fracture Call Completed: Yes 04/07/19 08:45 Consult to Dialysis [CONS] ONCE 04/07/19 08:47 Consult to Palliative Care [CONS] Routine Comment: Consulting Provider: Palliative Care [place] Reason for Consult: goals of care. hospitalist to call Call Completed: Yes 04/08/19 07:45 Consult to Dialysis [CONS] ONCE 04/08/19 09:34 Consult to Cardiology [CONS] Routine Comment: Consulting Provider: Cardiology [place] Reason for Consult: afib with rvr Call Completed: Yes Discharging clinician: Yoon Ferris Anticipated date of discharge: 04/08/19 - Constitutional Vitals: Temp Pulse Resp BP Pulse Ox 98.0 F 127 20 98/76 97 04/08/19 07:43 04/08/19 07:43 04/08/19 07:43 04/08/19 07:43 04/08/19 07:43 Exam: General: No acute distress, AAO x 3, morbidly obese HEENT: EOMI, PERRLA, NC/AT, no scleral icterus Respiratory: Diminished breath sounds, no wheezing, no rales Cardiovascular: Regular, Rate, Rhythm, No murmurs GI: Soft, Non tender, non distended, normal bowel sounds Ext: b/l LE edema, right LE dressing intact Neuro: AAO x 3, no focal deficits Skin: Right breast erythema Psych: Depressed, No suicidal ideation Rest of the clinical exam is noncontributory - Patient Status Disposition: Transfer Other Condition: Fair - Discharge Instructions Follow Up With: Anmol Mancuso MD [Primary Care Provider] - 04/14/19 1:15 pm
--- NOTE | 2019-04-09 01:22 | Nephrology Progress Note ---
Date of Encounter: 04/08/19 Time of Encounter: 12:00 - Assessment and Plan (1) Acute kidney injury Status: Acute Given developments today with dialysis no longer wanted, will signoff Please, reconsult prn (2) Morbid obesity Status: Chronic (3) Hyperkalemia Status: Resolved (4) CKD (chronic kidney disease) stage 3, GFR 30-59 ml/min Status: Chronic (5) Anasarca Status: Acute Subjective Principal diagnosis: YEIMY, Hyperkalemia, sepsis, PAF Interval history: Informed by nurse early this am that pt was refusing dialysis again with at bedside who was supportive of her decision. Pt is now electing or hospice care. Pt seen and examined and affirmed she does not want any more dialysis or other invasive interventions. Pain also better controlled today, remains lethargic. Objective - Vital Signs Vital signs: Vital Signs Temp Pulse Resp BP Pulse Ox 04/08/19 07:43 98.0 F 127 20 98/76 97 04/08/19 03:56 97.9 F 121 18 129/79 94 Intake and Output 04/08/19 04/08/19 04/09/19 15:59 23:59 07:59 Intake Total 50 / 190.4 Output Total 200 / 550 Balance -150 / -359.6 Intake: IV Fluids 50 / 190.4 Cleocin Premix 900 MG/50 ML 900 50 / 100 mg In 50 ml @ 50 mls/hr IVPB Q8HR [facility] Rx#:[id number] Oral 0 / 0 Output: Catheter 200 / 550 Other: Meal Lunch Percent of Meal Consumed 0% - Lab 04/08/19 04:15 04/08/19 04:15 Consult Discharge Plan - Plan Referrals: Anmol Mancuso MD [Primary Care Provider] - 04/14/19 1:15 pm
== END 2019-04-08 14:54 | disposition other institution (70) | DRG 871 ==
LOC: EMEROOARM 19:08 → 2NNU 21:17 → SUATTDRO 21:17 → 2NNU 22:08
PROVIDERS: ADMIT Internal Medicine; ATTEND Internal Medicine

== ENCOUNTER 2019-04-08 12:19 | Inpatient (IN) ==
[2019-04-08] MEDS ORDERED: Bisacodyl 10 MG RECTAL SUPPOSITORY RC PRN (13:06)
[2019-04-08] MEDS ORDERED: Atropine Sulfate 1% 40 DROP/2 ML BOTTLE SL PRN (13:06)
[2019-04-08] MEDS ORDERED: *HR* LORazepam Oral Conc 2 MG/ML PO PRN (13:06)
[2019-04-08] MEDS ORDERED: Baclofen 10 MG TABLET PO PRN (13:09)
[2019-04-08] MEDS: *HR* FentaNYL PATCH 25 MCG PATCH TD SCH (15:36)
[2019-04-08] MEDS: Gabapentin 100 MG CAPSULE PO SCH ×2 (15:36→22:09)
[2019-04-08] MEDS ORDERED: Apixaban 5 MG TABLET PO SCH (21:00)
[2019-04-08] MEDS: Nystatin Cream 15 GM TUBE TP SCH (22:09)
[2019-04-08] MEDS: OXYCODONE Oral CONC 10 MG/0.5 ML ORAL.SYG SL PRN (22:18)
[2019-04-09] MEDS: Nystatin Cream 15 GM TUBE TP SCH ×2 (11:33→21:30)
[2019-04-09] MEDS: Miconazole 2% ointment 141 APPL/141 GM TUBE TP SCH (11:33)
[2019-04-09] MEDS: Diltiazem CD (24hr) 120 MG CAPSULE PO SCH (11:33)
[2019-04-09] MEDS: predniSONE 20 MG TABLET PO SCH (11:33)
[2019-04-09] MEDS: Gabapentin 100 MG CAPSULE PO SCH ×2 (11:33→21:29)
--- NOTE | 2019-04-09 12:54 | Pallative History & Physical ---
Date of Encounter: 04/09/19 Time of Encounter: 12:00 Assessment and Plan (1) Generalized pain Current visit: No Status: Acute Patient was started on Fentanyl patch 25mcg yesterday afternoon. She has only utilized 1 dose of breakthrough Oxycodone. She nods her head "no" that she is not in pain, but will not verbalize. Continue and monitor another 24 hours. (2) Anxiety Current visit: Yes Status: Acute Has Lorazepam available PRN. Has not utilized. (3) Palliative care encounter Current visit: Yes Status: Acute (4) Hospice care Current visit: Yes Status: Acute Continue inpatient hospice care. If she does not require escalation in medi cations, will need placement at ECF. selects [facility] in [place], hospice team aware. in [place] today,, so I have not spoken with him since yesterday. Patient is refusing most care/vitals/meds. (5) Acute exacerbation of chronic obstructive pulmonary disease (COPD) Current visit: No Status: Acute (6) Acute kidney injury Current visit: No Status: Acute (7) Acute on chronic diastolic CHF (congestive heart failure) Current visit: No Status: Acute (8) Cellulitis of right breast Current visit: No Status: Acute (9) Morbid obesity with BMI of 60.0-69.9, adult Current visit: No Status: Acute (10) Severe sepsis Current visit: No Status: Acute Internal Medicine - H&P: HPI Admitted From: Intrahospital Transfer Plans for Post Hospital Care: Transfer Long-Term Care History of present illness: Ms. Lamb is a 68 year old female who is a resident of [facility] and p resented with shortness of breath and leg pain. She has been in the hospital for the last several days, was found to have sepsis with + blood and urine cultures, have an Acute kidney injury. Infectious disease and nephrology were following closely. She has severe edema and was receiving dialysis/ultrafiltration. Right breast erythema/mastitis has been treated as well. She required Cardizem drip for her afib/rvr. She has PMH of morbid obesity, DM type II, HTN, arthritis. She had injury at F to right lower leg, and Ortho did see patient during this admission, stated no acute fracture. Palliative care was consulted when this patient starting refusing treatment including dialysis, and began stating that she wanted to pass away. Discussions were held, and patient initially agreed to dialysis and to continue atb therapy, and made herself DNR/DNI. She did receive dialysis on Sunday, however, yesterday she again declined dialysis and all treatment. Palliative again met with patient with her Jimmy at bedside, and she stated that she was refusing all treatment and wanted to pass away naturally. She stated it was her time and she wanted to go. did agree and stated that it was her decision. She was transitioned to DNC. Patient was having acute pain in her back and lower extremities that was poorly controlled. D/W that patient would be admitted to hospice under a general inpatient level of care for symptom management, and when stable, would likely transition back to ECF. He does not desire her to go back to [place], and wants her to go to the [facility] in [place]. Past Med Surg Social Fam HX - Past Medical History Medical history: arthritis, diabetes, GERD, hypertension, renal disease, other Additional medical history: Atrial Flutter Psychiatric history: anxiety, depression - Past Surgical History Surgical History: appendectomy, sinus surgery, bariatric surgery Additional surgical history: tonsilectomy, Stomach stappling, Sinus surgery,csection - Social History Smoking Status: Never smoker Smokeless Tobacco Status: No Alcohol use: none Drug use: none - Family History Mother Living Status: Hx Family Neurologic Disorders: Yes (Migraines) Hx Family Autoimmune Disorders: Yes (MS) Sister Hx Family Cancer: Yes Hx Family Autoimmune Disorders: Yes (Lupus) Father Living Status: Hx Family Cancer: Yes Hx Family Endocrine Disorder: Yes (diabetes) Internal Medicine - H&P: Meds Citalopram [CeleXA] 20 mg PO DAILY 04/12/17 [History] Loperamide HCl [Imodium A-D] 2 mg PO PRN PRN 04/12/17 [History] Losartan Potassium [Cozaar] 50 mg PO DAILY 04/12/17 [History] Pioglitazone [Actos] 45 mg PO DAILY 04/12/17 [History] Venlafaxine XR (24 HR) [Effexor Xr] 300 mg PO DAILY 04/12/17 [History] Vitamin B Complex 1 cap PO 1200 04/12/17 [History] Ferrous Sulfate 325 mg PO BIDWM #60 tablet 04/16/17 [Rx] Baclofen 20 mg PO TID PRN 02/06/18 [History] Loratadine [Allergy Relief] 10 mg PO DAILY PRN 02/06/18 [History] Omeprazole [PriLOSEC] 20 mg PO HS 02/06/18 [History] Calcium Carbonate [Tums] 500 mg PO Q4HR PRN 02/07/18 [History] metFORMIN [Glucophage] 500 mg PO BIDWM 02/07/18 [History] Caffeine [Stay Awake] 50 mg PO TID 12/01/18 [History] DiphenhydraMINE [Benadryl] 50 mg PO BID PRN 12/01/18 [History] Insulin Glargine [Lantus] 40 unit SQ HS 12/01/18 [History] Magnesium Hydroxide/Al Hydrox [Mag-Al Liquid] 30 ml PO DAILY PRN 12/01/18 [History] Potassium Chloride [K-Tab ER] 20 meq PO DAILY 12/01/18 [History] Apixaban [Eliquis] 2.5 mg PO BID 12/03/18 [History] Diltiazem HCl [Diltiazem 24Hr Cd] 120 mg PO DAILY 12/03/18 [History] Glucagon,Human Recombinant [Glucagen] 1 mg IM AD PRN 12/03/18 [History] HYDROcodone/Acet 5/325 mg [[place] 5-325 mg] 1 tab PO BID 12/03/18 [History] HYDROcodone/Acet 5/325 mg [[place] 5-325 mg] 1 tab PO Q4H PRN 12/03/18 [History] Metoprolol Tartrate [Lopressor] 50 mg PO DAILY 12/03/18 [History] Multivitamin [Daily Multiple Vitamin] 1 tab PO DAILY 12/03/18 [History] Gabapentin [Neurontin] 300 mg PO BID #30 capsule 12/06/18 [Rx] GuaiFENesin ER [Mucinex] 600 mg PO BID #20 tbbp.12hr 12/06/18 [Rx] Furosemide [Lasix] 20 mg PO BID 03/31/19 [History] Allergy/AdvReac Type Severity Reaction Status Date / Time Tetracyclines Allergy Rash Verified 03/31/19 21:57 Penicillins AdvReac Gastrointestinal Verified 03/31/19 21:57 Upset shellfish derived AdvReac Headache Verified 03/31/19 21:57 ROS unobtainable: due to mental status Palliative Care-Exam - Constitutional Vitals: Temp Pulse Resp BP Pulse Ox 98.4 F 132 20 113/72 97 04/09/19 00:07 04/09/19 00:07 04/09/19 00:07 04/09/19 00:07 04/09/19 00:07 General appearance: Present: no acute distress - Head Head Exam: Present: normal inspection, normocephalic - Eye Eye exam: Present: normal appearance, PERRL - Respiratory Respiratory exam: Present: decreased breath sounds, CTAB - Cardiovascular Cardiovascular exam: Present: irregular rhythm, tachycardia - GI/Abdominal Exam GI/Abdominal exam: Present: distended, normal bowel sounds, soft - Catheter Type: Urethral ([place]) - Extremities Exam Additional comments: 4+ edema to all extremities with weeping noted. Lower extremities wrapped with kerlix - Neurological Exam Neurological exam: Present: alert Additional comments: Patient not as alert today, would not verbalize or speak to me. Did shake head yes/no to questions. Would not follow commands. - Skin Additional comments: Redness, excoriation to skin folds. Right breast with erythema. Palliative Quality Palliative Quality: Screen for Code Status: Yes, Screen for Goals of Care: Yes, Screen for Pain: Yes, If Pain Regimen Started, Initiate Bowel Regimen: Yes, Screen for Nausea/Vomitting: Yes Code Status: 04/08/19 13:06 Resuscitation Status: Active [RES] Routine Comment: Resuscitation Status: DNR-Comfort Care
[2019-04-10] MEDS: Miconazole 2% ointment 141 APPL/141 GM TUBE TP SCH (08:49)
[2019-04-10] MEDS: Diltiazem CD (24hr) 120 MG CAPSULE PO SCH (08:50)
[2019-04-10] MEDS: Nystatin Cream 15 GM TUBE TP SCH ×2 (08:50→21:29)
[2019-04-10] MEDS: predniSONE 20 MG TABLET PO SCH (08:50)
[2019-04-10] MEDS: Gabapentin 100 MG CAPSULE PO SCH ×3 (08:50→21:29)
[2019-04-10] MEDS: OXYCODONE Oral CONC 10 MG/0.5 ML ORAL.SYG SL PRN ×3 (09:00→19:05)
--- NOTE | 2019-04-10 12:29 | Palliative - Consult Note ---
Date of Encounter: 04/10/19 Time of Encounter: 12:00 - Assessment and Plan (1) Anxiety Current Visit: No Status: Acute Assessment and plan: Patient with history of anxiety. PRN ativan. No doses requested. (2) Generalized pain Current Visit: No Status: Acute (3) Goals of care, counseling/discussion Current Visit: Yes Status: Acute Assessment and plan: Patient admitted to hospice under a general inpatient level of care for symptom management. Patient shakes head yes in response to pain patch working. Called [facility] to assess for bed placement at [facility]. Patient comfortable. Will transition when bed available. Patient is DNC - Comfort Care. (4) Morbid obesity with BMI of 60.0-69.9, adult Current Visit: No Status: Acute Assessment and plan: Patient nonverbal and shakes head yes or no. Current regimen of Fentanyl patch proving to be effective. (5) CKD (chronic kidney disease) stage 3, GFR 30-59 ml/min Current Visit: Yes Status: Chronic Assessment and plan: Patient desires no further dialysis. Transition to comfort care. (6) Palliative care encounter Current Visit: Yes Status: Acute Palliative-CN HPI - Data of Consult Patient: new to practice Consult date: 04/10/19 Requesting Physician: Cathy Baptiste MD Primary Care Provider: PCP NONE - Consult Narrative Palliative Care/Comfort Measures: Palliative care Reason for consult: symptom management History of present illness: Ms. Lamb is a 68 year old female who is a resident of [facility] and presented with shortness of breath and leg pain. She has been in the hospital for the last several days, was found to have sepsis with + blood and urine cultures, have an Acute kidney injury. Infectious disease and nephrology were following closely. She has severe edema and was receiving dialysis/ultrafiltration. Right breast erythema/mastitis has been treated as well. She required Cardizem drip for her afib/rvr. She has PMH of morbid obesity, DM type II, HTN, arthritis. She had injury at [facility] to right lower leg, and Ortho did see patient during this admission, stated no acute fracture. She was transitioned to [facility] and admitted to inpatient hospice care. This palliative care consult is for symptom management. CC: Cathy Baptiste MD - Time Spent with Patient Time: Total time spent is greater than 50% in coordination of care (as documented) at patient's floor/unit and/or counseling patient: Time with patient: 30 minutes Past Med Surg Social Fam HX - Past Medical History Attestation: Yes The following information was validated with the patient. Source: patient, old records reviewed, nursing notes reviewed Medical history: arthritis, diabetes, GERD, hypertension, renal disease, other Additional medical history: Atrial Flutter Psychiatric history: anxiety, depression - Past Surgical History Surgical History: appendectomy, sinus surgery, bariatric surgery Additional surgical history: tonsilectomy, Stomach stappling, Sinus surgery,csection - Social History Smoking Status: Never smoker Smokeless Tobacco Status: No Alcohol use: none Drug use: none - Family History Mother Living Status: Hx Family Neurologic Disorders: Yes (Migraines) Hx Family Autoimmune Disorders: Yes (MS) Sister Hx Family Cancer: Yes Hx Family Autoimmune Disorders: Yes (Lupus) Father Living Status: Hx Family Cancer: Yes Hx Family Endocrine Disorder: Yes (diabetes) Medications and Allergies Citalopram [CeleXA] 20 mg PO DAILY 04/12/17 [History] Loperamide HCl [Imodium A-D] 2 mg PO AD PRN 04/12/17 [History] Losartan Potassium [Cozaar] 50 mg PO DAILY 04/12/17 [History] Pioglitazone [Actos] 45 mg PO DAILY 04/12/17 [History] Venlafaxine XR (24 HR) [Effexor Xr] 300 mg PO DAILY 04/12/17 [History] Vitamin B Complex 1 cap PO DAILY@1200 04/12/17 [History] Baclofen 20 mg PO TID PRN 02/06/18 [History] Loratadine [Allergy Relief] 10 mg PO DAILY PRN 02/06/18 [History] Omeprazole [PriLOSEC] 20 mg PO HS 02/06/18 [History] metFORMIN [Glucophage] 500 mg PO BIDWM 02/07/18 [History] DiphenhydraMINE [Benadryl] 50 mg PO BID 12/01/18 [History] Insulin Glargine [Lantus] 40 unit SQ HS 12/01/18 [History] Apixaban [Eliquis] 2.5 mg PO BID 12/03/18 [History] Diltiazem HCl [Diltiazem 24Hr Cd] 120 mg PO DAILY 12/03/18 [History] Glucagon,Human Recombinant [Glucagen] 1 mg IM AD PRN 12/03/18 [History] HYDROcodone/Acet 5/325 mg [[place] 5-325 mg] 1 tab PO BID 12/03/18 [History] HYDROcodone/Acet 5/325 mg [[place] 5-325 mg] 1 tab PO Q4H PRN 12/03/18 [History] Metoprolol Tartrate [Lopressor] 50 mg PO DAILY 12/03/18 [History] Multivitamin [Daily Multiple Vitamin] 1 tab PO DAILY 12/03/18 [History] Gabapentin [Neurontin] 300 mg PO BID #30 capsule 12/06/18 [Rx] Furosemide [Lasix] 20 mg PO BID 03/31/19 [History] Ciclopirox Olamine [Ciclopirox] 1 appl TP BID PRN 04/10/19 [History] Ferrous Sulfate 325 mg PO BID 04/10/19 [History] GuaiFENesin/Dextromethorphan [Mucus Relief Dm Cough Tablet] 1 tab PO BID 04/10/19 [History] Mag Hydrox/Al Hydrox/Simeth [Maalox] 30 ml PO DAILY PRN 04/10/19 [History] Non-Formulary Medication 50 mg PO TID 04/10/19 [History] Nystatin OINT [Mycostatin] 1 appl TP BID 04/10/19 [History] Potassium Chloride [K-Tab ER] 10 meq PO DAILY 04/10/19 [History] Allergy/AdvReac Type Severity Reaction Status Date / Time Tetracyclines Allergy Rash Verified 03/31/19 21:57 Penicillins AdvReac Gastrointestinal Verified 03/31/19 21:57 Upset shellfish derived AdvReac Headache Verified 03/31/19 21:57 ROS unobtainable: due to mental status (patient nonverbal and weak) - Constitutional Constitutional ROS PAL: fatigue - Cardiovascular Cardiovascular ROS: pedal edema - Gastrointestinal Gastrointestinal: as per HPI - Genitourinary Palliative ROS female: as per HPI - Musculoskeletal Musculoskeletal ROS IM: arthralgias, muscle weakness - Neurological Neurological ROS: weakness - Psychiatric Psychiatric general PM: anxiety, depression Palliative Care-Exam - Constitutional Vitals: Temp Pulse Resp BP Pulse Ox 98.2 F 132 16 113/72 99 04/09/19 23:36 04/09/19 00:07 04/09/19 23:36 04/09/19 00:07 04/09/19 23:36 General appearance: Present: morbidly obese, no acute distress - Head Head Exam: Present: atraumatic, normal inspection, normocephalic - Eye Eye exam: Present: PERRL Pupils: Present: PERRL - ENT ENT exam: Present: mucous membranes moist - Respiratory Respiratory exam: Present: decreased breath sounds - Expanded Respiratory Exam Location: decreased breath sounds: Left, Right, Lower - Cardiovascular Cardiovascular exam: Present: RRR, +S1, +S2 - Expanded Cardiovascular Exam Peripheral pulses: 1+: Femoral (L) PM, Femoral (R) PM, Posterior Tibialis (L), Posterior Tibialis (R), Dorsalis Pedis (L) PM, Dorsalis Pedis (R) PM, 2+: Carotid (L) PM, Carotid (R) PM, Radial (L), Radial (R) - GI/Abdominal Exam GI/Abdominal exam: Present: diminished bowel sounds - Expanded Upper Extremities Exam Forearm wrist exam: Present: full ROM - Neurological Exam Neurological exam: Present: alert Additional comments: only responds with head shake to yes or no - Expanded Neurological Exam Coma Scale Eye Opening: To Voice Coma Scale Motor Response: Localizes to Pain Coma Scale Verbal Response: Inappropriate Coma Scale Total: 11 - Psychiatric Psychiatric exam: Present: flat affect - Skin Skin exam: Present: pallor, warm Consult Discharge Plan - Plan Referrals: NONE,PCP [Primary Care Provider] - Palliative Quality Palliative Quality: Screen for Code Status: Yes, Screen for Goals of Care: Yes, Screen for Pain: Yes, If Pain Regimen Started, Initiate Bowel Regimen: Yes, Screen for Nausea/Vomitting: Yes Code Status: 04/08/19 13:06 Resuscitation Status: Active [RES] Routine Comment: Resuscitation Status: DNR-Comfort Care
[2019-04-10 19:00] VITALS: BP 98/47
[2019-04-11] MEDS: OXYCODONE Oral CONC 10 MG/0.5 ML ORAL.SYG SL PRN ×3 (08:35→18:42)
[2019-04-11] MEDS: Miconazole 2% ointment 141 APPL/141 GM TUBE TP SCH (08:49)
[2019-04-11] MEDS: Nystatin Cream 15 GM TUBE TP SCH (08:49)
[2019-04-11] MEDS: predniSONE 20 MG TABLET PO SCH (08:49)
[2019-04-11] MEDS: Diltiazem CD (24hr) 120 MG CAPSULE PO SCH (08:49)
[2019-04-11] MEDS: Gabapentin 100 MG CAPSULE PO SCH ×2 (08:49→18:41)
--- NOTE | 2019-04-11 13:31 | Discharge Summary ---
Date of Encounter: 04/11/19 Time of Encounter: 13:00 - Discharge Diagnosis (1) CKD (chronic kidney disease) stage 3, GFR 30-59 ml/min Priority: Primary Status: Chronic Comments: Patient refuses dialysis and desires to transition to comfort care. Patient will be enrolled in hospice at [facility]. (2) Goals of care, counseling/discussion Priority: Primary Status: Acute Comments: Ms. Lamb is a 68 year old female who will return to [facility]. She presented with shortness of breath and leg pain. She was found to have sepsis with + blood and urine cultures, have an Acute kidney injury. Infectious disease and nephrology were followed closely. She has severe edema and was receiving dialysis/ultrafiltration. Right breast erythema/mastitis was treated as well. She has PMH of morbid obesity, DM type II, HTN, arthritis. She had injury at [facility] to right lower leg, and Ortho did see patient during this admission, stated no acute fracture. Palliative care was consulted when this patient starting refusing treatment including dialysis, and began stating that she wanted to pass away. Discussions were held, and patient initially agreed to dialysis and to continue atb therapy, and made herself DNR/DNI. She did receive dialysis on Sunday, however, she declined dialysis and all treatment. Palliative again met with patient with her Jimmy at bedside, and she stated that she was refusing all treatment and wanted to pass away naturally. She stated it was her time and she wanted to go. did agree and stated that it was her decision. She was transitioned to DNC. Patient is being discharged to [facility] with hospice care per her desires. (3) Anxiety Priority: Secondary Status: Acute (4) Generalized pain Priority: Secondary Status: Chronic (5) Morbid obesity with BMI of 60.0-69.9, adult Priority: Secondary Status: Acute (6) Palliative care encounter Priority: Secondary Status: Acute - Hospital Course Hospital course: Ms. Lamb is a 68 year old female who is a resident of [facility] and presented with shortness of breath and leg pain. She had been in the hospital for the several days, was found to have sepsis with + blood and urine cultures, have an Acute kidney injury. Infectious disease and nephrology were following closely. She has severe edema and was receiving dialysis/ultrafiltration. Right breast erythema/mastitis has been treated as well. She required Cardizem drip for her afib/rvr. She has PMH of morbid obesity, DM type II, HTN, arthritis. [facility], and Ortho did see patient during this admission, stated no acute fracture. Palliative care was consulted when this patient starting refusing treatment including dialysis, and began stating that she wanted to pass away. Discussions were held, and patient initially agreed to dialysis and to continue atb therapy, and made herself DNR/DNI. She did receive dialysis on Sunday, however, yesterday she again declined dialysis and all treatment. Palliative again met with patient with her Jimmy at bedside, and she stated that she was refusing all treatment and wanted to pass away naturally. She stated it was her time and she wanted to go. did agree and stated that it was her decision. She was transitioned to DNC. On 04/08/19 she transitioned to inpatient hospice care awaiting bed placement at the [facility]. Patient has received comfort care medications and is DNRCC - Comfort care. - Time Spent with Patient Total time spent providing and/or coordinating discharge services: Less than 30 minutes - Discharge Medications Prescriptions: New LORazepam Oral Conc [Ativan Oral Conc] 1 mg PO Q4HR PRN 4 Days #15 mls PRN Reason: Anxiety fentaNYL [Fentanyl] 25 patch TD Q3D 6 Days #2 patch.td72 OXYCODONE Oral CONC [Oxycodone Oral Conc] 5 mg SL Q3H PRN 4 Days #15 ml PRN Reason: Anxiety No Action Venlafaxine XR (24 HR) [Effexor Xr] 300 mg PO DAILY Losartan Potassium [Cozaar] 50 mg PO DAILY Vitamin B Complex 1 cap PO DAILY@1200 Pioglitazone [Actos] 45 mg PO DAILY Citalopram [CeleXA] 20 mg PO DAILY Loperamide HCl [Imodium A-D] 2 mg PO AD PRN PRN Reason: Loose Stool Baclofen 20 mg PO TID PRN PRN Reason: LEG CRAMPS Omeprazole [PriLOSEC] 20 mg PO HS Loratadine [Allergy Relief] 10 mg PO DAILY PRN PRN Reason: allergies metFORMIN [Glucophage] 500 mg PO BIDWM DiphenhydraMINE [Benadryl] 50 mg PO BID Insulin Glargine [Lantus] 40 unit SQ HS Apixaban [Eliquis] 2.5 mg PO BID Diltiazem HCl [Diltiazem 24Hr Cd] 120 mg PO DAILY Glucagon,Human Recombinant [Glucagen] 1 mg IM AD PRN PRN Reason: Blood Sugar - Low HYDROcodone/Acet 5/325 mg [[place] 5-325 mg] 1 tab PO BID Metoprolol Tartrate [Lopressor] 50 mg PO DAILY Multivitamin [Daily Multiple Vitamin] 1 tab PO DAILY HYDROcodone/Acet 5/325 mg [Ray 5-325 mg] 1 tab PO Q4H PRN PRN Reason: Pain Gabapentin [Neurontin] 300 mg PO BID #30 capsule Furosemide [Lasix] 20 mg PO BID Ciclopirox Olamine [Ciclopirox] 1 appl TP BID PRN PRN Reason: EBORRHEIC DERMATITIS Ferrous Sulfate 325 mg PO BID GuaiFENesin/Dextromethorphan [Mucus Relief Dm Cough Tablet] 1 tab PO BID Mag Hydrox/Al Hydrox/Simeth [Maalox] 30 ml PO DAILY PRN PRN Reason: Indigestion Nystatin OINT [Mycostatin] 1 appl TP BID Potassium Chloride [K-Tab ER] 10 meq PO DAILY Caffeine [No Doz] 50 mg PO TID Home Medications: Citalopram [CeleXA] 20 mg PO DAILY 04/12/17 [History] Loperamide HCl [Imodium A-D] 2 mg PO AD PRN 04/12/17 [History] Losartan Potassium [Cozaar] 50 mg PO DAILY 04/12/17 [History] Pioglitazone [Actos] 45 mg PO DAILY 04/12/17 [History] Venlafaxine XR (24 HR) [Effexor Xr] 300 mg PO DAILY 04/12/17 [History] Vitamin B Complex 1 cap PO DAILY@1200 04/12/17 [History] Baclofen 20 mg PO TID PRN 02/06/18 [History] Loratadine [Allergy Relief] 10 mg PO DAILY PRN 02/06/18 [History] Omeprazole [PriLOSEC] 20 mg PO HS 02/06/18 [History] metFORMIN [Glucophage] 500 mg PO BIDWM 02/07/18 [History] DiphenhydraMINE [Benadryl] 50 mg PO BID 12/01/18 [History] Insulin Glargine [Lantus] 40 unit SQ HS 12/01/18 [History] Apixaban [Eliquis] 2.5 mg PO BID 12/03/18 [History] Diltiazem HCl [Diltiazem 24Hr Cd] 120 mg PO DAILY 12/03/18 [History] Glucagon,Human Recombinant [Glucagen] 1 mg IM AD PRN 12/03/18 [History] HYDROcodone/Acet 5/325 mg [[place] 5-325 mg] 1 tab PO BID 12/03/18 [History] HYDROcodone/Acet 5/325 mg [Ray 5-325 mg] 1 tab PO Q4H PRN 12/03/18 [History] Metoprolol Tartrate [Lopressor] 50 mg PO DAILY 12/03/18 [History] Multivitamin [Daily Multiple Vitamin] 1 tab PO DAILY 12/03/18 [History] Gabapentin [Neurontin] 300 mg PO BID #30 capsule 12/06/18 [Rx] Furosemide [Lasix] 20 mg PO BID 03/31/19 [History] Caffeine [No Doz] 50 mg PO TID 04/10/19 [History] Ciclopirox Olamine [Ciclopirox] 1 appl TP BID PRN 04/10/19 [History] Ferrous Sulfate 325 mg PO BID 04/10/19 [History] GuaiFENesin/Dextromethorphan [Mucus Relief Dm Cough Tablet] 1 tab PO BID 04/10/19 [History] Mag Hydrox/Al Hydrox/Simeth [Maalox] 30 ml PO DAILY PRN 04/10/19 [History] Nystatin OINT [Mycostatin] 1 appl TP BID 04/10/19 [History] Potassium Chloride [K-Tab ER] 10 meq PO DAILY 04/10/19 [History] LORazepam Oral Conc [Ativan Oral Conc] 1 mg PO Q4HR PRN 4 Days #15 mls 04/11/19 [Rx] OXYCODONE Oral CONC [Oxycodone Oral Conc] 5 mg SL Q3H PRN 4 Days #15 ml 04/11/19 [Rx] fentaNYL [Fentanyl] 25 patch TD Q3D 6 Days #2 patch.td72 04/11/19 [Rx] Allergies/Adverse Reactions: Allergy/AdvReac Type Severity Reaction Status Date / Time Tetracyclines Allergy Rash Verified 03/31/19 21:57 Penicillins AdvReac Gastrointestinal Verified 03/31/19 21:57 Upset shellfish derived AdvReac Headache Verified 03/31/19 21:57 Internal Medicine - DS: Prov Date of admission: 04/08/19 14:54 Primary care physician: PCP NONE Admitting clinician: Cathy Baptiste Attending physician on admission: Cathy Baptiste Consults: 04/08/19 13:06 Consult to Palliative Care [CONS] Routine Comment: Consulting Provider: Palliative Care [place] Reason for Consult: GIP Call Completed: No Attending physician on discharge: Cathy Baptiste Discharging clinician: Hannah Aguero Anticipated date of discharge: 04/11/19 Internal Medicine - DS: Exam - Constitutional Vitals: Vital Signs Temp Pulse Resp BP Pulse Ox 04/10/19 18:55 98.2 F 151 14 98/47 98 Intake and Output 04/10/19 04/11/19 04/11/19 23:59 07:59 15:59 Intake Total 240 / 240 Output Total 350 / 1150 500 / 500 Balance -350 / -910 -260 / -260 Intake: Oral 240 / 240 Output: Catheter 350 / 1150 500 / 500 Urethral ([place]) 500 / 500 Other: Meal Dinner Breakfast Percent of Meal Consumed 0% 0% General appearance: cooperative, no acute distress - Head Head exam: Present: atraumatic, normal inspection, normocephalic - Eye Eye exam: Present: PERRL - ENT ENT exam: Present: mucous membranes moist - Neck Neck exam: Present: full ROM - Respiratory Respiratory exam: Present: decreased breath sounds - Expanded Respiratory Exam Location: decreased breath sounds: Left, Right, Lower - Cardiovascular Cardiovascular exam: Present: RRR, +S1, +S2 - GI/Abdominal GI/Abdominal exam: Present: soft - Extremities Exam Extremities exam: Present: joint swelling, pedal edema, tenderness - Back Exam Back exam: Present: tenderness - Neurological Exam Neurological exam: Present: altered - Psychiatric Psychiatric exam: Present: flat affect - Skin Skin exam: Present: pallor, warm Procedures and tests throughout hospitalization: None - Impressions None - Patient Status Disposition: Transfer SNF Condition: Fair Functional capacity at discharge: bed bound Overall status at discharge: patient is back to baseline - Discharge Instructions Instructions: Diabetes Mellitus Type 2 in Adults (DC) Follow Up With: NONE,PCP [Primary Care Provider] - - Diet and Activity Activity: other (bedbound, requires bariatric bed) Diet: diabetic diet
--- NOTE | 2019-04-11 14:13 | Event Note ---
Date of Encounter: 04/11/19 Time of Encounter: 14:00 Met at bedside with patients Jose. Updated him on POC. Patient awaiting transfer ambulance to transfer to [facility]. Patient opens eyes and states that she is ready to and is ready to go to ECF. Support provided. Completed State DNRCC Comfort Care form and completed prescriptions for comfort medications.
[2019-04-11] MEDS: *HR* FentaNYL PATCH 25 MCG PATCH TD SCH (14:58)
== END 2019-04-11 19:05 | DRG 555 ==
LOC: 2NNU 14:54
PROVIDERS: ADMIT Internal Medicine Hospice and Palliative Medicine; ATTEND Internal Medicine Hospice and Palliative Medicine